=== PATIENT | male | born 1930 | race Hispanic/Latino ===

== ENCOUNTER 2017-07-08 22:24 | Inpatient (IN) | payer MEDICARE ==
[2017-07-08 22:24] VITALS: BMI 34.9
[2017-07-08 23:57] LABS: ARTERIAL BLOOD GAS HCO3 27.2 mmol/L (21-28); ARTERIAL BLOOD GAS HEMOGLOBIN 10.8 g/dL (11.7-17.4); ARTERIAL BLOOD GAS O2 CAPACITY 14.8 mL/dl (16-24); ARTERIAL BLOOD GAS O2 CONTENT 14.3 ML/dl (15-23); ARTERIAL BLOOD GAS O2 SAT 96.6 % (95-98); ARTERIAL BLOOD GAS PCO2 41 mm/Hg (35-45); ARTERIAL BLOOD GAS PH 7.43 (7.35-7.45); ARTERIAL BLOOD GAS TCO2 28.5 mmol.L (22-28)
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
[2017-07-09 00:27] LABS: HEMOGLOBIN 10.7 g/dL (14.0-18.0); MEAN CELL VOLUME 95.1 fl (80.0-105.0); MEAN CORPUSCULAR HEMOGLOBIN 30.6 pg (25.0-35.0); MEAN CORPUSCULAR HGB CONC 32.1 g/dl (31.0-37.0); MEAN PLATELET VOLUME 9.7 fl (7.0-11.0); RBC 3.5 10^6/uL (3.5-6.1); RED CELL DISTRIBUTION WIDTH 15.4 % (11.5-14.5); WHITE BLOOD COUNT 3.3 10^3/ul (4.5-11.0)
[2017-07-09 00:35] LABS: INR 1.24 (0.93-1.08); PARTIAL THROMBOPLASTIN TIME 36.6 Seconds (25.1-36.5); PROTHROMBIN TIME 14.2 SECONDS (9.4-12.5)
[2017-07-09 00:45] LABS: TROPONIN I 0.04 ng/mL
[2017-07-09 01:00] LABS: ALB/GLOB RATIO 1.3 (1.1-1.8); ALBUMIN 3.2 g/dL (3.0-4.8); ALT/SGPT 35 U/L (7-56); AST/SGOT 35 U/L (17-59); BLOOD UREA NITROGEN 20 mg/dL (7-21); CALCIUM 8.6 mg/dL (8.4-10.5); GFR AFRICAN-AMERICAN > 60; GFR NON-AFRICAN AMERICAN > 60
--- NOTE | 2017-07-09 01:56 | CT ---
EXAM: CT Head Without Intravenous Contrast EXAM DATE/TIME: 07/08/2017 11:38 PM CLINICAL HISTORY: The patient age is 86 years old and is male; Signs and symptoms; Altered mental status/memory loss; Additional info: [facility] Facility exam id and description: Ct heads head w/o contrast TECHNIQUE: Axial computed tomography images of the head/brain without intravenous contrast. All CT scans at this facility use one or more dose reduction techniques, viz.: automated exposure control; ma/kV adjustment per patient size (including targeted exams where dose is matched to indication; i.e. head); or iterative reconstruction technique. Coronal and sagittal reformatted images were created and reviewed. COMPARISON: CT - HEAD W/O CONTRAST 2016-09-14 10:00 FINDINGS: Brain: There are bands of high density within the superior frontoparietal convexities, likely contributed by motion artifact. Hemorrhage is considered less likely. There is no acute intracranial hemorrhage on the remainder of the study. There are scattered foci of hypodensity within the cerebral white matter, likely representing small vessel ischemic disease in a patient this age. The acuity of the white matter disease is indeterminate. There are calcifications within the globus pallidus bilaterally, which are likely physiologic. The white-willoughby differentiation is preserved demonstrating no acute territorial type infarct. There is mild to moderate prominence of the ventricles and sulci, compatible with atrophy. Midline shift: There is no midline shift. Ventricles: See above. Bones/joints: The calvarium demonstrates no evidence for a depressed fracture. There is a focal area of thinning of the superior left parietal skull versus a hypodense lesion. This is stable compared to the prior study. Soft tissues: No acute abnormality. Vasculature: There is atherosclerotic calcification of the cavernous internal carotid arteries, basilar artery, and distal vertebral arteries. Sinuses: A small mucous retention cyst or polyp is visualized within the left maxillary sinus. There is mucosal thickening of the left frontal sinus and scattered ethmoid air cells. Mastoid air cells: No mastoid effusion. IMPRESSION: 1. There are bands of high density within the superior frontoparietal convexities, likely contributed by motion artifact. Hemorrhage is considered less likely. If the patient has a history of recent trauma, a repeat CT is recommended. 2. No acute territorial type infarct. 3. There are scattered foci of hypodensity within the cerebral white matter, likely representing small vessel ischemic disease in a patient this age. 4. Mild to moderate atrophy. 5. Paranasal sinus disease is noted above.
[2017-07-09 01:58] LABS: PH,URINE 6.5 (4.7-8.0); URINE BILIRUBIN NEGATIVE (NEGATIVE); URINE BLOOD SMALL (NEGATIVE); URINE GLUCOSE (UA) NEGATIVE (NEGATIVE); URINE LEUKOCYTE ESTERASE NEGATIVE Leu/uL (NEGATIVE); URINE NITRATE NEGATIVE (NEGATIVE); URINE PROTEIN TRACE mg/dL (<30 mg/dL); URINE UROBILINOGEN 0.2 E.U./dL (<1 E.U./dL)
[2017-07-09 02:05] LABS: URINE APPEARANCE CLEAR (CLEAR); URINE COLOR YELLOW (YELLOW)
[2017-07-09 02:12] LABS: URINE EPITHELIAL CELLS 0 - 2 /hpf (0-5); URINE WBC 0 - 2 /hpf (0-6)
[2017-07-09 02:13] LABS: URINE HYALINE CAST 0 - 2 /hpf
[2017-07-09 09:41] LABS: BASO # 0.04 K/mm3 (0.0-2.0); BASO % 1.4 % (0.0-3.0); EOS # 0.1 (0.0-0.7); EOS % 2.8 % (1.5-5.0); GRAN # 1.04 (1.4-6.5); GRAN % 36.4 % (50.0-68.0); HEMOGLOBIN 11.2 g/dL (14.0-18.0); LYMPH % 34.6 % (22.0-35.0); MEAN CORPUSCULAR HEMOGLOBIN 30.5 pg (25.0-35.0); MEAN CORPUSCULAR HGB CONC 32.5 g/dl (31.0-37.0); MEAN PLATELET VOLUME 9.8 fl (7.0-11.0); MONO # 0.7 (0.1-0.6); MONO % 24.8 % (1.0-6.0); PLATELET COUNT 66 10^3/uL (120.0-450.0); RBC 3.67 10^6/uL (3.5-6.1); RED CELL DISTRIBUTION WIDTH 15.2 % (11.5-14.5)
--- NOTE | 2017-07-09 09:43 | RAD ---
HISTORY: ams COMPARISON: 12/30/2011 FINDINGS: LUNGS: No active pulmonary disease. PLEURA: No significant pleural effusion identified, no pneumothorax apparent. CARDIOVASCULAR: Mild cardiomegaly. Aortic tortuosity OSSEOUS STRUCTURES: Sternal wires VISUALIZED UPPER ABDOMEN: Normal. OTHER FINDINGS: None. IMPRESSION: No active disease.
[2017-07-09] MEDS ORDERED: Potassium Chloride 20 mEq ER Tab PO SCH (10:00)
[2017-07-09 10:10] LABS: WHITE BLOOD COUNT 2.9 10^3/ul (4.5-11.0)
[2017-07-09 10:12] LABS: T3 UPTAKE 36.9 % (23.0-41.0); T4 5.4 ug/dL (5.5-11.0)
[2017-07-09] MEDS: Cholestyramine 4 gm/Pkt UD PO SCH (10:53)
[2017-07-09] MEDS: Levothyroxine 50 MCG TAB PO SCH (10:54)
[2017-07-09 10:56] LABS: BAND 5 % (0-2); BASOPHIL 1 % (0.0-1.0); EOSINOPHIL 2 % (0.0-3.0); LYMPHOCYTE 29 % (22.0-35.0); MONOCYTE 13 % (1.0-6.0); NEUTROPHIL 50 % (50.0-70.0); PLATELET ESTIMATE LOW (NORMAL)
[2017-07-09 10:57] LABS: ANISOCYTOSIS SLIGHT; HYPOCHROMIA SLIGHT; OVALOCYTES SLIGHT; TEAR DROP CELLS SLIGHT
--- NOTE | 2017-07-09 13:18 | CP.PCM.PCO ---
Physician Communication Note - Physician Communication Note Physician Communication Note: Dementia. Would rec aricept 10mg and Namenda 10 mg po daily. Needsplacment
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
[2017-07-09 17:30] LABS: FOLATE > 20.0 ng/mL
--- NOTE | 2017-07-09 22:01 | CARD ---
APPROVED REPORT EKG Measurement Heart [id number] <Conclusion> Sinus bradycardia Left axis deviation Incomplete left bundle branch block Abnormal ECG
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
[2017-07-10 07:15] LABS: MEAN CELL VOLUME 92.9 fl (80.0-105.0); MEAN CORPUSCULAR HEMOGLOBIN 30.1 pg (25.0-35.0); MEAN CORPUSCULAR HGB CONC 32.4 g/dl (31.0-37.0); MEAN PLATELET VOLUME 9.7 fl (7.0-11.0); RBC 3.65 10^6/uL (3.5-6.1); RED CELL DISTRIBUTION WIDTH 15.1 % (11.5-14.5)
[2017-07-10 07:24] LABS: ALB/GLOB RATIO 1.2 (1.1-1.8); ALBUMIN 2.8 g/dL (3.0-4.8); ALT/SGPT 31 U/L (7-56); AST/SGOT 29 U/L (17-59); BLOOD UREA NITROGEN 20 mg/dL (7-21); CALCIUM 8.7 mg/dL (8.4-10.5); GFR AFRICAN-AMERICAN > 60; GFR NON-AFRICAN AMERICAN > 60
[2017-07-10 07:35] LABS: WHITE BLOOD COUNT 2.6 10^3/ul (4.5-11.0)
[2017-07-10] MEDS: Cholestyramine 4 gm/Pkt UD PO SCH (10:18)
[2017-07-10] MEDS: Levothyroxine 50 MCG TAB PO SCH (10:18)
[2017-07-10] MEDS ORDERED: Barium Sulfate Susp 2.1% w/v, 2.0% w/w 450 mL Bottle PO ONE (11:52)
[2017-07-10] MEDS: Insulin Reg-LOW-Coverage SC SCH ×3 (14:36→23:17)
--- NOTE | 2017-07-10 14:38 | PN ---
DATE: SUBJECTIVE: An 86-year-old male on one-to-one. Nursing staff relates that during the night, the patient attempted to get up and walk to the elevator. PHYSICAL EXAMINATION VITAL SIGNS: Temperature is 97.6, his blood pressure is 171/80, pulse is 68, his respiratory rate is 19, his oxygen saturation is 98% on room air. GENERAL: Resting in bed quietly at this time. HEART: S1 and S2 rhythm. ABDOMEN: Soft, scaphoid. Positive bowel sounds. LUNGS: Clear. EXTREMITIES: Show no evidence of edema. LABORATORY DATA: Shows a WBC of 2.6, RBC 3.65, hemoglobin 11, hematocrit 33.9. Platelet count is 67,000, the manual platelet count the day before was 120,000. His chemistry shows normal electrolytes. The chloride is 108, LFTs are normal. Patient has an albumin of 2.8, B12 is 688, folate of 20, TSH is 1.77. ASSESSMENT AND PLAN 1. Patient has been seen by Neurology. We are awaiting for final recommendations. He carries a diagnosis of dementia. 2. He has been seen by GI with a history of carcinoid, evaluation is in progress. 3. Oncology has seen the patient for his leukopenia. Studies had been requested to rule out the possibility of an underlying myeloproliferative disorder. 4. He has a history of coronary artery disease, cholecystectomy, gouty arthritis, carcinoid of the duodenum. Physical therapy request has been placed. We will continue current level of care. Follow the patient as with the other consultants recommendations. Andreia Phillips MD
--- NOTE | 2017-07-10 15:05 | CON ---
DATE: 07/10/2017 This is an 86-year-old man with several hematological problems: 1. His white count has been dropping 2.3, 2.9, 2.6. The differential shows increasing monocytes. His granulocytes is 36%, monocytes is 24%, and lymphs 34%. I ordered a flow cytometry to evaluate the lymphocytosis and monocytosis present here and lymphoproliferative disorder. 2. The patient has a platelet count of about 65,000; however, the manual is 120,000 and I suspect there is some clumping of the platelets here. I will take another look at the peripheral smear. Hemoglobin is 11 with MCV of about 94, so I ordered a flow cytometry as well. The second thing is that is his total protein is low at 5.2 with an albumin of 2.8 and globulin of 2.4. So, I ordered immunoelectrophoresis and quantitative IgG, IgA, and IgM to evaluate this and we will see what the labs show soon enough. Magen Holland MD
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
[2017-07-10 16:51] LABS: IMMUNOGLOBULIN A 194.5 mg/dL (70.0-400.0); IMMUNOGLOBULIN G 671.2 mg/dL (700.0-1600.0); IMMUNOGLOBULIN M 75.4 mg/dL (40.0-230.0)
--- NOTE | 2017-07-10 17:04 | CP.PCM.PN ---
<Nikkie Burrell - Last Filed: 07/10/17 17:02> Subjective - Date & Time of Evaluation Date of Evaluation: 07/10/17 Time of Evaluation: 10:10 - Subjective Subjective: S&E at bedside, chart reviewed, agitated last night given meds, lethargic but currently awake , remains 1:1 supervision. Tolerated some of breakfast. Objective - Vital Signs/Intake and Output Vital Signs (last 24 hours): Temp Pulse Resp BP Pulse Ox 97.6 F 68 19 171/80 H 98 07/10/17 08:06 07/10/17 10:15 07/10/17 08:06 07/10/17 10:16 07/10/17 08:06 Intake and Output: 07/10/17 07/10/17 06:59 18:59 Intake Total 0 Output Total 0 Balance 0 - Medications Medications: Current Medications Amlodipine Besylate (Norvasc) 10 mg PO DAILY [facility] Last Admin: 07/10/17 10:16 Dose: 10 mg Cholestyramine Resin (Questran) 4 gm PO DAILY [facility] Last Admin: 07/10/17 10:18 Dose: 4 gm Insulin Human Regular (Humulin R Low) 0 units SC [facility] PRN Reason: Protocol Last Admin: 07/10/17 14:36 Dose: Not Given Levothyroxine Sodium (Synthroid) 50 mcg PO DAILY [facility] Last Admin: 07/10/17 10:18 Dose: 50 mcg Memantine (Namenda) 10 mg PO DAILY [facility] Metoprolol Tartrate (Lopressor) 50 mg PO DAILY [facility] Last Admin: 07/10/17 10:15 Dose: 50 mg Quetiapine Fumarate (Seroquel) 25 mg PO [facility] PRN Reason: Protocol Repaglinide (Prandin) 1 mg PO TID [facility] Last Admin: 07/10/17 10:17 Dose: 1 mg - Labs Labs: 07/10/17 06:30 07/10/17 06:30 PT 14.2 SECONDS (9.4-12.5) H 07/08/17 23:48 INR 1.24 (0.93-1.08) H 07/08/17 23:48 APTT 36.6 Seconds (25.1-36.5) H 07/08/17 23:48 - Constitutional Appears: No Acute Distress - Head Exam Head Exam: NORMOCEPHALIC - Eye Exam Eye Exam: Normal appearance. absent: Scleral icterus - ENT Exam ENT Exam: Mucous Membranes Moist - Neck Exam Neck Exam: Normal Inspection - Respiratory Exam Respiratory Exam: NORMAL BREATHING PATTERN. absent: Respiratory Distress - Cardiovascular Exam Cardiovascular Exam: +S1, +S2 - GI/Abdominal Exam GI & Abdominal Exam: Soft, Normal Bowel Sounds. absent: Guarding, Tenderness, Organomegaly, Rebound - Extremities Exam Extremities Exam: absent: Calf Tenderness - Neurological Exam Neurological Exam: Altered (confused), Awake - Skin Skin Exam: Dry, Warm Assessment and Plan - Assessment and Plan (Free Text) Assessment: Assessment: Altered mental status, history of dementia Elevated chromogranin A level, history of duodenal carcinoid History of weight loss History of prostate cancer status post radiation History of diabetes mellitus type 2 History of hypertension History of coronary artery disease Thrombocytopenia Plan: Diet as tolerated Continue Questran CT scan of abdomen and pelvis with only oral contrast Neurology following Hematology FU Seen and discussed with Dr. Yadav. <Aníbal Yadav V - Last Filed: 07/10/17 23:30> Objective - Vital Signs/Intake and Output Vital Signs (last 24 hours): Temp Pulse Resp BP Pulse Ox 97.6 F 60 18 118/73 100 07/10/17 16:00 07/10/17 16:00 07/10/17 16:00 07/10/17 16:00 07/10/17 16:00 - Medications Medications: Current Medications Amlodipine Besylate (Norvasc) 10 mg PO DAILY [facility] Last Admin: 07/10/17 10:16 Dose: 10 mg Cholestyramine Resin (Questran) 4 gm PO DAILY [facility] Last Admin: 07/10/17 10:18 Dose: 4 gm Insulin Human Regular (Humulin R Low) 0 units SC [facility] PRN Reason: Protocol Last Admin: 07/10/17 23:17 Dose: Not Given Levothyroxine Sodium (Synthroid) 50 mcg PO DAILY [facility] Last Admin: 07/10/17 10:18 Dose: 50 mcg Memantine (Namenda) 10 mg PO DAILY [facility] Last Admin: 07/10/17 17:28 Dose: 10 mg Metoprolol Tartrate (Lopressor) 50 mg PO DAILY [facility] Last Admin: 07/10/17 10:15 Dose: 50 mg Quetiapine Fumarate (Seroquel) 25 mg PO [facility] PRN Reason: Protocol Last Admin: 07/10/17 21:44 Dose: 25 mg Repaglinide (Prandin) 1 mg PO TID [facility] Last Admin: 07/10/17 17:28 Dose: 1 mg - Labs Labs: 07/10/17 06:30 07/10/17 06:30 PT 14.2 SECONDS (9.4-12.5) H 07/08/17 23:48 INR 1.24 (0.93-1.08) H 07/08/17 23:48 APTT 36.6 Seconds (25.1-36.5) H 07/08/17 23:48 Attending/Attestation - Attestation I have personally seen and examined this patient.: Yes I have fully participated in the care of the patient.: Yes I have reviewed all pertinent clinical information, including history, physical exam and plan: Yes Notes (Text): This is an addendum to GI progress report dictated by Nikkie Burrell APN.The patient was seen and examined earlier. Medical records, lab studies, imagings were reviewed. Last 24 hours events reviewed. Agreed with the above treatment plan as outlined in Nikkie Burrell APN's notes the with the addition of the following he 07/10/17 23:29
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
[2017-07-11 06:26] LABS: BASO # 0.01 K/mm3 (0.0-2.0); BASO % 0.4 % (0.0-3.0); EOS # 0.2 (0.0-0.7); EOS % 7.5 % (1.5-5.0); GRAN # 0.82 (1.4-6.5); GRAN % 32.4 % (50.0-68.0); HEMOGLOBIN 11.3 g/dL (14.0-18.0); LYMPH # 1.1 (1.2-3.4); LYMPH % 44.3 % (22.0-35.0); MEAN CELL VOLUME 92.6 fl (80.0-105.0); MEAN CORPUSCULAR HEMOGLOBIN 30.1 pg (25.0-35.0); MEAN CORPUSCULAR HGB CONC 32.5 g/dl (31.0-37.0); MEAN PLATELET VOLUME 9.7 fl (7.0-11.0); MONO # 0.4 (0.1-0.6); MONO % 15.4 % (1.0-6.0); RBC 3.76 10^6/uL (3.5-6.1); RED CELL DISTRIBUTION WIDTH 15.1 % (11.5-14.5)
[2017-07-11 06:29] LABS: WHITE BLOOD COUNT 2.5 10^3/ul (4.5-11.0)
[2017-07-11 06:48] LABS: BLOOD UREA NITROGEN 19 mg/dL (7-21); CALCIUM 8.5 mg/dL (8.4-10.5); GFR AFRICAN-AMERICAN > 60; GFR NON-AFRICAN AMERICAN > 60
[2017-07-11] MEDS: Insulin Reg-LOW-Coverage SC SCH ×3 (10:09→17:36)
[2017-07-11] MEDS: Cholestyramine 4 gm/Pkt UD PO SCH (10:14)
[2017-07-11] MEDS: Levothyroxine 50 MCG TAB PO SCH (10:15)
--- NOTE | 2017-07-11 10:48 | PN ---
DATE: SUBJECTIVE: An 86-year-old male, resting in bed this morning. Nursing staff relates that he was a bit confused and agitated during the night. PHYSICAL EXAMINATION VITAL SIGNS: His temp is 97.6, his pulse is 60, his blood pressure is 118/73, oxygen saturation is reported as 100% on room air. GENERAL: He is alert. LUNGS: Clear. HEART: S1 and S2 rhythm. ABDOMEN: Obese, soft with positive bowel sounds. EXTREMITIES: Show no evidence of edema. LABORATORY DATA: Shows a WBC of 2.5, RBC 3.76, hemoglobin 11.3, hematocrit 34.8, platelet count is 76,000. Chemistry shows normal electrolytes. His BUN is 19, his creatinine is 1, his blood sugar is 62. Immunological study showed an IgG of 671.2, IgA 194.5, IgM is 75.4. A flow cytometry study is pending. Abdominal CAT scan results have noted. I will review with GI. ASSESSMENT AND PLAN: The patient has a history of carcinoid. Oncology is following the patient. Flow cytometry study is pending. He has underlying dementia, being followed by Neurology. He has been placed on Namenda. He is on Seroquel twice a day. He has hypothyroid disease with supplementation, hypertension, dve-znbiufb-lstqjolpa diabetes. Psychiatry consult has been requested and is pending at this time. Physical Therapy evaluation has been requested. Family is aware of the patient's clinical status at this point. Discussion has been initiated regarding long-term plans. Andreia Phillips MD
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
--- NOTE | 2017-07-11 17:14 | US ---
HISTORY: liver lesion/attn liver COMPARISON: Comparison is made with the previous CT dated 07/10/2017 TECHNIQUE: Sonographic evaluation of the abdomen. FINDINGS: LIVER: Measures 16 point cell cm. Heterogeneous ink echogenicity of the liver parenchyma. The previously noted low-attenuation lesion of the right liver lobe in the previous CT is not seen in the current exam. GALLBLADDER: Status post cholecystectomy. COMMON BILE DUCT: Measures 6.3 mm. No stones. No dilatation. PANCREAS: The pancreas is partially visualized due to overlying bowel gas. RIGHT KIDNEY: Measures 10.2 x 5.9 x 3.8cm. Mild increased echogenicity of the kidney noted. There are cystic lesions seen at the renal cortex. The largest cyst measures 2.6 x 2.1 x 2.6 centimeter. There is also echogenic focus at the midpole right kidney cortex measures 4 millimeter. LEFT KIDNEY: Measures 10.2 x 5.2 x 6cm. There is isoechoic mass lesion at the midpole of the left kidney measures 2.3 x 2.1 x 1.7 centimeter. SPLEEN: Normal in size and contour. No mass. AORTA: No aneurysmal dilatation. IVC: Unremarkable. OTHER FINDINGS: Incidentally noted are small bilateral pleural effusions IMPRESSION: Heterogeneous echogenic liver. Previously noted low-attenuation lesion at the right liver lobe in the previous CT is not clearly seen in the current exam. Solid soft tissue mass noted at the midpole left kidney. The possibility of primary or less likely secondary neoplasm should be considered.
[2017-07-11] MEDS: VITEYES PO SCH (17:36)
--- NOTE | 2017-07-11 18:06 | CP.PCM.PN ---
Subjective - Date & Time of Evaluation Date of Evaluation: 07/11/17 Time of Evaluation: 10:15 - Subjective Subjective: Seen and examined at the bedside earlier today, chart review. Patient went for a CT scan of abdomen and pelvis yesterday reporting 15 mm hypodense lesion in the right lobe of the liver, enlarged inguinal lymph nodes and cluster embolization coils in the head of the pancreas, producing metallic artifact. Patient denies nausea, vomiting, or abdominal pain. Patient reports having bowel movement, staff does not recall any EM. Patient is on one-to-one observation. No reports of any overt GI bleed. Patient is awake and alert with periods of confusion. Objective - Vital Signs/Intake and Output Vital Signs (last 24 hours): Temp Pulse Resp BP Pulse Ox 97.6 F 61 19 160/76 H 96 07/11/17 06:00 07/11/17 10:09 07/11/17 06:00 07/11/17 10:13 07/11/17 06:00 Intake and Output: 07/11/17 07/11/17 06:59 18:59 Intake Total 0 Balance 0 - Medications Medications: Current Medications Amlodipine Besylate (Norvasc) 10 mg PO DAILY [facility] Last Admin: 07/11/17 10:13 Dose: 10 mg Cholestyramine Resin (Questran) 4 gm PO DAILY [facility] Last Admin: 07/11/17 10:14 Dose: 4 gm Home Med (Home Med) 1 unit PO DAILY [facility] Last Admin: 07/11/17 17:36 Dose: 1 unit Insulin Human Regular (Humulin R Low) 0 units SC [facility] PRN Reason: Protocol Last Admin: 07/11/17 17:36 Dose: Not Given Levothyroxine Sodium (Synthroid) 50 mcg PO DAILY [facility] Last Admin: 07/11/17 10:15 Dose: 50 mcg Memantine (Namenda) 10 mg PO DAILY [facility] Last Admin: 07/11/17 10:12 Dose: 10 mg Metoprolol Tartrate (Lopressor) 50 mg PO DAILY [facility] Last Admin: 07/11/17 10:09 Dose: 50 mg Quetiapine Fumarate (Seroquel) 25 mg PO [facility] PRN Reason: Protocol Last Admin: 07/11/17 10:14 Dose: 25 mg Repaglinide (Prandin) 1 mg PO TID [facility] Last Admin: 07/11/17 17:37 Dose: 1 mg - Labs Labs: 07/11/17 05:30 07/11/17 05:30 PT 14.2 SECONDS (9.4-12.5) H 07/08/17 23:48 INR 1.24 (0.93-1.08) H 07/08/17 23:48 APTT 36.6 Seconds (25.1-36.5) H 07/08/17 23:48 - Constitutional Appears: No Acute Distress - Eye Exam Eye Exam: Scleral icterus. absent: Normal appearance - ENT Exam ENT Exam: Mucous Membranes Moist - Neck Exam Neck Exam: Normal Inspection - Respiratory Exam Respiratory Exam: NORMAL BREATHING PATTERN. absent: Respiratory Distress - Cardiovascular Exam Cardiovascular Exam: +S1, +S2 - GI/Abdominal Exam GI & Abdominal Exam: Soft, Normal Bowel Sounds. absent: Guarding, Tenderness, Rebound - Extremities Exam Extremities Exam: Pedal Edema (bilateral lower extremity edema appears to be improving). absent: Calf Tenderness - Neurological Exam Neurological Exam: Alert, Awake, Oriented x3 (confused at times) - Skin Skin Exam: Dry, Warm Assessment and Plan - Assessment and Plan (Free Text) Assessment: Assessment: Altered mental status, history of dementia 15 mm hypodense hepatic lesion in the right lower lobe Elevated chromogranin A level, history of duodenal carcinoid History of weight loss History of prostate cancer status post radiation History of diabetes mellitus type 2 History of hypertension History of coronary artery disease Thrombocytopenia Plan: Diet as tolerated on Questran 4 g, monitor stools, if patient straining or stools are hard decrease Questran, discussed with nursing staff Abdominal ultrasound, attention liver Neurology following Hematology FU Seen and discussed with Dr. Yadav.
[2017-07-12 08:00] LABS: BASO # 0.02 K/mm3 (0.0-2.0); BASO % 0.7 % (0.0-3.0); EOS # 0.2 (0.0-0.7); EOS % 5.7 % (1.5-5.0); GRAN # 0.87 (1.4-6.5); GRAN % 31.2 % (50.0-68.0); HEMOGLOBIN 12.3 g/dL (14.0-18.0); LYMPH # 1.4 (1.2-3.4); LYMPH % 50.2 % (22.0-35.0); MEAN CELL VOLUME 93.1 fl (80.0-105.0); MEAN CORPUSCULAR HEMOGLOBIN 30.4 pg (25.0-35.0); MEAN CORPUSCULAR HGB CONC 32.6 g/dl (31.0-37.0); MEAN PLATELET VOLUME 10.5 fl (7.0-11.0); MONO # 0.3 (0.1-0.6); MONO % 12.2 % (1.0-6.0); RBC 4.05 10^6/uL (3.5-6.1); RED CELL DISTRIBUTION WIDTH 14.9 % (11.5-14.5)
[2017-07-12 08:02] LABS: WHITE BLOOD COUNT 2.8 10^3/ul (4.5-11.0)
[2017-07-12] MEDS: Insulin Reg-LOW-Coverage SC SCH ×4 (08:29→22:46)
[2017-07-12] MEDS: VITEYES PO SCH (10:30)
[2017-07-12] MEDS: Cholestyramine 4 gm/Pkt UD PO SCH (10:32)
[2017-07-12] MEDS: Levothyroxine 50 MCG TAB PO SCH (10:32)
--- NOTE | 2017-07-12 14:01 | PN ---
DATE: SUBJECTIVE: This is an 86-year-old man is resting in bed quietly this morning. OBJECTIVE: Temperature is 97.5, his pulse is 50. His blood pressure is 154/77, respiratory rate is 20, oxygen saturation is 99%. LABORATORY DATA: Shows a WBC of 2.8, RBC of 4.05. Hemoglobin 12, hematocrit 37, platelet count 79,000 PHYSICAL EXAMINATION GENERAL: The patient is awake, alert. LUNGS: Clear. HEART: Is in S1, S2 rhythm. ABDOMEN: Soft, scaphoid. Positive bowel sounds. EXTREMITIES: No evidence of edema. ASSESSMENT AND PLAN 1. The patient is currently being followed by Neurology for his underlying dementia history. 2. He has leukopenia and evaluation is in progress. 3. GI is following the patient for history of carcinoid of the duodenum. Diagnostic studies of the CAT scan and ultrasound of the abdomen have been noted and we are awaiting input from Oncology and GI regarding recommendations for further management. We will continue with Physical Therapy and monitoring and continue care as per the individual consultants. 4. The patient has a history of coronary artery disease, cholecystectomy, gouty arthritis, dementia, carcinoid of the duodenum, leukopenia, thrombocytopenia. 5.Diabetes hold meds,IV fluids,Endocrine consult 6.Staff asked to facilitate eating 7.Care planning Andreia Phillips MD MTDD
[2017-07-12] MEDS ORDERED: Dextrose 50% SYRINGE Inj (50 ml) ONE (16:48)
[2017-07-12] MEDS: Dextrose 5%/0.45% NS 1,000 ML IV SCH (18:24)
--- NOTE | 2017-07-12 23:08 | CON ---
DATE: HISTORY OF PRESENT ILLNESS: The patient is an 86-year-old white male with a known history of dementia, who is being followed by Psychiatry for possible depression and as well confusion. The patient was initially seen by Dr. Villatoro and the provider is following up with the patient over the weekend. I agree with Dr. Villatoro that the patient does tend to ramble and goes up on engines; however, he can be redirected. He is a cool historian though he is oriented to month, year and location. Appears irritable and he indicates that he is depressed and frustrated because "they keep changing things on me". The patient is preoccupied with the fact that he is being given the OJ, which can worsen his stomach and history of diarrhea. The patient also indicates that he has a medication regimen that he takes at home that helps with his diarrhea, does not say that the medical team is addressing this well. The patient appears that he will have stomach issues and more diarrhea if he does not get his correct medication given to him in the hospital. The patient denies hallucinations. He can be repetitive, but he does not appear to be responding to internal stimuli. He does not want to . Denies having suicidal thoughts. He voices this consistently and repetitively. Staff notes indicate that he does have periods of confusion, but generally has been in good control and one-to-one was able to be discontinued. Insight and judgment are still continuing to be poor, but they are improving. . Vital signs and labs were reviewed by this provider. Attached medications include Seroquel 25 mg p.o. a.m. and at bedtime, which the patient received 2 doses yesterday and 1 dose this morning. 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 RECOMMENDATIONS: We will continue with current medication Seroquel 25 mg p.o. a.m. and at bedtime scheduled. There is no acute indication to change this medication at this time. Psychiatry will follow up every other day. Please feel free to request an early consult if there are any changes in the patient's presentation. Psychiatry will follow up on Friday, the 14 of July. Marifer Emery MD [facility] # [id number]
[2017-07-12] MEDS ORDERED: Dextrose 50% SYRINGE Inj (50 ml) IVP ONE (23:43)
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
[2017-07-13 07:30] LABS: BASO # 0.03 K/mm3 (0.0-2.0); BASO % 1.2 % (0.0-3.0); EOS # 0.1 (0.0-0.7); EOS % 5.5 % (1.5-5.0); GRAN # 0.79 (1.4-6.5); GRAN % 31.1 % (50.0-68.0); HEMOGLOBIN 11.2 g/dL (14.0-18.0); LYMPH # 1.2 (1.2-3.4); LYMPH % 48.8 % (22.0-35.0); MEAN CELL VOLUME 92.7 fl (80.0-105.0); MEAN CORPUSCULAR HEMOGLOBIN 30.4 pg (25.0-35.0); MEAN CORPUSCULAR HGB CONC 32.7 g/dl (31.0-37.0); MEAN PLATELET VOLUME 9.6 fl (7.0-11.0); MONO # 0.3 (0.1-0.6); MONO % 13.4 % (1.0-6.0); RBC 3.69 10^6/uL (3.5-6.1)
[2017-07-13] MEDS: Insulin Reg-LOW-Coverage SC SCH ×4 (07:34→23:38)
[2017-07-13 07:38] LABS: WHITE BLOOD COUNT 2.5 10^3/ul (4.5-11.0)
[2017-07-13 07:42] LABS: ALB/GLOB RATIO 1.2 (1.1-1.8); ALBUMIN 2.8 g/dL (3.0-4.8); ALT/SGPT 27 U/L (7-56); AST/SGOT 35 U/L (17-59); BLOOD UREA NITROGEN 22 mg/dL (7-21); CALCIUM 8.3 mg/dL (8.4-10.5); GFR AFRICAN-AMERICAN > 60; GFR NON-AFRICAN AMERICAN > 60
[2017-07-13] MEDS: VITEYES PO SCH (09:34)
[2017-07-13] MEDS: Cholestyramine 4 gm/Pkt UD PO SCH (09:36)
[2017-07-13] MEDS: Levothyroxine 50 MCG TAB PO SCH (09:37)
--- NOTE | 2017-07-13 12:19 | PN ---
DATE: SUBJECTIVE: An 86-year-old male sitting in the chair this morning. PHYSICAL EXAMINATION: VITAL SIGNS: Temp is 98, pulse is 58, blood pressure is 147/73, respiratory rate is 20, oxygen sat is 96%. LUNGS: Clear. HEART: S1, S2. ABDOMEN: Obese, soft. Positive bowel sounds. EXTREMITIES: No evidence of edema. NEUROLOGIC: The patient is oriented to name. LABORATORY DATA: His WBC is 2.5, his RBC is 3.69, hemoglobin of 11.2, hematocrit 34.2, platelet count is 77,000. Chemistry shows normal electrolytes, his chloride is 109, his BUN is 22, his creatinine is 1, his blood sugar is 78. LFTs are normal. ASSESSMENT AND PLAN: 1. Patient had an episode of hypoglycemia. He has been placed on D5 half normal saline. His sugar medication has been stopped. He is on a fingerstick coverage as per Endocrinology and an endocrine consult has been requested. Monitor the patient's blood sugar. Also it has been encouraged to monitor the patient's intake and he has not been eating as much as per reported by the nurses. Nursing staff has been encouraged to please encourage the patient to eat and to assist. 2. He has underlying dementia, being followed by Neurology. 3. Patient has leukopenia and thrombocytopenia. Oncology consult followup is pending. 4. Patient was found to have a CAT scan of the abdomen, which showed a lesion on the liver. Gastrointestinal consult followup is pending. Patient has a history of carcinoid in duodenum, jcq-kofkdmh-augxklyus diabetes, coronary artery disease, gouty arthritis, dementia, cholecystectomy, hypertension, hypothyroid disease. Continue current level of supportive care. Await input from the individual consultants. Long-term care plans have been discussed with the family. Andreia Phillips MD
--- NOTE | 2017-07-13 18:55 | PN ---
DATE: ENDOCRINOLOGY FOLLOWUP NOTE LOCATION: In room 362. SUBJECTIVE: This is an 86-year-old male with recent symptomatic hypoglycemia and associated neuroglycopenic and hyperadrenergic manifestations, reversed by D50 bolus injections and ongoing dextrose infusion as given thereof overnight until today as noted. His glucose values have been still in the low side of normal because of the variability of his oral intake as noted and today's glucose values have ranged from 73 to 89 mg/dL. It was 35 at bedtime last night with an senior licensing manager glucose of 120. The latest chemistry showed a BUN of 22. Sodium 143, potassium 4.0, chloride 109, CO2 of 25. Glucose 78. Creatinine 1.0. His thyroid studies have remained near optimal and is also both clinically and by chemically euthyroid at this time. So for now, we will continue the dextrose infusion with D5 and half normal saline running at 75 mL/hour as ordered. We will hold off any kind of oral hypoglycemic drug therapy at this time and observe his glycemic fluctuations thereof. He has a very minimal coverage scale to glucose levels only about 300 mg/dL. So for now, we will continue the dextrose infusion as given and obtain serial chemistries and supplement accordingly as needed. We will follow and advise accordingly. Lori Carter MD
[2017-07-13] MEDS: Dextrose 5%/0.45% NS 1,000 ML IV SCH (21:55)
[2017-07-14 06:23] LABS: BASO # 0.02 K/mm3 (0.0-2.0); BASO % 0.8 % (0.0-3.0); EOS # 0.1 (0.0-0.7); EOS % 4.5 % (1.5-5.0); GRAN # 0.95 (1.4-6.5); GRAN % 35.9 % (50.0-68.0); HEMOGLOBIN 10.9 g/dL (14.0-18.0); LYMPH # 1.3 (1.2-3.4); LYMPH % 47.5 % (22.0-35.0); MEAN CELL VOLUME 92.4 fl (80.0-105.0); MEAN CORPUSCULAR HEMOGLOBIN 29.5 pg (25.0-35.0); MEAN PLATELET VOLUME 9.8 fl (7.0-11.0); MONO # 0.3 (0.1-0.6); MONO % 11.3 % (1.0-6.0); RBC 3.69 10^6/uL (3.5-6.1)
[2017-07-14 06:36] LABS: WHITE BLOOD COUNT 2.7 10^3/ul (4.5-11.0)
[2017-07-14 07:03] LABS: ALB/GLOB RATIO 1.2 (1.1-1.8); ALBUMIN 2.7 g/dL (3.0-4.8); ALT/SGPT 28 U/L (7-56); AST/SGOT 32 U/L (17-59); BLOOD UREA NITROGEN 20 mg/dL (7-21); CALCIUM 8.4 mg/dL (8.4-10.5); GFR AFRICAN-AMERICAN > 60; GFR NON-AFRICAN AMERICAN > 60
[2017-07-14 07:18] LABS: T4 6.6 ug/dL (5.5-11.0)
[2017-07-14] MEDS: Insulin Reg-LOW-Coverage SC SCH ×4 (08:48→22:05)
[2017-07-14] MEDS: VITEYES PO SCH (09:23)
[2017-07-14] MEDS: Levothyroxine 50 MCG TAB PO SCH (09:24)
[2017-07-14] MEDS: Cholestyramine 4 gm/Pkt UD PO SCH (09:32)
[2017-07-14] MEDS ORDERED: Lidocaine 1% Inj (20ml) IJ STA ×2 (11:04→15:48)
--- NOTE | 2017-07-14 12:59 | PN ---
DATE: SUBJECTIVE: An 86-year-old male sitting in the chair this morning, having breakfast. PHYSICAL EXAMINATION: VITAL SIGNS: Temperature is 98, pulse is 55, blood pressure is 151/67, respiratory rate is 20, oxygen saturation is 96% on room air. LUNGS: Clear. HEART: S1 and S2 rhythm. ABDOMEN: Obese, soft with positive bowel sounds. EXTREMITIES: Show no evidence of edema. LABORATORY DATA: Shows WBC of 2.7, RBC 3.69, hemoglobin 10.9, hematocrit 34.1, platelet count . Chemistry shows a normal electrolytes. BUN is 20, creatinine is 1. His LFTs are normal. His TSH level is 1.68. ASSESSMENT AND PLAN: 1. The patient is being followed by Endocrinology for hypoglycemia and jax-ytqzkbc-vjxzkmpdu diabetic. He is currently on intravenous fluids. We are monitoring his sugars and his intake. 2. The patient has a history of carcinoid of the duodenum with a recent CAT scan of the abdomen defining a lesion in the liver. Awaiting GI input regarding plan for management. 3. Leukopenia and thrombocytopenia. Peripheral blood study, flow cytometry study noted. We will wait Oncology's input regarding indications for further management, possible bone marrow biopsy. 4. He has underlying dementia with requirement for placement, which the family is working with the clinical social work aide and the case management. We will continue to follow the patient closely and monitor him along with the individual software sales consultant's recommendations. Andreia Phillips MD
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
--- NOTE | 2017-07-14 19:09 | PN ---
DATE: ENDOCRINOLOGY FOLLOWUP NOTE LOCATION: Room 362. SUBJECTIVE: This is an 86-year-old male presenting here with altered mental status and associated symptomatic hypoglycemia and is now improving clinically and metabolically as noted thereof. His glucose levels have ranged today from 84 to 106 mg/dL. The latest chemistry shows a BUN of 20, sodium 143, potassium 3.9, chloride 111, CO2 of 27, glucose 93, and creatinine 1.0. His repeat thyroid study shows a T4 of 6.6 with a TSH of 1.68. So, at this time, we will continue the dextrose infusion as given at least for today to optimize his endogenous pancreatic reserves. We will also continue the levothyroxine given as 50 mcg once daily in the morning before breakfast as ordered. We will obtain serial chemistry and supplement accordingly as needed. There is no indication, at this time, for any kind of low-dose oral hypoglycemic drug therapy as noted. We will obtain serial chemistry and supplement accordingly as needed. We will follow this. Lori Carter MD
--- NOTE | 2017-07-15 01:41 | CON ---
DATE: HEMATOLOGY CONSULTATION HISTORY OF PRESENT ILLNESS: This is an 86-year-old man with pancytopenia. The daughter was at the bedside with the patient. The patient was sitting up and is comfortable, but he does not really remember very much. He talks about the past many, many years ago, but he was comfortable. PHYSICAL EXAMINATION: SKIN: No petechiae. No bruises. HEENT: Anicteric. NODES: Nonpalpable in axillary, cervical, supraclavicular, or inguinal regions. LUNGS: Clear at present. No vertebral tenderness. HEART: S1 and S2. ABDOMEN: Shows no liver, no spleen, no tenderness, no rebound, no ascites. EXTREMITIES: Shows chronic changes of the skin, of chronic edema. ASSISTANT SECRETARY: No focal findings. Obi's sign is negative. IMPRESSION AND PLAN: He has pancytopenia. I explained to the daughter that he has a spotlessly responsive kidney, and also explained bone marrow problem that is not creating all the blood counts, and for this, I want to do a bone marrow aspiration biopsy and she agreed. So, she signed the consent and she was here at the bedside with me; and under sterile conditions with 1% lidocaine on the right posterior iliac crest, I performed a bone marrow aspiration biopsy without problems, and that was sent for flow cytometry and for morphology and for evaluation of the peripheral smears. This will take about a week to get back, and the daughter is aware of it as well as Dr. Phillips. Magen Holland MD
[2017-07-15] MEDS: Dextrose 5%/0.45% NS 1,000 ML IV SCH (05:18)
[2017-07-15 07:11] LABS: BASO # 0.03 K/mm3 (0.0-2.0); BASO % 0.9 % (0.0-3.0); EOS # 0.1 (0.0-0.7); EOS % 3.3 % (1.5-5.0); GRAN # 1.35 (1.4-6.5); GRAN % 40.7 % (50.0-68.0); HEMOGLOBIN 10.6 g/dL (14.0-18.0); LYMPH # 1.5 (1.2-3.4); LYMPH % 43.7 % (22.0-35.0); MEAN CELL VOLUME 92.1 fl (80.0-105.0); MEAN CORPUSCULAR HEMOGLOBIN 29.9 pg (25.0-35.0); MEAN CORPUSCULAR HGB CONC 32.4 g/dl (31.0-37.0); MEAN PLATELET VOLUME 8.7 fl (7.0-11.0); MONO # 0.4 (0.1-0.6); MONO % 11.4 % (1.0-6.0); RBC 3.55 10^6/uL (3.5-6.1); RED CELL DISTRIBUTION WIDTH 14.8 % (11.5-14.5); WHITE BLOOD COUNT 3.3 10^3/ul (4.5-11.0)
[2017-07-15 07:50] LABS: ALB/GLOB RATIO 1.1 (1.1-1.8); ALBUMIN 2.7 g/dL (3.0-4.8); ALT/SGPT 31 U/L (7-56); AST/SGOT 22 U/L (17-59); BLOOD UREA NITROGEN 19 mg/dL (7-21); CALCIUM 8.5 mg/dL (8.4-10.5); GFR AFRICAN-AMERICAN > 60; GFR NON-AFRICAN AMERICAN > 60
[2017-07-15] MEDS: Insulin Reg-LOW-Coverage SC SCH ×4 (08:07→21:53)
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
[2017-07-15] MEDS: VITEYES PO SCH (10:30)
[2017-07-15] MEDS: Levothyroxine 50 MCG TAB PO SCH (10:31)
[2017-07-15] MEDS: Cholestyramine 4 gm/Pkt UD PO SCH (10:31)
--- NOTE | 2017-07-15 13:08 | PN ---
DATE: SUBJECTIVE: An 86-year-old male resting in bed this morning. Nursing staff relates that there were no particular problems during the night. OBJECTIVE: VITAL SIGNS: His temperature is 98.7, his pulse is 52, his blood pressure is 165/80. GENERAL: He is alert. NECK: Supple. LUNGS: Clear. HEART: S1 and S2, rhythm. ABDOMEN: Soft with positive bowel sounds. EXTREMITIES: Show evidence of edema. LABORATORY DATA: Shows WBC of 3.3, RBC 3.55, hemoglobin 10.6, hematocrit 32.7, and platelet count 90,000. Chemistry shows normal electrolytes. His sodium is 143, potassium is 3.8, chloride 110. BUN is 19, creatinine is 1. His LFTs are normal. Patient's random blood sugar was 93. ASSESSMENT AND PLAN: The patient has underlying dementia, being followed by Neurology. He is currently on Seroquel and Namenda. He has underlying hypothyroid disease, on thyroid supplementation. He has underlying [id number] diabetes. He is being followed by Endocrinology, on IV fluid supplementation. His intake has been poor. He had been running low blood sugars. He continues on Lopressor for his blood pressure and Norvasc. He was found to have a pancytopenia, evaluation is in progress. He has also been found to have a lesion on his liver with a history of carcinoid of the duodenum. GI evaluation is in process. Patient's dementia will need long-term placement and the family is interacting with the case finishing machine adjuster and the social staff worker looking at this. Continue current level of care and continue recommendation as per the other consultants. Andreia Phillips MD
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
--- NOTE | 2017-07-15 19:36 | PN ---
DATE: ENDOCRINOLOGY FOLLOWUP NOTE LOCATION: Room 362. SUBJECTIVE: This is an 86-year-old male with recent altered mental status and supervening symptomatic hypoglycemia, previously on oral hypoglycemic drug therapy and is now being followed closely for metabolic management. His glycemic levels are much improved overnight and the glucose values have ranged from 93 to 102 mg/dL. His latest chemistry showed a BUN of 19, sodium 140, potassium 3.8, chloride 110, CO2 of 25, glucose 91, and creatinine 1.2. So, at this time, we will eventually discontinue the dextrose infusion and observe his glycemic fluctuations without IV fluid hydration was given. We will continue serial chemistries and supplement accordingly as needed. We will also continue the levothyroxine given as 50 mcg once daily in the morning . We will obtain serial chemistries and supplement accordingly as needed. Moreover, there is also no indication at this time for the resumption of any kind of low dose oral hypoglycemic drug therapy for now. We will follow. Lori Carter MD
[2017-07-16] MEDS: Insulin Reg-LOW-Coverage SC SCH ×3 (07:26→17:02)
[2017-07-16 08:03] LABS: BASO # 0.02 K/mm3 (0.0-2.0); BASO % 0.6 % (0.0-3.0); EOS # 0.1 (0.0-0.7); EOS % 2.8 % (1.5-5.0); GRAN # 1.38 (1.4-6.5); GRAN % 43.4 % (50.0-68.0); HEMOGLOBIN 10.7 g/dL (14.0-18.0); LYMPH # 1.4 (1.2-3.4); LYMPH % 42.9 % (22.0-35.0); MEAN CELL VOLUME 91.6 fl (80.0-105.0); MEAN CORPUSCULAR HGB CONC 32.7 g/dl (31.0-37.0); MEAN PLATELET VOLUME 9.9 fl (7.0-11.0); MONO # 0.3 (0.1-0.6); MONO % 10.3 % (1.0-6.0); RBC 3.57 10^6/uL (3.5-6.1); RED CELL DISTRIBUTION WIDTH 14.6 % (11.5-14.5); WHITE BLOOD COUNT 3.2 10^3/ul (4.5-11.0)
[2017-07-16 08:15] LABS: ALB/GLOB RATIO 1.2 (1.1-1.8); ALBUMIN 2.8 g/dL (3.0-4.8); ALT/SGPT 31 U/L (7-56); AST/SGOT 24 U/L (17-59); BLOOD UREA NITROGEN 20 mg/dL (7-21); CALCIUM 8.6 mg/dL (8.4-10.5); GFR AFRICAN-AMERICAN > 60; GFR NON-AFRICAN AMERICAN > 60
[2017-07-16] MEDS: VITEYES PO SCH (09:44)
[2017-07-16] MEDS: Cholestyramine 4 gm/Pkt UD PO SCH (09:46)
[2017-07-16] MEDS: Levothyroxine 50 MCG TAB PO SCH (09:46)
--- NOTE | 2017-07-16 10:19 | CP.PCM.CON ---
Past Patient History - Past Medical History & Family History Past Medical History?: Yes - Past Social History Smoking Status: Former Smoker Alcohol: Other (Probable past history. States has had 2 DWIs) Drugs: Other Home Situation {Lives}: Alone - CARDIAC Hx Cardiac Disorders: Yes (cad) Hx Congestive Heart Failure: Yes Hx Hypertension: Yes - PULMONARY Hx Respiratory Disorders: No - NEUROLOGICAL Hx Neurological Disorder: Yes Hx Dementia: Yes - HEENT Hx HEENT Problems: Yes Hx Macular Degeneration: Yes - RENAL Hx Chronic Kidney Disease: No - ENDOCRINE/METABOLIC Hx Diabetes Mellitus Type 2: Yes - HEMATOLOGICAL/ONCOLOGICAL Hx Blood Disorders: No - INTEGUMENTARY Hx Dermatological Problems: No - MUSCULOSKELETAL/RHEUMATOLOGICAL Hx Musculoskeletal Disorders: No Hx Falls: No - GASTROINTESTINAL Hx Gastrointestinal Disorders: No Hx Diarrhea: Yes (Attributes to prostatic surgery) - GENITOURINARY/GYNECOLOGICAL Hx Genitourinary Disorders: No Hx Prostate Cancer: Yes - PSYCHIATRIC Hx Depression: No Hx Emotional Abuse: No Hx Physical Abuse: No Hx Substance Use: No (etoh?) - SURGICAL HISTORY Hx Appendectomy: Yes Hx Cholecystectomy: Yes Hx Coronary Artery Bypass Graft: Yes Meds Allergies/Adverse Reactions: Allergies Allergy/AdvReac Type Severity Reaction Status Date / Time Thiazide & Related Allergy SWELLING Uncoded 11/15/15 16:20 - Medications Medications: Current Medications Amlodipine Besylate (Norvasc) 10 mg PO DAILY [facility] Last Admin: 07/16/17 09:45 Dose: 10 mg Cholestyramine Resin (Questran) 4 gm PO DAILY [facility] Last Admin: 07/16/17 09:46 Dose: 4 gm Home Med (Home Med) 1 unit PO DAILY [facility] Last Admin: 07/16/17 09:44 Dose: 1 unit Insulin Human Regular (Humulin R Low) 0 units SC ACHS [facility] PRN Reason: Protocol Last Admin: 07/15/17 21:53 Dose: Not Given Levothyroxine Sodium (Synthroid) 50 mcg PO DAILY [facility] Last Admin: 07/16/17 09:46 Dose: 50 mcg Memantine (Namenda) 10 mg PO DAILY [facility] Last Admin: 07/16/17 09:45 Dose: 10 mg Metoprolol Tartrate (Lopressor) 50 mg PO DAILY [facility] Last Admin: 07/16/17 09:45 Dose: 50 mg Quetiapine Fumarate (Seroquel) 25 mg PO [facility] PRN Reason: Protocol Last Admin: 07/16/17 09:46 Dose: 25 mg Results - Vital Signs Recent Vital Signs: Last Vital Signs Temp 97.4 F L 07/15/17 17:10 Pulse 60 07/16/17 09:45 Resp 20 07/15/17 17:10 BP 152/67 H 07/16/17 09:45 Pulse Ox 100 07/15/17 17:10 - Labs Result Diagrams: 07/16/17 07:50 07/16/17 07:50 Labs: Laboratory Results - last 24 hr 07/15/17 07/15/17 07/15/17 11:33 16:12 21:13 WBC RBC Hgb Hct MCV MCH MCHC RDW Plt Count MPV Gran % Lymph % (Auto) [place] % (Auto) Eos % (Auto) Baso % (Auto) Gran # Lymph # (Auto) [place] # (Auto) Eos # (Auto) Baso # (Auto) Sodium Potassium Chloride Carbon Dioxide Anion Gap BUN Creatinine Est GFR ( Amer) Est GFR (Non-Af Amer) POC Glucose (mg/dL) 133 H 103 98 Random Glucose Calcium Total Bilirubin AST ALT Alkaline Phosphatase Total Protein Albumin Globulin Albumin/Globulin Ratio 07/16/17 07/16/17 07/16/17 07:50 07:50 07:56 WBC 3.2 L RBC 3.57 Hgb 10.7 L Hct 32.7 L MCV 91.6 MCH 30.0 MCHC 32.7 RDW 14.6 H Plt Count 107 L MPV 9.9 Gran % 43.4 L Lymph % (Auto) 42.9 H [place] % (Auto) 10.3 H Eos % (Auto) 2.8 Baso % (Auto) 0.6 Gran # 1.38 L Lymph # (Auto) 1.4 [place] # (Auto) 0.3 Eos # (Auto) 0.1 Baso # (Auto) 0.02 Sodium 145 Potassium 3.7 Chloride 111 H Carbon Dioxide 27 Anion Gap 11 BUN 20 Creatinine 1.0 Est GFR ( Amer) > 60 Est GFR (Non-Af Amer) > 60 POC Glucose (mg/dL) 69 Random Glucose 73 Calcium 8.6 Total Bilirubin 0.4 AST 24 ALT 31 Alkaline Phosphatase 72 Total Protein 5.1 L Albumin 2.8 L Globulin 2.3 Albumin/Globulin Ratio 1.2 Assessment & Plan - Assessment and Plan (Free Text) Assessment: IMP: L renal mass - seen on CT and MAICO R renal cysts Anemia Dementia Hx of carcinoid tumor full note t/f Thank you YS - Date & Time Date: 07/16/17 Time: 10:18
--- NOTE | 2017-07-16 13:20 | MRI ---
PROCEDURE: MRI Abdomen without contrast HISTORY: Follow-up liver lesion COMPARISON: CT 07/10/2017 TECHNIQUE: Multisequence, multiplanar MR images of the abdomen without gadolinium contrast enhancement. FINDINGS: LIVER: The hypodense lesions seen in the right lobe of the liver on CT is visible on T1 weighted image 92 series 6 and is faintly visible on image 27 of series 5. The MR characteristics are nonspecific. This does not have the appearance of a simple cyst or hemangioma. This could represent focal nodular hyperplasia. Metastatic disease is less likely. Followup may be indicated GALLBLADDER: Gallbladder removed SPLEEN: Unremarkable. ADRENALS: Unremarkable. KIDNEYS: Solid lesions are seen in both kidneys. There is an 18 mm lesion in the periphery of the right kidney seen on 15 series 3. Two separate hypodense lesions are seen in the medial aspect of the left lower lobe measuring 17 and 19 mm in diameter. These lesions have a hypo intense appearance suggesting chronic hemorrhage. . PANCREAS: Unremarkable. AORTA: No aneurysm. ASCITES: There is a fluid collection in the left pericolic gutter PERITONEUM: Unremarkable. LYMPH NODES: Unremarkable. OTHER FINDINGS: None. IMPRESSION: Well-circumscribed small solid lesions in both kidneys. These could represent low-grade neoplastic lesions. Small 18 mm lesion in the right lobe of the liver with nonspecific MR characteristics. See comments
--- NOTE | 2017-07-16 14:48 | CP.PCM.PN ---
<Lucille Grajeda - Last Filed: 07/16/17 14:38> Subjective - Date & Time of Evaluation Date of Evaluation: 07/16/17 Time of Evaluation: 07:30 - Subjective Subjective: Dr. Yadav Progress Note Pt was seen and examined at bedside. No acute complaints at this time. He tolerated breakfast this morning and tolerated MRI procedure. Pt is moving bowels and bladder regularly. No acute or adverse events overnight as per nursing staff. No signs of bleeding. Pt denied fever, chills, sob, chest pains, abdominal pains, nausea, vomiting, diarrhea or constipation. Objective - Vital Signs/Intake and Output Vital Signs (last 24 hours): Temp Pulse Resp BP Pulse Ox 98.2 F 60 20 152/67 H 97 07/16/17 06:00 07/16/17 09:45 07/16/17 06:00 07/16/17 09:45 07/16/17 06:00 Intake and Output: 07/16/17 07/16/17 06:59 18:59 Intake Total 540 600 Balance 540 600 - Medications Medications: Current Medications Amlodipine Besylate (Norvasc) 10 mg PO DAILY [facility] Last Admin: 07/16/17 09:45 Dose: 10 mg Cholestyramine Resin (Questran) 4 gm PO DAILY [facility] Last Admin: 07/16/17 09:46 Dose: 4 gm Home Med (Home Med) 1 unit PO DAILY [facility] Last Admin: 07/16/17 09:44 Dose: 1 unit Insulin Human Regular (Humulin R Low) 0 units SC ACHS [facility] PRN Reason: Protocol Last Admin: 07/16/17 12:26 Dose: Not Given Levothyroxine Sodium (Synthroid) 50 mcg PO DAILY [facility] Last Admin: 07/16/17 09:46 Dose: 50 mcg Memantine (Namenda) 10 mg PO DAILY [facility] Last Admin: 07/16/17 09:45 Dose: 10 mg Metoprolol Tartrate (Lopressor) 50 mg PO DAILY [facility] Last Admin: 07/16/17 09:45 Dose: 50 mg Quetiapine Fumarate (Seroquel) 25 mg PO [facility] PRN Reason: Protocol Last Admin: 07/16/17 09:46 Dose: 25 mg - Labs Labs: 07/16/17 07:50 07/16/17 07:50 PT 14.2 SECONDS (9.4-12.5) H 07/08/17 23:48 INR 1.24 (0.93-1.08) H 07/08/17 23:48 APTT 36.6 Seconds (25.1-36.5) H 07/08/17 23:48 - Constitutional Appears: No Acute Distress - Head Exam Head Exam: ATRAUMATIC, NORMAL INSPECTION, NORMOCEPHALIC - Eye Exam Eye Exam: EOMI, Normal appearance, PERRL Pupil Exam: NORMAL ACCOMODATION, PERRL - ENT Exam ENT Exam: Mucous Membranes Moist - Respiratory Exam Respiratory Exam: Clear to Ausculation Bilateral, NORMAL BREATHING PATTERN - Cardiovascular Exam Cardiovascular Exam: REGULAR RHYTHM, +S1, +S2. absent: Murmur - GI/Abdominal Exam GI & Abdominal Exam: Soft, Normal Bowel Sounds. 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 CT scan of abdomen and pelvis yesterday reporting 15 mm hypodense lesion in the right lobe of the liver, enlarged inguinal lymph nodes and cluster embolization coils in the head of the pancreas, producing metallic artifact. Fu MRI w/o contrast with attn to liver demonstrated well circumscribed small solid lesions in both kidneys and small 18mm lesion in liver in rt lobe of liver Pt is tolerating diet, continue Questran 4g and monitor stools, titrate to soft stools. <Vicenta,Kovil V - Last Filed: 07/16/17 23:20> Objective - Vital Signs/Intake and Output Vital Signs (last 24 hours): Temp Pulse Resp BP Pulse Ox 97.4 F L 53 L 20 145/60 98 07/16/17 16:00 07/16/17 16:00 07/16/17 16:00 07/16/17 16:00 07/16/17 16:00 Intake and Output: 07/16/17 07/17/17 18:59 06:59 Intake Total 600 300 Balance 600 300 - Medications Medications: Current Medications Amlodipine Besylate (Norvasc) 10 mg PO DAILY [facility] Last Admin: 07/16/17 09:45 Dose: 10 mg Cholestyramine Resin (Questran) 4 gm PO DAILY [facility] Last Admin: 07/16/17 09:46 Dose: 4 gm Home Med (Home Med) 1 unit PO DAILY [facility] Last Admin: 07/16/17 09:44 Dose: 1 unit Insulin Human Regular (Humulin R Low) 0 units SC [facility] PRN Reason: Protocol Last Admin: 07/16/17 17:02 Dose: Not Given Levothyroxine Sodium (Synthroid) 50 mcg PO DAILY [facility] Last Admin: 07/16/17 09:46 Dose: 50 mcg Memantine (Namenda) 10 mg PO DAILY [facility] Last Admin: 07/16/17 09:45 Dose: 10 mg Metoprolol Tartrate (Lopressor) 50 mg PO DAILY [facility] Last Admin: 07/16/17 09:45 Dose: 50 mg Quetiapine Fumarate (Seroquel) 25 mg PO [facility] PRN Reason: Protocol Last Admin: 07/16/17 20:52 Dose: 25 mg - Labs Labs: 07/16/17 07:50 07/16/17 07:50 PT 14.2 SECONDS (9.4-12.5) H 07/08/17 23:48 INR 1.24 (0.93-1.08) H 07/08/17 23:48 APTT 36.6 Seconds (25.1-36.5) H 07/08/17 23:48 Attending/Attestation - Attestation Notes (Text): This is an addendum to GI consult report dictated by the Instructor Watch Assembly.The patient was seen and examined earlier. Medical records, lab studies, imagings were reviewed. Last 24 hours events reviewed. Agreed with the above treatment plan as outlined in Instructor Watch Assembly 's notes the with the addition of the following MRI reviewed Urology consult noted We will discuss with Dr. Phillips. No further GI workup planned now Patient's daughter favored conservative approach and I discussed during the weekend 07/16/17 23:17
--- NOTE | 2017-07-16 16:32 | PN ---
DATE: ROOM: 362 SUBJECTIVE: This is an 86-year-old male with recent altered mental status, who was admitted with symptomatic hypoglycemia and has since then improved clinically and metabolically as noted thereof. His oral intake remains quite variable as per the nursing staff. His latest chemistries showed a BUN of 20. Sodium 145, potassium 3.7, chloride 111, CO2 of 27. Glucose 73. Creatinine 1.0. His glucose levels today have ranged from 69 to 90 mg/dL. So at this time, we will continue the glucose monitoring as ordered, but hold off the resumption of dextrose infusion and encourage improved oral intake as noted. No indication at this time for any kind of oral hypoglycemic drug therapy as noted. We will obtain serial chemistries and supplement accordingly as needed. We will also obtain serial thyroid studies and in the meantime, continue the same low-dose levothyroxine given as 50 mcg once daily as ordered. We will follow and advise accordingly. Lori Carter MD
--- NOTE | 2017-07-16 22:02 | PN ---
DATE: SUBJECTIVE: An 86-year-old male with underlying dementia history, being evaluated by Oncology, GI, Neurology, and Urology for pancytopenia; carcinoid of duodenal history with abnormal CT findings and ultrasound findings of the abdomen. PHYSICAL EXAMINATION: GENERAL: He is alert. VITAL SIGNS: Show a temperature of 98, his blood pressure is 152/67, his pulse is 60, his oxygen sat is 97%. LUNGS: Clear. HEART: S1 and S2 rhythm. ABDOMEN: Obese, soft. Positive bowel sounds. EXTREMITIES: Show no evidence of edema. LABORATORY DATA: Shows WBC is 3.2, RBC 3.57, hemoglobin 10.2, hematocrit 32.7, platelet count 107,000. Electrolyte showed normal electrolytes. His BUN is 20, his creatinine is 1, his blood sugar was 98. LFTs are normal. The patient is currently being followed by Neurology for his underlying dementia. Endocrinology is following the patient for his episodes of hypoglycemia. We will await input from the individual consultants for Oncology, GI and Urology regarding the CT findings and ultrasound findings and the question as to whether there should be further evaluation for the possibility of underlying pathology. Andreia Phillips MD
[2017-07-17 07:37] LABS: BASO # 0.02 K/mm3 (0.0-2.0); BASO % 0.6 % (0.0-3.0); EOS # 0.1 (0.0-0.7); EOS % 3.4 % (1.5-5.0); GRAN # 1.55 (1.4-6.5); GRAN % 43.2 % (50.0-68.0); HEMOGLOBIN 10.7 g/dL (14.0-18.0); LYMPH # 1.5 (1.2-3.4); LYMPH % 40.8 % (22.0-35.0); MEAN CELL VOLUME 92.2 fl (80.0-105.0); MEAN CORPUSCULAR HGB CONC 32.5 g/dl (31.0-37.0); MONO # 0.4 (0.1-0.6); RBC 3.57 10^6/uL (3.5-6.1); RED CELL DISTRIBUTION WIDTH 14.8 % (11.5-14.5); WHITE BLOOD COUNT 3.6 10^3/ul (4.5-11.0)
[2017-07-17] MEDS: Insulin Reg-LOW-Coverage SC SCH ×3 (08:36→17:03)
[2017-07-17] MEDS: VITEYES PO SCH (09:23)
[2017-07-17] MEDS: Cholestyramine 4 gm/Pkt UD PO SCH (09:25)
[2017-07-17] MEDS: Levothyroxine 50 MCG TAB PO SCH (09:25)
--- NOTE | 2017-07-17 10:24 | RAD ---
HISTORY: COMPARISON: 07/09/2017. TECHNIQUE: Chest PA and lateral FINDINGS: LINES AND TUBES: None. LUNG AND PLEURA: The lungs are hyperinflated and there is peribronchial thickening with chronic changes in both lungs. No focal consolidation HEART AND MEDIASTINUM: There is mild cardiomegaly. Status post CABG. The hilar and mediastinal contours are within normal limits. SKELETAL STRUCTURES: The bony structures are within normal limits for the patient's age. VISUALIZED UPPER ABDOMEN: Normal. OTHER FINDINGS: None. IMPRESSION: No active pulmonary disease. COPD.
--- NOTE | 2017-07-17 13:28 | CP.PCM.PN ---
Subjective - Date & Time of Evaluation Date of Evaluation: 07/17/17 Time of Evaluation: 08:00 - Subjective Subjective: Dr. Yadav Progress Note Pt was seen and examined in chair his stools are more formed. No acute or adverse events overnight as per nursing staff. No signs of bleeding. Pt denied fever, chills, sob, chest pains, abdominal pains, nausea, vomiting, diarrhea or constipation. Objective - Vital Signs/Intake and Output Vital Signs (last 24 hours): Temp Pulse Resp BP Pulse Ox 98.1 F 60 20 142/68 97 07/17/17 08:22 07/17/17 09:23 07/17/17 08:22 07/17/17 09:24 07/17/17 08:22 Intake and Output: 07/17/17 07/17/17 06:59 18:59 Intake Total 300 Balance 300 - Medications Medications: Current Medications Acetaminophen (Tylenol 325mg Tab) 650 mg PO Q6H PRN PRN Reason: Pain, moderate (4-7) Last Admin: 07/17/17 09:30 Dose: 650 mg Amlodipine Besylate (Norvasc) 10 mg PO DAILY [facility] Last Admin: 07/17/17 09:24 Dose: 10 mg Cholestyramine Resin (Questran) 4 gm PO DAILY [facility] Last Admin: 07/17/17 09:25 Dose: 4 gm Home Med (Home Med) 1 unit PO DAILY [facility] Last Admin: 07/17/17 09:23 Dose: 1 unit Insulin Human Regular (Humulin R Low) 0 units SC ACHS [facility] PRN Reason: Protocol Last Admin: 07/17/17 12:22 Dose: Not Given Levothyroxine Sodium (Synthroid) 50 mcg PO DAILY [facility] Last Admin: 07/17/17 09:25 Dose: 50 mcg Memantine (Namenda) 10 mg PO DAILY [facility] Last Admin: 07/17/17 09:24 Dose: 10 mg Metoprolol Tartrate (Lopressor) 50 mg PO DAILY [facility] Last Admin: 07/17/17 09:23 Dose: 50 mg Quetiapine Fumarate (Seroquel) 25 mg PO AMHS [facility] PRN Reason: Protocol Last Admin: 07/17/17 09:25 Dose: 25 mg - Labs Labs: 07/17/17 07:00 07/16/17 07:50 PT 14.2 SECONDS (9.4-12.5) H 07/08/17 23:48 INR 1.24 (0.93-1.08) H 07/08/17 23:48 APTT 36.6 Seconds (25.1-36.5) H 07/08/17 23:48 - Constitutional Appears: No Acute Distress - Head Exam Head Exam: ATRAUMATIC, NORMAL INSPECTION, NORMOCEPHALIC - Eye Exam Eye Exam: EOMI, Normal appearance, PERRL Pupil Exam: NORMAL ACCOMODATION, PERRL - ENT Exam ENT Exam: Mucous Membranes Moist, Normal Exam - Respiratory Exam Respiratory Exam: Clear to Ausculation Bilateral, NORMAL BREATHING PATTERN - Cardiovascular Exam Cardiovascular Exam: REGULAR RHYTHM, +S1, +S2. absent: Murmur - GI/Abdominal Exam GI & Abdominal Exam: Soft, Normal Bowel Sounds. 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 CT scan of abdomen and pelvis yesterday reporting 15 mm hypodense lesion in the right lobe of the liver, enlarged inguinal lymph nodes and cluster embolization coils in the head of the pancreas, producing metallic artifact. Fu MRI w/o contrast with attn to liver demonstrated well circumscribed small solid lesions in both kidneys and small 18mm lesion in liver in rt lobe of liver Pt is tolerating diet, continue Questran 4g and monitor stools, titrate to soft stools. No further GI workup for now
[2017-07-17 16:36] VITALS: BP 150/79; PULSE 55; RESP 19; TEMP 97.6; O2SAT 100
--- NOTE | 2017-07-18 01:03 | PN ---
DATE: ENDOCRINOLOGY FOLLOWUP LOCATION: In room 362. SUBJECTIVE: This is an 86-year-old male with recent uncontrolled type 2 diabetes presenting here with symptomatic hypoglycemia, and has since then improved clinically and metabolically as noted thereof. His oral intake remains quite variable as per the nursing staff. The glucose values today have ranged from 78 to 96 and 112 mg/dL. He has been taken off the dextrose infusion as noted. He is also currently clinically and biochemically euthyroid on a low dose of levothyroxine given as 50 mcg once daily as ordered. ASSESSMENT AND PLAN: We will obtain serial chemistries and supplement accordingly needed. We will also hold off further dose adjustments of his levothyroxine, considering also his advanced age at this time. So we will prudently titrate his levothyroxine as indicated. We will follow. Lori Carter MD
--- NOTE | 2017-07-18 08:15 | CON ---
DATE: 07/16/2017 UROLOGY CONSULTATION Urology consultation is requested by Dr. Andreia Phillips. Urology consultation filled by Dr. Mariann Almaguer. HISTORY OF PRESENT ILLNESS: Patient is an 86-year-old male with left renal tumor. Patient has a history of carcinoid tumor of the duodenum. Patient has had recent abdominal pain. Patient had previous CT scan. Thereafter, he underwent an abdominal ultrasound for evaluation of possible liver mass. The ultrasound revealed a left renal tumor as well as right renal cyst. Mr. Zepeda reports no history of hematuria. Patient voids with good urinary stream and good control. The patient reports no flank pain. No recent fever or rigors. No history of urolithiasis. No history of urinary tract infection. The chart is reviewed. reviewed. X-ray reports were reviewed as well. PHYSICAL EXAMINATION: GENERAL: Patient is a well-developed, well-nourished elderly male. Patient is awake and alert. Patient is oriented to his name and to the year 2018. He is not oriented to the place. ABDOMEN: Soft, nontender, nondistended. No mass or organomegaly. BACK: No CVA tenderness. GENITALIA: Without inflammation. I reviewed the renal ultrasound and the CT scan. CT scan was performed without contrast. There is a left renal mass on the medial aspect of the left kidney, the mid portion of the left kidney. This mass appears to be solid both on ultrasound as well as on CT scan. The CT scan is limited as the patient was not given intravenous contrast (intravenous contrast can be given in view of patient's normal renal function). IMPRESSION: An 86-year-old male with left renal tumor. Patient is also noted to have anemia. History of carcinoid tumor. Patient also had dementia. RECOMMENDATION AND PLAN: Patient apparently is scheduled for a MRI of the abdomen. The MRI can be performed with and without IV contrast. The patient likely has a left renal tumor, which is likely a renal cell carcinoma. The necessity to further diagnose as well as treat the tumor will dependent on patient's overall clinical situation as well as the patient's wishes as well as his family's wishes. Options of therapy include monitoring and surveillance of the tumor with followup CT scan, MRI, or ultrasound. Possible biopsy of tumor. Possible therapy. Some of the more invasive options are limited due to patient's age and mental status. Further therapy to follow according to the patient's clinical course. I will discuss the findings further with the attending physician as well as with the patient's family. Thank you for recommending the patient for Urology consultation. Mariann MD Tripp cc: Andreia Phillips MD
== END 2017-07-17 17:08 | DRG 809 ==
LOC: ED 22:24 → ERH 07-09 03:54 → 3RNO 07-09 05:14 → OBSVTOIN 07-09 16:03 → 3RNO 07-09 17:16
PROVIDERS: ADMIT Internal Medicine; ATTEND Internal Medicine
PROC: 07DR3ZX Extraction of Iliac Bone Marrow, Percutaneous Approach, Diagnostic (ICD-10-PCS; principal; 2017-07-14)
DX: D61.818 Other pancytopenia (principal); F02.81 Dementia in other diseases classified elsewhere, unspecified severity, with behavioral disturbance; E11.42 Type 2 diabetes mellitus with diabetic polyneuropathy; E11.319 Type 2 diabetes mellitus with unspecified diabetic retinopathy without macular edema; E11.51 Type 2 diabetes mellitus with diabetic peripheral angiopathy without gangrene; G30.9 Alzheimer's disease, unspecified; I25.10 Atherosclerotic heart disease of native coronary artery without angina pectoris; E78.00 Pure hypercholesterolemia, unspecified; M10.9 Gout, unspecified; H35.30 Unspecified macular degeneration; F32.9 Major depressive disorder, single episode, unspecified; E11.649 Type 2 diabetes mellitus with hypoglycemia without coma; E03.9 Hypothyroidism, unspecified; I11.0 Hypertensive heart disease with heart failure; I50.9 Heart failure, unspecified; N28.1 Cyst of kidney, acquired; Z85.46 Personal history of malignant neoplasm of prostate; Z92.3 Personal history of irradiation; Z95.1 Presence of aortocoronary bypass graft; Z86.010 Personal history of colon polyps; Z87.891 Personal history of nicotine dependence; Z90.49 Acquired absence of other specified parts of digestive tract; Z79.84 Long term (current) use of oral hypoglycemic drugs

== ENCOUNTER 2018-02-15 23:34 | Inpatient (IN) | payer MEDICARE, BC ==
[2018-02-15 23:57] VITALS: BMI 26.5
[2018-02-16 00:45] LABS: BASO # 0.03 K/mm3 (0.0-2.0); BASO % 0.2 % (0.0-3.0); GRAN # 11.31 (1.4-6.5); GRAN % 86.4 % (50.0-68.0); LYMPH # 0.6 (1.2-3.4); LYMPH % 4.4 % (22.0-35.0); MEAN CELL VOLUME 91.7 fl (80.0-105.0); MEAN CORPUSCULAR HEMOGLOBIN 30.2 pg (25.0-35.0); MEAN CORPUSCULAR HGB CONC 32.9 g/dl (31.0-37.0); MEAN PLATELET VOLUME 9.6 fl (7.0-11.0); MONO # 1.2 (0.1-0.6); PLATELET COUNT 107 10^3/uL (120.0-450.0); RBC 3.98 10^6/uL (3.5-6.1); RED CELL DISTRIBUTION WIDTH 14.9 % (11.5-14.5); WHITE BLOOD COUNT 13.1 10^3/ul (4.5-11.0)
[2018-02-16 00:49] LABS: ALB/GLOB RATIO 1.2 (1.1-1.8); ALBUMIN 3.2 g/dL (3.0-4.8); ALT/SGPT 19 U/L (7-56); AST/SGOT 27 U/L (17-59); BLOOD UREA NITROGEN 27 mg/dL (7-21); CALCIUM 8.5 mg/dL (8.4-10.5); GFR NON-AFRICAN AMERICAN > 60
[2018-02-16 01:00] LABS: VENOUS BLOOD GAS BASE EXCESS 1.3 mmol/L (0.0-2.0); VENOUS BLOOD GAS PO2 83 mm/Hg (30-55); VENOUS BLOOD PH 7.42 (7.32-7.43)
--- NOTE | 2018-02-16 01:06 | ED PDOC ---
Arrival/HPI - General Chief Complaint: Fever Time Seen by Provider: 02/16/18 00:19 Historian: Patient EM Caveat: Dementia - History of Present Illness Narrative History of Present Illness (Text): 02/16/18 01:06 87 year old male, whose past medical history includes dementia, CAD, anemia, diabetes mellitus, hypertension, and malignant neoplasm, presents to the emergency department sent from [facility] for complaints of fever. Patient was given Tylenol 650mg at 11PM with no relief. Patient states he is sleepy and denies any pain. HPI and ROS limited due to patient's state of dementia. PMD: Dr. Andreia Phillips Past Medical History - Provider Review Nursing Documentation Reviewed: Yes - Cardiac Hx Cardiac Disorders: Yes (cad) Hx Congestive Heart Failure: Yes Hx Hypertension: Yes - Pulmonary Hx Respiratory Disorders: No - Neurological Hx Neurological Disorder: Yes Hx Dementia: Yes - HEENT Hx HEENT Disorder: Yes Hx Macular Degeneration: Yes - Renal Hx Renal Disorder: No - Endocrine/Metabolic Hx Diabetes Mellitus Type 2: Yes - Hematological/Oncological Hx Blood Disorders: No - Integumentary Hx Dermatological Disorder: No - Musculoskeletal/Rheumatological Hx Musculoskeletal Disorders: No Hx Falls: No - Gastrointestinal Hx Gastrointestinal Disorders: No Hx Diarrhea: Yes (Attributes to prostatic surgery) - Genitourinary/Gynecological Hx Genitourinary Disorders: No Hx Prostate Cancer: Yes - Psychiatric Hx Depression: No Hx Emotional Abuse: No Hx Physical Abuse: No Hx Substance Use: No (etoh?) - Surgical History Hx Appendectomy: Yes Hx Cholecystectomy: Yes Hx Coronary Artery Bypass Graft: Yes - Anesthesia Hx Anesthesia: No Hx Anesthesia Reactions: No Hx Malignant Hyperthermia: No - Suicidal Assessment Feels Threatened In Home Enviroment: No Family/Social History - Physician Review Nursing Documentation Reviewed: Yes Family/Social History: No Known Family HX Smoking Status: Former Smoker Hx Alcohol Use: No Hx Substance Use: No (etoh?) Hx Substance Use Treatment: No Allergies/Home Meds Allergies/Adverse Reactions: Allergies Thiazide & Related Allergy (Uncoded 02/16/18 00:45) SWELLING Home Medications: Home Meds Medication Instructions Recorded Confirmed RX: Cholestyramine [Questran] 4 gm PO DAILY 07/08/17 02/16/18 RX: Levothyroxine [Synthroid] 50 mcg PO DAILY 07/08/17 02/16/18 RX: Metoprolol Tartrate 50 mg PO DAILY 07/08/17 02/16/18 RX: amLODIPine [Norvasc] 10 mg PO DAILY 07/08/17 02/16/18 Propylene Glycol/Peg 400/Pf 1 drop BOTHEYES QID 02/16/18 02/16/18 [Systane 0.3-0.4% Eye Drop] Review of Systems - Physician Review All systems were reviewed & negative as marked: Yes - Review of Systems Systems not reviewed;Unavailable: Dementia Constitutional: Fevers Physical Exam - Physical Exam Narrative Physical Exam (Text): Gen: VS reviewed, alert, somewhat drowsy, well developed, well nourished, nontoxic, mild distress. ENT: Dry mucous membranes, normal pharynx. Eye: EOMI, PERRL. Neck: no JVD, supple, no adenopathy. CV: regular rate, regular rhythm, no rubs, no murmur, no gallops, S1, S2, pulses equal and strong. Pulm: no distress, clear to auscultation, no wheeze, no rhonchi, breath sounds equal, no rales. Abd: soft, nontender, no guarding, no rebound, no rigidity, normal bowel sounds. Ext: no edema. Skin: Hot to touch, good color, no rash, no cyanosis. Psych: responds appropriately to questions, normal affect. Neuro: oriented x 3, CN2-12 intact grossly, motor intact, sensation intact. Vital Signs Reviewed: Yes Vital Signs Temp Pulse Resp BP Pulse Ox 02/16/18 00:01 103.5 F H 83 18 132/61 95 Temperature: Febrile Blood Pressure: Normal Pulse: Regular Respiratory Rate: Normal Medical Decision Making ED Course and Treatment: 02/16/18 01:06 Impression: 87 year old male presents sent by [facility] for complaints of fever. HPI and ROS limited due to patient's state of dementia. Plan: -- VBG -- EKG -- Labs -- Chest X-ray -- Influenza Type A and B -- Motrin, IV Fluids -- Blood Culture, Urine Culture -- Urinalysis w/ micro -- Reassess and disposition Prior Visits: Notes and results from previous visits were reviewed. Progress Notes: 02/16/18 02:[address] phillips, he would like pt to be admitted to telemetry for now, patient to be admitted for iv abx for right middle lobe pneumonia, infectious disease consult dr. perales. empiric abx for hcap coverage as patient is coming from [facility]. 02/16/18 02:41 - Lab Interpretations Lab Results: 02/16/18 00:08 02/16/18 00:08 Lab Results 02/16/18 00:08: WBC 13.1 H D, RBC 3.98, Hgb 12.0 L, Hct 36.5 L, MCV 91.7, MCH 30.2, MCHC 32.9, RDW 14.9 H, Plt Count 107 L, MPV 9.6, Gran % 86.4 H, Lymph % (Auto) 4.4 L, [place] % (Auto) 9.0 H, Eos % (Auto) 0.0 L, Baso % (Auto) 0.2, Gran # 11.31 H, Lymph # (Auto) 0.6 L, [place] # (Auto) 1.2 H, Eos # (Auto) 0.0, Baso # (Auto) 0.03, Neutrophils % (Manual) Pending, Lymphocytes % (Manual) Pending, Monocytes % (Manual) Pending 02/16/18 00:08: Sodium 138, Chloride 107, Potassium 3.9, Carbon Dioxide 23, Anion Gap 12, BUN 27 H, Creatinine 1.1, Est GFR ( Amer) > 60, Est GFR (Non-Af Amer) > 60, Random Glucose 127 H, Calcium 8.5, Total Bilirubin 0.7, AST 27, ALT 19, Alkaline Phosphatase 96, Total Protein 5.9, Albumin 3.2, Globulin 2.7, Albumin/Globulin Ratio 1.2 02/16/18 00:08: pO2 83 H, VBG pH 7.42, VBG pCO2 40.0, VBG HCO3 25.9, VBG Total CO2 27.1, VBG O2 Sat (Calc) 97.8 H, VBG Base Excess 1.3, VBG Potassium 3.9, Sodium 139.0, Chloride 109.0 H, Glucose 131 H, Lactate 1.1, FiO2 21.0, Venous Blood Potassium 3.9 I have reviewed the lab results: Yes - RAD Interpretation Narrative RAD Interpretations (Text): 02/16/18 01:51 cxr my read: right middle lob infiltrate when compared to old cxr, no ptx, no wide mediastinum Radiology Orders: 02/16/18 00:21 CHEST PORTABLE [RAD] Stat Grain Broker: ED Physician - EKG Interpretation EKG Interpretation (Text): 02/16/18 02:39 2355: sinus rhythm at 86 bpm, nonspecific intraventricular conduction delay, poor r wave progression, pacs Interpreted by ED Physician: Yes Type: 12 lead EKG - Scribe Statement The provider has reviewed the documentation as recorded by the Fabiola Whitt Provider Scribe Attestation: All medical record entries made by the Fabiola were at my direction and personally dictated by me. I have reviewed the chart and agree that the record accurately reflects my personal performance of the history, physical exam, medical decision making, and the department course for this patient. I have also personally directed, reviewed, and agree with the discharge instructions and disposition. Disposition/Present on Arrival - Present on Arrival Any Indicators Present on Arrival: No History of DVT/PE: No History of Uncontrolled Diabetes: No Urinary Catheter: No History of Decub. Ulcer: No History Surgical Site Infection Following: None - Disposition Have Diagnosis and Disposition been Completed?: Yes Diagnosis: Pneumonia Disposition: HOSPITALIZED Disposition Time: 02:41 Patient Plan: Admission Condition: STABLE Forms: [employer] ([place])
[2018-02-16] MEDS: Sodium Chloride 0.9% 1,000 ML IV SCH ×4 (01:30→21:52)
[2018-02-16 01:36] LABS: URINE BILIRUBIN NEGATIVE (NEGATIVE); URINE BLOOD LARGE (NEGATIVE); URINE GLUCOSE (UA) NEGATIVE (NEGATIVE); URINE LEUKOCYTE ESTERASE NEGATIVE Leu/uL (NEGATIVE); URINE PROTEIN 30 mg/dL (<30 mg/dL); URINE UROBILINOGEN 0.2 E.U./dL (<1 E.U./dL)
[2018-02-16 01:38] LABS: URINE APPEARANCE CLEAR (CLEAR); URINE COLOR YELLOW (YELLOW)
[2018-02-16 01:49] LABS: URINE BACTERIA RARE (NEG); URINE EPITHELIAL CELLS 0 - 2 /hpf (0-5)
[2018-02-16] MEDS ORDERED: Vancomycin 500 mg Inj IVPB STA (01:52)
[2018-02-16] MEDS ORDERED: Piperacillin/Tazobact 3.375 gm 100 ML IVPB STA (01:53)
[2018-02-16 02:35] LABS: BAND 9 % (0-2); LYMPHOCYTE 3 % (22.0-35.0); MONOCYTE 8 % (1.0-6.0); NEUTROPHIL 80 % (50.0-70.0)
[2018-02-16 02:36] LABS: PLATELET ESTIMATE LOW (NORMAL)
[2018-02-16] MEDS: Cefepime IV 2 gm in NS 2 GM/100 ML BAG IVPB SCH ×2 (07:12→17:48)
--- NOTE | 2018-02-16 09:17 | RAD ---
Date of service: 02/16/2018 HISTORY: pneumonia COMPARISON: 07/17/2017 FINDINGS: LUNGS: No active pulmonary disease. PLEURA: No significant pleural effusion identified, no pneumothorax apparent. CARDIOVASCULAR: Mild cardiomegaly OSSEOUS STRUCTURES: Sternal wires VISUALIZED UPPER ABDOMEN: Normal. OTHER FINDINGS: None. IMPRESSION: No active disease.
--- NOTE | 2018-02-16 09:35 | CARD ---
APPROVED REPORT Date of service: 02/15/2018 EKG Measurement Heart [id number] <Conclusion> Sinus rhythm with premature atrial complexes Left axis deviation PRWP NSSTW changes No change
--- NOTE | 2018-02-16 09:50 | CP.PCM.CON ---
<Deanne Pandey - Last Filed: 02/16/18 14:00> History of Present Illness - History of Present Illness History of Present Illness: PGY-3 Resident ID Consult note fro Dr. Morgan service. Reason for consult: Fever, pneumonia Patient is an 87 y/o Male from [place] with PMHX CAD s/p CABG, dementia, anemia, DM, HTN, Abundio renal with solid lesions, liver lesions, hypothyroidism, carcinoid ca, brought in from alf due to fever. Patient with waxing and waning mental status, thus very poor historian. Most of the history was obtained from the chart. Patient states he was told he has fever and pneumonia. Denies coughing. States he's feeling better now. Admits to feeling cold, denies n/v/ or diarrhea. Denies cp or sob. PMHx:CAD s/p CABG, dementia, anemia, DM, HTN, Abundio renal with solid lesions, liver lesions, hypothyroidism, carcinoid ca. PSHx: Cholecystectomy, CABG FMHx: non contributory Social: Lives in alf, former tobacco, denies alcohol or illicit drug use. Allergy: thiazide Home meds: questran, Norvasc, Lopressor, synthroid, namenda Review of Systems - Review of Systems Systems not reviewed;Unavailable: Dementia Past Patient History - Tetanus Immunizations Tetanus Immunization: Unknown - Past Medical History & Family History Past Medical History?: Yes Past Family History: Reviewed and not pertinent - Past Social History Smoking Status: Former Smoker Alcohol: None Drugs: Denies Home Situation {Lives}: Detention - CARDIAC Hx Cardiac Disorders: Yes (cad) Hx Congestive Heart Failure: Yes Hx Hypertension: Yes - PULMONARY Hx Respiratory Disorders: No - NEUROLOGICAL Hx Neurological Disorder: Yes Hx Dementia: Yes - HEENT Hx HEENT Problems: Yes Hx Macular Degeneration: Yes - RENAL Hx Chronic Kidney Disease: No - ENDOCRINE/METABOLIC Hx Diabetes Mellitus Type 2: Yes - HEMATOLOGICAL/ONCOLOGICAL Hx Blood Disorders: No - INTEGUMENTARY Hx Dermatological Problems: No - MUSCULOSKELETAL/RHEUMATOLOGICAL Hx Musculoskeletal Disorders: No Hx Falls: No - GASTROINTESTINAL Hx Gastrointestinal Disorders: No - GENITOURINARY/GYNECOLOGICAL Hx Genitourinary Disorders: No - PSYCHIATRIC Hx Depression: No Hx Emotional Abuse: No Hx Physical Abuse: No - SURGICAL HISTORY Hx Appendectomy: Yes Hx Cholecystectomy: Yes - ANESTHESIA Hx Anesthesia: No Hx Anesthesia Reactions: No Hx Malignant Hyperthermia: No Meds Allergies/Adverse Reactions: Allergies Allergy/AdvReac Type Severity Reaction Status Date / Time Thiazide & Related Allergy SWELLING Uncoded 02/16/18 00:45 - Medications Medications: Current Medications Acetaminophen (Tylenol 325mg Tab) 650 mg PO Q4H PRN PRN Reason: Fever >101 F Sodium Chloride (Sodium Chloride 0.9%) 1,000 mls @ 150 mls/hr IV .Q6H40M [facility]HANG Last Admin: 02/16/18 08:37 Dose: Not Given Cefepime HCl (Maxipime 2gm) 2 gm in 100 mls @ 100 mls/hr IVPB Q12H [facility]ANG; Protocol Stop: 02/21/18 06:31 Last Admin: 02/16/18 07:12 Dose: 100 mls/hr Vancomycin HCl (Vancomycin 1gm) 1 gm in 250 mls @ 167 mls/hr IVPB Q12H ZHANG; Protocol Physical Exam - Constitutional Appears: No Acute Distress, Chronically Ill - Head Exam Head Exam: ATRAUMATIC, NORMAL INSPECTION, NORMOCEPHALIC - Eye Exam Eye Exam: Normal appearance - ENT Exam ENT Exam: Mucous Membranes Dry - Neck Exam Neck exam: Positive for: Normal Inspection. Negative for: Lymphadenopathy - Respiratory Exam Respiratory Exam: Decreased Breath Sounds, NORMAL BREATHING PATTERN. absent: Rales, Rhonchi, Wheezes, Respiratory Distress, Stridor - Cardiovascular Exam Cardiovascular Exam: REGULAR RHYTHM, RRR, +S1, +S2, Systolic Murmur - GI/Abdominal Exam GI & Abdominal Exam: Normal Bowel Sounds, Soft. absent: Distended, Firm, Guarding, Rebound, Rigid, Tenderness - Extremities Exam Extremities exam: Positive for: pedal edema (+2), tenderness - Back Exam Back exam: rash noted, tenderness Additional comments: Stage 1 sacral decubutus ulcer. - Neurological Exam Neurological exam: Alert Additional comments: a&ox2, waxing and waning mentation - Psychiatric Exam Psychiatric exam: Normal Affect, Normal Mood - Skin Skin Exam: Dry, Rash, Warm Results - Vital Signs Recent Vital Signs: Last Vital Signs Temp 97.6 F 02/16/18 06:00 Pulse 50 L 02/16/18 06:00 Resp 19 02/16/18 06:00 BP 108/53 L 02/16/18 06:00 Pulse Ox 99 02/16/18 05:55 - Labs Result Diagrams: 02/16/18 00:08 02/16/18 00:08 Labs: Laboratory Results - last 24 hr 02/16/18 02/16/18 02/16/18 00:08 00:08 00:08 WBC 13.1 H D RBC 3.98 Hgb 12.0 L Hct 36.5 L MCV 91.7 MCH 30.2 MCHC 32.9 RDW 14.9 H Plt Count 107 L MPV 9.6 Gran % 86.4 H Lymph % (Auto) 4.4 L Rains % (Auto) 9.0 H Eos % (Auto) 0.0 L Baso % (Auto) 0.2 Gran # 11.31 H Lymph # (Auto) 0.6 L Rains # (Auto) 1.2 H Eos # (Auto) 0.0 Baso # (Auto) 0.03 Neutrophils % (Manual) 80 H Band Neutrophils % 9 H Lymphocytes % (Manual) 3 L Monocytes % (Manual) 8 H Platelet Evaluation Low pO2 83 H VBG pH 7.42 VBG pCO2 40.0 VBG HCO3 25.9 VBG Total CO2 27.1 VBG O2 Sat (Calc) 97.8 H VBG Base Excess 1.3 VBG Potassium 3.9 Sodium 139.0 138 Chloride 109.0 H 107 Glucose 131 H Lactate 1.1 FiO2 21.0 Potassium 3.9 Carbon Dioxide 23 Anion Gap 12 BUN 27 H Creatinine 1.1 Est GFR ( Amer) > 60 Est GFR (Non-Af Amer) > 60 Random Glucose 127 H Calcium 8.5 Total Bilirubin 0.7 AST 27 ALT 19 Alkaline Phosphatase 96 Total Protein 5.9 Albumin 3.2 Globulin 2.7 Albumin/Globulin Ratio 1.2 Venous Blood Potassium 3.9 Urine Color Urine Appearance Urine pH Ur Specific [place] Urine Protein Urine Glucose (UA) Urine Ketones Urine Blood Urine Nitrate Urine Bilirubin Urine Urobilinogen Ur Leukocyte Esterase Urine RBC Urine WBC Ur Epithelial Cells Urine Bacteria Influenza Typ A,B (EIA) 02/16/18 02/16/18 01:15 01:46 WBC RBC Hgb Hct MCV MCH MCHC RDW Plt Count MPV Gran % Lymph % (Auto) Rains % (Auto) Eos % (Auto) Baso % (Auto) Gran # Lymph # (Auto) Rains # (Auto) Eos # (Auto) Baso # (Auto) Neutrophils % (Manual) Band Neutrophils % Lymphocytes % (Manual) Monocytes % (Manual) Platelet Evaluation pO2 VBG pH VBG pCO2 VBG HCO3 VBG Total CO2 VBG O2 Sat (Calc) VBG Base Excess VBG Potassium Sodium Chloride Glucose Lactate FiO2 Potassium Carbon Dioxide Anion Gap BUN Creatinine Est GFR ( Amer) Est GFR (Non-Af Amer) Random Glucose Calcium Total Bilirubin AST ALT Alkaline Phosphatase Total Protein Albumin Globulin Albumin/Globulin Ratio Venous Blood Potassium Urine Color Yellow Urine Appearance Clear Urine pH 6.0 Ur Specific [place] 1.020 Urine Protein 30 H Urine Glucose (UA) Negative Urine Ketones Negative Urine Blood Large H Urine Nitrate Negative Urine Bilirubin Negative Urine Urobilinogen 0.2 Ur Leukocyte Esterase Negative Urine RBC 10 - 15 Urine WBC 1 - 3 Ur Epithelial Cells 0 - 2 Urine Bacteria Rare Influenza Typ A,B (EIA) Negative for flu a/b Assessment & Plan - Assessment and Plan (Free Text) Assessment: Patient is an 87 y/o sent from alf with fever. Tmax was 103.8, currently afebrile. Was noted to have right middle lobe consolidation. SIRS with unknown source, with bandemia and fever, r/o bacteremia, less likely pneumonia, ua with no uti, h/o CAD s/p CABG dementia, anemia, DM, HTN, Abundio renal with solid lesions, liver lesions, hypothyroidism, Carcinoid ca stage 1 sacral ulcer Plan: Patient with fever and leukocytosis wbc of 13.1 with bandemia on presentation. Fever is resolving. Chest x-ray with no infiltrations, denied cough. Blood cultures, urine and sputum cultures ordered. Influenza negative, procal and urine legionella ordered. Started on cefepime and vanco form broadspectrum coverage pending cultures and procal. Patient seen, examined and case discussed with Dr. Morgan. - Date & Time Date: 02/16/18 Time: 10:00 <Federico Morgan - Last Filed: 02/16/18 23:05> Meds - Medications Medications: Current Medications Acetaminophen (Tylenol 325mg Tab) 650 mg PO Q4H PRN PRN Reason: Fever >101 F Acetaminophen (Tylenol 325mg Tab) 650 mg PO Q6H PRN PRN Reason: Pain, moderate (4-7) Amlodipine Besylate (Norvasc) 10 mg PO DAILY [facility] Last Admin: 02/16/18 11:07 Dose: 10 mg Cholestyramine Resin (Questran) 4 gm PO DAILY [facility] Sodium Chloride (Sodium Chloride 0.9%) 1,000 mls @ 150 mls/hr IV .Q6H40M [facility] Last Admin: 02/16/18 21:52 Dose: 150 mls/hr Cefepime HCl (Maxipime 2gm) 2 gm in 100 mls @ 100 mls/hr IVPB Q12H [facility]ANG; Protocol Stop: 02/21/18 06:31 Last Admin: 02/16/18 17:48 Dose: 100 mls/hr Vancomycin HCl (Vancomycin 1gm) 1 gm in 250 mls @ 167 mls/hr IVPB Q12H [facility]; Protocol Last Admin: 02/16/18 14:29 Dose: 167 mls/hr Levothyroxine Sodium (Synthroid) 50 mcg PO DAILY [facility] Last Admin: 02/16/18 11:05 Dose: 50 mcg Memantine (Namenda) 10 mg PO DAILY [facility] Last Admin: 02/16/18 11:06 Dose: 10 mg Metoprolol Tartrate (Lopressor) 50 mg PO DAILY [facility] Last Admin: 02/16/18 11:07 Dose: Not Given Non-Formulary Medication (Propylene Glycol/Peg 400/Pf [Systane 0.3-0.4% Eye Drop]) 1 drop BOTHEYES QID [facility] Last Admin: 02/16/18 17:48 Dose: Not Given Results - Vital Signs Recent Vital Signs: Last Vital Signs Temp 98.6 F 02/16/18 18:00 Pulse 69 02/16/18 18:00 Resp 18 02/16/18 18:00 BP 157/75 H 02/16/18 18:00 Pulse Ox 99 02/16/18 05:55 - Labs Result Diagrams: 02/16/18 00:08 02/16/18 00:08 Labs: Laboratory Results - last 24 hr 02/16/18 02/16/18 02/16/18 00:08 00:08 00:08 WBC 13.1 H D RBC 3.98 Hgb 12.0 L Hct 36.5 L MCV 91.7 MCH 30.2 MCHC 32.9 RDW 14.9 H Plt Count 107 L MPV 9.6 Gran % 86.4 H Lymph % (Auto) 4.4 L Rains % (Auto) 9.0 H Eos % (Auto) 0.0 L Baso % (Auto) 0.2 Gran # 11.31 H Lymph # (Auto) 0.6 L Rains # (Auto) 1.2 H Eos # (Auto) 0.0 Baso # (Auto) 0.03 Neutrophils % (Manual) 80 H Band Neutrophils % 9 H Lymphocytes % (Manual) 3 L Monocytes % (Manual) 8 H Platelet Evaluation Low pO2 83 H VBG pH 7.42 VBG pCO2 40.0 VBG HCO3 25.9 VBG Total CO2 27.1 VBG O2 Sat (Calc) 97.8 H VBG Base Excess 1.3 VBG Potassium 3.9 Sodium 139.0 138 Chloride 109.0 H 107 Glucose 131 H Lactate 1.1 FiO2 21.0 Potassium 3.9 Carbon Dioxide 23 Anion Gap 12 BUN 27 H Creatinine 1.1 Est GFR ( Amer) > 60 Est GFR (Non-Af Amer) > 60 POC Glucose (mg/dL) Random Glucose 127 H Calcium 8.5 Total Bilirubin 0.7 AST 27 ALT 19 Alkaline Phosphatase 96 Total Protein 5.9 Albumin 3.2 Globulin 2.7 Albumin/Globulin Ratio 1.2 Procalcitonin Venous Blood Potassium 3.9 Urine Color Urine Appearance Urine pH Ur Specific [place] Urine Protein Urine Glucose (UA) Urine Ketones Urine Blood Urine Nitrate Urine Bilirubin Urine Urobilinogen Ur Leukocyte Esterase Urine RBC Urine WBC Ur Epithelial Cells Urine Bacteria Influenza Typ A,B (EIA) 02/16/18 02/16/18 02/16/18 01:15 01:46 06:30 WBC RBC Hgb Hct MCV MCH MCHC RDW Plt Count MPV Gran % Lymph % (Auto) Rains % (Auto) Eos % (Auto) Baso % (Auto) Gran # Lymph # (Auto) Rains # (Auto) Eos # (Auto) Baso # (Auto) Neutrophils % (Manual) Band Neutrophils % Lymphocytes % (Manual) Monocytes % (Manual) Platelet Evaluation pO2 VBG pH VBG pCO2 VBG HCO3 VBG Total CO2 VBG O2 Sat (Calc) VBG Base Excess VBG Potassium Sodium Chloride Glucose Lactate FiO2 Potassium Carbon Dioxide Anion Gap BUN Creatinine Est GFR ( Amer) Est GFR (Non-Af Amer) POC Glucose (mg/dL) Random Glucose Calcium Total Bilirubin AST ALT Alkaline Phosphatase Total Protein Albumin Globulin Albumin/Globulin Ratio Procalcitonin 17.89 H Venous Blood Potassium Urine Color Yellow Urine Appearance Clear Urine pH 6.0 Ur Specific [place] 1.020 Urine Protein 30 H Urine Glucose (UA) Negative Urine Ketones Negative Urine Blood Large H Urine Nitrate Negative Urine Bilirubin Negative Urine Urobilinogen 0.2 Ur Leukocyte Esterase Negative Urine RBC 10 - 15 Urine WBC 1 - 3 Ur Epithelial Cells 0 - 2 Urine Bacteria Rare Influenza Typ A,B (EIA) Negative for flu a/b 02/16/18 02/16/18 02/16/18 07:17 11:00 16:16 WBC RBC Hgb Hct MCV MCH MCHC RDW Plt Count MPV Gran % Lymph % (Auto) Rains % (Auto) Eos % (Auto) Baso % (Auto) Gran # Lymph # (Auto) Rains # (Auto) Eos # (Auto) Baso # (Auto) Neutrophils % (Manual) Band Neutrophils % Lymphocytes % (Manual) Monocytes % (Manual) Platelet Evaluation pO2 VBG pH VBG pCO2 VBG HCO3 VBG Total CO2 VBG O2 Sat (Calc) VBG Base Excess VBG Potassium Sodium Chloride Glucose Lactate FiO2 Potassium Carbon Dioxide Anion Gap BUN Creatinine Est GFR ( Amer) Est GFR (Non-Af Amer) POC Glucose (mg/dL) 93 84 74 Random Glucose Calcium Total Bilirubin AST ALT Alkaline Phosphatase Total Protein Albumin Globulin Albumin/Globulin Ratio Procalcitonin Venous Blood Potassium Urine Color Urine Appearance Urine pH Ur Specific [place] Urine Protein Urine Glucose (UA) Urine Ketones Urine Blood Urine Nitrate Urine Bilirubin Urine Urobilinogen Ur Leukocyte Esterase Urine RBC Urine WBC Ur Epithelial Cells Urine Bacteria Influenza Typ A,B (EIA) 02/16/18 21:22 WBC RBC Hgb Hct MCV MCH MCHC RDW Plt Count MPV Gran % Lymph % (Auto) Rains % (Auto) Eos % (Auto) Baso % (Auto) Gran # Lymph # (Auto) Rains # (Auto) Eos # (Auto) Baso # (Auto) Neutrophils % (Manual) Band Neutrophils % Lymphocytes % (Manual) Monocytes % (Manual) Platelet Evaluation pO2 VBG pH VBG pCO2 VBG HCO3 VBG Total CO2 VBG O2 Sat (Calc) VBG Base Excess VBG Potassium Sodium Chloride Glucose Lactate FiO2 Potassium Carbon Dioxide Anion Gap BUN Creatinine Est GFR ( Amer) Est GFR (Non-Af Amer) POC Glucose (mg/dL) 113 H Random Glucose Calcium Total Bilirubin AST ALT Alkaline Phosphatase Total Protein Albumin Globulin Albumin/Globulin Ratio Procalcitonin Venous Blood Potassium Urine Color Urine Appearance Urine pH Ur Specific [place] Urine Protein Urine Glucose (UA) Urine Ketones Urine Blood Urine Nitrate Urine Bilirubin Urine Urobilinogen Ur Leukocyte Esterase Urine RBC Urine WBC Ur Epithelial Cells Urine Bacteria Influenza Typ A,B (EIA) Assessment & Plan - Assessment and Plan (Free Text) Plan: Infectious Diseases Attending Physician Addendum Patient seen, examined, discussed with medical record coder. I have reviewed the pertinent clinical information. I agree with the above findings, assessment and plan and in addition, we have started the patient on Vancomycin and Cefepime for SIRS with fever, R/O HCAP, R/O UTI. Follow up blood cx. PCT is elevated. Rapid Influenza test is negative. If patient continues to have fevers and WBC count continues to be elevated, may need CT scan of the abdomen and pelvis.
[2018-02-16] MEDS: Levothyroxine 50 MCG TAB PO SCH (11:05)
[2018-02-16] MEDS: PEG BOTHEYES SCH ×3 (14:25→23:54)
[2018-02-16] MEDS: PROPYLENE GLYCOL BOTHEYES SCH ×3 (14:25→23:54)
[2018-02-16] MEDS: [UNRECOGNIZED DRUG - OTHER] BOTHEYES SCH ×3 (14:25→23:54)
[2018-02-16] MEDS: Vancomycin 1gm in NS 250ml 1 GM/250 ML BAG IVPB SCH (14:29)
--- NOTE | 2018-02-16 22:59 | HP ---
HISTORY OF PRESENT ILLNESS: An 87-year-old male resident at [facility], who was referred to [facility] with history of 103 fever. PAST MEDICAL HISTORY: The patient has a past medical history of cardiac bypass surgery, cognitive behavioral disorder, liver and renal masses, carcinoid syndrome, cholecystectomy, hypothyroid disease, hypertension, [id number] diabetes. ALLERGIES: HE HAS AN ALLERGY TO THIAZIDE. MEDICATIONS: Consists of Questran, Synthroid, Namenda, metoprolol tartrate, amlodipine, Systane eye drops which he refuses, and Tylenol. In the past, the patient was noted by individual consultants that the findings documented on MRI of the abdomen showing lesions in the liver and the kidneys. He had pancytopenia in the past, was seen by Oncology. His family opted at that time to monitor the patient. SOCIAL HISTORY: He is a nonsmoker, nondrinker, nondrug user. REVIEW OF SYSTEMS: Ten systems are reviewed. Pertinent findings during the exam as noted. PHYSICAL EXAMINATION: VITAL SIGNS: Showed that the patient has temperatures rectally of 101.3 and 103.5, blood pressure was 132/61, respiratory rate was 18, his oxygen saturation was 95%, his pulse was 83. GENERAL: He is currently lying in bed. He is alert, oriented to person. NECK: Supple. LUNGS: Showed diminished breath sounds at the bases. HEART: S1, S2. ABDOMEN: Obese, soft, scaphoid, positive bowel sounds. EXTREMITIES: Show no evidence of rash. Trace edema. LABORATORY DATA: Shows WBC of 13.1, RBC 3.9, hemoglobin 12, hematocrit 36.5, platelet 107. His chemistry showed sodium 138, potassium 3.9, chloride 107, CO2 of 23, BUN 27, creatinine 1.1, glucose is 127, calcium 8.5. His liver function test is normal. He has an albumin level of 3.2. Urinalysis shows large amount of blood. Chest x-ray reported as showing cardiomegaly. IMPRESSION: An 87-year-old resident of [facility] with fever to 103. 1. Rule out pneumonia. 2. Rule out urinary tract infection. 3. Rule out sepsis. 4. History of cognitive behavioral disorder. 5. History of carcinoid syndrome. 6. History of renal and hepatic masses. 7. History of arteriosclerotic heart disease. 8. History of [id number]-[id number] diabetes. 9. History of hypertension. PLAN: The patient will be admitted to the hospital, pancultured, and request will be made with Infectious Disease. We will follow with the patient's labs. Andreia Phillips MD
[2018-02-17] MEDS: Vancomycin 1gm in NS 250ml 1 GM/250 ML BAG IVPB SCH ×3 (02:01→18:33)
[2018-02-17] MEDS: Sodium Chloride 0.9% 1,000 ML IV SCH ×4 (05:32→20:59)
[2018-02-17] MEDS: Cefepime IV 2 gm in NS 2 GM/100 ML BAG IVPB SCH ×2 (05:32→20:59)
[2018-02-17 07:04] LABS: BASO # 0.03 K/mm3 (0.0-2.0); BASO % 0.5 % (0.0-3.0); EOS % 0.7 % (1.5-5.0); GRAN # 3.9 (1.4-6.5); HEMOGLOBIN 10.6 g/dL (14.0-18.0); LYMPH % 17.1 % (22.0-35.0); MEAN CELL VOLUME 91.2 fl (80.0-105.0); MEAN PLATELET VOLUME 9.9 fl (7.0-11.0); MONO # 0.7 (0.1-0.6); MONO % 11.7 % (1.0-6.0); RBC 3.42 10^6/uL (3.5-6.1); RED CELL DISTRIBUTION WIDTH 14.9 % (11.5-14.5); WHITE BLOOD COUNT 5.6 10^3/ul (4.5-11.0)
[2018-02-17 07:23] LABS: BLOOD UREA NITROGEN 23 mg/dL (7-21); GFR NON-AFRICAN AMERICAN > 60
[2018-02-17] MEDS ORDERED: Potassium Chloride 20 mEq/15 ml LIQ UD PO STA (09:53)
[2018-02-17] MEDS: PEG BOTHEYES SCH ×4 (11:00→22:45)
[2018-02-17] MEDS: PROPYLENE GLYCOL BOTHEYES SCH ×4 (11:00→22:45)
[2018-02-17] MEDS: [UNRECOGNIZED DRUG - OTHER] BOTHEYES SCH ×4 (11:00→22:45)
--- NOTE | 2018-02-17 11:50 | CT ---
Date of service: 02/17/2018 PROCEDURE: CT Chest, Abdomen and Pelvis without intravenous contrast HISTORY: persistent fevers COMPARISON: 07/10/2017 TECHNIQUE: Radiation dose: Total exam DLP = 1557 mGy-cm. This CT exam was performed using one or more of the following dose reduction techniques: Automated exposure control, adjustment of the mA and/or kV according to patient size, and/or use of iterative reconstruction technique. FINDINGS: CT CHEST WITHOUT CONTRAST: LUNGS: Clear. No nodule, mass or consolidation. MEDIASTINUM: Unremarkable. Normal caliber aorta and pulmonary arterial trunk. Moderate cardiomegaly. Coronary artery calcifications LYMPH NODES: Unremarkable. PLEURA: Small bilateral pleural effusions BONES: Unremarkable. OTHER FINDINGS: None. CT ABDOMEN AND PELVIS: LIVER: Unremarkable. No gross lesion or ductal dilatation. GALLBLADDER AND BILE DUCTS: Unremarkable. PANCREAS: Unremarkable. No gross lesion or ductal dilatation. There is a cluster of embolization coils in the head of the pancreas producing some metallic artifact. SPLEEN: Unremarkable. ADRENALS: Unremarkable. No mass. KIDNEYS AND URETERS: There is a solid 2.5 cm mass in the left kidney showing no significant change. VASCULATURE: Unremarkable. No aortic aneurysm. BOWEL: Unremarkable. No obstruction. No gross mural thickening. APPENDIX: Normal appendix. PERITONEUM: There is a fluid collection in the left pericolic gutter measuring 6 x 9.6 cm. This is unchanged. There is no air within this collection to suggest abscess. LYMPH NODES: 2.3 cm left inguinal lymph node. This is unchanged BLADDER: Unremarkable. REPRODUCTIVE: Unremarkable. BONES: No acute fracture. OTHER FINDINGS: None. IMPRESSION: No acute intrathoracic or intra-abdominal findings.
[2018-02-17] MEDS: Cholestyramine 4 gm/Pkt UD PO SCH (11:53)
[2018-02-17] MEDS: Levothyroxine 50 MCG TAB PO SCH (11:53)
--- NOTE | 2018-02-17 12:52 | CP.PCM.CON ---
History of Present Illness - History of Present Illness History of Present Illness: Podiatry Consult Note for Dr. Mcadams: 87 yo male patient, with PMHx of Dementia, CAD, DM, HTN, and malignant neoplasm seen and evaluated for elongated painful toenails. Patient was sent to the ED from [facility]. Patient states that his nails are elongated and get caught and cause pain in his socks. Denies any other pedal complaints at this time. Denies N/V/SOB/CP. PMHx: Dementia, CAD, DM, HTN, and malignant neoplasm SH: denies tobacco use ALL: Thiazide Review of Systems - Review of Systems Review of Systems: As per HPI Past Patient History - Tetanus Immunizations Tetanus Immunization: Unknown - Past Medical History & Family History Past Medical History?: Yes Past Family History: Reviewed and not pertinent - Past Social History Smoking Status: Former Smoker Alcohol: None Drugs: Denies Home Situation {Lives}: [facility] - CARDIAC Hx Cardiac Disorders: Yes (cad) Hx Congestive Heart Failure: Yes Hx Hypertension: Yes - PULMONARY Hx Respiratory Disorders: No - NEUROLOGICAL Hx Neurological Disorder: Yes Hx Dementia: Yes - HEENT Hx HEENT Problems: Yes Hx Macular Degeneration: Yes - RENAL Hx Chronic Kidney Disease: No - ENDOCRINE/METABOLIC Hx Diabetes Mellitus Type 2: Yes - HEMATOLOGICAL/ONCOLOGICAL Hx Blood Disorders: No - INTEGUMENTARY Hx Dermatological Problems: No - MUSCULOSKELETAL/RHEUMATOLOGICAL Hx Musculoskeletal Disorders: No Hx Falls: No - GASTROINTESTINAL Hx Gastrointestinal Disorders: No - GENITOURINARY/GYNECOLOGICAL Hx Genitourinary Disorders: No - PSYCHIATRIC Hx Depression: No Hx Emotional Abuse: No Hx Physical Abuse: No - SURGICAL HISTORY Hx Appendectomy: Yes Hx Cholecystectomy: Yes - ANESTHESIA Hx Anesthesia: No Hx Anesthesia Reactions: No Hx Malignant Hyperthermia: No Meds Allergies/Adverse Reactions: Allergies Allergy/AdvReac Type Severity Reaction Status Date / Time Thiazide & Related Allergy SWELLING Uncoded 02/16/18 00:45 - Medications Medications: Current Medications Acetaminophen (Tylenol 325mg Tab) 650 mg PO Q4H PRN PRN Reason: Fever >101 F Acetaminophen (Tylenol 325mg Tab) 650 mg PO Q6H PRN PRN Reason: Pain, moderate (4-7) Last Admin: 02/17/18 00:27 Dose: 650 mg Amlodipine Besylate (Norvasc) 10 mg PO DAILY [facility] Last Admin: 02/17/18 11:55 Dose: 10 mg Cholestyramine Resin (Questran) 4 gm PO DAILY [facility] Last Admin: 02/17/18 11:53 Dose: 4 gm Sodium Chloride (Sodium Chloride 0.9%) 1,000 mls @ 150 mls/hr IV .Q6H40M [facility] Last Admin: 02/17/18 11:53 Dose: Not Given Cefepime HCl (Maxipime 2gm) 2 gm in 100 mls @ 100 mls/hr IVPB Q12H [facility]; Protocol Stop: 02/21/18 06:31 Last Admin: 02/17/18 05:32 Dose: 100 mls/hr Vancomycin HCl (Vancomycin 1gm) 1 gm in 250 mls @ 167 mls/hr IVPB Q12H [facility]; Protocol Last Admin: 02/17/18 02:01 Dose: 167 mls/hr Levothyroxine Sodium (Synthroid) 50 mcg PO DAILY [facility] Last Admin: 02/17/18 11:53 Dose: 50 mcg Memantine (Namenda) 10 mg PO DAILY [facility] Last Admin: 02/17/18 11:53 Dose: 10 mg Metoprolol Tartrate (Lopressor) 50 mg PO DAILY [facility] Last Admin: 02/17/18 11:55 Dose: 50 mg Non-Formulary Medication (Propylene Glycol/Peg 400/Pf [Systane 0.3-0.4% Eye Drop]) 1 drop BOTHEYES QID [facility] Last Admin: 02/17/18 11:00 Dose: Not Given Physical Exam - Constitutional Appears: Well, Non-toxic, No Acute Distress - Extremities Exam Additional comments: Vascular: DP 1/4, PT nonpalpable secondary to edema, CFT < 3 seconds to digits, TG warm to cool bilaterally, +2 pitting edema to the ankle Ortho: Tenderness to palpation to hallux nails bilaterally Neuro: Gross sensation intact, unable to assess protective sensation due to patient status Derm: Elongated, mycotic, brittle, dystrophic nails x10. Xerosis to dorsal and plantar aspect of feet bilaterally. No open lesions, no erythema, no cellulitis, no clinical signs of infection noted - Neurological Exam Neurological exam: Alert, Oriented x3 - Psychiatric Exam Psychiatric exam: Normal Affect, Normal Mood Results - Vital Signs Recent Vital Signs: Last Vital Signs Temp 98.7 F 02/17/18 12:00 Pulse 58 L 02/17/18 12:00 Resp 20 02/17/18 12:00 BP 110/58 L 02/17/18 12:00 Pulse Ox 96 02/17/18 06:00 - Labs Result Diagrams: 02/17/18 06:30 02/17/18 06:30 Labs: Laboratory Results - last 24 hr 02/16/18 02/16/18 02/16/18 06:30 16:16 21:22 WBC RBC Hgb Hct MCV MCH MCHC RDW Plt Count MPV Gran % Lymph % (Auto) [place] % (Auto) Eos % (Auto) Baso % (Auto) Gran # Lymph # (Auto) [place] # (Auto) Eos # (Auto) Baso # (Auto) Sodium Potassium Chloride Carbon Dioxide Anion Gap BUN Creatinine Est GFR ( Amer) Est GFR (Non-Af Amer) POC Glucose (mg/dL) 74 113 H Random Glucose Calcium Magnesium Procalcitonin 17.89 H 02/17/18 02/17/18 02/17/18 06:30 06:30 06:30 WBC 5.6 D RBC 3.42 L Hgb 10.6 L Hct 31.2 L MCV 91.2 MCH 31.0 MCHC 34.0 RDW 14.9 H Plt Count 79 L MPV 9.9 Gran % 70.0 H Lymph % (Auto) 17.1 L [place] % (Auto) 11.7 H Eos % (Auto) 0.7 L Baso % (Auto) 0.5 Gran # 3.90 Lymph # (Auto) 1.0 L [place] # (Auto) 0.7 H Eos # (Auto) 0.0 Baso # (Auto) 0.03 Sodium 140 Potassium 3.5 L Chloride 114 H Carbon Dioxide 21 Anion Gap 8 L BUN 23 H Creatinine 1.0 Est GFR ( Amer) > 60 Est GFR (Non-Af Amer) > 60 POC Glucose (mg/dL) Random Glucose 77 Calcium 8.0 L Magnesium 1.7 Procalcitonin 02/17/18 02/17/18 07:43 12:03 WBC RBC Hgb Hct MCV MCH MCHC RDW Plt Count MPV Gran % Lymph % (Auto) [place] % (Auto) Eos % (Auto) Baso % (Auto) Gran # Lymph # (Auto) [place] # (Auto) Eos # (Auto) Baso # (Auto) Sodium Potassium Chloride Carbon Dioxide Anion Gap BUN Creatinine Est GFR ( Amer) Est GFR (Non-Af Amer) POC Glucose (mg/dL) 80 75 Random Glucose Calcium Magnesium Procalcitonin Assessment & Plan - Assessment and Plan (Free Text) Assessment: 87 yo male patient, with PMHx of Dementia, CAD, DM, HTN, and malignant neoplasm seen and evaluated for elongated painful toenails. Plan: Patient seen and evaluated with all questions addressed Patient plan discussed in detail with Dr. Mcadams Nails debrided x8 with a large nail nipper without incidence to patient tolerance Podiatry to sign off at this time; please reconsult as needed Thank you for the consult - Date & Time Date: 02/17/18 Time: 12:52
[2018-02-17] MEDS ORDERED: Magnesium Oxide 400 mg Tab UD PO ONE (12:59)
[2018-02-17] MEDS ORDERED: Metoprolol Succinate 25 mg XL Tab PO SCH (13:03)
--- NOTE | 2018-02-17 14:14 | US ---
HISTORY: Leg pain and swelling. Evaluate for DVT PHYSICIAN(S): Nathen Concepcion MD. TECHNIQUE: Duplex sonography and color-flow Doppler with graded compression were used to evaluate the deep venous systems of both lower extremities. The exam is somewhat limited by edema FINDINGS: The visualized deep venous systems of both lower extremities are sonographically normal and compressible. Normal wave forms and augmentation are seen. There is no sonographic evidence for deep venous thrombosis in the visualized segments of both lower extremities. IMPRESSION: No sonographic evidence for deep venous thrombosis in the visualized segments of both lower extremities.
--- NOTE | 2018-02-17 14:55 | PN ---
DATE: 02/17/2018 SUBJECTIVE: An 87-year-old male from [facility], admitted with fever to 103 and spiking fevers in between, currently on telemetry. Nursing staff relates that there were no specific problems during the night and the patient was okay. PHYSICAL EXAMINATION VITAL SIGNS: This morning, his temperature is 100.3 orally, his blood pressure is 152/63, his pulse is 67, his oxygen saturation is reported at 99%. GENERAL: He is alert and oriented x2. NECK: Supple. LUNGS: Showed diminished breath sounds at the bases. HEART: S1 and S2. ABDOMEN: Obese, soft with positive bowel sounds. EXTREMITIES: Show trace edema with stasis dermatitic changes. LABORATORY DATA: Chemistry shows sodium of 140, potassium 3.5, chloride 114, CO2 of 21, BUN 23, creatinine of 1. His calcium is 8. His random blood sugar is 113. CBC shows a WBC of 5.6, RBC 3.42, hemoglobin 10.6, hematocrit 31.2, platelet count is 79,000. His serology shows an influenza negative. He has a procalcitonin of 17.89. MEDICATIONS: He is currently on Lopressor, Maxipime, Namenda, Norvasc, Systane, Questran, IV fluids, Synthroid, Tylenol, vancomycin. ASSESSMENT AND PLAN: 1. Febrile. 2. Elevated procalcitonin. 3. Hematuria. 4. History of renal mass and liver mass. 5. History of carcinoid. 6. History of tob-[id number] diabetes. 7. History of coronary artery bypass grafting in the past. 8. History of prostate disease. 9. History of dementia. At 24 hours, his blood cultures are negative. His urine cultures negative. A bladder scan was reported, it showing over 300 mL of urine, reportedly the patient voided 400 and the repeat bladder scan was 0. The patient will have a Urology consult requested. He will continue on his antibiotics as per Infectious Disease. A consult has been requested for Urology as well as Doppler's of the lower extremities. We will get a Podiatry consult evaluation for the patient and we will get scans of the chest, abdomen and pelvis. His daughter is aware of the patient's clinical status. Andreia Phillips MD [facility] # [phone]
--- NOTE | 2018-02-18 01:32 | PN ---
DATE: 02/17/2018 SUBJECTIVE: Patient was seen earlier this morning in room 276, bed 1. No fevers. No chills. Temperature is improved. PHYSICAL EXAMINATION: VITAL SIGNS: Temperature is 98, blood pressure is 108/50, respiratory rate 20, heart rate of 58. HEENT: Unremarkable. NECK: Supple. LUNGS: Have decreased breath sounds. HEART: Normal S1, S2. ABDOMEN: Soft, nontender. LABORATORY EXAMINATION: Reveals white count of 13,000 with 9% bandemia, white count is down to 5.6, hemoglobin of 10. Chemistries are improved. BUN of 23, creatinine of 1. Procalcitonin is 17, normal. Creatinine with an urinalysis 1 to 3 with rare bacteria. Influenza is negative. Microbiology reveals negative urine culture, negative blood cultures. The patient had a CAT scan of the chest, CAT scan of abdomen without contrast. On the CAT scan of the chest, the lungs are clear. No nodules, masses or consolidation. CAT scan of the abdomen, solid mass, cm mass in the left kidney, no change. There is a fluid collection in the left paracolic gutter measuring 6 x 9 x 6, this is unchanged. There is no collection. No acute intrathoracic or intraabdominal findings. Dr. Phillips' note is reviewed. The patient had a chest x-ray. Lungs had no active disease as the CAT scan was not. The patient had an ultrasound, no evidence of DVT. Review of the medications; the patient is on cefepime, vancomycin. Negative blood cultures. Negative chest x-ray. Negative urine cultures. Negative CAT scan of the abdomen. Negative CAT scan of the chest. The patient did have 9% bandemia. Brittni consultation is reviewed. ASSESSMENT AND PLAN: This is an 87-year-old long term patient with coronary artery disease, coronary artery bypass graft, dementia, leukocytosis, fevers, with systemic inflammatory response syndrome, with unknown source, the patient had bandemia, negative cultures, negative CAT scans, diabetic, hypertensive; however, he seems to have responded to the antibiotic therapy, elevated procalcitonin. We will follow with you. Kp Pierre MD
[2018-02-18] MEDS: Sodium Chloride 0.9% 1,000 ML IV SCH ×5 (01:53→21:56)
[2018-02-18] MEDS: Vancomycin 1gm in NS 250ml 1 GM/250 ML BAG IVPB SCH ×2 (03:49→13:32)
--- NOTE | 2018-02-18 04:55 | CON ---
DATE: 02/17/2018 DATE: 02/17/2018 HISTORY OF PRESENT ILLNESS: This is an 87-year-old male from skilled nursing, came with past medical history of dementia, hypertension, diabetes, and hypothyroidism. Came from the skilled nursing with fever and change in mental status. Patient is a poor historian. Most of the . Called to evaluate for dementia. PAST MEDICAL HISTORY: Coronary artery disease, dementia, status post CABG, diabetes, hypertension. PAST SURGICAL HISTORY: CABG and cholecystectomy. SOCIAL HISTORY: Lives in skilled nursing. Ex-smoker. Does not drink. ALLERGIES: THIAZIDE. PHYSICAL EXAMINATION: HEENT: Normocephalic, atraumatic. NECK: Supple. NEUROLOGIC: Awake, orientated to self only. Difficult to get information from the patient and patient sitting on a chair and getting cleaned. Cranial nerves II through XII were tested. Pupils reactive. Spontaneous movements of the extremities noted. Sensory appears intact. Cerebellar gait deferred. IMPRESSION: This is an 87-year-old resident of skilled nursing came with fever of 103 and has multiple medical problems, dementia, and diabetes, hypertension, hypothyroidism, and decubitus ulcer. Workup is in progress. Continue present management. We will follow up. Binh Thornton MD
[2018-02-18] MEDS: Cefepime IV 2 gm in NS 2 GM/100 ML BAG IVPB SCH ×2 (06:44→17:50)
--- NOTE | 2018-02-18 07:44 | CON ---
DATE: 02/18/2018 REQUESTING PHYSICIAN: Andreia Phillips MD. REASON FOR CONSULTATION: Bradycardia and known coronary artery disease. HISTORY: This is a 87-year-old man known to us from prior admissions with a history of coronary artery disease, status post prior bypass surgery and dementia who was transferred from [facility] with a fever to 103. He has been started on antibiotics and blood cultures have been negative thus far. He was noted to have transient bradycardia with several junctional beats and metoprolol dose was reduced by 50%. He remains stable at the present time. He was seen on Telemetry. He is currently comfortable, but confused. He does know that he is at the hospital, but he is, otherwise, oriented only to his name. He answers questions in a rambling fashion, which turns out nonsensical. He denies any chest pain or dyspnea. He states he has had no lightheadedness. PAST HISTORY: Notable for problems mentioned above. He has undergone prior cholecystectomy. He has a history of hypertension, diabetes, chronic obesity, carcinoid syndrome and unspecified liver and renal masses. CURRENT MEDICATIONS: Include Maxipime, Namenda, Norvasc 10 mg daily, Questran, Synthroid 50 mcg daily, Toprol-XL 25 mg daily and vancomycin. ALLERGIES: HE HAD REPORTED REACTION TO HYDROCHLOROTHIAZIDE IN THE PAST. SOCIAL HISTORY: He does not smoke or drink. FAMILY HISTORY Cannot recall. REVIEW OF SYSTEMS: The 10-point review of systems appears unremarkable, although his memory is faulty. PHYSICAL EXAMINATION: GENERAL: He is an overweight very elderly man. VITAL SIGNS: His blood pressure is 132/64, pulse is 64 and sinus,respirations are 14. He is afebrile. HEENT: Normocephalic, atraumatic. NECK: Supple. No JVD noted. CHEST: Clear to auscultation and percussion. HEART: PMI displaced laterally with soft systolic murmur in the left sternal border. ABDOMEN: Soft, obese, nontender. Normoactive bowel sounds. EXTREMITIES: Mild chronic cellulitic changes with trace ankle edema noted. SKIN: Warm and dry. PSYCHIATRIC: Oriented to person. He does know he is in a hospital, but otherwise fairly confused. DIAGNOSTIC DATA: The white count 5.6, it was 13.1 on admission. Hemoglobin and hematocrit of 10.6 and 31.2 with platelet count of 79,000 and potassium 3.5, BUN and creatinine are 23 and 1. Initial electrocardiogram reveals sinus rhythm with left anterior hemiblock and nonspecific ST-T abnormalities. Telemetry monitoring reveals predominantly sinus rhythm with occasional sinus bradycardia and one episode of junctional rhythm. Chest x-ray reveals post sternotomy changes with some mildly increased cardiac silhouette and clear lung lacey. IMPRESSION: 1. Transient bradycardia, possibly exacerbated by beta avila use. Agree with reduction in dosing at this time. 2. Known coronary disease, status post prior bypass surgery, appears clinically stable. 3. Febrile illness, etiology unclear. Rest of the problems as noted. RECOMMENDATIONS: At the present time, a smaller dose of metoprolol appears reasonable. If he has further bradycardia, this can be discontinued completely. There appears to be no need for evaluation for pacemaker therapy at this time. In general, continued conservative management appears most appropriate given his overall general condition. Thank you for this consultation. I am happy to follow along throughout hospital course. Ruy Wiley MD
[2018-02-18 09:13] LABS: BASO # 0.03 K/mm3 (0.0-2.0); BASO % 0.5 % (0.0-3.0); EOS # 0.1 (0.0-0.7); EOS % 1.5 % (1.5-5.0); GRAN # 4.11 (1.4-6.5); GRAN % 70.5 % (50.0-68.0); HEMOGLOBIN 10.9 g/dL (14.0-18.0); LYMPH # 1.1 (1.2-3.4); LYMPH % 18.9 % (22.0-35.0); MEAN CELL VOLUME 90.1 fl (80.0-105.0); MEAN CORPUSCULAR HEMOGLOBIN 29.9 pg (25.0-35.0); MEAN CORPUSCULAR HGB CONC 33.1 g/dl (31.0-37.0); MEAN PLATELET VOLUME 9.5 fl (7.0-11.0); MONO # 0.5 (0.1-0.6); MONO % 8.6 % (1.0-6.0); RBC 3.65 10^6/uL (3.5-6.1); RED CELL DISTRIBUTION WIDTH 14.5 % (11.5-14.5); WHITE BLOOD COUNT 5.8 10^3/ul (4.5-11.0)
--- NOTE | 2018-02-18 09:14 | CT ---
Date of service: 02/18/2018 PROCEDURE: CT HEAD WITHOUT CONTRAST. HISTORY: ams COMPARISON: TECHNIQUE: Axial computed tomography images were obtained through the head/brain without intravenous contrast. Supplemental Coronal and Sagittal projections created and reviewed. Radiation dose: Total exam DLP = 871.87 mGy-cm. This CT exam was performed using one or more of the following dose reduction techniques: Automated exposure control, adjustment of the mA and/or kV according to patient size, and/or use of iterative reconstruction technique. FINDINGS: HEMORRHAGE: No intracranial hemorrhage. BRAIN: No mass effect or edema. Cortical and cerebellar atrophy, periventricular small vessel disease. VENTRICLES: Unremarkable. No hydrocephalus. CALVARIUM: Unremarkable. PARANASAL SINUSES: Unremarkable as visualized. No significant inflammatory changes. MASTOID AIR CELLS: Unremarkable as visualized. No inflammatory changes. OTHER FINDINGS: None. IMPRESSION: No acute intracranial abnormalities. No significant findings to account for the clinical presentation. No significant interval change compared to the prior examination(s).
[2018-02-18 09:20] LABS: ALBUMIN 2.6 g/dL (3.0-4.8); ALT/SGPT 28 U/L (7-56); AST/SGOT 31 U/L (17-59); BLOOD UREA NITROGEN 18 mg/dL (7-21); CALCIUM 8.6 mg/dL (8.4-10.5); GFR NON-AFRICAN AMERICAN > 60
[2018-02-18] MEDS: Cholestyramine 4 gm/Pkt UD PO SCH (09:40)
[2018-02-18] MEDS: [UNRECOGNIZED DRUG - OTHER] BOTHEYES SCH ×4 (09:41→21:55)
[2018-02-18] MEDS: PEG BOTHEYES SCH ×4 (09:41→21:55)
[2018-02-18] MEDS: Levothyroxine 50 MCG TAB PO SCH (09:41)
[2018-02-18] MEDS: PROPYLENE GLYCOL BOTHEYES SCH ×4 (09:41→21:55)
--- NOTE | 2018-02-18 11:42 | CP.PCM.CON ---
History of Present Illness - History of Present Illness History of Present Illness: Palliative consult requested by Dr Nnamdi Phillips Reason: Advance care planning 87 year old resident of [facility] with history of CAD s/p CABG, dementia and HTN who was sent from [place] with fever and altered mental status. H complained of chill s. He denied cough, nausea, vomiting, diarrhea, shortness of breath, chest/abdominal pain. Chest x ray: negative Head CT: negative for acute findings US of lower extremities: negative for DVT CT chest/ab/pelvis: 2.5 cm mass in left kidney unchanged since last imaging study Labs 02/16: Wbc 13.1, Hgb 12.o,PLT 107,Na 138, K 3.9, Bun 27, [employer] 1.1, glucose 127, Ast 27, ALT 19, Albumin 3.2, Procalcitonin 17.89> Urine positive for blood,rare bacteria, protein 30. Blood and urine cultures negative. H flu negative PMHx; CAD , HTN, DM, anemia, dementia, hypothyroidism, carcinoid syndrome, liver/renal masses. PSHx: CABG, cholecystectomy. Social History: Former smoker, no alcohol or drug use. Resident of [facility]. Family History: Non contributory Advance Care Planning: The patent does not have an Advanced Directive. Review of Systems: 12 point review negative Past Patient History - Tetanus Immunizations Tetanus Immunization: Unknown - Past Medical History & Family History Past Medical History?: Yes Past Family History: Reviewed and not pertinent - Past Social History Smoking Status: Former Smoker Alcohol: None Drugs: Denies Home Situation {Lives}: Halfway - CARDIAC Hx Cardiac Disorders: Yes (cad) Hx Congestive Heart Failure: Yes Hx Hypertension: Yes - PULMONARY Hx Respiratory Disorders: No - NEUROLOGICAL Hx Neurological Disorder: Yes Hx Dementia: Yes - HEENT Hx HEENT Problems: Yes Hx Macular Degeneration: Yes - RENAL Hx Chronic Kidney Disease: No - ENDOCRINE/METABOLIC Hx Diabetes Mellitus Type 2: Yes - HEMATOLOGICAL/ONCOLOGICAL Hx Blood Disorders: No - INTEGUMENTARY Hx Dermatological Problems: No - MUSCULOSKELETAL/RHEUMATOLOGICAL Hx Musculoskeletal Disorders: No Hx Falls: No - GASTROINTESTINAL Hx Gastrointestinal Disorders: No - GENITOURINARY/GYNECOLOGICAL Hx Genitourinary Disorders: No - PSYCHIATRIC Hx Depression: No Hx Emotional Abuse: No Hx Physical Abuse: No - SURGICAL HISTORY Hx Appendectomy: Yes Hx Cholecystectomy: Yes - ANESTHESIA Hx Anesthesia: No Hx Anesthesia Reactions: No Hx Malignant Hyperthermia: No Meds Allergies/Adverse Reactions: Allergies Allergy/AdvReac Type Severity Reaction Status Date / Time Thiazide & Related Allergy SWELLING Uncoded 02/16/18 00:45 - Medications Medications: Current Medications Acetaminophen (Tylenol 325mg Tab) 650 mg PO Q4H PRN PRN Reason: Fever >101 F Acetaminophen (Tylenol 325mg Tab) 650 mg PO Q6H PRN PRN Reason: Pain, moderate (4-7) Last Admin: 02/17/18 21:00 Dose: 650 mg Amlodipine Besylate (Norvasc) 10 mg PO DAILY [facility] Last Admin: 02/18/18 09:41 Dose: 10 mg Cholestyramine Resin (Questran) 4 gm PO DAILY [facility] Last Admin: 02/18/18 09:40 Dose: 4 gm Docusate Sodium (Colace) 100 mg PO BID [facility] Last Admin: 02/18/18 09:40 Dose: 100 mg Sodium Chloride (Sodium Chloride 0.9%) 1,000 mls @ 150 mls/hr IV .Q6H40M [facility] Last Admin: 02/18/18 09:40 Dose: 150 mls/hr Cefepime HCl (Maxipime 2gm) 2 gm in 100 mls @ 100 mls/hr IVPB Q12H [facility]; Protocol Stop: 02/21/18 06:31 Last Admin: 02/18/18 06:44 Dose: 100 mls/hr Vancomycin HCl (Vancomycin 1gm) 1 gm in 250 mls @ 167 mls/hr IVPB Q12H [facility]; Protocol Last Admin: 02/18/18 03:49 Dose: 167 mls/hr Levothyroxine Sodium (Synthroid) 50 mcg PO DAILY [facility] Last Admin: 02/18/18 09:41 Dose: 50 mcg Memantine (Namenda) 10 mg PO DAILY [facility] Last Admin: 02/18/18 09:41 Dose: 10 mg Metoprolol Succinate (Toprol Xl) 25 mg PO DAILY [facility] Last Admin: 02/18/18 09:41 Dose: 25 mg Non-Formulary Medication (Propylene Glycol/Peg 400/Pf [Systane 0.3-0.4% Eye Drop]) 1 drop BOTHEYES QID [facility] Last Admin: 02/18/18 09:41 Dose: Not Given Physical Exam - Constitutional Appears: No Acute Distress - Head Exam Head Exam: NORMAL INSPECTION - Eye Exam Eye Exam: Normal appearance, PERRL - ENT Exam ENT Exam: Mucous Membranes Moist, Normal Oropharynx - Neck Exam Neck exam: Positive for: Normal Inspection - Respiratory Exam Respiratory Exam: Decreased Breath Sounds, NORMAL BREATHING PATTERN - Cardiovascular Exam Cardiovascular Exam: REGULAR RHYTHM, +S1, +S2 - GI/Abdominal Exam GI & Abdominal Exam: Normal Bowel Sounds, Soft Additional comments: no tenderness or guarding - Extremities Exam Additional comments: bilateral venous stasis,1+ edema - Back Exam Additional comments: stage 1 sacral decubiti - Neurological Exam Neurological exam: Alert Additional comments: oriented to self - Psychiatric Exam Psychiatric exam: Normal Mood - Skin Skin Exam: Dry, Warm Results - Vital Signs Recent Vital Signs: Last Vital Signs Temp 97.9 F 02/18/18 06:00 Pulse 64 02/18/18 09:41 Resp 20 02/18/18 06:00 BP 141/67 02/18/18 09:41 Pulse Ox 95 02/18/18 06:00 - Labs Result Diagrams: 02/18/18 09:00 02/18/18 09:00 Labs: Laboratory Results - last 24 hr 02/17/18 02/17/18 02/17/18 12:03 16:24 21:27 WBC RBC Hgb Hct MCV MCH MCHC RDW Plt Count MPV Gran % Lymph % (Auto) Hamilton % (Auto) Eos % (Auto) Baso % (Auto) Gran # Lymph # (Auto) Hamilton # (Auto) Eos # (Auto) Baso # (Auto) Sodium Potassium Chloride Carbon Dioxide Anion Gap BUN Creatinine Est GFR ( Amer) Est GFR (Non-Af Amer) POC Glucose (mg/dL) 75 85 85 Random Glucose Calcium Total Bilirubin AST ALT Alkaline Phosphatase Total Protein Albumin Globulin Albumin/Globulin Ratio 02/18/18 02/18/18 02/18/18 07:19 09:00 09:00 WBC 5.8 RBC 3.65 Hgb 10.9 L Hct 32.9 L MCV 90.1 MCH 29.9 MCHC 33.1 RDW 14.5 Plt Count 86 L MPV 9.5 Gran % 70.5 H Lymph % (Auto) 18.9 L Hamilton % (Auto) 8.6 H Eos % (Auto) 1.5 Baso % (Auto) 0.5 Gran # 4.11 Lymph # (Auto) 1.1 L Hamilton # (Auto) 0.5 Eos # (Auto) 0.1 Baso # (Auto) 0.03 Sodium 142 Potassium 3.6 Chloride 112 H Carbon Dioxide 23 Anion Gap 11 BUN 18 Creatinine 0.9 Est GFR ( Amer) > 60 Est GFR (Non-Af Amer) > 60 POC Glucose (mg/dL) 91 Random Glucose 96 Calcium 8.6 Total Bilirubin 0.5 AST 31 ALT 28 Alkaline Phosphatase 101 Total Protein 5.4 L Albumin 2.6 L Globulin 2.7 Albumin/Globulin Ratio 1.0 L Assessment & Plan - Assessment and Plan (Free Text) Assessment: 87 year old male with history of CAD s/p CABG, HTN, DM, hypothyroidism, renal mass and dementia who is admitted with fever, transient bradycardia and danuta kocytosis. The aptien is alert,able to follow commands, oriented to self. He denies any complaints, unsure why he is in the hospital. He is able to tell me his children names and professions. In general, he is unable to give dates, accurate time frames of occasions. Mr. Cui daughter Shelly Zepeda expressed interest in advance care planning for her father. We met and had very extensive discussion regarding resuscitation with CPR/intubation. Benefits and burdens of resuscitation explained, questions answered. Daughter states that she has never had this discussion with her father, but believes that he would want these efforts done, especially if his condition was reversible. Daughter understands ramifications of resuscitative efforts but does not want to make her dad DNR/DNI at this point in time. Time spent in goals of care and advance care planning conversation with family, 50 minutes Plan: Leukocytosis/SIRS: ID following, continue Cefepime, Vancomycin Fevers: Resolved Bradycardia: Cardiology following, Toprol XL 25 mg Goals of care and advance care planning
--- NOTE | 2018-02-18 17:21 | PN ---
DATE: 02/18/2018 SUBJECTIVE: An 87-year-old male on telemetry. PHYSICAL EXAMINATION: VITAL SIGNS: This morning show a temp of 98.3, pulse of 66, blood pressure is 157/73. GENERAL: Nursing staff relates there are no specific problems during the night, although the patient does seem to get a little oriented at night. NECK: Supple. LUNGS: Clear. HEART: In S1 and S2. ABDOMEN: Obese, soft with positive bowel sounds. EXTREMITIES: Show no evidence of edema. LABORATORY DATA: Shows WBC of 5.8, RBC of 3.65, hemoglobin 10.9, hematocrit 32.9, platelet count is 86,000. Chemistry shows sodium 142, potassium 3.6, chloride 112, BUN is 18, creatinine is 0.8. LFTs are normal. His albumin is 2.6. Cultures of blood and urine to date are negative. MEDICATIONS: The patient is currently on Colace, Maxipime, Namenda, Norvasc, Systane eye drops, Questran, Synthroid, Toprol-XL 25 mg daily, Tylenol, and vancomycin. ASSESSMENT AND PLAN: 1. The patient has been seen by Cardiology who at this time is recommending continuation of the beta-avila with monitoring on telemetry. 2. The patient has been seen by Neurology for his underlying cognitive behavior disorder and periods of agitation. CAT scan of the head is pending. 3. The patient has been seen by Podiatry and nail care has been provided. 4. Findings on CAT scan of the abdomen and chest and pelvis have been reported and noted. Await Infectious Disease input regarding these findings. We will continue current level of care. Andreia Phillips MD
--- NOTE | 2018-02-19 00:49 | PN ---
DATE: 02/18/2018 SUBJECTIVE: The patient was seen early this morning. Overall improved, in room 276, bed 1. No fevers and no chills. PHYSICAL EXAMINATION: VITAL SIGNS: On exam, temperature is 97, blood pressure is 140/60, respiratory rate 16. HEENT: Examination of HEENT is unremarkable. NECK: Supple. LUNGS: Have decreased breath sounds. HEART: Normal S1, S2. ABDOMEN: Soft. LABORATORY DATA: Laboratory examination reveals white count is down to 5.8, hemoglobin of 10. Chemistries are noted. Urinalysis is reviewed. Serology reveals influenza is negative. Microbiology reveals the blood culture, urine cultures, no growth. CT of the abdomen and pelvis is negative. CT of the chest is negative. Review of orders reveals the patient to be on cefepime, vancomycin. ASSESSMENT AND PLAN: An 87-year-old correction patient with coronary artery disease, coronary bypass graft, dementia, leukocytosis, fevers with systemic inflammatory response syndrome. Unknown source. The patient did have bandemia. Negative cultures, negative CAT scan. On vancomycin and cefepime, would complete a short course, today is day #3. Would complete 4 to 7 days. Kp Pierre MD
[2018-02-19] MEDS: Vancomycin 1gm in NS 250ml 1 GM/250 ML BAG IVPB SCH (03:32)
[2018-02-19] MEDS: Sodium Chloride 0.9% 1,000 ML IV SCH ×2 (03:39→09:51)
[2018-02-19] MEDS: Cefepime IV 2 gm in NS 2 GM/100 ML BAG IVPB SCH (06:39)
--- NOTE | 2018-02-19 07:44 | CP.PCM.PN ---
Subjective - Date & Time of Evaluation Date of Evaluation: 02/19/18 Time of Evaluation: 07:00 - Subjective Subjective: Stable on 2R. Confused, agitated at times. V/S noted. Rapid AF during the night, with agitation. RSR now. PE: Lungs: clear Cor.: S1S2 Abd.: soft Ext.: Mild edema with chronic changes Neuro: dementia I/O= 2350/2800 Urine C+S: NG BC X2 NG at 3days. Objective - Vital Signs/Intake and Output Vital Signs (last 24 hours): Temp Pulse Resp BP Pulse Ox 98.3 F 138 H 20 135/72 94 L 02/19/18 06:00 02/19/18 06:00 02/19/18 06:00 02/19/18 06:00 02/19/18 06:00 Intake and Output: 02/19/18 02/19/18 06:59 18:59 Intake Total 2350 Output Total 2800 Balance -450 - Medications Medications: Current Medications Acetaminophen (Tylenol 325mg Tab) 650 mg PO Q4H PRN PRN Reason: Fever >101 F Acetaminophen (Tylenol 325mg Tab) 650 mg PO Q6H PRN PRN Reason: Pain, moderate (4-7) Last Admin: 02/17/18 21:00 Dose: 650 mg Amlodipine Besylate (Norvasc) 10 mg PO DAILY [facility] Last Admin: 02/18/18 09:41 Dose: 10 mg Cholestyramine Resin (Questran) 4 gm PO DAILY [facility] Last Admin: 02/18/18 09:40 Dose: 4 gm Docusate Sodium (Colace) 100 mg PO BID [facility] Last Admin: 02/18/18 18:47 Dose: Not Given Sodium Chloride (Sodium Chloride 0.9%) 1,000 mls @ 150 mls/hr IV .Q6H40M [facility] Last Admin: 02/19/18 03:39 Dose: 150 mls/hr Cefepime HCl (Maxipime 2gm) 2 gm in 100 mls @ 100 mls/hr IVPB Q12H [facility]; Protocol Stop: 02/21/18 06:31 Last Admin: 02/19/18 06:39 Dose: 100 mls/hr Vancomycin HCl (Vancomycin 1gm) 1 gm in 250 mls @ 167 mls/hr IVPB Q12H [facility]; Protocol Last Admin: 02/19/18 03:32 Dose: 167 mls/hr Levothyroxine Sodium (Synthroid) 50 mcg PO DAILY [facility] Last Admin: 02/18/18 09:41 Dose: 50 mcg Memantine (Namenda) 10 mg PO DAILY [facility] Last Admin: 02/18/18 09:41 Dose: 10 mg Non-Formulary Medication (Propylene Glycol/Peg 400/Pf [Systane 0.3-0.4% Eye Drop]) 1 drop BOTHEYES QID [facility] Last Admin: 02/18/18 21:55 Dose: Not Given - Labs Labs: 02/18/18 09:00 02/18/18 09:00 Assessment and Plan - Assessment and Plan (Free Text) Assessment: Fever/SIRS Bradycardia PAF with RVR CAD/remote CABG HBP Diabetes Obesity H/O GB surgery Hypothyroidism Renal Mass on CT Dementia Thrombocytopenia Decubitus ulcer Plan: Will switch metoprolol to cardizem 30 QID trial. Titrate. AB As per Dr. Alan JOSEPH, Podiatry, Neuro., Uro., Palliative Care.
[2018-02-19] MEDS ORDERED: Potassium Chloride 20 mEq ER Tab PO ONE (07:54)
--- NOTE | 2018-02-19 09:36 | PCM.URO ---
Urology Progress Note - Objective Lab Studies: Reviewed (see previous dictated note from 02/18 plans to change spt today at bedside prior to discharge) Lab Results Last 24 Hours: Laboratory Results - last 24 hr 02/18/18 02/18/18 11:29 16:21 POC Glucose (mg/dL) 97 82 Intake & Output: Intake & Output 02/18/18 02/19/18 02/19/18 18:59 06:59 18:59 Intake Total 2150 2350 Output Total 2800 Balance 2150 -450 Weight 186 lb 6.4 oz 184 lb Intake: IV 2150 1800 Left Hand 1800 Right Hand 2150 Oral 200 Other 350 Output: Urine 2800 Urine, Voided 2800 Other: # Voids Urine, Voided 5 # Bowel Movements 0 Vital Signs: Vital Signs - 24 hr 02/18/18 02/18/18 02/18/18 09:41 10:00 12:00 Temperature 98.3 F Pulse Rate 64 57 L 66 Respiratory 18 Rate Blood Pressure 141/67 157/73 H O2 Sat by Pulse Oximetry 02/18/18 02/18/18 02/18/18 14:00 17:46 18:00 Temperature 97.9 F Pulse Rate 66 58 L 56 L Respiratory 18 Rate Blood Pressure 141/65 O2 Sat by Pulse Oximetry 02/18/18 02/19/18 02/19/18 22:00 00:01 02:00 Temperature 97.9 F Pulse Rate 58 L 60 146 H Respiratory 20 Rate Blood Pressure 154/67 H O2 Sat by Pulse 18 L Oximetry 02/19/18 02/19/18 02/19/18 03:37 04:49 06:00 Temperature 98.3 F Pulse Rate 146 H 142 H 125 H Respiratory 20 Rate Blood Pressure 147/85 135/72 135/72 O2 Sat by Pulse 94 L Oximetry
[2018-02-19] MEDS: Levothyroxine 50 MCG TAB PO SCH (09:49)
[2018-02-19] MEDS: Cholestyramine 4 gm/Pkt UD PO SCH (09:49)
[2018-02-19] MEDS: [UNRECOGNIZED DRUG - OTHER] BOTHEYES SCH ×4 (09:51→22:21)
[2018-02-19] MEDS: PROPYLENE GLYCOL BOTHEYES SCH ×4 (09:51→22:21)
[2018-02-19] MEDS: PEG BOTHEYES SCH ×4 (09:51→22:21)
--- NOTE | 2018-02-19 10:21 | CARD ---
APPROVED REPORT Date of service: 02/19/2018 EKG Measurement Heart [id number] 160P [id number] <Conclusion> Sinus rhythm with premature atrial complexes IVCD Abnormal ECG
[2018-02-19 10:36] LABS: BASO # 0.04 K/mm3 (0.0-2.0); BASO % 0.7 % (0.0-3.0); EOS # 0.1 (0.0-0.7); EOS % 1.3 % (1.5-5.0); GRAN # 3.6 (1.4-6.5); GRAN % 66.9 % (50.0-68.0); HEMOGLOBIN 10.6 g/dL (14.0-18.0); LYMPH # 1.2 (1.2-3.4); LYMPH % 21.6 % (22.0-35.0); MEAN CORPUSCULAR HGB CONC 32.6 g/dl (31.0-37.0); MEAN PLATELET VOLUME 9.3 fl (7.0-11.0); MONO # 0.5 (0.1-0.6); MONO % 9.5 % (1.0-6.0); RBC 3.65 10^6/uL (3.5-6.1); RED CELL DISTRIBUTION WIDTH 14.3 % (11.5-14.5); WHITE BLOOD COUNT 5.4 10^3/ul (4.5-11.0)
[2018-02-19 10:54] LABS: ALBUMIN 2.6 g/dL (3.0-4.8); ALT/SGPT 19 U/L (7-56); AST/SGOT 29 U/L (17-59); BLOOD UREA NITROGEN 14 mg/dL (7-21); CALCIUM 8.5 mg/dL (8.4-10.5); GFR NON-AFRICAN AMERICAN > 60
--- NOTE | 2018-02-19 18:09 | PN ---
DATE: 02/19/2018 NEUROLOGY FOLLOWUP CHIEF COMPLAINT: Followup for dementia. SUBJECTIVE: The patient is seen and examined at bedside. He is definitely demented. His chest x-ray is currently negative. He had elevated prolactin level and treated with antibiotics for possible SIRS. No acute events overnight. He currently has some definitely moderate cognitive impairment. He is on Namenda agitation. REVIEW OF SYSTEMS: Fourteen-point review of systems is negative as per the HPI. PAST MEDICAL HISTORY: As above. SOCIAL HISTORY: No illicit drug use, smoking or EtOH abuse. MEDICATIONS: Reviewed by nurses' reconciliation sheet. FAMILY HISTORY: Noncontributory. ALLERGIES: ALLERGIC TO THIAZIDE. CURRENT PHYSICAL EXAMINATION: VITAL SIGNS: Temperature 99.4, pulse rate 63, blood pressure 163/79, respiratory rate of 18 GENERAL: The patient is in no acute distress, lethargic. HEENT: Atraumatic, normocephalic. PERRLA. Extraocular muscles intact. NECK: Supple. No JVD, no adenopathy noted. LUNGS: Decreased breath sounds bilaterally. HEART: S1, S2. Normal rate and rhythm. No murmurs, rubs or gallops. ABDOMEN: Soft, nontender and nondistended. Bowel sounds are present. EXTREMITIES: No clubbing. No cyanosis. Peripheral pulses 2+ felt bilaterally. NEUROLOGIC: The patient is alert and oriented to person and self, not much of month or year. Recall after 5 minutes is 0/3. Poor attention span, slow thought process. Cannot spell the word world backwards. His is able to tell me his children's names, but in general he is unable to give and has very poor attention span and poor calculation. Motor exam: Slight increased tone throughout. Moves all extremities equally. He is deconditioned. Sensory exam: Decreased light touch and pinprick up to the calves bilaterally. Decreased vibration of the knees. DTRs are 2+ throughout and 1 at both knees and ankles. Coordination: Gait is deferred for now. LABORATORY DATA: Sodium is 140, potassium 3.5, chloride 112, carbon dioxide 22, BUN of 14, creatinine 0.8, random glucose 75. IMPRESSION: This is an 87-year-old man with history of coronary artery disease, status post coronary artery bypass graft, hypertension, diabetes, hypothyroidism, renal mass and dementia, who was admitted for fever, transient bradycardia and leukocytosis. Undergoing medical management. I was called to evaluate for underlying dementia. He has moderate cognitive impairment. He has moderate forms of dementia and he is on Namenda. He occasionally gets delirium and delusions, but is currently stable and is mildly deconditioned. At this time, I will recommend, 1. Monitor electrolytes and correct accordingly. 2. Continue with Namenda 10 mg p.o. daily. 3. Thiamine 100 mg p.o. daily for neurocognitive activation. 4. Physical Therapy/Occupational Therapy eval and continue on current present medical management. Thank you for this followup. Reyes Thornton MD
--- NOTE | 2018-02-19 21:59 | PN ---
DATE: 02/19/2018 SUBJECTIVE: The patient is in bed, in no acute distress, nontoxic. PHYSICAL EXAMINATION: VITAL SIGNS: On exam, temperature is 99, blood pressure is 120/60, respiratory rate of 16. HEENT: Examination of HEENT is unremarkable. NECK: Supple. LUNGS: Have decreased breath sounds. HEART: Normal S1, S2. ABDOMEN: Soft, nontender. LABORATORY DATA: Laboratory examination reveals white count is down to 5.2, hemoglobin of 10. Chemistries are noted and urinalysis is noted. Serology is negative. Microbiology, urine, blood cultures are negative. ASSESSMENT AND PLAN: An 87-year-old male, jail patient, with coronary artery disease, coronary bypass graft, dementia, leukocytosis and fever with systemic inflammatory response syndrome, did have bandemia, however, blood cultures negative, urine cultures negative. CAT scan of the chest and abdomen is negative and the patient has had 4 days of antibiotics, now unable to give IV antibiotics because of IV access. No real source. We will discontinue the antibiotics and follow the patient off of antibiotics closely. Overall prognosis is poor. Kp Pierre MD
--- NOTE | 2018-02-20 00:52 | PN ---
DATE: 02/19/2018 PHYSICAL EXAMINATION: VITAL SIGNS: Temperature 99.2 orally, blood pressure 128/66, respiratory rate is 18. GENERAL: Nursing staff relates that during the night, the patient became a little confused and agitated. At present time, he seems to be a little confused. NECK: Supple. LUNGS: Clear. HEART: S1 and S2 rhythm at this time. ABDOMEN: Obese, soft, positive bowel sounds. EXTREMITIES: Showed no evidence of edema. LABORATORY DATA: WBC is 5.4, RBC 3.65, hemoglobin 10.6, hematocrit 32.5, and platelet count is 118. Chemistry shows sodium 140, potassium 3.5, chloride 112, BUN of 14, and creatinine of 0.8. LFTs are normal. Albumin is 2.6. MEDICATIONS: Currently, the patient is on Synthroid 50 mcg daily, Tylenol, Seroquel 12.5 mg daily, Questran, Systane eye drops, amlodipine, Namenda, Colace and Cardizem. ASSESSMENT AND PLAN: The patient was reported to have an episode of atrial fibrillation and Cardiology started the patient on Cardizem. I will continue to monitor the patient on Telemetry. He has currently been taken off of antibiotics by Infectious Disease. He received a dose of potassium to replete his low potassium level with follow up of his chemistries. He had systemic inflammatory response syndrome with an elevated procalcitonin, was followed by Infectious Disease and treated with antibiotics. Cultures today are negative. He has been seen by Neurology for his cognitive impairment. Currently on Namenda. He does have variance of delirium and delusion. He will be continued to be monitored on the Cardiology medications at this time. He will be continued to be followed by Cardiology, Neurology, and Infectious Disease. Urology consult has been requested given his history of renal mass. The clinical findings have been discussed with the patient's family and continue current level of supportive care. Andreia Phillips MD
[2018-02-20 07:15] LABS: BASO # 0.03 K/mm3 (0.0-2.0); BASO % 0.6 % (0.0-3.0); EOS # 0.1 (0.0-0.7); EOS % 2.3 % (1.5-5.0); GRAN # 3.05 (1.4-6.5); GRAN % 57.9 % (50.0-68.0); LYMPH # 1.6 (1.2-3.4); LYMPH % 29.7 % (22.0-35.0); MEAN CORPUSCULAR HEMOGLOBIN 29.1 pg (25.0-35.0); MEAN CORPUSCULAR HGB CONC 32.7 g/dl (31.0-37.0); MONO # 0.5 (0.1-0.6); MONO % 9.5 % (1.0-6.0); RBC 3.44 10^6/uL (3.5-6.1); RED CELL DISTRIBUTION WIDTH 14.4 % (11.5-14.5); WHITE BLOOD COUNT 5.3 10^3/ul (4.5-11.0)
[2018-02-20 07:28] LABS: BLOOD UREA NITROGEN 20 mg/dL (7-21); CALCIUM 8.6 mg/dL (8.4-10.5); GFR NON-AFRICAN AMERICAN > 60
--- NOTE | 2018-02-20 07:51 | CP.PCM.PN ---
Subjective - Date & Time of Evaluation Date of Evaluation: 02/20/18 Time of Evaluation: 07:00 - Subjective Subjective: Stable on 2R. Confused, agitated at times. V/S noted. RSR PE: Lungs: clear Cor.: S1S2 Abd.: soft Ext.: Mild edema with chronic changes Neuro: dementia I/O= 850/4500 Urine C+S: NG BC X2 NG at 4 days. ECG 02/19: RSR, APCs, LAD, PRWP. No change Objective - Vital Signs/Intake and Output Vital Signs (last 24 hours): Temp Pulse Resp BP Pulse Ox 98.4 F 66 18 156/69 H 95 02/20/18 06:00 02/20/18 06:00 02/20/18 06:00 02/20/18 06:00 02/20/18 06:00 Intake and Output: 02/20/18 02/20/18 06:59 18:59 Intake Total 350 Output Total 2200 Balance -1850 - Medications Medications: Current Medications Acetaminophen (Tylenol 325mg Tab) 650 mg PO Q4H PRN PRN Reason: Fever >101 F Acetaminophen (Tylenol 325mg Tab) 650 mg PO Q6H PRN PRN Reason: Pain, moderate (4-7) Last Admin: 02/17/18 21:00 Dose: 650 mg Amlodipine Besylate (Norvasc) 10 mg PO DAILY [facility] Last Admin: 02/19/18 09:50 Dose: 10 mg Cholestyramine Resin (Questran) 4 gm PO DAILY [facility] Last Admin: 02/19/18 09:49 Dose: 4 gm Diltiazem HCl (Cardizem) 30 mg PO QID [facility] Last Admin: 02/19/18 22:15 Dose: 30 mg Docusate Sodium (Colace) 100 mg PO BID [facility] Last Admin: 02/19/18 17:27 Dose: 100 mg Levothyroxine Sodium (Synthroid) 50 mcg PO DAILY [facility] Last Admin: 02/19/18 09:49 Dose: 50 mcg Memantine (Namenda) 10 mg PO DAILY [facility] Last Admin: 02/19/18 09:51 Dose: 10 mg Non-Formulary Medication (Propylene Glycol/Peg 400/Pf [Systane 0.3-0.4% Eye Drop]) 1 drop BOTHEYES QID [facility] Last Admin: 02/19/18 22:21 Dose: Not Given Quetiapine Fumarate (Seroquel) 12.5 mg PO DAILY [facility]; Protocol Last Admin: 02/19/18 10:00 Dose: Not Given - Labs Labs: 02/20/18 06:45 02/20/18 06:45 Assessment and Plan - Assessment and Plan (Free Text) Assessment: Fever/SIRS Bradycardia PAF with RVR CAD/remote CABG HBP Diabetes Obesity H/O GB surgery Hypothyroidism Renal Mass on CT Dementia Thrombocytopenia Decubitus ulcer Plan: Continue cardizem > CD 180/day As per Dr. Alan JOSEPH, Podiatry, Neuro., Uro., Palliative Care.
--- NOTE | 2018-02-20 09:04 | PN ---
DATE: 02/18/2018 UROLOGY PROGRESS NOTE REASON FOR CONSULTATION: Retention. SUBJECTIVE: Mr. Zepeda is a very pleasant gentleman. He has neurogenic bladder. He has multiple medical issues. 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 So at this point, we are managing with the suprapubic and eventually, we are going to try to get him to another urologist to consider repair of his urethra. I discussed the offer with the patient. Meanwhile, he came in with "urinary tract infection." He is under the care of Dr. Douglas. Urology is consulted for further recommendations. The past medical and surgical are both listed on the chart. REVIEW OF SYSTEMS: Listed above, noncontributory from a Urology standpoint right now. SOCIAL HISTORY: The patient is living in the prison, he is now actually home. On a social note, patient already has a wheelchair to get him around, he is doing much better. PHYSICAL EXAMINATION: GENERAL: Well-nourished male. He is currently resting comfortably in his bed. GENITOURINARY: The suprapubic catheter is in place, it is draining well. The remainder of the exam is otherwise unremarkable. DIAGNOSES: Urinary retention, voiding dysfunction, neurogenic bladder, hypospadias and urinary tract infection. PLAN: As follows; maintain the current suprapubic catheter. We are going to arrange to change the catheter on 02/19/2018. We will do this at the bedside. The patient does not need to be n.p.o. and further plans will follow. I have discussed with the patient risks, benefits, treatment alternatives. We are going to plan to do it tomorrow. Alejandro Almaguer MD
[2018-02-20] MEDS: Levothyroxine 50 MCG TAB PO SCH (11:09)
[2018-02-20] MEDS: diltiaZEM 180 mg/24 Hours CD Cap PO SCH (11:09)
[2018-02-20] MEDS: [UNRECOGNIZED DRUG - OTHER] BOTHEYES SCH ×4 (11:10→22:18)
[2018-02-20] MEDS: PEG BOTHEYES SCH ×4 (11:10→22:18)
[2018-02-20] MEDS: PROPYLENE GLYCOL BOTHEYES SCH ×4 (11:10→22:18)
[2018-02-20] MEDS: Cholestyramine 4 gm/Pkt UD PO SCH (11:10)
[2018-02-20 13:01] LABS: IRON 56 ug/dL (45-180)
[2018-02-20 13:11] LABS: % IRON SATURATION 25 % (20-55); TOTAL IRON BINDING CAPACITY 220 ug/dL (261-462)
--- NOTE | 2018-02-20 16:43 | CP.PCM.CON ---
<CinthiaAustin - Last Filed: 02/20/18 16:40> History of Present Illness - History of Present Illness History of Present Illness: GI CONSULT NOTE for DR. Yadav Request for GI Consult is for anemia HPI: 87 year old male with past medical history of CAD, DM2, HTN, Dementia, prostate cancer s/p radiation 20 years ago, hypothyroidism, rheumatoid arthritis, macular degeneration, ypercholesterolemia, colonic polyps, PUD and carcinoid tumor of the duodenum who presented to [facility] [place] [place] ED from [facility] with 103F fever. History and ROS is limited secondary to patient being a poor historian. HPI is collection of patient and chart review. Most recent EGD: Most recent Colonoscopy: PMH: As above PSH: CABG, Cholecystectomy, cataract surgery FMH: Denies SOCHX: Denies tobacco, ETOH, ID ALL: Dyazide MEDS: Questran, Synthroid, Manenda, Metoprolol tartrate, amlodipine, systane eye drops Review of Systems - Review of Systems Systems not reviewed;Unavailable: Altered Mental Status All systems: reviewed and no additional remarkable complaints except (as men tioned in HPI) Past Patient History - Tetanus Immunizations Tetanus Immunization: Unknown - Past Medical History & Family History Past Medical History?: Yes Past Family History: Reviewed and not pertinent - Past Social History Smoking Status: Former Smoker Alcohol: None Drugs: Denies Home Situation {Lives}: Senior Living - CARDIAC Hx Cardiac Disorders: Yes (cad) Hx Congestive Heart Failure: Yes Hx Hypertension: Yes - PULMONARY Hx Respiratory Disorders: No - NEUROLOGICAL Hx Neurological Disorder: Yes Hx Dementia: Yes - HEENT Hx HEENT Problems: Yes Hx Macular Degeneration: Yes - RENAL Hx Chronic Kidney Disease: No - ENDOCRINE/METABOLIC Hx Diabetes Mellitus Type 2: Yes - HEMATOLOGICAL/ONCOLOGICAL Hx Blood Disorders: No - INTEGUMENTARY Hx Dermatological Problems: No - MUSCULOSKELETAL/RHEUMATOLOGICAL Hx Musculoskeletal Disorders: No Hx Falls: No - GASTROINTESTINAL Hx Gastrointestinal Disorders: No - GENITOURINARY/GYNECOLOGICAL Hx Genitourinary Disorders: No - PSYCHIATRIC Hx Depression: No Hx Emotional Abuse: No Hx Physical Abuse: No - SURGICAL HISTORY Hx Appendectomy: Yes Hx Cholecystectomy: Yes - ANESTHESIA Hx Anesthesia: No Hx Anesthesia Reactions: No Hx Malignant Hyperthermia: No Meds Allergies/Adverse Reactions: Allergies Allergy/AdvReac Type Severity Reaction Status Date / Time Thiazide & Related Allergy SWELLING Uncoded 02/16/18 00:45 - Medications Medications: Current Medications Acetaminophen (Tylenol 325mg Tab) 650 mg PO Q4H PRN PRN Reason: Fever >101 F Acetaminophen (Tylenol 325mg Tab) 650 mg PO Q6H PRN PRN Reason: Pain, moderate (4-7) Last Admin: 02/17/18 21:00 Dose: 650 mg Amlodipine Besylate (Norvasc) 10 mg PO DAILY [facility] Last Admin: 02/20/18 11:09 Dose: 10 mg Cholestyramine Resin (Questran) 4 gm PO DAILY [facility] Last Admin: 02/20/18 11:10 Dose: 4 gm Diltiazem HCl (Cardizem Cd) 180 mg PO DAILY [facility] Last Admin: 02/20/18 11:09 Dose: 180 mg Docusate Sodium (Colace) 100 mg PO BID [facility] Last Admin: 02/20/18 11:08 Dose: 100 mg Levothyroxine Sodium (Synthroid) 50 mcg PO DAILY [facility] Last Admin: 02/20/18 11:09 Dose: 50 mcg Memantine (Namenda) 10 mg PO DAILY [facility] Last Admin: 02/20/18 11:09 Dose: 10 mg Non-Formulary Medication (Propylene Glycol/Peg 400/Pf [Systane 0.3-0.4% Eye Drop]) 1 drop BOTHEYES QID [facility] Last Admin: 02/20/18 13:27 Dose: Not Given Quetiapine Fumarate (Seroquel) 12.5 mg PO DAILY [facility]; Protocol Last Admin: 02/20/18 11:09 Dose: 12.5 mg Physical Exam - Constitutional Appears: Non-toxic, No Acute Distress - Head Exam Head Exam: ATRAUMATIC, NORMAL INSPECTION, NORMOCEPHALIC - Eye Exam Eye Exam: EOMI, PERRL - Neck Exam Neck exam: Positive for: Full Rom - Respiratory Exam Respiratory Exam: Clear to Auscultation Bilateral, NORMAL BREATHING PATTERN. absent: Rhonchi, Wheezes - Cardiovascular Exam Cardiovascular Exam: REGULAR RHYTHM, +S1, +S2 - GI/Abdominal Exam GI & Abdominal Exam: Normal Bowel Sounds, Soft. absent: Tenderness - Extremities Exam Extremities exam: Negative for: calf tenderness, pedal edema - Neurological Exam Neurological exam: Alert Additional comments: Alert Motor and Sensory grossly normal - Skin Skin Exam: Dry, Intact Results - Vital Signs Recent Vital Signs: Last Vital Signs Temp 98.4 F 02/20/18 06:00 Pulse 66 02/20/18 06:00 Resp 18 02/20/18 06:00 BP 150/70 02/20/18 11:09 Pulse Ox 95 02/20/18 06:00 - Labs Result Diagrams: 02/20/18 06:45 02/20/18 06:45 Labs: Laboratory Results - last 24 hr 02/19/18 02/19/18 02/19/18 10:54 16:20 21:16 WBC RBC Hgb Hct MCV MCH MCHC RDW Plt Count MPV Gran % Lymph % (Auto) [place] % (Auto) Eos % (Auto) Baso % (Auto) Gran # Lymph # (Auto) [place] # (Auto) Eos # (Auto) Baso # (Auto) Sodium Potassium Chloride Carbon Dioxide Anion Gap BUN Creatinine Est GFR ( Amer) Est GFR (Non-Af Amer) POC Glucose (mg/dL) 94 100 99 Random Glucose Calcium Iron TIBC % Saturation Ferritin 02/20/18 02/20/18 02/20/18 06:45 06:45 07:11 WBC 5.3 RBC 3.44 L Hgb 10.0 L Hct 30.6 L MCV 89.0 MCH 29.1 MCHC 32.7 RDW 14.4 Plt Count 139 MPV 9.0 Gran % 57.9 Lymph % (Auto) 29.7 [place] % (Auto) 9.5 H Eos % (Auto) 2.3 Baso % (Auto) 0.6 Gran # 3.05 Lymph # (Auto) 1.6 [place] # (Auto) 0.5 Eos # (Auto) 0.1 Baso # (Auto) 0.03 Sodium 143 Potassium 3.6 Chloride 112 H Carbon Dioxide 24 Anion Gap 10 BUN 20 Creatinine 0.9 Est GFR ( Amer) > 60 Est GFR (Non-Af Amer) > 60 POC Glucose (mg/dL) 86 Random Glucose 81 Calcium 8.6 Iron TIBC % Saturation Ferritin 02/20/18 02/20/18 02/20/18 12:19 12:45 12:45 WBC RBC Hgb Hct MCV MCH MCHC RDW Plt Count MPV Gran % Lymph % (Auto) [place] % (Auto) Eos % (Auto) Baso % (Auto) Gran # Lymph # (Auto) [place] # (Auto) Eos # (Auto) Baso # (Auto) Sodium Potassium Chloride Carbon Dioxide Anion Gap BUN Creatinine Est GFR ( Amer) Est GFR (Non-Af Amer) POC Glucose (mg/dL) 83 Random Glucose Calcium Iron 56 TIBC 220 L % Saturation 25 Ferritin 268.0 Assessment & Plan - Assessment and Plan (Free Text) Plan: Fever Hx of Carcinoid tumor of duodenum Hx of colonic polyps Hx of PUD CAD DM2 HTN Dementia - Will order a CEA, Chromograffin A level - Echocardiogram for evaluation of right sided heart valve in setting of carcinoid tumor - Leukocytosis, febrile on admission, blood and urine culture negative to date - Antibiotics as per Infectious disease - Further Recommendations per Dr. Yadav <Aníbal Yadav V - Last Filed: 02/20/18 20:47> Meds - Medications Medications: Current Medications Acetaminophen (Tylenol 325mg Tab) 650 mg PO Q4H PRN PRN Reason: Fever >101 F Acetaminophen (Tylenol 325mg Tab) 650 mg PO Q6H PRN PRN Reason: Pain, moderate (4-7) Last Admin: 02/17/18 21:00 Dose: 650 mg Amlodipine Besylate (Norvasc) 10 mg PO DAILY [facility] Last Admin: 02/20/18 11:09 Dose: 10 mg Cholestyramine Resin (Questran) 4 gm PO DAILY [facility] Last Admin: 02/20/18 11:10 Dose: 4 gm Diltiazem HCl (Cardizem Cd) 180 mg PO DAILY [facility] Last Admin: 02/20/18 11:09 Dose: 180 mg Docusate Sodium (Colace) 100 mg PO BID [facility] Last Admin: 02/20/18 17:04 Dose: Not Given Levothyroxine Sodium (Synthroid) 50 mcg PO DAILY [facility] Last Admin: 02/20/18 11:09 Dose: 50 mcg Memantine (Namenda) 10 mg PO DAILY [facility] Last Admin: 02/20/18 11:09 Dose: 10 mg Non-Formulary Medication (Propylene Glycol/Peg 400/Pf [Systane 0.3-0.4% Eye Drop]) 1 drop BOTHEYES QID [facility] Last Admin: 02/20/18 17:04 Dose: Not Given Quetiapine Fumarate (Seroquel) 12.5 mg PO DAILY [facility]; Protocol Last Admin: 02/20/18 11:09 Dose: 12.5 mg Results - Vital Signs Recent Vital Signs: Last Vital Signs Temp 98.8 F 02/20/18 17:13 Pulse 65 02/20/18 18:00 Resp 18 02/20/18 17:13 BP 147/63 02/20/18 17:13 Pulse Ox 98 02/20/18 17:13 - Labs Result Diagrams: 02/20/18 06:45 02/20/18 06:45 Labs: Laboratory Results - last 24 hr 02/19/18 02/19/18 02/19/18 10:54 16:20 21:16 WBC RBC Hgb Hct MCV MCH MCHC RDW Plt Count MPV Gran % Lymph % (Auto) [place] % (Auto) Eos % (Auto) Baso % (Auto) Gran # Lymph # (Auto) [place] # (Auto) Eos # (Auto) Baso # (Auto) Sodium Potassium Chloride Carbon Dioxide Anion Gap BUN Creatinine Est GFR ( Amer) Est GFR (Non-Af Amer) POC Glucose (mg/dL) 94 100 99 Random Glucose Calcium Iron TIBC % Saturation Ferritin 02/20/18 02/20/18 02/20/18 06:45 06:45 07:11 WBC 5.3 RBC 3.44 L Hgb 10.0 L Hct 30.6 L MCV 89.0 MCH 29.1 MCHC 32.7 RDW 14.4 Plt Count 139 MPV 9.0 Gran % 57.9 Lymph % (Auto) 29.7 [place] % (Auto) 9.5 H Eos % (Auto) 2.3 Baso % (Auto) 0.6 Gran # 3.05 Lymph # (Auto) 1.6 [place] # (Auto) 0.5 Eos # (Auto) 0.1 Baso # (Auto) 0.03 Sodium 143 Potassium 3.6 Chloride 112 H Carbon Dioxide 24 Anion Gap 10 BUN 20 Creatinine 0.9 Est GFR ( Amer) > 60 Est GFR (Non-Af Amer) > 60 POC Glucose (mg/dL) 86 Random Glucose 81 Calcium 8.6 Iron TIBC % Saturation Ferritin 02/20/18 02/20/18 02/20/18 12:19 12:45 12:45 WBC RBC Hgb Hct MCV MCH MCHC RDW Plt Count MPV Gran % Lymph % (Auto) [place] % (Auto) Eos % (Auto) Baso % (Auto) Gran # Lymph # (Auto) [place] # (Auto) Eos # (Auto) Baso # (Auto) Sodium Potassium Chloride Carbon Dioxide Anion Gap BUN Creatinine Est GFR ( Amer) Est GFR (Non-Af Amer) POC Glucose (mg/dL) 83 Random Glucose Calcium Iron 56 TIBC 220 L % Saturation 25 Ferritin 268.0 Attending/Attestation - Attestation I have personally seen and examined this patient.: Yes I have fully participated in the care of the patient.: Yes I have reviewed all pertinent clinical information: Yes Notes (Text): This is an addendum to GI followup report dictated by the Chronic Care Nurse. The patient was seen and evaluated earlier. Medical records, lab studies, imagings were reviewed. Last 24 hours events reviewed. Agreed with the above treatment plan as outlined in Chronic Care Nurse 's notes with the addition of the following This 87 yr old patient with coronary artery disease status post CABG dementia DM HTN Admitted with fever, SIRS, an episode of A.fib Patient has history of hepatic lesions and renal lesions Elevated chronogranin A level, history of carcinoid tumour of duodenum Has history of massive GI bleeding in the past sp IR intervention (CT shows coil in the peripancreatic area) GI consult was requested to evaluate for anemia and hepatic lesion On examination patient is confused Abdomen soft non tender Would recommend 1. followup Hb/HCT 2. low dose PPI 3. Serum chronogranin A level Would not recommend aggressive interventional GI workup Will discuss with Dr. Phillips 02/20/18 20:47
--- NOTE | 2018-02-20 17:33 | CP.PCM.PN ---
Subjective - Date & Time of Evaluation Date of Evaluation: 02/20/18 Time of Evaluation: 08:20 - Subjective Subjective: Afebrile, comfortable, not in distress. Objective - Vital Signs/Intake and Output Vital Signs (last 24 hours): Temp Pulse Resp BP Pulse Ox 99.2 F 95 H 18 139/65 94 L 02/19/18 18:00 02/19/18 22:15 02/19/18 18:00 02/19/18 22:15 02/19/18 06:00 Intake and Output: 02/19/18 02/20/18 18:59 06:59 Intake Total 500 Output Total 2200 Balance -1700 - Medications Medications: Current Medications Acetaminophen (Tylenol 325mg Tab) 650 mg PO Q4H PRN PRN Reason: Fever >101 F Acetaminophen (Tylenol 325mg Tab) 650 mg PO Q6H PRN PRN Reason: Pain, moderate (4-7) Last Admin: 02/17/18 21:00 Dose: 650 mg Amlodipine Besylate (Norvasc) 10 mg PO DAILY [facility] Last Admin: 02/19/18 09:50 Dose: 10 mg Cholestyramine Resin (Questran) 4 gm PO DAILY [facility] Last Admin: 02/19/18 09:49 Dose: 4 gm Diltiazem HCl (Cardizem) 30 mg PO QID [facility] Last Admin: 02/19/18 22:15 Dose: 30 mg Docusate Sodium (Colace) 100 mg PO BID [facility] Last Admin: 02/19/18 17:27 Dose: 100 mg Levothyroxine Sodium (Synthroid) 50 mcg PO DAILY [facility] Last Admin: 02/19/18 09:49 Dose: 50 mcg Memantine (Namenda) 10 mg PO DAILY [facility] Last Admin: 02/19/18 09:51 Dose: 10 mg Non-Formulary Medication (Propylene Glycol/Peg 400/Pf [Systane 0.3-0.4% Eye Drop]) 1 drop BOTHEYES QID [facility] Last Admin: 02/19/18 22:21 Dose: Not Given Quetiapine Fumarate (Seroquel) 12.5 mg PO DAILY [facility]; Protocol Last Admin: 02/19/18 10:00 Dose: Not Given - Labs Labs: 02/19/18 10:30 02/19/18 10:30 - Constitutional Appears: No Acute Distress, Chronically Ill - Head Exam Head Exam: NORMAL INSPECTION - Respiratory Exam Respiratory Exam: Decreased Breath Sounds - Cardiovascular Exam Cardiovascular Exam: +S1, +S2 - GI/Abdominal Exam GI & Abdominal Exam: Soft. absent: Tenderness Assessment and Plan - Assessment and Plan (Free Text) Plan: Assessment S/P SIRS with fever, no evidence or source of infection identified CAD S/P CABG hypothyroidism DM HTN history of liver lesions history of caricinoid Plan continue to monitor off antibiotics since he is at risk for nosocomial infections
[2018-02-21 07:46] LABS: BASO # 0.03 K/mm3 (0.0-2.0); BASO % 0.6 % (0.0-3.0); EOS # 0.1 (0.0-0.7); GRAN # 3.38 (1.4-6.5); GRAN % 62.4 % (50.0-68.0); LYMPH # 1.5 (1.2-3.4); LYMPH % 27.1 % (22.0-35.0); MEAN CELL VOLUME 89.2 fl (80.0-105.0); MEAN CORPUSCULAR HEMOGLOBIN 30.1 pg (25.0-35.0); MEAN CORPUSCULAR HGB CONC 33.8 g/dl (31.0-37.0); MEAN PLATELET VOLUME 9.1 fl (7.0-11.0); MONO # 0.4 (0.1-0.6); MONO % 7.9 % (1.0-6.0); RBC 3.32 10^6/uL (3.5-6.1); RED CELL DISTRIBUTION WIDTH 14.2 % (11.5-14.5); WHITE BLOOD COUNT 5.4 10^3/ul (4.5-11.0)
[2018-02-21] MEDS: diltiaZEM 180 mg/24 Hours CD Cap PO SCH (09:19)
[2018-02-21] MEDS: Cholestyramine 4 gm/Pkt UD PO SCH (09:19)
[2018-02-21] MEDS: Levothyroxine 50 MCG TAB PO SCH (09:19)
[2018-02-21] MEDS: PROPYLENE GLYCOL BOTHEYES SCH ×4 (09:20→22:46)
[2018-02-21] MEDS: PEG BOTHEYES SCH ×4 (09:20→22:46)
[2018-02-21] MEDS: [UNRECOGNIZED DRUG - OTHER] BOTHEYES SCH ×4 (09:20→22:46)
--- NOTE | 2018-02-21 11:41 | CARD ---
APPROVED REPORT Date of service: 02/21/2018 EXAM: Two-dimensional and M-mode echocardiogram with Doppler and color Doppler. INDICATION EVAL TV 2D DIMENSIONS Left Atrium (2D)5.4 (1.6-4.0cm)IVSd1.4 (0.7-1.1cm) LVDd4.7 (3.9-5.9cm)LVOT Diameter2.5 (1.8-2.4cm) PWd1.6 (0.7-1.1cm)LVDs3.3 (2.5-4.0cm) FS (%) 30.0 %LVEF (%)57.2 (>50%) M-Mode DIMENSIONS Aortic Root3.90 (2.2-3.7cm)Aortic Cusp Exc.0.80 (1.5-2.0cm) Aortic Valve AoV Peak Fqrusioh671.0cm/sAoV VTI65.6cmAO Peak GR.34mmHg LVOT Peak Iyrvlbkf49.3cm/sLVOT VTI23.70cmAO Mean GR.20mmHg KYLE (VMAX)1.21ny1YTP (VTI)1.77cm2 Mitral Valve MV E Dercxknf73.6cm/sMV A Qjnfdxhc44.8cm/sE/A ratio0.7 TDI Lateral E' Peak V12.50cm/sMedial E' Peak V5.90cm/sE/Lateral E'5.4 E/Medial E'11.5 Tricuspid Valve TR Peak Vapolebe175lt/sRAP PHNXWVUD73kqQtZI Peak Gr.25mmHg [id number] LEFT VENTRICLE The left ventricle is normal size. There is mild to moderate concentric left ventricular hypertrophy. The systolic function is mildly impaired. There is moderate hypokinesis of the anteroseptal wall. RIGHT VENTRICLE The right ventricle is normal size. The right ventricular systolic function is normal. ATRIA The left atrium is severely dilated. The right atrium is mildly dilated. The interatrial septum is intact with no evidence for an atrial septal defect. AORTIC VALVE The aortic valve is moderately calcified. No aortic regurgitation is present. There is mild valvular aortic stenosis. MITRAL VALVE The mitral valve is moderately thickened but opens well. There is no mitral valve regurgitation noted. TRICUSPID VALVE The tricuspid valve is normal in structure. There is no tricuspid valve regurgitation noted. PULMONIC VALVE The pulmonary valve is normal in structure. GREAT VESSELS The aortic root is normal in size. The IVC is normal in size and collapses >50% with inspiration. PERICARDIAL EFFUSION There is a small left pleural effusion. There is no pericardial effusion. <Conclusion> Biatrial enlargement. Mild to moderate concentric LVH. Mildly reduced LV systolic function with anteroseptal hypokinesis. Mild .
--- NOTE | 2018-02-21 12:26 | PN ---
DATE: 02/21/2018 SUBJECTIVE: The patient is seen lying in bed on telemetry. He remains comfortable. He remains in sinus rhythm with no evidence of advanced AV block or excessive bradycardia. CURRENT MEDICATIONS: Include Cardizem 180 mg daily, Colace, Namenda, Norvasc, Questran, Seroquel, and Synthroid. PHYSICAL EXAMINATION: VITAL SIGNS: His blood pressure is 114/56 with a pulse of 72 and sinus respirations of 16. He is afebrile. HEENT: No JVD. CHEST: Few scattered rhonchi. HEART: Systolic murmur is noted at the base as well as left sternal border. ABDOMEN: Soft, nontender, normoactive bowel sounds. EXTREMITIES: No edema. DIAGNOSTIC DATA: White count 5.4, hemoglobin and hematocrit 10 and 29.6 with platelet count 156,000. IMPRESSION: 1. Recent transient bradycardia in the setting of beta-avila use. No evidence of recurrence since switching to diltiazem. 2. Known coronary artery disease status post prior bypass surgery, clinically stable at present. 3. Recent febrile illness, exact etiology uncertain. RECOMMENDATIONS: Amlodipine will be withheld as he is on diltiazem and the use of both will increase the potential for calcium avila side effects. If his blood pressure is not adequately controlled, the addition of an angiotensin receptor avila or SUSANNA inhibitor can be considered. In general continue conservative management as appropriate. His echocardiogram will be reviewed. We will follow as needed. Ruy Wiley MD MTDD
--- NOTE | 2018-02-21 14:04 | CP.PCM.PN ---
<Jose Garcia - Last Filed: 02/21/18 13:59> Subjective - Date & Time of Evaluation Date of Evaluation: 02/21/18 Time of Evaluation: 14:02 - Subjective Subjective: No acute overnight events. No BMs today. Tolerating diet. No signs of GI bleeding. Objective - Vital Signs/Intake and Output Vital Signs (last 24 hours): Temp Pulse Resp BP Pulse Ox 99 F 74 19 114/56 L 98 02/21/18 00:01 02/21/18 10:00 02/21/18 01:50 02/21/18 09:19 02/20/18 17:13 Intake and Output: 02/21/18 02/21/18 06:59 18:59 Intake Total 200 Output Total 400 Balance -200 - Medications Medications: Current Medications Acetaminophen (Tylenol 325mg Tab) 650 mg PO Q4H PRN PRN Reason: Fever >101 F Acetaminophen (Tylenol 325mg Tab) 650 mg PO Q6H PRN PRN Reason: Pain, moderate (4-7) Last Admin: 02/17/18 21:00 Dose: 650 mg Cholestyramine Resin (Questran) 4 gm PO DAILY [facility] Last Admin: 02/21/18 09:19 Dose: 4 gm Diltiazem HCl (Cardizem Cd) 180 mg PO DAILY [facility] Last Admin: 02/21/18 09:19 Dose: 180 mg Docusate Sodium (Colace) 100 mg PO BID [facility] Last Admin: 02/21/18 09:19 Dose: 100 mg Levothyroxine Sodium (Synthroid) 50 mcg PO DAILY [facility] Last Admin: 02/21/18 09:19 Dose: 50 mcg Memantine (Namenda) 10 mg PO DAILY [facility] Last Admin: 02/21/18 09:20 Dose: 10 mg Non-Formulary Medication (Propylene Glycol/Peg 400/Pf [Systane 0.3-0.4% Eye Drop]) 1 drop BOTHEYES QID [facility] Last Admin: 02/21/18 09:20 Dose: Not Given Quetiapine Fumarate (Seroquel) 12.5 mg PO DAILY [facility]; Protocol Last Admin: 02/21/18 09:20 Dose: 12.5 mg - Labs Labs: 02/21/18 07:00 02/20/18 06:45 - Constitutional Appears: Non-toxic, No Acute Distress - Head Exam Head Exam: NORMAL INSPECTION - Eye Exam Eye Exam: Normal appearance - Respiratory Exam Respiratory Exam: Clear to Ausculation Bilateral, NORMAL BREATHING PATTERN - GI/Abdominal Exam GI & Abdominal Exam: Soft, Normal Bowel Sounds. absent: Tenderness - Extremities Exam Extremities Exam: Normal Inspection - Neurological Exam Neurological Exam: Altered. absent: Awake, Oriented x3 - Psychiatric Exam Psychiatric exam: Flat Affect - Skin Skin Exam: Dry, Intact Assessment and Plan - Assessment and Plan (Free Text) Assessment: Fever Hx of Carcinoid tumor of duodenum Hx of colonic polyps Hx of PUD CAD DM2 HTN Dementia - CEA normal - Will order Chromograffin A level - Echocardiogram shows no significant abnormalities related to previous carcinoid tumor - Leukocytosis, febrile on admission, blood and urine culture negative to date - Antibiotics as per Infectious disease - Further Recommendations per Dr. Yadav <Aníbal Yadav V - Last Filed: 02/21/18 20:41> Objective - Vital Signs/Intake and Output Vital Signs (last 24 hours): Temp Pulse Resp BP Pulse Ox 97.8 F 83 18 123/59 L 96 02/21/18 18:00 02/21/18 18:00 02/21/18 18:00 02/21/18 18:00 02/21/18 18:00 - Medications Medications: Current Medications Acetaminophen (Tylenol 325mg Tab) 650 mg PO Q4H PRN PRN Reason: Fever >101 F Acetaminophen (Tylenol 325mg Tab) 650 mg PO Q6H PRN PRN Reason: Pain, moderate (4-7) Last Admin: 02/17/18 21:00 Dose: 650 mg Cholestyramine Resin (Questran) 4 gm PO DAILY [facility] Last Admin: 02/21/18 09:19 Dose: 4 gm Diltiazem HCl (Cardizem Cd) 180 mg PO DAILY [facility] Last Admin: 02/21/18 09:19 Dose: 180 mg Docusate Sodium (Colace) 100 mg PO BID [facility] Last Admin: 02/21/18 17:59 Dose: 100 mg Levothyroxine Sodium (Synthroid) 50 mcg PO DAILY [facility] Last Admin: 02/21/18 09:19 Dose: 50 mcg Memantine (Namenda) 10 mg PO DAILY [facility] Last Admin: 02/21/18 09:20 Dose: 10 mg Non-Formulary Medication (Propylene Glycol/Peg 400/Pf [Systane 0.3-0.4% Eye Drop ]) 1 drop BOTHEYES QID [facility] Last Admin: 02/21/18 17:51 Dose: Not Given Quetiapine Fumarate (Seroquel) 25 mg PO DAILY [facility]; Protocol - Labs Labs: 02/21/18 07:00 02/20/18 06:45 Attending/Attestation - Attestation I have personally seen and examined this patient.: Yes I have fully participated in the care of the patient.: Yes I have reviewed all pertinent clinical information, including history, physical exam and plan: Yes Notes (Text): This is an addendum to GI progress report dictated by the GI Fellow.The patient was seen and examined earlier. Medical records, lab studies, imagings were reviewed. Last 24 hours events reviewed. Agreed with the above treatment plan as outlined in GI Fellow 's notes with the addition of the following Patient is confused on 1 to 1 Echocardiogram report reviewed No tricuspid valvular disease significant Discussed with Dr. Phillips earlier History of renal and hepatic lesions Followup chromogranin A level Supportive care Antibiotics as per ID No further GI workup planned now 02/21/18 20:39
--- NOTE | 2018-02-21 16:04 | CP.PCM.PN ---
Subjective - Date & Time of Evaluation Date of Evaluation: 02/21/18 Time of Evaluation: 12:00 - Subjective Subjective: No fevers, not in distress. Objective - Vital Signs/Intake and Output Vital Signs (last 24 hours): Temp Pulse Resp BP Pulse Ox 99 F 74 19 114/56 L 98 02/21/18 00:01 02/21/18 10:00 02/21/18 01:50 02/21/18 09:19 02/20/18 17:13 Intake and Output: 02/21/18 02/21/18 06:59 18:59 Intake Total 200 Output Total 400 Balance -200 - Medications Medications: Current Medications Acetaminophen (Tylenol 325mg Tab) 650 mg PO Q4H PRN PRN Reason: Fever >101 F Acetaminophen (Tylenol 325mg Tab) 650 mg PO Q6H PRN PRN Reason: Pain, moderate (4-7) Last Admin: 02/17/18 21:00 Dose: 650 mg Cholestyramine Resin (Questran) 4 gm PO DAILY [facility] Last Admin: 02/21/18 09:19 Dose: 4 gm Diltiazem HCl (Cardizem Cd) 180 mg PO DAILY [facility] Last Admin: 02/21/18 09:19 Dose: 180 mg Docusate Sodium (Colace) 100 mg PO BID [facility] Last Admin: 02/21/18 09:19 Dose: 100 mg Levothyroxine Sodium (Synthroid) 50 mcg PO DAILY [facility] Last Admin: 02/21/18 09:19 Dose: 50 mcg Memantine (Namenda) 10 mg PO DAILY [facility] Last Admin: 02/21/18 09:20 Dose: 10 mg Non-Formulary Medication (Propylene Glycol/Peg 400/Pf [Systane 0.3-0.4% Eye Drop]) 1 drop BOTHEYES QID [facility] Last Admin: 02/21/18 09:20 Dose: Not Given Quetiapine Fumarate (Seroquel) 12.5 mg PO DAILY [facility]; Protocol Last Admin: 02/21/18 09:20 Dose: 12.5 mg - Labs Labs: 02/21/18 07:00 02/20/18 06:45 - Constitutional Appears: Chronically Ill - Head Exam Head Exam: NORMAL INSPECTION - Respiratory Exam Respiratory Exam: Decreased Breath Sounds - Cardiovascular Exam Cardiovascular Exam: +S1, +S2 - GI/Abdominal Exam GI & Abdominal Exam: Soft. absent: Tenderness Assessment and Plan - Assessment and Plan (Free Text) Plan: Assessment S/P SIRS with fever, no evidence or source of infection identified CAD S/P CABG hypothyroidism DM HTN history of liver lesions history of caricinoid Plan continue to monitor off antibiotics since he is at risk for hospital-acquired infections
--- NOTE | 2018-02-21 20:13 | PN ---
DATE: 02/21/2018 SUBJECTIVE: An 87-year-old male resting in bed this morning. He has been placed on one-to-one because of confusion and agitation. PHYSICAL EXAMINATION: VITAL SIGNS: His temperature is 98.4, his pulse is 83, his blood pressure is 132/58, respiratory rate is 19. LUNGS: Clear. HEART: Has an S1 and S2 rhythm. ABDOMEN: Obese, soft with positive bowel sounds. No evidence of tenderness. EXTREMITIES: Show no evidence of edema. He is being followed by Cardiology, Infectious Disease, GI, and Neurology. He had a leukocytosis on admission with febrile episode, was treated with antibiotics which has had improved. He had an episode of atrial fibrillation which has now improved. He is on Cardizem CD by Cardiology. RECOMMENDATION: Conservative management. GI is following the patient with a history of anemia, carcinoid syndrome, GI bleed in the past, peptic ulcer disease. Echocardiogram was ordered by GI to see if there is any valvular changes secondary to his carcinoid history. He has a known history of renal mass and liver masses. LABORATORY DATA: Shows WBC of 5.4, hemoglobin 10, hematocrit 29.6, platelet count 156. Chemistry: Showed a blood sugar of 80, 268, his CEA is 1.2. MEDICATIONS: He is currently on Cardizem, Colace, Namenda, Systane eyedrops, Questran, Seroquel, Synthroid for his hypothyroid disease. I have asked Neurology for followup on the patient because of his neurological issues. All of these clinical findings have been fully discussed with his daughter. We will await input from Neurology. We will continue current level of supportive care and follow up the patient's labs. Andreia Phillips MD
[2018-02-22 07:57] LABS: BASO # 0.02 K/mm3 (0.0-2.0); BASO % 0.3 % (0.0-3.0); EOS # 0.1 (0.0-0.7); EOS % 1.9 % (1.5-5.0); GRAN # 4.75 (1.4-6.5); HEMOGLOBIN 9.6 g/dL (14.0-18.0); LYMPH # 1.3 (1.2-3.4); LYMPH % 19.6 % (22.0-35.0); MEAN CELL VOLUME 89.4 fl (80.0-105.0); MEAN CORPUSCULAR HEMOGLOBIN 29.9 pg (25.0-35.0); MEAN CORPUSCULAR HGB CONC 33.4 g/dl (31.0-37.0); MEAN PLATELET VOLUME 8.7 fl (7.0-11.0); MONO # 0.6 (0.1-0.6); MONO % 8.2 % (1.0-6.0); RBC 3.21 10^6/uL (3.5-6.1); RED CELL DISTRIBUTION WIDTH 14.2 % (11.5-14.5); WHITE BLOOD COUNT 6.8 10^3/ul (4.5-11.0)
--- NOTE | 2018-02-22 08:21 | PN ---
DATE: 02/22/2018 SUBJECTIVE: The patient is seen lying in bed on telemetry. He is comfortable at the present time. He remains pleasantly confused. CURRENT MEDICATIONS: Include diltiazem 180 mg daily, Namenda 10 mg daily, Questran, Seroquel 25 mg daily, Synthroid 50 mg daily. OBJECTIVE: GENERAL: He is a very elderly man, who appears comfortable at rest. VITAL SIGNS: His blood pressure is 120/60 with pulse of 72 and sinus, respirations are 14. He is afebrile. HEENT: No JVD. CHEST: Few scattered rhonchi noted. HEART: Soft systolic murmur is present at the base. ABDOMEN: Soft, nontender, normoactive bowel sounds. EXTREMITIES: Mild cellulitic changes with 1+ peripheral edema. Echocardiogram was reviewed and shows evidence of mildly reduced LV systolic function with anteroseptal hypokinesis, [id number] concentric LVH is noted and mild aortic stenosis is present. IMPRESSION: 1. Recent transient bradycardia, now stable. 2. Coronary artery disease, status post remote bypass surgery, clinically stable. 3. Baseline dementia. 3. Mild aortic stenosis. RECOMMENDATIONS: Continue conservative management appears most appropriate at this time. Once medically cleared, he appears stable from a cardiac standpoint for discharge. Telemetry monitoring can be discontinued. We will be happy to follow along as needed. Ruy Wiley MD
[2018-02-22 09:01] LABS: ALBUMIN 2.6 g/dL (3.0-4.8); ALT/SGPT 17 U/L (7-56); AST/SGOT 19 U/L (17-59); BLOOD UREA NITROGEN 19 mg/dL (7-21); CALCIUM 8.7 mg/dL (8.4-10.5); GFR NON-AFRICAN AMERICAN > 60
[2018-02-22] MEDS: [UNRECOGNIZED DRUG - OTHER] BOTHEYES SCH ×4 (10:58→21:09)
[2018-02-22] MEDS: Cholestyramine 4 gm/Pkt UD PO SCH (10:58)
[2018-02-22] MEDS: diltiaZEM 180 mg/24 Hours CD Cap PO SCH (10:58)
[2018-02-22] MEDS: PROPYLENE GLYCOL BOTHEYES SCH ×4 (10:58→21:09)
[2018-02-22] MEDS: Levothyroxine 50 MCG TAB PO SCH (10:58)
[2018-02-22] MEDS: PEG BOTHEYES SCH ×4 (10:58→21:09)
--- NOTE | 2018-02-22 13:11 | CP.PCM.PN ---
<Jose Garcia - Last Filed: 02/22/18 13:08> Subjective - Date & Time of Evaluation Date of Evaluation: 02/22/18 Time of Evaluation: 13:08 - Subjective Subjective: No acute overnight events. Patient not fully oriented. Nursing denies any changes. Tolerating diet. Objective - Vital Signs/Intake and Output Vital Signs (last 24 hours): Temp Pulse Resp BP Pulse Ox 98.1 F 77 19 153/94 H 95 02/22/18 12:00 02/22/18 12:00 02/22/18 12:00 02/22/18 12:00 02/22/18 06:00 Intake and Output: 02/22/18 02/22/18 06:59 18:59 Intake Total 0 Output Total 600 Balance -600 - Medications Medications: Current Medications Acetaminophen (Tylenol 325mg Tab) 650 mg PO Q4H PRN PRN Reason: Fever >101 F Acetaminophen (Tylenol 325mg Tab) 650 mg PO Q6H PRN PRN Reason: Pain, moderate (4-7) Last Admin: 02/17/18 21:00 Dose: 650 mg Cholestyramine Resin (Questran) 4 gm PO DAILY [facility] Last Admin: 02/22/18 10:58 Dose: 4 gm Diltiazem HCl (Cardizem Cd) 180 mg PO DAILY [facility] Last Admin: 02/22/18 10:58 Dose: 180 mg Docusate Sodium (Colace) 100 mg PO BID [facility] Last Admin: 02/22/18 10:58 Dose: 100 mg Levothyroxine Sodium (Synthroid) 50 mcg PO DAILY [facility] Last Admin: 02/22/18 10:58 Dose: 50 mcg Memantine (Namenda) 10 mg PO DAILY [facility] Last Admin: 02/22/18 10:58 Dose: 10 mg Non-Formulary Medication (Propylene Glycol/Peg 400/Pf [Systane 0.3-0.4% Eye Drop]) 1 drop BOTHEYES QID [facility] Last Admin: 02/22/18 10:58 Dose: Not Given Quetiapine Fumarate (Seroquel) 25 mg PO DAILY [facility]; Protocol Last Admin: 02/22/18 10:58 Dose: 25 mg - Labs Labs: 02/22/18 07:00 02/22/18 07:00 - Constitutional Appears: Non-toxic, No Acute Distress - Head Exam Head Exam: NORMAL INSPECTION - Eye Exam Eye Exam: Normal appearance - ENT Exam ENT Exam: Mucous Membranes Moist - Neck Exam Neck Exam: Normal Inspection - GI/Abdominal Exam GI & Abdominal Exam: Soft, Normal Bowel Sounds. absent: Tenderness - Extremities Exam Extremities Exam: Normal Inspection - Neurological Exam Neurological Exam: Alert, Awake. absent: Oriented x3 - Psychiatric Exam Psychiatric exam: Normal Affect, Normal Mood - Skin Skin Exam: Dry, Normal Color Assessment and Plan - Assessment and Plan (Free Text) Assessment: Fever Hx of Carcinoid tumor of duodenum Hx of colonic polyps Hx of PUD CAD DM2 HTN Dementia - CEA normal - Chromograffin A level pending - Echocardiogram shows no significant abnormalities related to previous carcinoi d tumor - Leukocytosis, febrile on admission, blood and urine culture negative to date - Antibiotics as per Infectious disease - Further Recommendations per Dr. Yadav <Aníbal Yadav V - Last Filed: 02/22/18 21:14> Objective - Vital Signs/Intake and Output Vital Signs (last 24 hours): Temp Pulse Resp BP Pulse Ox 97.8 F 83 18 129/59 L 96 02/22/18 18:00 02/22/18 18:00 02/22/18 18:00 02/22/18 18:00 02/22/18 18:00 - Medications Medications: Current Medications Acetaminophen (Tylenol 325mg Tab) 650 mg PO Q4H PRN PRN Reason: Fever >101 F Acetaminophen (Tylenol 325mg Tab) 650 mg PO Q6H PRN PRN Reason: Pain, moderate (4-7) Last Admin: 02/17/18 21:00 Dose: 650 mg Cholestyramine Resin (Questran) 4 gm PO DAILY [facility] Last Admin: 02/22/18 10:58 Dose: 4 gm Diltiazem HCl (Cardizem Cd) 180 mg PO DAILY [facility] Last Admin: 02/22/18 10:58 Dose: 180 mg Docusate Sodium (Colace) 100 mg PO BID [facility] Last Admin: 02/22/18 17:24 Dose: 100 mg Levothyroxine Sodium (Synthroid) 50 mcg PO DAILY [facility] Last Admin: 02/22/18 10:58 Dose: 50 mcg Memantine (Namenda) 10 mg PO DAILY [facility] Last Admin: 02/22/18 10:58 Dose: 10 mg Non-Formulary Medication (Propylene Glycol/Peg 400/Pf [Systane 0.3-0.4% Eye Drop]) 1 drop BOTHEYES QID [facility] Last Admin: 02/22/18 21:09 Dose: Not Given Quetiapine Fumarate (Seroquel) 25 mg PO DAILY [facility]; Protocol Last Admin: 02/22/18 10:58 Dose: 25 mg - Labs Labs: 02/22/18 07:00 02/22/18 07:00 Attending/Attestation - Attestation I have personally seen and examined this patient.: Yes I have fully participated in the care of the patient.: Yes I have reviewed all pertinent clinical information, including history, physical exam and plan: Yes Notes (Text): This is an addendum to GI progress report dictated by the GI Fellow.The patient was seen and examined earlier. Medical records, lab studies, imagings were reviewed. Last 24 hours events reviewed. Agreed with the above treatment plan as outlined in GI Fellow 's notes with the addition of the following Patient is still confused Hemoglobin stable History of hepatic lesion and liver lesion Planned to be transferred back [facility] No further GI workup planned now Discussed with Dr. Phillips earlier 02/22/18 21:13
--- NOTE | 2018-02-22 14:40 | CP.PCM.PN ---
Subjective - Date & Time of Evaluation Date of Evaluation: 02/22/18 Time of Evaluation: 13:15 - Subjective Subjective: No fevers, not in distress. Objective - Vital Signs/Intake and Output Vital Signs (last 24 hours): Temp Pulse Resp BP Pulse Ox 98.8 F 68 18 133/60 95 02/22/18 06:00 02/22/18 06:00 02/22/18 06:00 02/22/18 06:00 02/22/18 06:00 Intake and Output: 02/22/18 02/22/18 06:59 18:59 Intake Total 0 Output Total 600 Balance -600 - Medications Medications: Current Medications Acetaminophen (Tylenol 325mg Tab) 650 mg PO Q4H PRN PRN Reason: Fever >101 F Acetaminophen (Tylenol 325mg Tab) 650 mg PO Q6H PRN PRN Reason: Pain, moderate (4-7) Last Admin: 02/17/18 21:00 Dose: 650 mg Cholestyramine Resin (Questran) 4 gm PO DAILY [facility] Last Admin: 02/21/18 09:19 Dose: 4 gm Diltiazem HCl (Cardizem Cd) 180 mg PO DAILY [facility] Last Admin: 02/21/18 09:19 Dose: 180 mg Docusate Sodium (Colace) 100 mg PO BID [facility] Last Admin: 02/21/18 17:59 Dose: 100 mg Levothyroxine Sodium (Synthroid) 50 mcg PO DAILY [facility] Last Admin: 02/21/18 09:19 Dose: 50 mcg Memantine (Namenda) 10 mg PO DAILY [facility] Last Admin: 02/21/18 09:20 Dose: 10 mg Non-Formulary Medication (Propylene Glycol/Peg 400/Pf [Systane 0.3-0.4% Eye Drop]) 1 drop BOTHEYES QID [facility] Last Admin: 02/21/18 22:46 Dose: Not Given Quetiapine Fumarate (Seroquel) 25 mg PO DAILY [facility]; Protocol - Labs Labs: 02/22/18 07:00 02/20/18 06:45 - Constitutional Appears: No Acute Distress, Chronically Ill - Head Exam Head Exam: NORMAL INSPECTION - Respiratory Exam Respiratory Exam: Decreased Breath Sounds - Cardiovascular Exam Cardiovascular Exam: +S1, +S2 - GI/Abdominal Exam GI & Abdominal Exam: Soft. absent: Tenderness Assessment and Plan - Assessment and Plan (Free Text) Plan: Assessment S/P SIRS with fever, no evidence or source of infection identified CAD S/P CABG hypothyroidism DM HTN history of liver lesions history of caricinoid Plan continue to monitor off antibiotics since he is at risk for healthcare- associated infections
--- NOTE | 2018-02-22 16:10 | PN ---
DATE: 02/22/2018 SUBJECTIVE: An 87-year-old male, on Telemetry, resting comfortably. Nursing staff states that the patient had a quite night. PHYSICAL EXAMINATION: VITAL SIGNS: His temp is 98.8, his blood pressure is 133/60, his pulse is 68, oxygen sat is 95% on room air. GENERAL: He is alert, confused. LUNGS: Clear. Diminished breath sounds at the bases. HEART: Is in S1, S2 rhythm. ABDOMEN: Soft with positive bowel sounds. EXTREMITIES: Show no evidence of edema. LABORATORY DATA: Shows a WBC of 6.8, RBC of 3.21, hemoglobin 9.6, hematocrit 28.7, platelet count is 178. Chemistry shows sodium 143, potassium 3.5, chloride 112, BUN is 19, creatinine is 0.9. MEDICATIONS: The patient's current medications consist of Synthroid for hypothyroid disease, Seroquel for his agitation, Questran for his history of gallstone disease, Systane eye drops, Namenda for his dementia, Colace for bowel and Cardizem CD for his paroxysmal atrial fibrillation. ASSESSMENT AND PLAN: Cardiology is recommending the patient may come off of Telemetry at this time. The GI is recommending no further workup at this time. We will repeat the patient's CBC, monitor the patient for one-to-one and continue supportive care at this time. Andreia Phillips MD
[2018-02-23] MEDS: diltiaZEM 180 mg/24 Hours CD Cap PO SCH (09:07)
[2018-02-23] MEDS: PEG BOTHEYES SCH ×4 (09:10→21:55)
[2018-02-23] MEDS: PROPYLENE GLYCOL BOTHEYES SCH ×4 (09:10→21:55)
[2018-02-23] MEDS: Cholestyramine 4 gm/Pkt UD PO SCH (09:10)
[2018-02-23] MEDS: [UNRECOGNIZED DRUG - OTHER] BOTHEYES SCH ×4 (09:10→21:55)
[2018-02-23] MEDS: Levothyroxine 50 MCG TAB PO SCH (09:11)
[2018-02-23 09:18] LABS: BASO # 0.03 K/mm3 (0.0-2.0); BASO % 0.4 % (0.0-3.0); EOS # 0.2 (0.0-0.7); EOS % 2.1 % (1.5-5.0); GRAN # 5.76 (1.4-6.5); GRAN % 74.4 % (50.0-68.0); HEMOGLOBIN 9.5 g/dL (14.0-18.0); LYMPH # 1.1 (1.2-3.4); MEAN CELL VOLUME 89.4 fl (80.0-105.0); MEAN CORPUSCULAR HEMOGLOBIN 29.7 pg (25.0-35.0); MEAN CORPUSCULAR HGB CONC 33.2 g/dl (31.0-37.0); MEAN PLATELET VOLUME 8.8 fl (7.0-11.0); MONO # 0.7 (0.1-0.6); MONO % 9.1 % (1.0-6.0); RBC 3.2 10^6/uL (3.5-6.1); RED CELL DISTRIBUTION WIDTH 14.3 % (11.5-14.5); WHITE BLOOD COUNT 7.7 10^3/ul (4.5-11.0)
--- NOTE | 2018-02-23 10:19 | CP.PCM.PCO ---
Physician Communication Note - Physician Communication Note Physician Communication Note: patient cleared by neurologist, ,stable increased Seroquel.
[2018-02-23 11:14] LABS: BLOOD UREA NITROGEN 16 mg/dL (7-21); CALCIUM 8.5 mg/dL (8.4-10.5); GFR NON-AFRICAN AMERICAN > 60
[2018-02-23] MEDS ORDERED: Thiamine 100 mg/ml Inj IV STA (12:18)
--- NOTE | 2018-02-23 13:34 | CP.PCM.PN ---
Subjective - Date & Time of Evaluation Date of Evaluation: 02/23/18 Time of Evaluation: 12:00 - Subjective Subjective: DATE: 02/23/2018 NEUROLOGY FOLLOWUP CHIEF COMPLAINT: Followup for dementia. SUBJECTIVE: The patient is seen and examined at bedside. He is definitely demented. His chest x-ray is currently negative. He had elevated prolactin level and treated with antibiotics for possible SIRS. No acute events overnight. He currently has some definitely moderate cognitive impairment. He is on Namenda and increased his seroquel to 25 mg po bid. REVIEW OF SYSTEMS: Fourteen-point review of systems is negative as per the HPI. PAST MEDICAL HISTORY: As above. SOCIAL HISTORY: No illicit drug use, smoking or EtOH abuse. MEDICATIONS: Reviewed by nurses' reconciliation sheet. FAMILY HISTORY: Noncontributory. ALLERGIES: ALLERGIC TO THIAZIDE. CURRENT PHYSICAL EXAMINATION: VITAL SIGNS: Reviewed/ GENERAL: The patient is in no acute distress, lethargic. HEENT: Atraumatic, normocephalic. PERRLA. Extraocular muscles intact. NECK: Supple. No JVD, no adenopathy noted. LUNGS: Decreased breath sounds bilaterally. HEART: S1, S2. Normal rate and rhythm. No murmurs, rubs or gallops. ABDOMEN: Soft, nontender and nondistended. Bowel sounds are present. EXTREMITIES: No clubbing. No cyanosis. Peripheral pulses 2+ felt bilaterally. NEUROLOGIC: The patient is alert and oriented to person and self, not much of month or year. Recall after 5 minutes is 0/3. Poor attention span, slow thought process. Cannot spell the word world backwards. His is able to tell me his children's names, but in general he is unable to give and has very poor attention span and poor calculation. Motor exam: Slight increased tone throughout. Moves all extremities equally. He is deconditioned. Sensory exam: Decreased light touch and pinprick up to the calves bilaterally. Decreased vibration of the knees. DTRs are 2+ throughout and 1 at both knees and ankles. Coordination: Gait is deferred for now. LABORATORY DATA:Reviewed/ IMPRESSION: This is an 87-year-old man with history of coronary artery disease, status post coronary artery bypass graft, hypertension, diabetes, hypothyroidism, renal mass and dementia, who was admitted for fever, transient bradycardia and leukocytosis. Undergoing medical management. I was called to evaluate for underlying dementia. He has moderate cognitive impairment. He has moderate forms of dementia and he is on Namenda. He occasionally gets delirium and delusions, but is currently stable and is mildly deconditioned. At this time, I will recommend, 1. Monitor electrolytes and correct accordingly. 2. Continue with Namenda 10 mg p.o. daily. seroquel 25 mg po bid for agitation. 3. Thiamine 100 mg p.o. daily for neurocognitive activation and iv dose today of 300mg. 4. PT. He is clinically stable. Thank you for this followup. Reyes Thornton MD Objective - Vital Signs/Intake and Output Vital Signs (last 24 hours): Temp Pulse Resp BP Pulse Ox 98.4 F 67 18 151/71 H 93 L 02/23/18 08:16 02/23/18 09:07 02/23/18 08:16 02/23/18 09:07 02/23/18 08:16 - Medications Medications: Current Medications Acetaminophen (Tylenol 325mg Tab) 650 mg PO Q4H PRN PRN Reason: Fever >101 F Acetaminophen (Tylenol 325mg Tab) 650 mg PO Q6H PRN PRN Reason: Pain, moderate (4-7) Last Admin: 02/17/18 21:00 Dose: 650 mg Cholestyramine Resin (Questran) 4 gm PO DAILY [facility] Last Admin: 02/23/18 09:10 Dose: 4 gm Diltiazem HCl (Cardizem Cd) 180 mg PO DAILY [facility] Last Admin: 02/23/18 09:07 Dose: 180 mg Docusate Sodium (Colace) 100 mg PO BID [facility] Last Admin: 02/23/18 09:09 Dose: 100 mg Levothyroxine Sodium (Synthroid) 50 mcg PO DAILY [facility] Last Admin: 02/23/18 09:11 Dose: 50 mcg Memantine (Namenda) 10 mg PO DAILY [facility] Last Admin: 02/23/18 09:09 Dose: 10 mg Non-Formulary Medication (Propylene Glycol/Peg 400/Pf [Systane 0.3-0.4% Eye Drop]) 1 drop BOTHEYES QID [facility] Last Admin: 02/23/18 09:10 Dose: Not Given Quetiapine Fumarate (Seroquel) 25 mg PO DAILY [facility]; Protocol Last Admin: 02/23/18 09:10 Dose: 25 mg - Labs Labs: 02/23/18 09:00 02/23/18 11:00
--- NOTE | 2018-02-23 13:38 | CP.PCM.PN ---
<Austin Weldon - Last Filed: 02/23/18 13:35> Subjective - Date & Time of Evaluation Date of Evaluation: 02/23/18 Time of Evaluation: 13:35 - Subjective Subjective: GI Progress Note for Dr. Yadav Patient seen and examined this AM. NO acute events overnight. Patient tolerating diet. Objective - Vital Signs/Intake and Output Vital Signs (last 24 hours): Temp Pulse Resp BP Pulse Ox 98.4 F 67 18 151/71 H 93 L 02/23/18 08:16 02/23/18 09:07 02/23/18 08:16 02/23/18 09:07 02/23/18 08:16 - Medications Medications: Current Medications Acetaminophen (Tylenol 325mg Tab) 650 mg PO Q4H PRN PRN Reason: Fever >101 F Acetaminophen (Tylenol 325mg Tab) 650 mg PO Q6H PRN PRN Reason: Pain, moderate (4-7) Last Admin: 02/17/18 21:00 Dose: 650 mg Cholestyramine Resin (Questran) 4 gm PO DAILY [facility] Last Admin: 02/23/18 09:10 Dose: 4 gm Diltiazem HCl (Cardizem Cd) 180 mg PO DAILY [facility] Last Admin: 02/23/18 09:07 Dose: 180 mg Docusate Sodium (Colace) 100 mg PO BID [facility] Last Admin: 02/23/18 09:09 Dose: 100 mg Levothyroxine Sodium (Synthroid) 50 mcg PO DAILY [facility] Last Admin: 02/23/18 09:11 Dose: 50 mcg Memantine (Namenda) 10 mg PO DAILY [facility] Last Admin: 02/23/18 09:09 Dose: 10 mg Non-Formulary Medication (Propylene Glycol/Peg 400/Pf [Systane 0.3-0.4% Eye Drop]) 1 drop BOTHEYES QID [facility] Last Admin: 02/23/18 09:10 Dose: Not Given Quetiapine Fumarate (Seroquel) 25 mg PO DAILY [facility]; Protocol Last Admin: 02/23/18 09:10 Dose: 25 mg - Labs Labs: 02/23/18 09:00 02/23/18 11:00 - Constitutional Appears: No Acute Distress - Head Exam Head Exam: ATRAUMATIC, NORMAL INSPECTION, NORMOCEPHALIC - Eye Exam Eye Exam: EOMI, PERRL - ENT Exam ENT Exam: Mucous Membranes Moist - Neck Exam Neck Exam: Full ROM - Respiratory Exam Respiratory Exam: Clear to Ausculation Bilateral, NORMAL BREATHING PATTERN - GI/Abdominal Exam GI & Abdominal Exam: Soft, Normal Bowel Sounds. absent: Guarding, Rigid, Tenderness - Extremities Exam Extremities Exam: Normal Inspection - Neurological Exam Neurological Exam: Alert, Awake - Psychiatric Exam Psychiatric exam: Normal Affect, Normal Mood - Skin Skin Exam: Dry, Normal Color Assessment and Plan - Assessment and Plan (Free Text) Assessment: 87 year old male with past medical history of CAD, DM2, HTN, Dementia, prostate cancer s/p radiation 20 years ago, hypothyroidism, rheumatoid arthritis, macular degeneration, hypercholesterolemia, colonic polyps, PUD and carcinoid tumor of the duodenum who presented to [facility] from [facility] with 103F fever. Patient afebrile and without positive cultures. Plan: Fever Hx of Carcinoid tumor of duodenum Hx of hepatic lesion Hx of colonic polyps Hx of PUD CAD DM2 HTN Dementia - CEA normal - Chromograffin A level pending - Echocardiogram shows no significant abnormalities related to previous carcinoid tumor - Leukocytosis, febrile on admission, blood and urine culture negative to date - Antibiotics as per Infectious disease - No plan for further endoscopy during hospital admission - Further Recommendations per Dr. Yadav <Aníbal Yadav V - Last Filed: 02/23/18 19:21> Objective - Vital Signs/Intake and Output Vital Signs (last 24 hours): Temp Pulse Resp BP Pulse Ox 98.4 F 74 19 147/67 74 L 02/23/18 19:12 02/23/18 16:36 02/23/18 16:36 02/23/18 16:36 02/23/18 16:36 - Medications Medications: Current Medications Acetaminophen (Tylenol 325mg Tab) 650 mg PO Q4H PRN PRN Reason: Fever >101 F Last Admin: 02/23/18 18:01 Dose: 650 mg Acetaminophen (Tylenol 325mg Tab) 650 mg PO Q6H PRN PRN Reason: Pain, moderate (4-7) Last Admin: 02/17/18 21:00 Dose: 650 mg Cholestyramine Resin (Questran) 4 gm PO DAILY [facility] Last Admin: 02/23/18 09:10 Dose: 4 gm Diltiazem HCl (Cardizem Cd) 180 mg PO DAILY [facility] Last Admin: 02/23/18 09:07 Dose: 180 mg Docusate Sodium (Colace) 100 mg PO BID [facility] Last Admin: 02/23/18 17:17 Dose: 100 mg Levothyroxine Sodium (Synthroid) 50 mcg PO DAILY [facility] Last Admin: 02/23/18 09:11 Dose: 50 mcg Memantine (Namenda) 10 mg PO DAILY [facility] Last Admin: 02/23/18 09:09 Dose: 10 mg Non-Formulary Medication (Propylene Glycol/Peg 400/Pf [Systane 0.3-0.4% Eye Drop]) 1 drop BOTHEYES QID [facility] Last Admin: 02/23/18 17:17 Dose: Not Given Quetiapine Fumarate (Seroquel) 25 mg PO DAILY [facility]; Protocol Last Admin: 02/23/18 09:10 Dose: 25 mg - Labs Labs: 02/23/18 09:00 02/23/18 11:00 Attending/Attestation - Attestation I have personally seen and examined this patient.: Yes I have fully participated in the care of the patient.: Yes I have reviewed all pertinent clinical information, including history, physical exam and plan: Yes Notes (Text): This is an addendum to GI followup report dictated by the Nurse Esthetician. The patient was seen and evaluated earlier. Medical records, lab studies, imagings were reviewed. Last 24 hours events reviewed. Agreed with the above treatment plan as outlined in Nurse Esthetician 's notes with the addition of the following Patient still remains confused No obvious BRPR or melena High risk for anesthesia Would differ endoscopic evaluation unless there is active bleeding for therapeutic intervention Discussed with Dr. Phillips 02/23/18 19:19
--- NOTE | 2018-02-23 19:08 | CP.PCM.PN ---
Subjective - Date & Time of Evaluation Date of Evaluation: 02/23/18 Time of Evaluation: 10:25 - Subjective Subjective: No fevers, not in distress. Objective - Vital Signs/Intake and Output Vital Signs (last 24 hours): Temp Pulse Resp BP Pulse Ox 99.9 F H 74 19 147/67 74 L 02/23/18 16:36 02/23/18 16:36 02/23/18 16:36 02/23/18 16:36 02/23/18 16:36 - Medications Medications: Current Medications Acetaminophen (Tylenol 325mg Tab) 650 mg PO Q4H PRN PRN Reason: Fever >101 F Last Admin: 02/23/18 18:01 Dose: 650 mg Acetaminophen (Tylenol 325mg Tab) 650 mg PO Q6H PRN PRN Reason: Pain, moderate (4-7) Last Admin: 02/17/18 21:00 Dose: 650 mg Cholestyramine Resin (Questran) 4 gm PO DAILY [facility] Last Admin: 02/23/18 09:10 Dose: 4 gm Diltiazem HCl (Cardizem Cd) 180 mg PO DAILY [facility] Last Admin: 02/23/18 09:07 Dose: 180 mg Docusate Sodium (Colace) 100 mg PO BID [facility] Last Admin: 02/23/18 17:17 Dose: 100 mg Levothyroxine Sodium (Synthroid) 50 mcg PO DAILY [facility] Last Admin: 02/23/18 09:11 Dose: 50 mcg Memantine (Namenda) 10 mg PO DAILY [facility] Last Admin: 02/23/18 09:09 Dose: 10 mg Non-Formulary Medication (Propylene Glycol/Peg 400/Pf [Systane 0.3-0.4% Eye Drop]) 1 drop BOTHEYES QID [facility] Last Admin: 02/23/18 17:17 Dose: Not Given Quetiapine Fumarate (Seroquel) 25 mg PO DAILY [facility]; Protocol Last Admin: 02/23/18 09:10 Dose: 25 mg - Labs Labs: 02/23/18 09:00 02/23/18 11:00 - Constitutional Appears: Chronically Ill - Head Exam Head Exam: NORMAL INSPECTION - Respiratory Exam Respiratory Exam: Decreased Breath Sounds - Cardiovascular Exam Cardiovascular Exam: +S1, +S2 - GI/Abdominal Exam GI & Abdominal Exam: Soft. absent: Tenderness Assessment and Plan - Assessment and Plan (Free Text) Plan: Assessment S/P SIRS with fever, no evidence or source of infection identified CAD S/P CABG hypothyroidism DM HTN history of liver lesions history of caricinoid Plan continue to monitor off antibiotics since he is at risk for nosocomial infections
[2018-02-24] MEDS: diltiaZEM 180 mg/24 Hours CD Cap PO SCH (09:26)
[2018-02-24] MEDS: Cholestyramine 4 gm/Pkt UD PO SCH (09:28)
[2018-02-24] MEDS: Levothyroxine 50 MCG TAB PO SCH (09:28)
[2018-02-24] MEDS: [UNRECOGNIZED DRUG - OTHER] BOTHEYES SCH ×3 (09:28→17:19)
[2018-02-24] MEDS: PROPYLENE GLYCOL BOTHEYES SCH ×3 (09:28→17:19)
[2018-02-24] MEDS: PEG BOTHEYES SCH ×3 (09:28→17:19)
[2018-02-24 10:26] LABS: BASO # 0.02 K/mm3 (0.0-2.0); BASO % 0.2 % (0.0-3.0); EOS # 0.1 (0.0-0.7); EOS % 1.1 % (1.5-5.0); GRAN # 7.55 (1.4-6.5); GRAN % 77.9 % (50.0-68.0); HEMOGLOBIN 9.7 g/dL (14.0-18.0); LYMPH # 0.9 (1.2-3.4); LYMPH % 8.8 % (22.0-35.0); MEAN CELL VOLUME 90.1 fl (80.0-105.0); MEAN CORPUSCULAR HGB CONC 33.3 g/dl (31.0-37.0); MEAN PLATELET VOLUME 8.7 fl (7.0-11.0); MONO # 1.2 (0.1-0.6); RBC 3.23 10^6/uL (3.5-6.1); RED CELL DISTRIBUTION WIDTH 14.5 % (11.5-14.5); WHITE BLOOD COUNT 9.7 10^3/ul (4.5-11.0)
[2018-02-24 10:47] LABS: ALBUMIN 2.7 g/dL (3.0-4.8); ALT/SGPT 20 U/L (7-56); AST/SGOT 21 U/L (17-59); BLOOD UREA NITROGEN 15 mg/dL (7-21); CALCIUM 8.2 mg/dL (8.4-10.5); GFR NON-AFRICAN AMERICAN > 60
--- NOTE | 2018-02-24 12:32 | CP.PCM.PN ---
Subjective - Date & Time of Evaluation Date of Evaluation: 02/24/18 Time of Evaluation: 11:15 - Subjective Subjective: Had low grade temperatures but not in distress, apparently had 100.4 F this morning. Objective - Vital Signs/Intake and Output Vital Signs (last 24 hours): Temp Pulse Resp BP Pulse Ox 100 F H 82 19 145/71 95 02/24/18 08:40 02/24/18 09:26 02/24/18 08:40 02/24/18 09:26 02/24/18 08:40 - Medications Medications: Current Medications Acetaminophen (Tylenol 325mg Tab) 650 mg PO Q4H PRN PRN Reason: Fever >101 F Last Admin: 02/24/18 09:29 Dose: 650 mg Acetaminophen (Tylenol 325mg Tab) 650 mg PO Q6H PRN PRN Reason: Pain, moderate (4-7) Last Admin: 02/17/18 21:00 Dose: 650 mg Cholestyramine Resin (Questran) 4 gm PO DAILY [facility] Last Admin: 02/24/18 09:28 Dose: 4 gm Diltiazem HCl (Cardizem Cd) 180 mg PO DAILY [facility] Last Admin: 02/24/18 09:26 Dose: 180 mg Docusate Sodium (Colace) 100 mg PO BID [facility] Last Admin: 02/24/18 09:27 Dose: 100 mg Levothyroxine Sodium (Synthroid) 50 mcg PO DAILY [facility] Last Admin: 02/24/18 09:28 Dose: 50 mcg Memantine (Namenda) 10 mg PO DAILY [facility] Last Admin: 02/24/18 09:27 Dose: 10 mg Non-Formulary Medication (Propylene Glycol/Peg 400/Pf [Systane 0.3-0.4% Eye D rop]) 1 drop BOTHEYES QID [facility] Last Admin: 02/24/18 09:28 Dose: Not Given Quetiapine Fumarate (Seroquel) 25 mg PO DAILY [facility]; Protocol Last Admin: 02/24/18 09:28 Dose: 25 mg - Labs Labs: 02/24/18 10:15 02/24/18 10:15 - Constitutional Appears: Chronically Ill - Head Exam Head Exam: NORMAL INSPECTION - Respiratory Exam Respiratory Exam: Decreased Breath Sounds - Cardiovascular Exam Cardiovascular Exam: +S1, +S2 - GI/Abdominal Exam GI & Abdominal Exam: Soft. absent: Tenderness Assessment and Plan - Assessment and Plan (Free Text) Plan: Assessment S/P SIRS with fever, no evidence or source of infection identified - new onset low grade fever, source to be determined CAD S/P CABG hypothyroidism DM HTN history of liver lesions history of caricinoid Plan will repeat blood, urine cx, CXR, PCT and will continue to monitor fever curve and monitor off antibiotics
--- NOTE | 2018-02-24 13:45 | RAD ---
Date of service: 02/24/2018 HISTORY: reeval temp COMPARISON: 02/16/2018 FINDINGS: LUNGS: No active pulmonary disease. PLEURA: No significant pleural effusion identified, no pneumothorax apparent. CARDIOVASCULAR: Moderate cardiomegaly. Prominent pulmonary vessels OSSEOUS STRUCTURES: No significant abnormalities. VISUALIZED UPPER ABDOMEN: Normal. OTHER FINDINGS: None. IMPRESSION: No active disease.
--- NOTE | 2018-02-24 15:41 | CP.PCM.PN ---
<Austin Weldon - Last Filed: 02/24/18 15:41> Subjective - Date & Time of Evaluation Date of Evaluation: 02/24/18 Time of Evaluation: 15:42 - Subjective Subjective: Gilberto Weldon DO pGY2 IM Resident Patient see this AM. No acute events overnight. Patient tolerating diet. Objective - Vital Signs/Intake and Output Vital Signs (last 24 hours): Temp Pulse Resp BP Pulse Ox 100 F H 82 19 145/71 95 02/24/18 08:40 02/24/18 09:26 02/24/18 08:40 02/24/18 09:26 02/24/18 08:40 - Medications Medications: Current Medications Acetaminophen (Tylenol 325mg Tab) 650 mg PO Q4H PRN PRN Reason: Fever >101 F Last Admin: 02/24/18 09:29 Dose: 650 mg Acetaminophen (Tylenol 325mg Tab) 650 mg PO Q6H PRN PRN Reason: Pain, moderate (4-7) Last Admin: 02/17/18 21:00 Dose: 650 mg Cholestyramine Resin (Questran) 4 gm PO DAILY [facility] Last Admin: 02/24/18 09:28 Dose: 4 gm Diltiazem HCl (Cardizem Cd) 180 mg PO DAILY [facility] Last Admin: 02/24/18 09:26 Dose: 180 mg Docusate Sodium (Colace) 100 mg PO BID [facility] Last Admin: 02/24/18 09:27 Dose: 100 mg Levothyroxine Sodium (Synthroid) 50 mcg PO DAILY [facility] Last Admin: 02/24/18 09:28 Dose: 50 mcg Memantine (Namenda) 10 mg PO DAILY [facility] Last Admin: 02/24/18 09:27 Dose: 10 mg Non-Formulary Medication (Propylene Glycol/Peg 400/Pf [Systane 0.3-0.4% Eye Drop]) 1 drop BOTHEYES QID [facility] Last Admin: 02/24/18 13:21 Dose: Not Given Quetiapine Fumarate (Seroquel) 25 mg PO DAILY [facility]; Protocol Last Admin: 02/24/18 09:28 Dose: 25 mg - Labs Labs: 02/24/18 10:15 02/24/18 10:15 - Constitutional Appears: No Acute Distress - Head Exam Head Exam: ATRAUMATIC, NORMAL INSPECTION, NORMOCEPHALIC - Eye Exam Eye Exam: EOMI, PERRL - ENT Exam ENT Exam: Mucous Membranes Moist - Neck Exam Neck Exam: Full ROM - Respiratory Exam Respiratory Exam: NORMAL BREATHING PATTERN - Cardiovascular Exam Cardiovascular Exam: REGULAR RHYTHM, +S1, +S2 - GI/Abdominal Exam GI & Abdominal Exam: Soft, Normal Bowel Sounds. absent: Tenderness - Extremities Exam Extremities Exam: absent: Calf Tenderness, Pedal Edema - Neurological Exam Neurological Exam: Alert, Awake, Oriented x3 - Psychiatric Exam Psychiatric exam: Normal Affect, Normal Mood - Skin Skin Exam: Dry, Intact Assessment and Plan - Assessment and Plan (Free Text) Assessment: 87 year old male with past medical history of CAD, DM2, HTN, Dementia, prostate cancer s/p radiation 20 years ago, hypothyroidism, rheumatoid arthritis, macular degeneration, hypercholesterolemia, colonic polyps, PUD and carcinoid tumor of the duodenum who presented to [facility] from [facility] with 103F fever. Patient afebrile and without positive cultures. Plan: Fever - resolved Hx of Carcinoid tumor of duodenum Hx of hepatic lesion Hx of colonic polyps Hx of PUD CAD DM2 HTN Dementia - CEA normal - Chromograffin A level pending - Echocardiogram shows no significant abnormalities related to previous carcinoid tumor - Leukocytosis, febrile on admission, blood and urine culture negative to date - Antibiotics as per Infectious disease - Would differ endoscopic evaluation unless there is active bleeding for therapeutic intervention - Further recommendations per Dr. Yadav <Aníbal Yadav V - Last Filed: 02/24/18 22:05> Objective - Vital Signs/Intake and Output Vital Signs (last 24 hours): Temp Pulse Resp BP Pulse Ox 98.3 F 67 19 119/57 L 95 02/24/18 18:00 02/24/18 18:00 02/24/18 18:00 02/24/18 18:00 02/24/18 18:00 - Medications Medications: Current Medications Acetaminophen (Tylenol 325mg Tab) 650 mg PO Q4H PRN PRN Reason: Fever >101 F Last Admin: 02/24/18 09:29 Dose: 650 mg Acetaminophen (Tylenol 325mg Tab) 650 mg PO Q6H PRN PRN Reason: Pain, moderate (4-7) Last Admin: 02/17/18 21:00 Dose: 650 mg Cholestyramine Resin (Questran) 4 gm PO DAILY [facility] Last Admin: 02/24/18 09:28 Dose: 4 gm Diltiazem HCl (Cardizem Cd) 180 mg PO DAILY [facility] Last Admin: 02/24/18 09:26 Dose: 180 mg Docusate Sodium (Colace) 100 mg PO BID [facility] Last Admin: 02/24/18 17:21 Dose: 100 mg Levothyroxine Sodium (Synthroid) 50 mcg PO DAILY [facility] Last Admin: 02/24/18 09:28 Dose: 50 mcg Memantine (Namenda) 10 mg PO DAILY [facility] Last Admin: 02/24/18 09:27 Dose: 10 mg Non-Formulary Medication (Propylene Glycol/Peg 400/Pf [Systane 0.3-0.4% Eye Drop]) 1 drop BOTHEYES QID [facility] Last Admin: 02/24/18 17:19 Dose: Not Given Quetiapine Fumarate (Seroquel) 25 mg PO DAILY [facility]; Protocol Last Admin: 02/24/18 09:28 Dose: 25 mg - Labs Labs: 02/24/18 10:15 02/24/18 10:15 Attending/Attestation - Attestation I have personally seen and examined this patient.: Yes I have fully participated in the care of the patient.: Yes I have reviewed all pertinent clinical information, including history, physical exam and plan: Yes Notes (Text): This is an addendum to GI followup report dictated by the Glass Frame Fitter. The patient was seen and evaluated earlier. Medical records, lab studies, imagings were reviewed. Last 24 hours events reviewed. Agreed with the above treatment plan as outlined in Glass Frame Fitter 's notes with the addition of the following Patient still remains confused Follow-up hemoglobin no further GI workup or intervention planned 02/24/18 22:04
--- NOTE | 2018-02-24 21:45 | PN ---
DATE: 02/24/2018 SUBJECTIVE: The patient is resting comfortably in bed this morning. Nursing staff states that he had a quiet night. PHYSICAL EXAMINATION: VITAL SIGNS: He is running a temp of 100 orally, rectal temp is 100.9; blood pressure is 145/71; his oxygen sat is 95% on room air; his respiratory rate is 18; his pulse is 82. LUNGS: Clear. HEART: Is in S1, S2 rhythm. ABDOMEN: Soft with positive bowel sounds. EXTREMITIES: Show no evidence of edema. ASSESSMENT AND PLAN: Currently the patient is status post treatment for febrile episode, off of antibiotics. He has underlying cognitive behavioral disorder, hypothyroid disease, cataracts, paroxysmal atrial fibrillation and periods of agitation. Given the elevation in the temperature, the rectal temperature, we will request lab work to be done as well as a chest x-ray and cultures and will discuss it with Infectious Disease. Andreia Phillips MD
--- NOTE | 2018-02-25 09:04 | PN ---
DATE: 02/23/2018 SUBJECTIVE: An 87-year-old male resting in bed comfortably this morning. Nursing staff relates that the patient did walk with physical therapy today. He has also been seen by Neurology. PHYSICAL EXAMINATION VITAL SIGNS: His temperature is 98.4, blood pressure is 151/71, oxygen saturation is 93%. LUNGS: Clear. HEART: S1 and S2 rhythm. ABDOMEN: Soft with positive bowel sounds. EXt - edema Neuro Alert Andreia Phillips MD [id number]
[2018-02-25] MEDS: diltiaZEM 180 mg/24 Hours CD Cap PO SCH (09:15)
[2018-02-25] MEDS: Levothyroxine 50 MCG TAB PO SCH (09:15)
[2018-02-25] MEDS: Cholestyramine 4 gm/Pkt UD PO SCH (09:16)
[2018-02-25] MEDS: [UNRECOGNIZED DRUG - OTHER] BOTHEYES SCH ×4 (09:16→22:06)
[2018-02-25] MEDS: PEG BOTHEYES SCH ×4 (09:16→22:06)
[2018-02-25] MEDS: PROPYLENE GLYCOL BOTHEYES SCH ×4 (09:16→22:06)
--- NOTE | 2018-02-25 11:11 | CP.PCM.PN ---
<Nikkie Burrell - Last Filed: 02/25/18 11:10> Subjective - Date & Time of Evaluation Date of Evaluation: 02/25/18 Time of Evaluation: 10:10 - Subjective Subjective: S&E and examined at bedside, chart reviewed, no acute overnight events. Patient is confused at times. Patient denies N/V or abdominal pain. No reports of diarrhea or overt GI bleeding. Objective - Vital Signs/Intake and Output Vital Signs (last 24 hours): Temp Pulse Resp BP Pulse Ox 100.7 F H 90 19 128/66 93 L 02/25/18 09:14 02/25/18 09:15 02/25/18 06:00 02/25/18 09:15 02/25/18 06:00 - Medications Medications: Current Medications Acetaminophen (Tylenol 325mg Tab) 650 mg PO Q4H PRN PRN Reason: Fever >101 F Last Admin: 02/25/18 09:14 Dose: 650 mg Acetaminophen (Tylenol 325mg Tab) 650 mg PO Q6H PRN PRN Reason: Pain, moderate (4-7) Last Admin: 02/17/18 21:00 Dose: 650 mg Cholestyramine Resin (Questran) 4 gm PO DAILY [facility] Last Admin: 02/25/18 09:16 Dose: 4 gm Diltiazem HCl (Cardizem Cd) 180 mg PO DAILY [facility] Last Admin: 02/25/18 09:15 Dose: 180 mg Docusate Sodium (Colace) 100 mg PO BID [facility] Last Admin: 02/25/18 09:15 Dose: 100 mg Levothyroxine Sodium (Synthroid) 50 mcg PO DAILY [facility] Last Admin: 02/25/18 09:15 Dose: 50 mcg Memantine (Namenda) 10 mg PO DAILY [facility] Last Admin: 02/25/18 09:15 Dose: 10 mg Non-Formulary Medication (Propylene Glycol/Peg 400/Pf [Systane 0.3-0.4% Eye Drop]) 1 drop BOTHEYES QID [facility] Last Admin: 02/25/18 09:16 Dose: Not Given Quetiapine Fumarate (Seroquel) 25 mg PO DAILY [facility]; Protocol Last Admin: 02/25/18 09:15 Dose: 25 mg - Labs Labs: 02/24/18 10:15 02/24/18 10:15 - Constitutional Appears: No Acute Distress - Head Exam Head Exam: NORMOCEPHALIC - Eye Exam Eye Exam: Normal appearance. absent: Scleral icterus - ENT Exam ENT Exam: Mucous Membranes Moist - Neck Exam Neck Exam: Normal Inspection - Respiratory Exam Respiratory Exam: NORMAL BREATHING PATTERN. absent: Respiratory Distress - Cardiovascular Exam Cardiovascular Exam: +S1, +S2 - GI/Abdominal Exam GI & Abdominal Exam: Soft, Normal Bowel Sounds. absent: Guarding, Tenderness, Rebound - Extremities Exam Extremities Exam: absent: Calf Tenderness, Pedal Edema - Neurological Exam Neurological Exam: Alert, Awake. absent: Oriented x3 (confused at times) - Skin Skin Exam: Dry, Warm Assessment and Plan - Assessment and Plan (Free Text) Assessment: ASESSMENT: Fever - resolved Hx of Carcinoid tumor of duodenum Hx of hepatic lesion Hx of colonic polyps Hx of PUD CAD DM2 HTN Dementia PLAN: - CEA normal - FU Chromograffin A level - on Questran and colace - Echocardiogram shows no significant abnormalities related to previous carcinoid tumor - Antibiotics as per Infectious disease - diet as tolerated - Would differ endoscopic evaluation unless there is active bleeding for therapeutic intervention Seen and discussed w/ Dr. Yadav <Aníbal Yadav V - Last Filed: 02/25/18 23:28> Objective - Vital Signs/Intake and Output Vital Signs (last 24 hours): Temp Pulse Resp BP Pulse Ox 98.9 F 63 19 116/51 L 93 L 02/25/18 16:41 02/25/18 16:41 02/25/18 16:41 02/25/18 16:41 02/25/18 16:41 Intake and Output: 02/25/18 02/26/18 18:59 06:59 Intake Total 300 Output Total 400 Balance -100 - Medications Medications: Current Medications Acetaminophen (Tylenol 325mg Tab) 650 mg PO Q4H PRN PRN Reason: Fever >101 F Last Admin: 02/25/18 09:14 Dose: 650 mg Acetaminophen (Tylenol 325mg Tab) 650 mg PO Q6H PRN PRN Reason: Pain, moderate (4-7) Last Admin: 02/17/18 21:00 Dose: 650 mg Cholestyramine Resin (Questran) 4 gm PO DAILY [facility] Last Admin: 02/25/18 09:16 Dose: 4 gm Diltiazem HCl (Cardizem Cd) 180 mg PO DAILY [facility] Last Admin: 02/25/18 09:15 Dose: 180 mg Docusate Sodium (Colace) 100 mg PO BID [facility] Last Admin: 02/25/18 17:25 Dose: 100 mg Levothyroxine Sodium (Synthroid) 50 mcg PO DAILY [facility] Last Admin: 02/25/18 09:15 Dose: 50 mcg Memantine (Namenda) 10 mg PO DAILY [facility] Last Admin: 02/25/18 09:15 Dose: 10 mg Non-Formulary Medication (Propylene Glycol/Peg 400/Pf [Systane 0.3-0.4% Eye Drop]) 1 drop BOTHEYES QID [facility] Last Admin: 02/25/18 22:06 Dose: Not Given Quetiapine Fumarate (Seroquel) 25 mg PO DAILY [facility]; Protocol Last Admin: 02/25/18 09:15 Dose: 25 mg - Labs Labs: 02/24/18 10:15 02/25/18 17:05 Attending/Attestation - Attestation I have personally seen and examined this patient.: Yes I have fully participated in the care of the patient.: Yes I have reviewed all pertinent clinical information, including history, physical exam and plan: Yes Notes (Text): This is an addendum to GI progress report dictated by Nikkie Burrell APN.The patient was seen and examined earlier. Medical records, lab studies, imagings were reviewed. Last 24 hours events reviewed. Agreed with the above treatment plan as outlined in Nikkie Burrell APN's notes with the addition of the following Patient remains confused Followup hct Supportive care Discussed with Dr. Phillips 02/25/18 23:26
[2018-02-25 17:24] LABS: BLOOD UREA NITROGEN 19 mg/dL (7-21); GFR NON-AFRICAN AMERICAN > 60
--- NOTE | 2018-02-25 17:31 | CP.PCM.PN ---
Subjective - Date & Time of Evaluation Date of Evaluation: 02/25/18 Time of Evaluation: 11:40 - Subjective Subjective: Patient having low grade fevers but no chills, no abdominal pain, no vomiting, no diarrhea, no SOB, no cough, no headache. Objective - Vital Signs/Intake and Output Vital Signs (last 24 hours): Temp Pulse Resp BP Pulse Ox 98.3 F 67 19 119/57 L 95 02/24/18 18:00 02/24/18 18:00 02/24/18 18:00 02/24/18 18:00 02/24/18 18:00 - Medications Medications: Current Medications Acetaminophen (Tylenol 325mg Tab) 650 mg PO Q4H PRN PRN Reason: Fever >101 F Last Admin: 02/24/18 09:29 Dose: 650 mg Acetaminophen (Tylenol 325mg Tab) 650 mg PO Q6H PRN PRN Reason: Pain, moderate (4-7) Last Admin: 02/17/18 21:00 Dose: 650 mg Cholestyramine Resin (Questran) 4 gm PO DAILY [facility] Last Admin: 02/24/18 09:28 Dose: 4 gm Diltiazem HCl (Cardizem Cd) 180 mg PO DAILY [facility] Last Admin: 02/24/18 09:26 Dose: 180 mg Docusate Sodium (Colace) 100 mg PO BID [facility] Last Admin: 02/24/18 17:21 Dose: 100 mg Levothyroxine Sodium (Synthroid) 50 mcg PO DAILY [facility] Last Admin: 02/24/18 09:28 Dose: 50 mcg Memantine (Namenda) 10 mg PO DAILY [facility] Last Admin: 02/24/18 09:27 Dose: 10 mg Non-Formulary Medication (Propylene Glycol/Peg 400/Pf [Systane 0.3-0.4% Eye Drop]) 1 drop BOTHEYES QID [facility] Last Admin: 02/24/18 17:19 Dose: Not Given Quetiapine Fumarate (Seroquel) 25 mg PO DAILY [facility]; Protocol Last Admin: 02/24/18 09:28 Dose: 25 mg - Labs Labs: 02/24/18 10:15 02/24/18 10:15 - Constitutional Appears: No Acute Distress, Chronically Ill - Head Exam Head Exam: NORMAL INSPECTION - Neck Exam Neck Exam: absent: Meningismus - Respiratory Exam Respiratory Exam: Decreased Breath Sounds - Cardiovascular Exam Cardiovascular Exam: +S1, +S2 - GI/Abdominal Exam GI & Abdominal Exam: Soft. absent: Tenderness Assessment and Plan - Assessment and Plan (Free Text) Plan: Assessment S/P SIRS with fever, no evidence or source of infection identified - new onset low grade fever, so far no specific source CAD S/P CABG hypothyroidism DM HTN history of liver lesions history of caricinoid Plan repeat blood cx negative so far, PCT is normal,CXR is negative; follow up urine cx will continue to monitor fever curve and monitor off antibiotics
--- NOTE | 2018-02-25 18:46 | PN ---
DATE: 02/25/2018 SUBJECTIVE: An 87-year-old male currently running a low-grade fever. PHYSICAL EXAMINATION: VITAL SIGNS: His temperature is 100.7, his blood pressure is 128/66. GENERAL: He is alert. LUNGS: Clear. HEART: S1, S2 rhythm. ABDOMEN: Obese, soft. Positive bowel sounds. EXTREMITIES: Show no evidence of edema. LABORATORY DATA: He had a chest x-ray, which showed no active disease. Cultures of blood and urine have been requested. He is being followed by Infectious Disease. He is also being followed by GI. ASSESSMENT AND PLAN: He has an underlying cognitive behavioral disorder, arteriosclerotic heart disease with coronary artery bypass grafting in the past, benign prostatic hyperplasia history, cholecystectomy. He is currently on Cardizem, Colace, Namenda, Systane eyedrops, Questran, Seroquel, Synthroid and Tylenol. We will continue current level of care. Andreia Phillips MD
[2018-02-26] MEDS ORDERED: Dextrose 50% SYRINGE Inj (50 ml) ONE (04:04)
[2018-02-26 06:23] LABS: BASO # 0.03 K/mm3 (0.0-2.0); BASO % 0.4 % (0.0-3.0); EOS # 0.1 (0.0-0.7); GRAN # 5.62 (1.4-6.5); GRAN % 71.9 % (50.0-68.0); HEMOGLOBIN 9.5 g/dL (14.0-18.0); LYMPH # 1.3 (1.2-3.4); LYMPH % 16.1 % (22.0-35.0); MEAN CELL VOLUME 90.4 fl (80.0-105.0); MEAN CORPUSCULAR HEMOGLOBIN 29.5 pg (25.0-35.0); MEAN CORPUSCULAR HGB CONC 32.6 g/dl (31.0-37.0); MEAN PLATELET VOLUME 8.7 fl (7.0-11.0); MONO # 0.8 (0.1-0.6); MONO % 10.6 % (1.0-6.0); RBC 3.22 10^6/uL (3.5-6.1); RED CELL DISTRIBUTION WIDTH 14.4 % (11.5-14.5); WHITE BLOOD COUNT 7.8 10^3/ul (4.5-11.0)
[2018-02-26 07:14] LABS: ALB/GLOB RATIO 0.9 (1.1-1.8); ALBUMIN 2.7 g/dL (3.0-4.8); ALT/SGPT 17 U/L (7-56); AST/SGOT 19 U/L (17-59); BLOOD UREA NITROGEN 18 mg/dL (7-21); CALCIUM 8.1 mg/dL (8.4-10.5); GFR NON-AFRICAN AMERICAN > 60
--- NOTE | 2018-02-26 08:45 | CP.PCM.PN ---
<Austin Weldon - Last Filed: 02/26/18 12:54> Subjective - Date & Time of Evaluation Date of Evaluation: 02/26/18 Time of Evaluation: 08:42 - Subjective Subjective: Gilberto Fatemeh PGY2 - GI Progress Note Patient seen and examined this AM. No acute events reported overnight. Patient tolerating diet, denies nausea, vomiting, abdominal pain. Patient complains of chronic right knee pain. He appears slightly agitated on interview today . Objective - Vital Signs/Intake and Output Vital Signs (last 24 hours): Temp Pulse Resp BP Pulse Ox 99.5 F 78 20 144/68 95 02/26/18 08:17 02/26/18 08:17 02/26/18 08:17 02/26/18 08:17 02/26/18 08:17 Intake and Output: 02/26/18 02/26/18 06:59 18:59 Intake Total 300 Output Total 700 Balance -400 - Medications Medications: Current Medications Acetaminophen (Tylenol 325mg Tab) 650 mg PO Q4H PRN PRN Reason: Fever >101 F Last Admin: 02/25/18 09:14 Dose: 650 mg Acetaminophen (Tylenol 325mg Tab) 650 mg PO Q6H PRN PRN Reason: Pain, moderate (4-7) Last Admin: 02/17/18 21:00 Dose: 650 mg Cholestyramine Resin (Questran) 4 gm PO DAILY [facility] Last Admin: 02/25/18 09:16 Dose: 4 gm Diltiazem HCl (Cardizem Cd) 180 mg PO DAILY [facility] Last Admin: 02/25/18 09:15 Dose: 180 mg Docusate Sodium (Colace) 100 mg PO BID [facility] Last Admin: 02/25/18 17:25 Dose: 100 mg Levothyroxine Sodium (Synthroid) 50 mcg PO DAILY [facility] Last Admin: 02/25/18 09:15 Dose: 50 mcg Memantine (Namenda) 10 mg PO DAILY [facility] Last Admin: 02/25/18 09:15 Dose: 10 mg Non-Formulary Medication (Propylene Glycol/Peg 400/Pf [Systane 0.3-0.4% Eye Drop]) 1 drop BOTHEYES QID [facility] Last Admin: 02/25/18 22:06 Dose: Not Given Quetiapine Fumarate (Seroquel) 25 mg PO DAILY [facility]; Protocol Last Admin: 02/25/18 09:15 Dose: 25 mg - Labs Labs: 02/26/18 05:45 02/26/18 05:45 - Constitutional Appears: No Acute Distress - Head Exam Head Exam: ATRAUMATIC, NORMOCEPHALIC - Eye Exam Eye Exam: EOMI, PERRL - ENT Exam ENT Exam: Mucous Membranes Moist - Respiratory Exam Respiratory Exam: Clear to Ausculation Bilateral, NORMAL BREATHING PATTERN - Cardiovascular Exam Cardiovascular Exam: REGULAR RHYTHM, +S1, +S2 - GI/Abdominal Exam GI & Abdominal Exam: Soft, Normal Bowel Sounds. absent: Rigid, Tenderness - Extremities Exam Extremities Exam: absent: Calf Tenderness, Pedal Edema - Neurological Exam Neurological Exam: Alert, Awake, Oriented x3 Neuro motor strength exam: Left Upper Extremity: 5, Right Upper Extremity: 5, Left Lower Extremity: 5, Right Lower Extremity: 5 - Psychiatric Exam Psychiatric exam: Normal Affect, Normal Mood - Skin Skin Exam: Dry, Intact Assessment and Plan - Assessment and Plan (Free Text) Assessment: 87 year old male with past medical history of CAD, DM2, HTN, Dementia, prostate cancer s/p radiation 20 years ago, hypothyroidism, rheumatoid arthritis, macular degeneration, hypercholesterolemia, colonic polyps, PUD and carcinoid tumor of the duodenum who presented to [facility] from [facility] with 103F fever. Patient afebrile and without positive cultures. Patient has been afebrile with Tmax of 100.7 at during admission. Chromograffin A level elevated at 159 from previous 148. Plan: Hx of Carcinoid tumor of duodenum Hx of Hepatic lesion Hx of Colonic polyps Hx of PUD CAD DM2 HTN Dementia - CEA normal - Chromograffin A level 159(previous 148) - Continue Questran and colace - Echocardiogram shows no significant abnormalities related to previous carcinoid tumor - Antibiotics as per Infectious disease - Diet as tolerated - Would differ endoscopic evaluation unless there is active bleeding for therapeutic intervention - Further recommendations per Dr. Yadav <Aníbal Yadav V - Last Filed: 02/26/18 23:24> Objective - Vital Signs/Intake and Output Vital Signs (last 24 hours): Temp Pulse Resp BP Pulse Ox 98.6 F 75 19 134/65 95 02/26/18 16:22 02/26/18 16:22 02/26/18 16:22 02/26/18 16:22 02/26/18 16:22 - Medications Medications: Current Medications Acetaminophen (Tylenol 325mg Tab) 650 mg PO Q4H PRN PRN Reason: Fever >101 F Last Admin: 02/25/18 09:14 Dose: 650 mg Acetaminophen (Tylenol 325mg Tab) 650 mg PO Q6H PRN PRN Reason: Pain, moderate (4-7) Last Admin: 02/26/18 09:44 Dose: 650 mg Cholestyramine Resin (Questran) 4 gm PO DAILY [facility] Last Admin: 02/26/18 09:40 Dose: 4 gm Diltiazem HCl (Cardizem Cd) 180 mg PO DAILY [facility] Last Admin: 02/26/18 09:40 Dose: 180 mg Docusate Sodium (Colace) 100 mg PO BID [facility] Last Admin: 02/26/18 17:36 Dose: 100 mg Levothyroxine Sodium (Synthroid) 50 mcg PO DAILY [facility] Last Admin: 02/26/18 09:41 Dose: 50 mcg Memantine (Namenda) 10 mg PO DAILY [facility] Last Admin: 02/26/18 09:41 Dose: 10 mg Non-Formulary Medication (Propylene Glycol/Peg 400/Pf [Systane 0.3-0.4% Eye Drop]) 1 drop BOTHEYES QID [facility] Last Admin: 02/26/18 22:04 Dose: Not Given Quetiapine Fumarate (Seroquel) 25 mg PO DAILY [facility]; Protocol Last Admin: 02/26/18 09:41 Dose: 25 mg - Labs Labs: 02/26/18 05:45 02/26/18 05:45 Attending/Attestation - Attestation I have personally seen and examined this patient.: Yes I have fully participated in the care of the patient.: Yes I have reviewed all pertinent clinical information, including history, physical exam and plan: Yes Notes (Text): This is an addendum to GI followup report dictated by the Core Assembly Supervisor. The patient was seen and evaluated earlier. Medical records, lab studies, imagings were reviewed. Last 24 hours events reviewed. Agreed with the above treatment plan as outlined in Core Assembly Supervisor 's notes with the addition of the following Still remains confused Poor PO intake Continue supportive care No significant increase of chromogranin A level 02/26/18 23:22
[2018-02-26] MEDS: Cholestyramine 4 gm/Pkt UD PO SCH (09:40)
[2018-02-26] MEDS: diltiaZEM 180 mg/24 Hours CD Cap PO SCH (09:40)
[2018-02-26] MEDS: Levothyroxine 50 MCG TAB PO SCH (09:41)
[2018-02-26 13:39] LABS: URINE BILIRUBIN SMALL (NEGATIVE); URINE BLOOD SMALL (NEGATIVE); URINE GLUCOSE (UA) NEGATIVE (NEGATIVE); URINE LEUKOCYTE ESTERASE NEGATIVE Leu/uL (NEGATIVE); URINE PROTEIN 100 mg/dL (<30 mg/dL); URINE UROBILINOGEN 0.2 E.U./dL (<1 E.U./dL)
[2018-02-26 13:46] LABS: URINE APPEARANCE TURBID (CLEAR); URINE COLOR YELLOW (YELLOW)
[2018-02-26 13:49] LABS: URINE EPITHELIAL CELLS 0 - 2 /hpf (0-5); URINE HYALINE CAST 0 - 2 /hpf; URINE RBC 0 - 2 /hpf (0-2); URINE WBC 0 - 2 /hpf (0-6)
--- NOTE | 2018-02-26 16:17 | RAD ---
Date of service: 02/26/2018 PROCEDURE: Right Knee Radiographs. HISTORY: knee pain, swelling COMPARISON: None. FINDINGS: BONES: Normal. No fracture. JOINTS: Normal. No osteoarthritis. JOINT EFFUSION: None. OTHER FINDINGS: Calcification of the popliteal artery IMPRESSION: No acute findings
--- NOTE | 2018-02-26 16:38 | CP.PCM.CON ---
History of Present Illness - History of Present Illness History of Present Illness: Orthopedic consultation Dr. Maya 87M complaining of right knee pain, unable to participate in PT due to the pain. He was able to walk 40 feet on 02/23, but started complaining of knee pain yesterday noted on PT record. Patient states he has knee pain all the time and it feels the same. He currently denies and other pain in joints. Denies cp/sob/dizziness/numbness/tingling/v/n/fever/chills. Maria Esther Majano daughter called, she states that he does have knee pain, but he was able to walk prior to admission. He has been at [facility] since july. She says he has history of gout but in great toes and fingers in past. Risks/benefits/alt of aspiration of knee explained to daughter who verbally consents for aspiration and possible injection if no evidence of infection. Explained to patient who is poor historian and he verbalized understanding and consents to aspiration as well. Review of Systems - Review of Systems All systems: reviewed and no additional remarkable complaints except - Constitutional Constitutional: As Per HPI - Cardiovascular Cardiovascular: As Per HPI - Respiratory Respiratory: As Per HPI - Musculoskeletal Musculoskeletal: As Per HPI - Neurological Neurological: As Per HPI - Hematologic/Lymphatic Hematologic: absent: As Per HPI, Easy Bleeding, Easy Bruising, Lymphadenopathy, Other Past Patient History - Tetanus Immunizations Tetanus Immunization: Unknown - Past Medical History & Family History Past Medical History?: Yes Past Family History: Reviewed and not pertinent - Past Social History Smoking Status: Former Smoker Alcohol: None Drugs: Denies Home Situation {Lives}: [facility] - CARDIAC Hx Cardiac Disorders: Yes (cad) Hx Congestive Heart Failure: Yes Hx Hypertension: Yes - PULMONARY Hx Respiratory Disorders: No - NEUROLOGICAL Hx Neurological Disorder: Yes Hx Dementia: Yes - HEENT Hx HEENT Problems: Yes Hx Macular Degeneration: Yes - RENAL Hx Chronic Kidney Disease: No - ENDOCRINE/METABOLIC Hx Diabetes Mellitus Type 2: Yes - HEMATOLOGICAL/ONCOLOGICAL Hx Blood Disorders: No - INTEGUMENTARY Hx Dermatological Problems: No - MUSCULOSKELETAL/RHEUMATOLOGICAL Hx Musculoskeletal Disorders: No Hx Falls: No - GASTROINTESTINAL Hx Gastrointestinal Disorders: No - GENITOURINARY/GYNECOLOGICAL Hx Genitourinary Disorders: No - PSYCHIATRIC Hx Depression: No Hx Emotional Abuse: No Hx Physical Abuse: No - SURGICAL HISTORY Hx Appendectomy: Yes Hx Cholecystectomy: Yes - ANESTHESIA Hx Anesthesia: No Hx Anesthesia Reactions: No Hx Malignant Hyperthermia: No Meds Allergies/Adverse Reactions: Allergies Allergy/AdvReac Type Severity Reaction Status Date / Time Thiazide & Related Allergy SWELLING Uncoded 02/16/18 00:45 - Medications Medications: Current Medications Acetaminophen (Tylenol 325mg Tab) 650 mg PO Q4H PRN PRN Reason: Fever >101 F Last Admin: 02/25/18 09:14 Dose: 650 mg Acetaminophen (Tylenol 325mg Tab) 650 mg PO Q6H PRN PRN Reason: Pain, moderate (4-7) Last Admin: 02/26/18 09:44 Dose: 650 mg Cholestyramine Resin (Questran) 4 gm PO DAILY [facility] Last Admin: 02/26/18 09:40 Dose: 4 gm Diltiazem HCl (Cardizem Cd) 180 mg PO DAILY [facility] Last Admin: 02/26/18 09:40 Dose: 180 mg Docusate Sodium (Colace) 100 mg PO BID [facility] Last Admin: 02/26/18 09:40 Dose: 100 mg Levothyroxine Sodium (Synthroid) 50 mcg PO DAILY [facility] Last Admin: 02/26/18 09:41 Dose: 50 mcg Memantine (Namenda) 10 mg PO DAILY [facility] Last Admin: 02/26/18 09:41 Dose: 10 mg Non-Formulary Medication (Propylene Glycol/Peg 400/Pf [Systane 0.3-0.4% Eye Drop]) 1 drop BOTHEYES QID [facility] Last Admin: 02/25/18 22:06 Dose: Not Given Quetiapine Fumarate (Seroquel) 25 mg PO DAILY [facility]; Protocol Last Admin: 02/26/18 09:41 Dose: 25 mg Physical Exam - Constitutional Appears: Well, In Acute Distress (severe pain with any palpation of right knee, pain with active ROM) - Head Exam Head Exam: ATRAUMATIC - Neck Exam Neck exam: Positive for: Full Rom, Normal Inspection - Respiratory Exam Respiratory Exam: NORMAL BREATHING PATTERN - Cardiovascular Exam Additional comments: +DP/PT pulses - Expanded Lower Extremities Exam Right Knee exam: effusion, full knee extension, tenderness - Neurological Exam Neurological exam: Alert - Psychiatric Exam Psychiatric exam: Normal Affect, Normal Mood - Skin Skin Exam: Dry, Intact, Normal Color, Warm Additional comments: small bruise medial side of knee no erythema skin intact brawny skin to distal lower leg Results - Vital Signs Recent Vital Signs: Last Vital Signs Temp 98.6 F 02/26/18 16:22 Pulse 75 02/26/18 16:22 Resp 19 02/26/18 16:22 BP 134/65 02/26/18 16:22 Pulse Ox 95 02/26/18 16:22 - Labs Result Diagrams: 02/26/18 05:45 02/26/18 05:45 Labs: Laboratory Results - last 24 hr 02/21/18 02/25/18 02/26/18 06:00 17:05 05:45 WBC 7.8 RBC 3.22 L Hgb 9.5 L Hct 29.1 L MCV 90.4 MCH 29.5 MCHC 32.6 RDW 14.4 Plt Count 245 MPV 8.7 Gran % 71.9 H Lymph % (Auto) 16.1 L Ness % (Auto) 10.6 H Eos % (Auto) 1.0 L Baso % (Auto) 0.4 Gran # 5.62 Lymph # (Auto) 1.3 Ness # (Auto) 0.8 H Eos # (Auto) 0.1 Baso # (Auto) 0.03 Differential Comment Cancelled Sodium 141 Potassium 3.6 Chloride 108 H Carbon Dioxide 26 Anion Gap 11 BUN 19 Creatinine 1.0 Est GFR ( Amer) > 60 Est GFR (Non-Af Amer) > 60 POC Glucose (mg/dL) Random Glucose 79 Calcium 8.0 L Magnesium 2.0 Total Bilirubin AST ALT Alkaline Phosphatase Total Protein Albumin Globulin Albumin/Globulin Ratio Chromagranin A 159 H Urine Color Urine Appearance Urine pH Ur Specific [place] Urine Protein Urine Glucose (UA) Urine Ketones Urine Blood Urine Nitrate Urine Bilirubin Urine Urobilinogen Ur Leukocyte Esterase Urine RBC Urine WBC Ur Epithelial Cells Hyaline Casts 02/26/18 02/26/18 02/26/18 05:45 08:36 09:30 WBC RBC Hgb Hct MCV MCH MCHC RDW Plt Count MPV Gran % Lymph % (Auto) Ness % (Auto) Eos % (Auto) Baso % (Auto) Gran # Lymph # (Auto) Ness # (Auto) Eos # (Auto) Baso # (Auto) Differential Comment Sodium 142 Potassium 3.6 Chloride 108 H Carbon Dioxide 26 Anion Gap 12 BUN 18 Creatinine 0.9 Est GFR ( Amer) > 60 Est GFR (Non-Af Amer) > 60 POC Glucose (mg/dL) 68 Random Glucose 77 Calcium 8.1 L Magnesium Total Bilirubin 0.6 AST 19 ALT 17 Alkaline Phosphatase 96 Total Protein 5.7 L Albumin 2.7 L Globulin 2.9 Albumin/Globulin Ratio 0.9 L Chromagranin A Urine Color Yellow Urine Appearance Turbid Urine pH 6.0 Ur Specific [place] >= 1.030 Urine Protein 100 H Urine Glucose (UA) Negative Urine Ketones 40 H Urine Blood Small H Urine Nitrate Negative Urine Bilirubin Small H Urine Urobilinogen 0.2 Ur Leukocyte Esterase Negative Urine RBC 0 - 2 Urine WBC 0 - 2 Ur Epithelial Cells 0 - 2 Hyaline Casts 0 - 2 02/26/18 11:31 WBC RBC Hgb Hct MCV MCH MCHC RDW Plt Count MPV Gran % Lymph % (Auto) Ness % (Auto) Eos % (Auto) Baso % (Auto) Gran # Lymph # (Auto) Ness # (Auto) Eos # (Auto) Baso # (Auto) Differential Comment Sodium Potassium Chloride Carbon Dioxide Anion Gap BUN Creatinine Est GFR ( Amer) Est GFR (Non-Af Amer) POC Glucose (mg/dL) 101 Random Glucose Calcium Magnesium Total Bilirubin AST ALT Alkaline Phosphatase Total Protein Albumin Globulin Albumin/Globulin Ratio Chromagranin A Urine Color Urine Appearance Urine pH Ur Specific [place] Urine Protein Urine Glucose (UA) Urine Ketones Urine Blood Urine Nitrate Urine Bilirubin Urine Urobilinogen Ur Leukocyte Esterase Urine RBC Urine WBC Ur Epithelial Cells Hyaline Casts - Impressions Impression: atient Name / ID : AMERICO VEGA / [id number] Exam Date : 02/26/2018 14:19:42 ( Approved ) Study Comment : Sex / Age : M / 87Y Creator : Iban Patten MD Dictator : Iban Patten MD Obgyn Hospitalist Physician : Balance Staff Inspector : Iban Patten MD Approver2 : Report Date : 02/26/2018 16:14:00 My Comment : Date of service: 02/26/2018 PROCEDURE: Right Knee Radiographs. HISTORY: knee pain, swelling COMPARISON: None. FINDINGS: BONES: Normal. No fracture. JOINTS: Normal. No osteoarthritis. JOINT EFFUSION: None. OTHER FINDINGS: Calcification of the popliteal artery IMPRESSION: No acute findings Assessment & Plan (1) Effusion of right knee joint Assessment and Plan: appears acute r/o gout r/o OA exacerbation r/o septic arthritis does not appear clinically septic, no erythema, moderate pain with ROM, moderate effusion however patient did have low grade fever yesterday which seems to be when pain started 34cc yellow clear fluid aspirated and sent for fluid cell count, gram staina nd culture, crystals will f/u results and if not infection will reeval and consider steroid injection tomorrow d/w Dr. Cochran, agrees with abvoe Status: Acute (2) Primary osteoarthritis of right hip Status: Acute Procedures Attestation:: I certify that I have explained the specified Operation(s) or Procedure(s), risks, benefits and reasonable alternatives to the Patient and/or other person responsible. The opportunity was given to ask questions and all questions answered - Joint Aspiration/Injection Joint #1 Consent Obtained: Verbal Consent Time Out Performed: Yes Side of Body: Right Joint Aspirated: Knee Ultrasound Guidance Used: No Skin Prep: Povidone-Iodine, Chlorprep Needle Size Used: Other (23g) Fluid Clarity: Clear Total Fluid Removed (mls): 34 Patient Tolorated Procedure: Well Complications: None
[2018-02-26 17:22] LABS: FLUID TYPE SYNOVIAL FLUID
[2018-02-26 18:20] LABS: SF GROSS APPEARANCE TURBID (CLEAR)
--- NOTE | 2018-02-26 20:37 | CP.PCM.PN ---
Subjective - Date & Time of Evaluation Date of Evaluation: 02/26/18 Time of Evaluation: 11:10 - Subjective Subjective: No fevers this morning, complaining of right leg pain. Objective - Vital Signs/Intake and Output Vital Signs (last 24 hours): Temp Pulse Resp BP Pulse Ox 98.9 F 63 19 116/51 L 93 L 02/25/18 16:41 02/25/18 16:41 02/25/18 16:41 02/25/18 16:41 02/25/18 16:41 Intake and Output: 02/26/18 02/26/18 06:59 18:59 Intake Total 300 Output Total 700 Balance -400 - Medications Medications: Current Medications Acetaminophen (Tylenol 325mg Tab) 650 mg PO Q4H PRN PRN Reason: Fever >101 F Last Admin: 02/25/18 09:14 Dose: 650 mg Acetaminophen (Tylenol 325mg Tab) 650 mg PO Q6H PRN PRN Reason: Pain, moderate (4-7) Last Admin: 02/17/18 21:00 Dose: 650 mg Cholestyramine Resin (Questran) 4 gm PO DAILY [facility] Last Admin: 02/25/18 09:16 Dose: 4 gm Diltiazem HCl (Cardizem Cd) 180 mg PO DAILY [facility] Last Admin: 02/25/18 09:15 Dose: 180 mg Docusate Sodium (Colace) 100 mg PO BID [facility] Last Admin: 02/25/18 17:25 Dose: 100 mg Levothyroxine Sodium (Synthroid) 50 mcg PO DAILY [facility] Last Admin: 02/25/18 09:15 Dose: 50 mcg Memantine (Namenda) 10 mg PO DAILY [facility] Last Admin: 02/25/18 09:15 Dose: 10 mg Non-Formulary Medication (Propylene Glycol/Peg 400/Pf [Systane 0.3-0.4% Eye Drop]) 1 drop BOTHEYES QID [facility] Last Admin: 02/25/18 22:06 Dose: Not Given Quetiapine Fumarate (Seroquel) 25 mg PO DAILY [facility]; Protocol Last Admin: 02/25/18 09:15 Dose: 25 mg - Labs Labs: 02/26/18 05:45 02/26/18 05:45 - Constitutional Appears: Chronically Ill - Head Exam Head Exam: NORMAL INSPECTION - Respiratory Exam Respiratory Exam: Decreased Breath Sounds - Cardiovascular Exam Cardiovascular Exam: +S1, +S2 - GI/Abdominal Exam GI & Abdominal Exam: Soft. absent: Tenderness Assessment and Plan - Assessment and Plan (Free Text) Plan: Assessment S/P SIRS with fever, no evidence or source of infection identified - new onset low grade fever, so far no specific source CAD S/P CABG hypothyroidism DM HTN history of liver lesions history of caricinoid Plan repeat blood cx negative so far, PCT is normal,CXR is negative; follow up urine cx will continue to monitor fever curve and monitor off antibiotics
--- NOTE | 2018-02-26 21:35 | PN ---
DATE: 02/26/2018 SUBJECTIVE: An 87-year-old male, resting comfortably in bed this morning. Nursing staff relates that he had a quiet night. The patient complains of some pain in the right knee. Orthopedic Physical Therapy noted that the patient is having some difficulty participating with physical therapy and recommended an Orthopedic evaluation. PHYSICAL EXAMINATION: VITAL SIGNS: His temperature is 98.6, his blood pressure is 134/65, earlier temperature was 99.5. LUNGS: Clear. HEART: In S1, S2 rhythm. ABDOMEN: Obese, soft. Positive bowel sounds. EXTREMITIES: Shows mild swelling of the right knee. No evidence of edema. LABORATORY DATA: Shows chemistry of normal electrolytes. BUN is 18, creatinine is 0.9. LFTs are normal. Blood sugar is 86. CBC shows WBC of 7.8, RBC of 3.22, hemoglobin 9.5, hematocrit 29.1, platelet count is 245. Urinalysis shows negative leukocyte esterase, 0 to 2 wbc. Urine color is yellow. ASSESSMENT AND PLAN: We will get an Orthopedic evaluation for the painful right knee, see what their recommendations are. We will continue current level of medical care at this time. GI has felt that at this time, there was no indications to do any endoscopies on the patient, just to monitor the patient. He has underlying cognitive behavior disorder, on Namenda. He has a history of prostate cancer treated in the past, history of renal and hepatic masses. The family is aware and wishes just to monitor the patient. He is hypothyroid, on Synthroid medications. He has had a cholecystectomy in the past. He is on Questran. He has a history of arteriosclerotic heart disease with coronary artery bypass grafting in the past. He is on Cardizem 180 daily. He had an episode of paroxysmal atrial fibrillation and he is on Colace for a bowel regimen. Andreia Phillips MD
[2018-02-26] MEDS: PROPYLENE GLYCOL BOTHEYES SCH ×2 (22:03→22:04)
[2018-02-26] MEDS: [UNRECOGNIZED DRUG - OTHER] BOTHEYES SCH ×2 (22:03→22:04)
[2018-02-26] MEDS: PEG BOTHEYES SCH ×2 (22:03→22:04)
[2018-02-27 08:02] VITALS: RESP 20
[2018-02-27] MEDS: diltiaZEM 180 mg/24 Hours CD Cap PO SCH (09:20)
[2018-02-27] MEDS: PEG BOTHEYES SCH ×4 (09:21→22:24)
[2018-02-27] MEDS: [UNRECOGNIZED DRUG - OTHER] BOTHEYES SCH ×4 (09:21→22:24)
[2018-02-27] MEDS: Cholestyramine 4 gm/Pkt UD PO SCH (09:21)
[2018-02-27] MEDS: Levothyroxine 50 MCG TAB PO SCH (09:21)
[2018-02-27] MEDS: PROPYLENE GLYCOL BOTHEYES SCH ×4 (09:21→22:24)
[2018-02-27] MEDS ORDERED: MethylPREDNISolone Depo 80 mg/ml (5 ml) Inj INJ ONE (14:25)
[2018-02-27] MEDS ORDERED: Bupivacaine 0.5% Inj(30mL) IJ ONE (14:26)
--- NOTE | 2018-02-27 15:10 | CP.PCM.PN ---
Addendum entered and electronically signed by Miller Goins PA-C 02/27/18 17:08: Repeated gram stain is few WBCs and no organisms. This is more consistent with other results and clinical picture. Dr. Cochran notified of results. Will monitor and follow up cultures. Original Note: Subjective - Date & Time of Evaluation Date of Evaluation: 02/27/18 Time of Evaluation: 15:08 - Subjective Subjective: Patient states he has continued severe right knee pain. No other complaints at this time. Objective - Vital Signs/Intake and Output Vital Signs (last 24 hours): Temp Pulse Resp BP Pulse Ox 99 F 77 20 147/69 94 L 02/27/18 08:01 02/27/18 09:20 02/27/18 08:01 02/27/18 09:20 02/27/18 08:01 - Medications Medications: Current Medications Acetaminophen (Tylenol 325mg Tab) 650 mg PO Q4H PRN PRN Reason: Fever >101 F Last Admin: 02/25/18 09:14 Dose: 650 mg Acetaminophen (Tylenol 325mg Tab) 650 mg PO Q6H PRN PRN Reason: Pain, moderate (4-7) Last Admin: 02/26/18 09:44 Dose: 650 mg Cholestyramine Resin (Questran) 4 gm PO DAILY [facility] Last Admin: 02/27/18 09:21 Dose: 4 gm Diltiazem HCl (Cardizem Cd) 180 mg PO DAILY [facility] Last Admin: 02/27/18 09:20 Dose: 180 mg Docusate Sodium (Colace) 100 mg PO BID [facility] Last Admin: 02/27/18 09:20 Dose: 100 mg Levothyroxine Sodium (Synthroid) 50 mcg PO DAILY [facility] Last Admin: 02/27/18 09:21 Dose: 50 mcg Memantine (Namenda) 10 mg PO DAILY [facility] Last Admin: 02/27/18 09:20 Dose: 10 mg Non-Formulary Medication (Propylene Glycol/Peg 400/Pf [Systane 0.3-0.4% Eye Drop]) 1 drop BOTHEYES QID [facility] Last Admin: 02/27/18 09:21 Dose: Not Given Quetiapine Fumarate (Seroquel) 25 mg PO DAILY [facility]; Protocol Last Admin: 02/27/18 09:20 Dose: 25 mg - Labs Labs: 02/26/18 05:45 02/26/18 05:45 - Constitutional Appears: Well, No Acute Distress - Head Exam Head Exam: ATRAUMATIC - Respiratory Exam Respiratory Exam: NORMAL BREATHING PATTERN - Cardiovascular Exam Additional comments: +DP/PT pulses - Extremities Exam Additional comments: Right knee: no joint effusion today. knee warm. Pain with attempts at ROM - Neurological Exam Neurological Exam: Alert, Awake Neuro motor strength exam: Right Lower Extremity: 5 (ankle/toes, pain with any knee ROM) - Psychiatric Exam Psychiatric exam: Normal Affect, Normal Mood - Skin Skin Exam: Dry, Intact, Normal Color, Warm Assessment and Plan (1) Acute gout of right knee Assessment & Plan: no effusion at this time, no reaccumulation after aspiration yesterday pathology noted +uric acid crystals on exam fluid cell count noted, normal culture no growth prelim gram stain not yet completed, lab notified Risks/benefits/alternatives of right knee intraarticular injection explainted to patient (and daughter yesterday) he verbalizes understanding and consents to procedure. right knee steroid injection performed, tolerated well. Addendum: micro entered the gram stain and states many WBC and few gram positive cocci. This is inconsistent with the fluid cell count results which had very low WBC count with regards to typical picture in septic arthritis (>100,000) and negative prelim culture. The fluid removed yesterday was benign in appearance. Micro still has specimen and they will repeat the gram stain at my request. Case discussed with Dr. Phillips. Will await culture results prior to transfer back to rehab. Will monitor clinically for any increase in knee effusion and symptoms as picture is inconsistent and continue to treat for gout at this time as per Dr. Cochran. Will follow up final cultures. Status: Acute (2) Primary osteoarthritis of right knee Status: Acute Procedures Attestation:: I certify that I have explained the specified Operation(s) or Procedure(s), risks, benefits and reasonable alternatives to the Patient and/or other person responsible. The opportunity was given to ask questions and all questions answered - Joint Aspiration/Injection Joint #1 Consent Obtained: Verbal Consent Time Out Performed: Yes Side of Body: Right Joint Aspirated: Knee Ultrasound Guidance Used: No Skin Prep: Chlorprep Needle Size Used: Other (23g) Medication Injected: Methylprednisolone, Other (40mg depomedrol, 4 cc 0.5% marcaine superior lateral approach) Patient Tolorated Procedure: Well Complications: None
--- NOTE | 2018-02-27 15:49 | CP.PCM.PN ---
<Austin Weldon - Last Filed: 02/27/18 15:49> Subjective - Date & Time of Evaluation Date of Evaluation: 02/27/18 Time of Evaluation: 08:00 - Subjective Subjective: Gilberto Fatemeh PGY 2 - GI Progress Note Patient seen and examined this AM. No acute events reported overnight. Patient clinically unchanged. Objective - Vital Signs/Intake and Output Vital Signs (last 24 hours): Temp Pulse Resp BP Pulse Ox 99 F 77 20 147/69 94 L 02/27/18 08:01 02/27/18 09:20 02/27/18 08:01 02/27/18 09:20 02/27/18 08:01 - Medications Medications: Current Medications Acetaminophen (Tylenol 325mg Tab) 650 mg PO Q4H PRN PRN Reason: Fever >101 F Last Admin: 02/25/18 09:14 Dose: 650 mg Acetaminophen (Tylenol 325mg Tab) 650 mg PO Q6H PRN PRN Reason: Pain, moderate (4-7) Last Admin: 02/26/18 09:44 Dose: 650 mg Cholestyramine Resin (Questran) 4 gm PO DAILY [facility] Last Admin: 02/27/18 09:21 Dose: 4 gm Diltiazem HCl (Cardizem Cd) 180 mg PO DAILY [facility] Last Admin: 02/27/18 09:20 Dose: 180 mg Docusate Sodium (Colace) 100 mg PO BID [facility] Last Admin: 02/27/18 09:20 Dose: 100 mg Levothyroxine Sodium (Synthroid) 50 mcg PO DAILY [facility] Last Admin: 02/27/18 09:21 Dose: 50 mcg Memantine (Namenda) 10 mg PO DAILY [facility] Last Admin: 02/27/18 09:20 Dose: 10 mg Non-Formulary Medication (Propylene Glycol/Peg 400/Pf [Systane 0.3-0.4% Eye Drop]) 1 drop BOTHEYES QID [facility] Last Admin: 02/27/18 09:21 Dose: Not Given Quetiapine Fumarate (Seroquel) 25 mg PO DAILY [facility]; Protocol Last Admin: 02/27/18 09:20 Dose: 25 mg - Labs Labs: 02/26/18 05:45 02/26/18 05:45 - Constitutional Appears: No Acute Distress - Head Exam Head Exam: ATRAUMATIC, NORMOCEPHALIC - Eye Exam Eye Exam: EOMI, PERRL - ENT Exam ENT Exam: Mucous Membranes Moist - Respiratory Exam Respiratory Exam: Clear to Ausculation Bilateral, NORMAL BREATHING PATTERN - Cardiovascular Exam Cardiovascular Exam: REGULAR RHYTHM, +S1, +S2 - GI/Abdominal Exam GI & Abdominal Exam: Soft, Normal Bowel Sounds - Extremities Exam Extremities Exam: absent: Tenderness - Neurological Exam Neurological Exam: Alert, Awake, Oriented x3 Neuro motor strength exam: Left Upper Extremity: 5, Right Upper Extremity: 5, Left Lower Extremity: 5, Right Lower Extremity: 5 - Psychiatric Exam Psychiatric exam: Normal Mood - Skin Skin Exam: Dry, Intact Assessment and Plan - Assessment and Plan (Free Text) Assessment: 87 year old male with past medical history of CAD, DM2, HTN, Dementia, prostate cancer s/p radiation 20 years ago, hypothyroidism, rheumatoid arthritis, macular degeneration, hypercholesterolemia, colonic polyps, PUD and carcinoid tumor of the duodenum who presented to [facility] from [facility] with 103F fever. Patient afebrile and without positive cultures. Patient has been afebrile with Tmax of 100.7 at during admission. Chromograffin A level elevated at 159 from previous 148. Plan: Hx of Carcinoid tumor of duodenum Hx of Hepatic lesion Hx of Colonic polyps Hx of PUD CAD DM2 HTN Dementia - CEA normal - Chromograffin A level 159(previous 148) - Continue Questran and colace - Echocardiogram shows no significant abnormalities related to previous car cinoid tumor - Antibiotics as per Infectious disease - Diet as tolerated - Would differ endoscopic evaluation unless there is active bleeding for therapeutic intervention - Further recommendations per Dr. Yadav <Aníbal Yadav V - Last Filed: 02/27/18 23:22> Objective - Vital Signs/Intake and Output Vital Signs (last 24 hours): Temp Pulse Resp BP Pulse Ox 98.9 F 79 20 161/64 H 93 L 02/27/18 16:47 02/27/18 16:47 02/27/18 16:47 02/27/18 16:47 02/27/18 16:47 Intake and Output: 02/27/18 02/28/18 18:59 06:59 Intake Total 360 Output Total 150 Balance 210 - Medications Medications: Current Medications Acetaminophen (Tylenol 325mg Tab) 650 mg PO Q4H PRN PRN Reason: Fever >101 F Last Admin: 02/25/18 09:14 Dose: 650 mg Acetaminophen (Tylenol 325mg Tab) 650 mg PO Q6H PRN PRN Reason: Pain, moderate (4-7) Last Admin: 02/26/18 09:44 Dose: 650 mg Cholestyramine Resin (Questran) 4 gm PO DAILY [facility] Last Admin: 02/27/18 09:21 Dose: 4 gm Diltiazem HCl (Cardizem Cd) 180 mg PO DAILY [facility] Last Admin: 02/27/18 09:20 Dose: 180 mg Docusate Sodium (Colace) 100 mg PO BID [facility] Last Admin: 02/27/18 17:31 Dose: 100 mg Levothyroxine Sodium (Synthroid) 50 mcg PO DAILY [facility] Last Admin: 02/27/18 09:21 Dose: 50 mcg Memantine (Namenda) 10 mg PO DAILY [facility] Last Admin: 02/27/18 09:20 Dose: 10 mg Non-Formulary Medication (Propylene Glycol/Peg 400/Pf [Systane 0.3-0.4% Eye Drop]) 1 drop BOTHEYES QID [facility] Last Admin: 02/27/18 22:24 Dose: Not Given Quetiapine Fumarate (Seroquel) 25 mg PO DAILY [facility]; Protocol Last Admin: 02/27/18 09:20 Dose: 25 mg - Labs Labs: 02/26/18 05:45 02/26/18 05:45 Attending/Attestation - Attestation I have personally seen and examined this patient.: Yes I have fully participated in the care of the patient.: Yes I have reviewed all pertinent clinical information, including history, physical exam and plan: Yes Notes (Text): This is an addendum to GI followup report dictated by the Quality Improvement Engineer. The patient was seen and evaluated earlier. Medical records, lab studies, imagings were reviewed. Last 24 hours events reviewed. Agreed with the above treatment plan as outlined in Quality Improvement Engineer 's notes with the addition of the following By mouth intake remains poor Chromogranin level was checked no significant increase Patient still has episodes of confusion Supportive care 02/27/18 23:19
--- NOTE | 2018-02-27 21:49 | CP.PCM.PN ---
Subjective - Date & Time of Evaluation Date of Evaluation: 02/27/18 Time of Evaluation: 12:35 - Subjective Subjective: Right knee pain is better, no fevers, not in distress. Objective - Vital Signs/Intake and Output Vital Signs (last 24 hours): Temp Pulse Resp BP Pulse Ox 98.6 F 75 19 134/65 95 02/26/18 16:22 02/26/18 16:22 02/26/18 16:22 02/26/18 16:22 02/26/18 16:22 - Medications Medications: Current Medications Acetaminophen (Tylenol 325mg Tab) 650 mg PO Q4H PRN PRN Reason: Fever >101 F Last Admin: 02/25/18 09:14 Dose: 650 mg Acetaminophen (Tylenol 325mg Tab) 650 mg PO Q6H PRN PRN Reason: Pain, moderate (4-7) Last Admin: 02/26/18 09:44 Dose: 650 mg Cholestyramine Resin (Questran) 4 gm PO DAILY [facility] Last Admin: 02/26/18 09:40 Dose: 4 gm Diltiazem HCl (Cardizem Cd) 180 mg PO DAILY [facility] Last Admin: 02/26/18 09:40 Dose: 180 mg Docusate Sodium (Colace) 100 mg PO BID [facility] Last Admin: 02/26/18 17:36 Dose: 100 mg Levothyroxine Sodium (Synthroid) 50 mcg PO DAILY [facility] Last Admin: 02/26/18 09:41 Dose: 50 mcg Memantine (Namenda) 10 mg PO DAILY [facility] Last Admin: 02/26/18 09:41 Dose: 10 mg Non-Formulary Medication (Propylene Glycol/Peg 400/Pf [Systane 0.3-0.4% Eye Drop]) 1 drop BOTHEYES QID [facility] Last Admin: 02/25/18 22:06 Dose: Not Given Quetiapine Fumarate (Seroquel) 25 mg PO DAILY [facility]; Protocol Last Admin: 02/26/18 09:41 Dose: 25 mg - Labs Labs: 02/26/18 05:45 02/26/18 05:45 - Constitutional Appears: Chronically Ill - Head Exam Head Exam: NORMAL INSPECTION - Neck Exam Neck Exam: absent: Meningismus - Respiratory Exam Respiratory Exam: Decreased Breath Sounds - Cardiovascular Exam Cardiovascular Exam: +S1, +S2 - GI/Abdominal Exam GI & Abdominal Exam: Soft. absent: Tenderness Assessment and Plan - Assessment and Plan (Free Text) Plan: Assessment S/P SIRS with fever, probably from right knee gout, S/P arthrocentesis CAD S/P CABG hypothyroidism DM HTN history of liver lesions history of caricinoid Plan repeat blood cx negative so far, PCT is normal, CXR is negative right knee synovial fluid is positive for uric acid crystals, cultures are negative - continue treatment for gout will continue to monitor off antibiotics
[2018-02-28] MEDS: Cholestyramine 4 gm/Pkt UD PO SCH (09:13)
[2018-02-28] MEDS: diltiaZEM 180 mg/24 Hours CD Cap PO SCH (09:13)
[2018-02-28] MEDS: PROPYLENE GLYCOL BOTHEYES SCH ×4 (09:14→22:03)
[2018-02-28] MEDS: [UNRECOGNIZED DRUG - OTHER] BOTHEYES SCH ×4 (09:14→22:03)
[2018-02-28] MEDS: Levothyroxine 50 MCG TAB PO SCH (09:14)
[2018-02-28] MEDS: PEG BOTHEYES SCH ×4 (09:14→22:03)
--- NOTE | 2018-02-28 13:14 | PN ---
DATE: 02/27/2018 SUBJECTIVE: The patient is resting in bed comfortably this morning. Nursing staff relates that there were no problems. PHYSICAL EXAMINATION: VITAL SIGNS: Showed a temp of 98.9, blood pressure is 161/64, oxygen sat was 93% on room air, respiratory rate was 20. GENERAL: The patient is alert. LUNGS: Clear. HEART: An S1, S2. ABDOMEN: Obese, soft. Positive bowel sounds. EXTREMITIES: Show no evidence of edema. ASSESSMENT AND PLAN: The patient is status post drainage of fluid from the right knee and status post injection by Orthopedics. The culture of the fluid is pending and the recommendation by Infectious Disease and Orthopedics is to await the results of the culture of the fluid at this time. He currently continues on his antibiotic regimen being followed by Infectious Disease and his Synthroid, his Seroquel, his Questran, his Namenda, his Cardizem and his Colace. He has underlying history of paroxysmal atrial fibrillation, cognitive behavior disorder, cholecystectomy, prostate cancer, carcinoid syndrome, renal mass, liver mass, cataracts and hypothyroid disease. We will continue to follow the recommendations of the individual consultants and continue current supportive care. Andreia Phillips MD
--- NOTE | 2018-02-28 14:52 | PN ---
DATE: 02/28/2018 SUBJECTIVE: This is an 87-year-old male, resting in bed comfortably this morning. Nursing staff relates that there were no problems. PHYSICAL EXAMINATION: VITAL SIGNS: His temp is 98, his blood pressure is 137/74, his oxygen sat is 98%. GENERAL: He is alert. LUNGS: Clear. HEART: An S1 and S2 rhythm. ABDOMEN: Soft with positive bowel sounds. EXTREMITIES: Show no evidence of edema. ASSESSMENT AND PLAN: The fluid from his knee is pending. He is being followed by Infectious Disease and GI. We will continue current supportive care at this time. Andreia Phillips MD
--- NOTE | 2018-02-28 20:30 | PN ---
DATE: 02/28/2018 SUBJECTIVE: The patient is in bed, in no acute distress, nontoxic, chronically ill. PHYSICAL EXAMINATION: VITAL SIGNS: Temperature of 98, blood pressure is 137/70, respiratory rate of 18. HEENT: Unremarkable. NECK: Supple. LUNGS: Have decreased breath sounds. HEART: Normal S1, S2. ABDOMEN: Soft. LABORATORY DATA: Reveals a white count of 7.8, hemoglobin of 9, platelets of 245. Chemistries are noted. Synovial fluid wbc's are 373. Serology reveals influenza is negative. Urine for Legionella antigen is negative. Microbiology reveals there is no growth from the blood culture,s no growth in the synovial fluid cultures. The Gram stain is no organism seen, but there are wbc's. It is a corrected report. A few wbc's are seen. The pathology report from the joint fluid, positive for uric acid crystals. ASSESSMENT AND PLAN: This is an 87-year-old male with systemic inflammatory response syndrome, with fever, probably secondary to right knee gout, gout and arthritis with uric acid crystals seen on pathology. I doubt infectious etiology with cultures negative, WBC count low, Gram stain negative. The patient with hypothyroidism, diabetes. Currently now, off of antibiotics. The patient is at risk for developing nosocomial infections. Kp Pierre MD
[2018-03-01] MEDS: Cholestyramine 4 gm/Pkt UD PO SCH (09:20)
[2018-03-01] MEDS: PEG BOTHEYES SCH ×2 (09:21→22:06)
[2018-03-01] MEDS: [UNRECOGNIZED DRUG - OTHER] BOTHEYES SCH ×2 (09:21→22:06)
[2018-03-01] MEDS: Levothyroxine 50 MCG TAB PO SCH (09:21)
[2018-03-01] MEDS: PROPYLENE GLYCOL BOTHEYES SCH ×2 (09:21→22:06)
[2018-03-01] MEDS: diltiaZEM 180 mg/24 Hours CD Cap PO SCH (09:21)
[2018-03-01 09:28] LABS: GRAN # 5.26 (1.4-6.5); GRAN % 79.9 % (50.0-68.0); HEMOGLOBIN 9.2 g/dL (14.0-18.0); LYMPH # 1.1 (1.2-3.4); MEAN CELL VOLUME 88.6 fl (80.0-105.0); MEAN CORPUSCULAR HGB CONC 32.7 g/dl (31.0-37.0); MEAN PLATELET VOLUME 8.2 fl (7.0-11.0); MONO # 0.3 (0.1-0.6); MONO % 4.1 % (1.0-6.0); RBC 3.17 10^6/uL (3.5-6.1); RED CELL DISTRIBUTION WIDTH 14.2 % (11.5-14.5); WHITE BLOOD COUNT 6.6 10^3/ul (4.5-11.0)
[2018-03-01 09:36] LABS: ALB/GLOB RATIO 0.9 (1.1-1.8); ALBUMIN 2.9 g/dL (3.0-4.8); ALT/SGPT 16 U/L (7-56); AST/SGOT 16 U/L (17-59); BLOOD UREA NITROGEN 35 mg/dL (7-21); CALCIUM 8.7 mg/dL (8.4-10.5); GFR NON-AFRICAN AMERICAN > 60
--- NOTE | 2018-03-01 15:05 | PN ---
DATE: 03/01/2018 SUBJECTIVE: An 87-year-old male resting quietly this morning in bed. Nursing staff relates that he has been quiet without any particular problems. PHYSICAL EXAMINATION: VITAL SIGNS: His temperature is 98.2. His blood pressure is 144/70, respiratory rate is 20, oxygen sat is 98% on room air, pulse is 62. GENERAL: He is alert, confused. LUNGS: Clear. HEART: S1, S2. ABDOMEN: Obese, soft with positive bowel sounds. EXTREMITIES: Show no evidence of edema. LABORATORY DATA: Shows sodium 142, potassium 4.1, chloride 108, BUN of 35, creatinine of 1. Blood sugar is 139. LFTs are normal. CBC shows a WBC of 6.6, RBC of 3.17 mL, hemoglobin 9.2, hematocrit 28.1, platelet count is 359,000. The culture of fluid removed from his right knee by Orthopedics is reported as showing no growth. ASSESSMENT AND PLAN: 1. We will continue current medical management for this patient with a history of cognitive behavior disorder. 2. History of arteriosclerotic heart disease. 3. History of coronary artery bypass graft in the past. 4. History of hypertension. 5. History of cataracts. 6. History of cholecystectomy. 7. History of prostate cancer. 8. History of hypothyroid disease. 9. History of renal mass. 10. History of liver mass. 11. History of carcinoid. 12. History of chronic anemia. 13. Recent febrile event. The family is fully aware of the patient's clinical and medical status and continue current level of care at this time. He is a resident of [facility]. Andreia Phillips MD
--- NOTE | 2018-03-01 18:34 | PN ---
DATE: 03/01/2018 SUBJECTIVE: The patient was seen earlier today. He is awake and alert. He is doing much better. PHYSICAL EXAMINATION: VITAL SIGNS: Temperature is 98, blood pressure is 140/70, respiratory rate 20, heart rate of 62. HEENT: Unremarkable. NECK: Supple. LUNGS: Decreased breath sounds. HEART: Normal S1, S2. ABDOMEN: Soft and nontender. LABORATORY EXAMINATION: Reveals a white count of 6.6, hemoglobin of 9, and platelets of 359. Chemistries are BUN of 35, creatinine of 1. Procalcitonin is down from 17.8 to 0.3. Urinalysis is noted and synovial fluid is noted. The cultures are negative and review of orders reveals the patient to be off antibiotics. ASSESSMENT AND PLAN: An 87-year-old male with systemic inflammatory response syndrome secondary to right knee gout and cultures negative in a patient with gouty arthritis, urine crystals on pathology and synovial is negative for infection. Off antibiotics in a patient with diabetes and hypothyroidism. We will continue observation. The patient is at high risk of developing nosocomial infections. Kp Pierre MD
[2018-03-02 08:09] VITALS: BP 161/74; PULSE 60; TEMP 98.7; O2SAT 99
[2018-03-02] MEDS: diltiaZEM 180 mg/24 Hours CD Cap PO SCH (09:30)
[2018-03-02] MEDS: [UNRECOGNIZED DRUG - OTHER] BOTHEYES SCH (09:31)
[2018-03-02] MEDS: PEG BOTHEYES SCH (09:31)
[2018-03-02] MEDS: Levothyroxine 50 MCG TAB PO SCH (09:31)
[2018-03-02] MEDS: Cholestyramine 4 gm/Pkt UD PO SCH (09:31)
[2018-03-02] MEDS: PROPYLENE GLYCOL BOTHEYES SCH (09:31)
== END 2018-03-02 14:34 | DRG 554 ==
LOC: ED 23:34 → ERH 02-16 02:35 → 2RSO 02-16 05:36 → 3RSO 02-23 01:16 → 3RNO 02-23 06:27
PROVIDERS: ADMIT Internal Medicine; ATTEND Internal Medicine
PROC: 0HBRXZZ Excision of Toe Nail, External Approach (ICD-10-PCS; 2018-02-17)
PROC: 0S9C3ZX Drainage of Right Knee Joint, Percutaneous Approach, Diagnostic (ICD-10-PCS; principal; 2018-02-26)
DX: M10.061 Idiopathic gout, right knee (principal); E34.0 Carcinoid syndrome; R65.10 Systemic inflammatory response syndrome (SIRS) of non-infectious origin without acute organ dysfunction; I11.0 Hypertensive heart disease with heart failure; R00.1 Bradycardia, unspecified; F91.9 Conduct disorder, unspecified; L89.151 Pressure ulcer of sacral region, stage 1; I25.10 Atherosclerotic heart disease of native coronary artery without angina pectoris; F03.90 Unspecified dementia, unspecified severity, without behavioral disturbance, psychotic disturbance, mood disturbance, and anxiety; M16.11 Unilateral primary osteoarthritis, right hip; M17.11 Unilateral primary osteoarthritis, right knee; E03.9 Hypothyroidism, unspecified; D69.6 Thrombocytopenia, unspecified; I48.0 Paroxysmal atrial fibrillation; N31.9 Neuromuscular dysfunction of bladder, unspecified; D49.0 Neoplasm of unspecified behavior of digestive system; H35.30 Unspecified macular degeneration; D64.9 Anemia, unspecified; E78.00 Pure hypercholesterolemia, unspecified; I50.9 Heart failure, unspecified; M06.9 Rheumatoid arthritis, unspecified; E11.36 Type 2 diabetes mellitus with diabetic cataract; L60.3 Nail dystrophy; N40.0 Benign prostatic hyperplasia without lower urinary tract symptoms; I35.0 Nonrheumatic aortic (valve) stenosis; Z86.010 Personal history of colon polyps; Z85.46 Personal history of malignant neoplasm of prostate; Z87.891 Personal history of nicotine dependence; Q54.9 Hypospadias, unspecified; Z87.11 Personal history of peptic ulcer disease; Z95.1 Presence of aortocoronary bypass graft

== ENCOUNTER 2018-06-04 12:23 | Inpatient (IN) | payer MEDICARE, OTHER ==
[2018-06-04 12:57] VITALS: BMI 27.3
--- NOTE | 2018-06-04 13:29 | ED PDOC ---
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 Phillips for evaluation, after chest x-ray there showed some pleural effusions. Patient reports productive cough for past 5-6 days, noting sometimes some phlegm comes up. Pt notes intermittent right-sided chest pain when breathing, stating it is not increased by coughing. Patient denies any fevers, abdominal pain, or any other complaints. PMD: Andreia Esparza Time/Duration: Prior to Arrival, > week (pt notes productive cough for past 5-6 days) Symptom Onset: Sudden Symptom Course: Unchanged Activities at Onset: Light Past Medical History - Provider Review Nursing Documentation Reviewed: Yes - Infectious Disease Hx of Infectious Diseases: None - Tetanus Immunization Tetanus Immunization: Unknown - Cardiac Hx Cardiac Disorders: Yes (cad) Hx Congestive Heart Failure: Yes Hx Hypertension: Yes - Pulmonary Hx Respiratory Disorders: No - Neurological Hx Neurological Disorder: Yes Hx Dementia: Yes - HEENT Hx HEENT Disorder: Yes Hx Macular Degeneration: Yes - Renal Hx Renal Disorder: No - Endocrine/Metabolic Hx Diabetes Mellitus Type 2: Yes - Hematological/Oncological Hx Blood Disorders: No - Integumentary Hx Dermatological Disorder: No - Musculoskeletal/Rheumatological Hx Musculoskeletal Disorders: No Hx Falls: No - Gastrointestinal Hx Gastrointestinal Disorders: No - Genitourinary/Gynecological Hx Genitourinary Disorders: No - Psychiatric Hx Depression: No Hx Emotional Abuse: No Hx Physical Abuse: No Hx Substance Use: No (etoh?) - Surgical History Hx Appendectomy: Yes Hx Cholecystectomy: Yes - Anesthesia Hx Anesthesia: No Hx Anesthesia Reactions: No Hx Malignant Hyperthermia: No - Suicidal Assessment Feels Threatened In Home Enviroment: No Family/Social History - Physician Review Nursing Documentation Reviewed: Yes Family/Social History: No Known Family HX Smoking Status: Former Smoker Hx Alcohol Use: No Hx Substance Use: No (etoh?) Hx Substance Use Treatment: No Allergies/Home Meds Allergies/Adverse Reactions: Allergies Thiazide & Related Allergy (Uncoded 02/16/18 00:45) SWELLING Home Medications: Home Meds Medication Instructions Recorded Confirmed Cholestyramine [Questran] 4 gm PO DAILY 07/08/17 02/16/18 Levothyroxine [Synthroid] 50 mcg PO DAILY 07/08/17 02/16/18 Propylene Glycol/Peg 400/Pf 1 drop BOTHEYES QID 02/16/18 02/16/18 [Systane 0.3-0.4% Eye Drop] Review of Systems - Physician Review All systems were reviewed & negative as marked: Yes - Review of Systems Constitutional: Normal. absent: Fevers Respiratory: SOB, Cough (pt notes productive cough for past 5-6 days). absent: Normal Cardiovascular: Chest Pain (pt notes intermittent right-sided chest pain ). absent: Normal Gastrointestinal: Normal. absent: Abdominal Pain Physical Exam Vital Signs Reviewed: Yes Vital Signs Temp Pulse Resp BP Pulse Ox 06/04/18 12:31 98.3 F 52 L 16 130/62 96 Temperature: Afebrile Blood Pressure: Normal Pulse: Bradycardic Respiratory Rate: Normal Appearance: Positive for: Well-Appearing, Non-Toxic Pain Distress: None Mental Status: Positive for: other (Pt has history of dementia, but is awake and alert) - Systems Exam Head: Present: Atraumatic, Normocephalic Pupils: Present: PERRL Extroacular Muscles: Present: EOMI Conjunctiva: Present: Normal Mouth: Present: Moist Mucous Membranes Neck: Present: Normal Range of Motion Respiratory/Chest: Present: Clear to Auscultation, Good Air Exchange. No: Respiratory Distress, Accessory Muscle Use, Wheezes, Rales, Rhonchi Cardiovascular: Present: Regular Rate and Rhythm, Normal S1, S2. No: Murmurs Abdomen: No: Tenderness, Distention, Peritoneal Signs Back: Present: Normal Inspection Upper Extremity: Present: Normal Inspection. No: Cyanosis, Edema Lower Extremity: Present: Edema (edema noted bilaterally), Other (Venous stasis noted to lower extremities ). No: Normal Inspection Neurological: Present: GCS=15, CN II-XII Intact, Speech Normal Skin: No: Normal Color (skin discoloration noted to lower extremities) Psychiatric: Present: Alert Medical Decision Making ED Course and Treatment: 06/04/18 13:00 Impression: 87 year old male sent from prison: URI vs R/O Pneumonia Plan: -- EKG -- labs -- X-Ray of chest, 2 views (PA/LAT) -- Reassess and disposition Prior Visits: Notes and results from previous visits were reviewed. Patient was last seen in the emergency department on 02/16/18 sent from [facility] for complaints of fever. Pt was hospitalized in stable condition with diagnosis of Pneumonia. Progress Notes: 06/04/18 12:[address] Phillips who is aware of and agrees with plan. Dr. Phillips requests a chest x-ray with AP/lateral views, labs, and wants me to call him back with results. 06/04/18 15:09 X-Ray shows he has Pneumonia. I spoke to Dr. Phillips, pt needs to be admitted for Pneumonia. - RAD Interpretation Narrative RAD Interpretations (Text): X-Ray of chest reviewed by radiologist, shows: Dictated by: Iban Snowden MD Dictated Date/Time: 06/04/18 14:54 Impression: small right-sided pleural effusion and minimal infiltrate Radiology Orders: 06/04/18 13:06 CHEST TWO VIEWS (PA/LAT) [RAD] Stat Vice Chancellor: Radiologist - Scribe Statement The provider has reviewed the documentation as recorded by the Scribe Itzel Motta All medical record entries made by the Scribe were at my direction and personally dictated by me. I have reviewed the chart and agree that the record accurately reflects my personal performance of the history, physical exam, medical decision making, and the department course for this patient. I have also personally directed, reviewed, and agree with the discharge instructions and disposition. Disposition/Present on Arrival - Present on Arrival Any Indicators Present on Arrival: No History of DVT/PE: No History of Uncontrolled Diabetes: No Urinary Catheter: No History of Decub. Ulcer: No History Surgical Site Infection Following: None - Disposition Have Diagnosis and Disposition been Completed?: Yes Diagnosis: Dementia, Pneumonia Disposition: HOSPITALIZED Disposition Time: 15:13 Patient Plan: Admission Condition: GOOD
[2018-06-04 14:23] LABS: ALB/GLOB RATIO 1.1 (1.1-1.8); ALBUMIN 3.4 g/dL (3.0-4.8); ALT/SGPT 26 U/L (7-56); AST/SGOT 22 U/L (17-59); BASO # 0.02 K/mm3 (0.0-2.0); BASO % 0.5 % (0.0-3.0); BLOOD UREA NITROGEN 23 mg/dL (7-21); CALCIUM 8.7 mg/dL (8.4-10.5); EOS # 0.2 (0.0-0.7); EOS % 3.8 % (1.5-5.0); GFR NON-AFRICAN AMERICAN > 60; GRAN # 1.77 (1.4-6.5); GRAN % 45.4 % (50.0-68.0); LYMPH # 1.3 (1.2-3.4); LYMPH % 33.6 % (22.0-35.0); MEAN CELL VOLUME 88.4 fl (80.0-105.0); MEAN CORPUSCULAR HEMOGLOBIN 27.2 pg (25.0-35.0); MEAN CORPUSCULAR HGB CONC 30.8 g/dl (31.0-37.0); MEAN PLATELET VOLUME 8.7 fl (7.0-11.0); MONO # 0.7 (0.1-0.6); MONO % 16.7 % (1.0-6.0); RBC 4.04 10^6/uL (3.5-6.1); RED CELL DISTRIBUTION WIDTH 15.8 % (11.5-14.5); WHITE BLOOD COUNT 3.9 10^3/uL (4.5-11.0)
[2018-06-04 14:34] LABS: TROPONIN I < 0.01 ng/mL
--- NOTE | 2018-06-04 14:58 | RAD ---
Date of service: 06/04/2018 HISTORY: cough r/o pneumonia COMPARISON: 02/24/2018 TECHNIQUE: Chest PA and lateral FINDINGS: LUNGS: Small right-sided pleural effusion and minimal infiltrate PLEURA: Small right effusion CARDIOVASCULAR: Aortic calcification Normal cardiac size. No pulmonary vascular congestion. OSSEOUS STRUCTURES: Sternal wires VISUALIZED UPPER ABDOMEN: Normal. OTHER FINDINGS: None. IMPRESSION: Small right-sided pleural effusion and minimal infiltrate
[2018-06-04] MEDS ORDERED: cefTRIAXone (Rocephin) 2 gm Inj IVPB STA (15:11)
[2018-06-04] MEDS ORDERED: cefTRIAXone 1 GM/100 ML BAG IVPB STA (15:16)
[2018-06-04 20:19] LABS: T4 7.6 ug/dL (5.5-11.0)
--- NOTE | 2018-06-04 20:27 | CP.PCM.CON ---
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 Phillips, after chest x-ray there showed some pleural effusions. Patient had productive cough for past 5-6 days, associated with white phlegm, intermittent right-sided dyspneic chest pain when breathing. In the ED, pt was noted to have HR in 40s, BP 130/62. Pt was admitted to med/surg floor for HCAP. When assess pt on the floor, HR 45, BP 155/66, AAOx2, No acute complaint. ROS: (+) chills. (+) cough Denies any dizziness, fevers, HOWARD, CP, SOB, palpitation, N/V/abdominal pain, dysuria PMD: Dr. 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 PSH: CABG, Cholecystectomy, cataract surgery FMH: Denies SOCHX: Denies tobacco, ETOH, ID ALL: Thiazide Med: See MAR Past Patient History - Infectious Disease Hx of Infectious Diseases: None - Tetanus Immunizations Tetanus Immunization: Unknown - Past Medical History & Family History Past Medical History?: Yes - Past Social History Smoking Status: Former Smoker - CARDIAC Hx Cardiac Disorders: Yes (cad) Hx Congestive Heart Failure: Yes Hx Hypertension: Yes - PULMONARY Hx Respiratory Disorders: No - NEUROLOGICAL Hx Neurological Disorder: Yes Hx Dementia: Yes - HEENT Hx HEENT Problems: Yes Hx Macular Degeneration: Yes - RENAL Hx Chronic Kidney Disease: No - ENDOCRINE/METABOLIC Hx Diabetes Mellitus Type 2: Yes - HEMATOLOGICAL/ONCOLOGICAL Hx Blood Disorders: No - INTEGUMENTARY Hx Dermatological Problems: No - MUSCULOSKELETAL/RHEUMATOLOGICAL Hx Musculoskeletal Disorders: No Hx Falls: No - GASTROINTESTINAL Hx Gastrointestinal Disorders: No - GENITOURINARY/GYNECOLOGICAL Hx Genitourinary Disorders: No - PSYCHIATRIC Hx Depression: No Hx Emotional Abuse: No Hx Physical Abuse: No Hx Substance Use: No (etoh?) - SURGICAL HISTORY Hx Appendectomy: Yes Hx Cholecystectomy: Yes - ANESTHESIA Hx Anesthesia: No Hx Anesthesia Reactions: No Hx Malignant Hyperthermia: No Meds Allergies/Adverse Reactions: Allergies Allergy/AdvReac Type Severity Reaction Status Date / Time Thiazide & Related Allergy SWELLING Uncoded 02/16/18 00:45 - Medications Medications: Current Medications Cholestyramine Resin (Questran) 4 gm PO DAILY [facility] Diltiazem HCl (Cardizem Cd) 180 mg PO DAILY [facility] Docusate Sodium (Colace) 100 mg PO BID [facility]ANG Last Admin: 06/04/18 17:50 Dose: 100 mg Levothyroxine Sodium (Synthroid) 75 mcg PO 0600 [facility]ANG Memantine (Namenda) 10 mg PO DAILY [facility] Physical Exam - Constitutional Appears: No Acute Distress - Head Exam Head Exam: ATRAUMATIC, NORMAL INSPECTION, NORMOCEPHALIC - Eye Exam Eye Exam: EOMI, Normal appearance, PERRL. absent: Scleral icterus Pupil Exam: NORMAL ACCOMODATION - ENT Exam ENT Exam: Mucous Membranes Moist - Neck Exam Additional comments: supple - Respiratory Exam Respiratory Exam: Decreased Breath Sounds (b/l lung bases), Rhonchi, NORMAL BREATHING PATTERN. absent: Accessory Muscle Use - Cardiovascular Exam Cardiovascular Exam: Bradycardia, REGULAR RHYTHM, +S1, +S2 - GI/Abdominal Exam GI & Abdominal Exam: Normal Bowel Sounds, Soft. absent: Distended, Firm, Guarding, Rigid, Tenderness Additional comments: RLQ scar healed well No suprapubic tenderness - Extremities Exam Extremities exam: Positive for: pedal edema. Negative for: calf tenderness - Back Exam Back exam: absent: CVA tenderness (L), CVA tenderness (R) - Neurological Exam Neurological exam: Alert Additional comments: AAOx2 No slurr speech Motor 5/5 all extremities sensory grossly intact - Psychiatric Exam Psychiatric exam: Normal Affect, Normal Mood - Skin Skin Exam: Dry, Warm Results - Vital Signs Recent Vital Signs: Last Vital Signs Temp 98.3 F 06/04/18 12:31 Pulse 55 L 06/04/18 18:50 Resp 18 06/04/18 18:50 BP 130/62 06/04/18 12:31 Pulse Ox 96 06/04/18 12:31 - Labs Result Diagrams: 06/04/18 13:54 06/04/18 13:54 Labs: Laboratory Results - last 24 hr 06/04/18 06/04/18 06/04/18 13:00 13:54 13:54 WBC 3.9 L RBC 4.04 Hgb 11.0 L Hct 35.7 L MCV 88.4 MCH 27.2 MCHC 30.8 L RDW 15.8 H Plt Count 126 MPV 8.7 Gran % 45.4 L Lymph % (Auto) 33.6 [place] % (Auto) 16.7 H Eos % (Auto) 3.8 Baso % (Auto) 0.5 Gran # 1.77 Lymph # (Auto) 1.3 [place] # (Auto) 0.7 H Eos # (Auto) 0.2 Baso # (Auto) 0.02 Sodium 139 Potassium 3.8 Chloride 106 Carbon Dioxide 27 Anion Gap 10 BUN 23 H Creatinine 1.1 Est GFR ( Amer) > 60 Est GFR (Non-Af Amer) > 60 Random Glucose 90 Calcium 8.7 Total Bilirubin 0.3 AST 22 ALT 26 Alkaline Phosphatase 88 Lactate Dehydrogenase 387 Total Creatine Kinase 23 L Troponin I < 0.01 D Total Protein 6.6 Albumin 3.4 Globulin 3.2 Albumin/Globulin Ratio 1.1 Thyroxine (T4) 7.6 T3 Uptake 36.0 Influenza Typ A,B (EIA) 06/04/18 16:38 WBC RBC Hgb Hct MCV MCH MCHC RDW Plt Count MPV Gran % Lymph % (Auto) [place] % (Auto) Eos % (Auto) Baso % (Auto) Gran # Lymph # (Auto) [place] # (Auto) Eos # (Auto) Baso # (Auto) Sodium Potassium Chloride Carbon Dioxide Anion Gap BUN Creatinine Est GFR ( Amer) Est GFR (Non-Af Amer) Random Glucose Calcium Total Bilirubin AST ALT Alkaline Phosphatase Lactate Dehydrogenase Total Creatine Kinase Troponin I Total Protein Albumin Globulin Albumin/Globulin Ratio Thyroxine (T4) T3 Uptake Influenza Typ A,B (EIA) Negative for flu a/b Assessment & Plan - Assessment and Plan (Free Text) Plan: Asymptomatic bradycardia -transfer to telemetry -Hold cardizem and memantine for the bradycardic effect -cardiology on consult -Pt does not meet criteria to admit to ICU. Pt is baseline mentation, not hypotensive, not altered mentally. reconsult ICU as needed. s/r/d/w Dr. Limon
--- NOTE | 2018-06-04 21:11 | HP ---
DATE OF EXAM: 06/04/2018 HISTORY OF PRESENT ILLNESS: The patient is an 87-year-old male resident of [facility] who reported of having a cough and was referred to [place] emergency room for further evaluation. The patient was seen in the emergency room. The patient had a temperature of 98.3, his pulse was 52, his blood pressure was 130/62, oxygen saturation was 96% on room air, respiratory rate was reported at 16. PAST MEDICAL HISTORY: The patient has a past medical history of dementia, non-insulin diabetes, gallstones, carcinoid syndrome renal mass, dependent edema, stasis dermatitis coronary artery bypass surgery in the past, prostate disease in the past, arthritis of the right knee, pneumonia. ALLERGIES: TO THIAZIDE AND RELATED ITEMS. HOME MEDICATIONS: Diltiazem 100 mg daily, Colace 100 mg b.i.d., Namenda 10 mg daily, Questran 4 mg daily, Synthroid 75 mcg daily, Tylenol p.r.n. He was on 15 items, but he refused the use of that. REVIEW OF SYSTEMS: A 10 systems are reviewed. Pertinent findings during the exam. PHYSICAL EXAMINATION: GENERAL: The patient is alert and oriented to place and person. VITAL SIGNS: As stated above. NECK: Supple. HEART: Irregular S1, S2 rhythm. LUNGS: Show diminished breath sounds with rhonchi at the right. ABDOMEN: Soft, obese with positive bowel sounds. EXTREMITIES: Show some stasis dermatitis. NEUROLOGICAL: As stated above. LABORATORY DATA: His electrocardiogram is reported showing a sinus bradycardia. His chest x-ray is reported as showing a right-sided pleural effusion with infiltrate. Laboratory data shows a WBC of 3.9, RBC , hemoglobin 11, hematocrit 35.7, platelet count is 126. Chemistry shows a sodium of 139, potassium 3.8, chloride 106, BUN is 23, creatinine is 1.1. LFTs are normal. Troponin is less than 0.01. ASSESSMENT AND PLAN: His flu serologies reported as being negative. In the emergency room, the patient was given antibiotics with cultures ordered. Consults with pulmonary and Infectious Disease will be requested. We will follow up the patient's labs. Check his medication. Andreia Phillips MD [facility] # [id number]
[2018-06-05] MEDS: Levothyroxine 75 MCG TAB PO SCH (05:53)
[2018-06-05 07:26] LABS: BASO # 0.03 K/mm3 (0.0-2.0); BASO % 0.9 % (0.0-3.0); EOS # 0.1 (0.0-0.7); EOS % 3.2 % (1.5-5.0); GRAN # 1.51 (1.4-6.5); GRAN % 47.8 % (50.0-68.0); HEMOGLOBIN 10.2 g/dL (14.0-18.0); LYMPH % 30.4 % (22.0-35.0); MEAN CELL VOLUME 86.3 fl (80.0-105.0); MEAN CORPUSCULAR HEMOGLOBIN 27.4 pg (25.0-35.0); MEAN CORPUSCULAR HGB CONC 31.8 g/dl (31.0-37.0); MEAN PLATELET VOLUME 8.7 fl (7.0-11.0); MONO # 0.6 (0.1-0.6); MONO % 17.7 % (1.0-6.0); RBC 3.72 10^6/uL (3.5-6.1); RED CELL DISTRIBUTION WIDTH 15.5 % (11.5-14.5); WHITE BLOOD COUNT 3.2 10^3/uL (4.5-11.0)
[2018-06-05 07:45] LABS: BLOOD UREA NITROGEN 18 mg/dL (7-21); CALCIUM 8.4 mg/dL (8.4-10.5); GFR NON-AFRICAN AMERICAN > 60
--- NOTE | 2018-06-05 09:02 | CARD ---
APPROVED REPORT Date of service: 06/04/2018 EKG Measurement Heart [id number] 132P-3 [id number] <Conclusion> Sinus bradycardia Left axis deviation Possible Anterior infarct, age undetermined Abnormal ECG
--- NOTE | 2018-06-05 09:07 | CARD ---
APPROVED REPORT Date of service: 06/04/2018 EKG Measurement Heart [id number] 140P-2 [id number] <Conclusion> Marked sinus bradycardia Left axis deviation Incomplete left bundle branch block Abnormal ECG
[2018-06-05] MEDS ORDERED: Levothyroxine 50 MCG TAB PO SCH (10:00)
[2018-06-05] MEDS ORDERED: diltiaZEM 180 mg/24 Hours CD Cap PO SCH (10:00)
[2018-06-05] MEDS: Cholestyramine 4 gm/Pkt UD PO SCH (10:00)
[2018-06-05] MEDS: Levalbuterol 1.25 MG/3 ML Inhal Soln UD IH SCH ×3 (10:36→19:37)
[2018-06-05] MEDS: Vancomycin 1gm in NS 250ml 1 GM/250 ML BAG IVPB SCH ×2 (11:00→22:19)
[2018-06-05] MEDS: Cefepime 1gm in NS 100ml 1 GM/100 ML BAG IVPB SCH ×3 (11:00→22:20)
--- NOTE | 2018-06-05 12:07 | CP.PCM.APN ---
Subjective - Date & Time of Evaluation Date of Evaluation: 06/05/18 Time of Evaluation: 09:00 - Subjective Subjective: pt seen and examined at bedside, awake NAD Review of Systems - Constitutional Constitutional: As Per HPI Objective - Vital Signs/Intake and Output Vital Signs (last 24 hours): Temp Pulse Resp BP Pulse Ox 98.3 F 55 L 19 164/73 H 96 06/04/18 12:31 06/05/18 06:00 06/05/18 00:25 06/05/18 00:25 06/04/18 12:31 Intake and Output: 06/05/18 06/05/18 06:59 18:59 Intake Total 240 Balance 240 - Medications Medications: Current Medications Cholestyramine Resin (Questran) 4 gm PO DAILY [facility]ANG Docusate Sodium (Colace) 100 mg PO BID [facility]HANG Last Admin: 06/04/18 17:50 Dose: 100 mg Doxycycline Hyclate (Doryx) 100 mg PO Q12 [facility]HANG; Protocol Cefepime HCl (Maxipime 1gm) 1 gm in 100 mls @ 100 mls/hr IVPB Q8 [facility]ANG; Protocol Vancomycin HCl (Vancomycin 1gm) 1 gm in 250 mls @ 167 mls/hr IVPB Q12H [facility]ANG; Protocol Levalbuterol HCl (Xopenex) 1.25 mg IH TIDRESP ZHANG Last Admin: 06/05/18 10:36 Dose: 1.25 mg Levothyroxine Sodium (Synthroid) 75 mcg PO 0600 [facility]ANG Last Admin: 06/05/18 05:53 Dose: 75 mcg - Labs Labs: 06/05/18 07:00 06/05/18 07:00 - Constitutional Appears: Non-toxic - Respiratory Exam Respiratory Exam: Decreased Breath Sounds, Rhonchi - GI/Abdominal Exam GI & Abdominal Exam: Soft - Neurological Exam Neurological Exam: Awake Assessment and Plan - Assessment and Plan (Free Text) Plan: ITS Impressions Chest X-Ray 06/04/18 13:06 IMPRESSION: Small right-sided pleural effusion and minimal infiltrate 87 year old male, with pmh sig for dementia, CAD s/p CABG, anemia, diabetes mellitus 2, hypertension, 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 Phillips, after chest x-ray there showed some pleural effusions. Patient had productive cough for past 5-6 days, associated with white phlegm and pleuritic chest pain. In the ED, pt was noted to have HR in 40s per discussion with PMD and was moved to tele for further eval and mgmt of pneumonia and S.bradycardia right lobe pne /HACP ID consult and pulmonary consultation iV antibiotics Ca with mets pancytopenia Gi consultation Sinu s Bradycardia pt transferredf [facility] surg to tele cardiology eval Discuss plan with PmD, pt is resident at [facility] BPCI/TIC - BPCIA/TIC Educated pt/family on BPCIA/CIR/Med to Bed Programs: Yes Flyers given, including CMS Beneficiary letter: Yes Pt/family verbalized understanding & agreed to program: Yes (will revisit when family present- pt demented)
--- NOTE | 2018-06-05 12:56 | CON ---
DATE: 06/05/2018 PULMONARY CONSULTATION SOURCE OF HISTORY: History is obtained via extensive discussion with the nurse. I have also reviewed the chart at length. The patient does not appear to be an adequate historian. HISTORY OF PRESENT ILLNESS: The patient is an 87-year-old male, with past medical history significant for coronary artery disease, dementia, anemia, diabetes, hypertension, carcinoid (with metastasis to the kidney and liver), who presents to [facility] with increasing shortness of breath at rest, dyspnea on exertion, cough, and minimal sputum production for the past 3 days. There is no history of chest pain, coughing up of blood, or chest pain - brought on with deep respirations. There is no history of temperatures, chills or infectious exposure. There is no history of night sweats, weight loss or appetite change prior to the above events. No history of calf pains. No history of syncope or diaphoresis. No history of recent travel or trauma. REVIEW OF SYSTEMS: No history of nausea, vomiting, or diarrhea. No acute urinary symptoms. No new neurologic complaints. Rest of the review of systems is negative. ALLERGIES: thiazides. SOCIAL HISTORY: Negative for tobacco and negative for alcohol. FAMILY HISTORY: No inheritable diseases. HOME MEDICATIONS: Include Cardizem, Seroquel, Namenda, Synthroid, Colace, Questran, Tylenol. PHYSICAL EXAMINATION: GENERAL: The patient appears comfortable this morning. He is not short of breath at rest. VITAL SIGNS: Temperature is 98.3, pulse 55, respirations 19, blood pressure 164/73. Oxygen saturation on room air is 96%. HEENT: Normocephalic, atraumatic. NECK: No JVD. CARDIOVASCULAR: Systolic ejection murmur at the lower left sternal border. No S3 gallop. LUNGS: Crackles noted at the right base. Minimal rhonchi. No wheezing. EXTREMITIES: Mild edema. No cyanosis. No clubbing. Calves are nontender to palpation. GASTROINTESTINAL: Abdomen is soft, nontender and nondistended. Bowel sounds are positive. SKIN: No acute rash. NEUROLOGIC: Exam limited at the present time. PERTINENT LABORATORY DATA: Chest x-ray was done yesterday and reviewed. There is a small patchy infiltrate noted at the right base. CBC: White count 3.2K, hemoglobin 10.2, hematocrit 32.1, platelets of 110,000. Complete metabolic profile: BUN 23. Rest of the metabolic profile is within normal limits. IMPRESSION: 1. Right lower lobe pneumonia. 2. Mild bronchitis. 3. Bradycardia. 4. Anemia. PLAN: Again, I did discuss the case with the nurse at length. I have also reviewed the chart at length. The patient presents to [facility] with a 3-day history of worsening pulmonary symptoms. I did review the chest x-ray as above. There is a patchy infiltrate noted at the right base. Syed cultures have been ordered and will be analyzed when feasible. Infectious Disease (Dr. Morgan) has been called on the case for antibiotic usage. On physical exam, there is minimal bronchospasm noted. In addition, there is no significant alveolar-arterial gradient. I will place the patient on Xopenex nebulizer treatments for now. I did review the chart at length. Apparently, yesterday, the patient was noted to be bradycardic, and transferred to the telemetry unit. Consultation with cardiology (Dr. Wiley) has been ordered. The patient does appear somewhat clinically improved this morning. Additional pulmonary intervention will be based on the clinical status of the patient. I will discuss the above with Dr. Phillips. Thank you very much for this pulmonary consultation. Keron Horton MD MTDD
--- NOTE | 2018-06-05 14:27 | CP.PCM.CON ---
History of Present Illness - History of Present Illness History of Present Illness: GI Consult Note for Dr. 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 GI was consulted to evaluate the history of carcinoid. Patient is a poor historian. Currently, the patient has no acute complaints. He denies CP, fevers, chills, nausea, vomiting, diarrhea, and constipation. 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 Denied EtOH and illicit drug use Home Meds:Diltiazem 100 mg daily, Namenda 10 mg daily, [id number] mcg PO daily, Questran 5 gm PO daily, Colace 100 mg BID, Systane 0.3-0.4% Eye drop 1 drop each eye Review of Systems - Review of Systems All systems: reviewed and no additional remarkable complaints except (12 point ROS reviewed and is negative other than what is stated in HPI.) Past Patient History - Infectious Disease Hx of Infectious Diseases: None - Tetanus Immunizations Tetanus Immunization: Unknown - Past Medical History & Family History Past Medical History?: Yes - Past Social History Smoking Status: Former Smoker - CARDIAC Hx Cardiac Disorders: Yes (cad) Hx Congestive Heart Failure: Yes Hx Hypertension: Yes - PULMONARY Hx Respiratory Disorders: No - NEUROLOGICAL Hx Neurological Disorder: Yes Hx Dementia: Yes - HEENT Hx HEENT Problems: Yes Hx Macular Degeneration: Yes - RENAL Hx Chronic Kidney Disease: No - ENDOCRINE/METABOLIC Hx Diabetes Mellitus Type 2: Yes - HEMATOLOGICAL/ONCOLOGICAL Hx Blood Disorders: No - INTEGUMENTARY Hx Dermatological Problems: No - MUSCULOSKELETAL/RHEUMATOLOGICAL Hx Musculoskeletal Disorders: No Hx Falls: No - GASTROINTESTINAL Hx Gastrointestinal Disorders: No - GENITOURINARY/GYNECOLOGICAL Hx Genitourinary Disorders: No - PSYCHIATRIC Hx Depression: No Hx Emotional Abuse: No Hx Physical Abuse: No Hx Substance Use: No (etoh?) - SURGICAL HISTORY Hx Appendectomy: Yes Hx Cholecystectomy: Yes - ANESTHESIA Hx Anesthesia: No Hx Anesthesia Reactions: No Hx Malignant Hyperthermia: No Meds Allergies/Adverse Reactions: Allergies Allergy/AdvReac Type Severity Reaction Status Date / Time Thiazide & Related Allergy SWELLING Uncoded 02/16/18 00:45 - Medications Medications: Current Medications Cholestyramine Resin (Questran) 4 gm PO DAILY [facility] Docusate Sodium (Colace) 100 mg PO BID [facility] Last Admin: 06/04/18 17:50 Dose: 100 mg Doxycycline Hyclate (Doryx) 100 mg PO Q12 [facility]; Protocol Cefepime HCl (Maxipime 1gm) 1 gm in 100 mls @ 100 mls/hr IVPB Q8 [facility]; Protocol Vancomycin HCl (Vancomycin 1gm) 1 gm in 250 mls @ 167 mls/hr IVPB Q12H [facility]; Protocol Levalbuterol HCl (Xopenex) 1.25 mg IH TIDRESP [facility] Last Admin: 06/05/18 13:23 Dose: 1.25 mg Levothyroxine Sodium (Synthroid) 75 mcg PO 0600 [facility] Last Admin: 06/05/18 05:53 Dose: 75 mcg Physical Exam - Constitutional Appears: Non-toxic, No Acute Distress - Head Exam Head Exam: ATRAUMATIC, NORMAL INSPECTION, NORMOCEPHALIC - ENT Exam ENT Exam: Mucous Membranes Moist, Normal Exam - Neck Exam Neck exam: Positive for: Normal Inspection - Respiratory Exam Respiratory Exam: Decreased Breath Sounds. absent: Accessory Muscle Use - Cardiovascular Exam Cardiovascular Exam: Bradycardia, REGULAR RHYTHM, RRR, +S1, +S2. absent: Rubs - GI/Abdominal Exam GI & Abdominal Exam: Normal Bowel Sounds. absent: Firm, Guarding, Mass, Tenderness - Exam External exam: NORMAL EXTERNAL EXAM - Neurological Exam Neurological exam: Alert Additional comments: AO X 2 - Psychiatric Exam Psychiatric exam: Normal Mood - Skin Skin Exam: Dry, Intact, Normal Color Results - Vital Signs Recent Vital Signs: Last Vital Signs Temp 97.5 F L 06/05/18 12:00 Pulse 62 06/05/18 12:00 Resp 18 06/05/18 12:00 BP 138/63 06/05/18 12:00 Pulse Ox 96 06/04/18 12:31 - Labs Result Diagrams: 06/05/18 07:00 06/05/18 07:00 Labs: Laboratory Results - last 24 hr 06/04/18 06/04/18 06/04/18 13:00 13:54 13:54 WBC 3.9 L RBC 4.04 Hgb 11.0 L Hct 35.7 L MCV 88.4 MCH 27.2 MCHC 30.8 L RDW 15.8 H Plt Count 126 MPV 8.7 Gran % 45.4 L Lymph % (Auto) 33.6 [place] % (Auto) 16.7 H Eos % (Auto) 3.8 Baso % (Auto) 0.5 Gran # 1.77 Lymph # (Auto) 1.3 [place] # (Auto) 0.7 H Eos # (Auto) 0.2 Baso # (Auto) 0.02 Sodium 139 Potassium 3.8 Chloride 106 Carbon Dioxide 27 Anion Gap 10 BUN 23 H Creatinine 1.1 Est GFR ( Amer) > 60 Est GFR (Non-Af Amer) > 60 POC Glucose (mg/dL) Random Glucose 90 Calcium 8.7 Total Bilirubin 0.3 AST 22 ALT 26 Alkaline Phosphatase 88 Lactate Dehydrogenase 387 Total Creatine Kinase 23 L Troponin I < 0.01 D Total Protein 6.6 Albumin 3.4 Globulin 3.2 Albumin/Globulin Ratio 1.1 Procalcitonin Thyroxine (T4) 7.6 T3 Uptake 36.0 TSH 3rd Generation 2.02 Influenza Typ A,B (EIA) 06/04/18 06/05/18 06/05/18 16:38 06:45 07:00 WBC 3.2 L RBC 3.72 Hgb 10.2 L Hct 32.1 L MCV 86.3 MCH 27.4 MCHC 31.8 RDW 15.5 H Plt Count 110 L MPV 8.7 Gran % 47.8 L Lymph % (Auto) 30.4 [place] % (Auto) 17.7 H Eos % (Auto) 3.2 Baso % (Auto) 0.9 Gran # 1.51 Lymph # (Auto) 1.0 L [place] # (Auto) 0.6 Eos # (Auto) 0.1 Baso # (Auto) 0.03 Sodium Potassium Chloride Carbon Dioxide Anion Gap BUN Creatinine Est GFR ( Amer) Est GFR (Non-Af Amer) POC Glucose (mg/dL) Random Glucose Calcium Total Bilirubin AST ALT Alkaline Phosphatase Lactate Dehydrogenase Total Creatine Kinase Troponin I Total Protein Albumin Globulin Albumin/Globulin Ratio Procalcitonin < 0.05 L Thyroxine (T4) T3 Uptake TSH 3rd Generation Influenza Typ A,B (EIA) Negative for flu a/b 06/05/18 06/05/18 06/05/18 07:00 08:32 12:21 WBC RBC Hgb Hct MCV MCH MCHC RDW Plt Count MPV Gran % Lymph % (Auto) [place] % (Auto) Eos % (Auto) Baso % (Auto) Gran # Lymph # (Auto) [place] # (Auto) Eos # (Auto) Baso # (Auto) Sodium 138 Potassium 3.8 Chloride 107 Carbon Dioxide 28 Anion Gap 7 L BUN 18 Creatinine 0.9 Est GFR ( Amer) > 60 Est GFR (Non-Af Amer) > 60 POC Glucose (mg/dL) 79 85 Random Glucose 77 Calcium 8.4 Total Bilirubin AST ALT Alkaline Phosphatase Lactate Dehydrogenase Total Creatine Kinase Troponin I Total Protein Albumin Globulin Albumin/Globulin Ratio Procalcitonin Thyroxine (T4) T3 Uptake TSH 3rd Generation Influenza Typ A,B (EIA) Assessment & Plan - Assessment and Plan (Free Text) Assessment: Patient is an 87 year old male with a PMH of dementia, DM, PUD,hypothyroid, cholelithiasis, CAD s/p CABG, anemia, prostate CA s/p radiation 20 years ago, 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 Patient was admitted and is being evaluated and treated for pneumonia. GI team was consulted for evaluation of his carcinoid syndrome. 1. History of Carcinoid 2. Liver lesions 3. HCAP 4. Bradycardia Plan: - Will discuss further options with family, but on last admission opted for conservative measures - No GI intervention at this time - Recommend outpatient follow up - HCAP/IV abx per primary/ID - Bradycardia per cardio Patient discussed with Dr. Yadav. Ottoniel José DO PGY2
--- NOTE | 2018-06-05 15:01 | CP.PCM.CON ---
History of Present Illness - History of Present Illness History of Present Illness: 87 year old male with PMH of CAD S/P CABG, hypothyroidism, DM, HTN, history of liver lesions, history of caricinoid came in to [facility] [place] because of cough for the past 5 days associated with whitish phlegm and occasional chest pain when coughi ng. CXR was done while the patient was in the assisted and it is showing possible infiltrates with effusion on the right side. He denies fever or chills, no nausea or vomiting, no chest pain, no SOB at rest, no rhinorrhea, no sore throat, no abdominal pain, no diarrhea, no dysuria, no headache or dizziness. Infectious Diseases consult is requested to further evaluate and manage. Review of Systems - Review of Systems All systems: reviewed and no additional remarkable complaints except (as per HPI) Past Patient History - Infectious Disease Hx of Infectious Diseases: None - Tetanus Immunizations Tetanus Immunization: Unknown - Past Medical History & Family History Past Medical History?: Yes - Past Social History Smoking Status: Former Smoker - CARDIAC Hx Cardiac Disorders: Yes (cad) Hx Congestive Heart Failure: Yes Hx Hypertension: Yes - PULMONARY Hx Respiratory Disorders: No - NEUROLOGICAL Hx Neurological Disorder: Yes Hx Dementia: Yes - HEENT Hx HEENT Problems: Yes Hx Macular Degeneration: Yes - RENAL Hx Chronic Kidney Disease: No - ENDOCRINE/METABOLIC Hx Diabetes Mellitus Type 2: Yes - HEMATOLOGICAL/ONCOLOGICAL Hx Blood Disorders: No - INTEGUMENTARY Hx Dermatological Problems: No - MUSCULOSKELETAL/RHEUMATOLOGICAL Hx Musculoskeletal Disorders: No Hx Falls: No - GASTROINTESTINAL Hx Gastrointestinal Disorders: No - GENITOURINARY/GYNECOLOGICAL Hx Genitourinary Disorders: No - PSYCHIATRIC Hx Depression: No Hx Emotional Abuse: No Hx Physical Abuse: No Hx Substance Use: No (etoh?) - SURGICAL HISTORY Hx Appendectomy: Yes Hx Cholecystectomy: Yes - ANESTHESIA Hx Anesthesia: No Hx Anesthesia Reactions: No Hx Malignant Hyperthermia: No Meds Allergies/Adverse Reactions: Allergies Allergy/AdvReac Type Severity Reaction Status Date / Time Thiazide & Related Allergy SWELLING Uncoded 02/16/18 00:45 - Medications Medications: Current Medications Cholestyramine Resin (Questran) 4 gm PO DAILY [facility] Last Admin: 06/05/18 10:00 Dose: 4 gm Docusate Sodium (Colace) 100 mg PO BID [facility] Last Admin: 06/05/18 10:00 Dose: 100 mg Doxycycline Hyclate (Doryx) 100 mg PO Q12 [facility]; Protocol Last Admin: 06/05/18 10:00 Dose: 100 mg Cefepime HCl (Maxipime 1gm) 1 gm in 100 mls @ 100 mls/hr IVPB Q8 [facility]; Protocol Last Admin: 06/05/18 11:00 Dose: 100 mls/hr Vancomycin HCl (Vancomycin 1gm) 1 gm in 250 mls @ 167 mls/hr IVPB Q12H [facility]; Protocol Last Admin: 06/05/18 11:00 Dose: 167 mls/hr Levalbuterol HCl (Xopenex) 1.25 mg IH TIDRESP [facility] Last Admin: 06/05/18 13:23 Dose: 1.25 mg Levothyroxine Sodium (Synthroid) 75 mcg PO 0600 [facility] Last Admin: 06/05/18 05:53 Dose: 75 mcg Physical Exam - Constitutional Appears: Chronically Ill - Head Exam Head Exam: NORMAL INSPECTION - Neck Exam Neck exam: Negative for: Meningismus - Respiratory Exam Respiratory Exam: Decreased Breath Sounds - Cardiovascular Exam Cardiovascular Exam: +S1, +S2 - GI/Abdominal Exam GI & Abdominal Exam: Soft. absent: Tenderness Results - Vital Signs Recent Vital Signs: Last Vital Signs Temp 97.5 F L 06/05/18 12:00 Pulse 62 06/05/18 12:00 Resp 18 06/05/18 12:00 BP 138/63 06/05/18 12:00 Pulse Ox 96 06/04/18 12:31 - Labs Result Diagrams: 06/05/18 07:00 06/05/18 07:00 Labs: Laboratory Results - last 24 hr 06/04/18 06/04/18 06/05/18 13:00 16:38 06:45 WBC RBC Hgb Hct MCV MCH MCHC RDW Plt Count MPV Gran % Lymph % (Auto) [place] % (Auto) Eos % (Auto) Baso % (Auto) Gran # Lymph # (Auto) [place] # (Auto) Eos # (Auto) Baso # (Auto) Sodium Potassium Chloride Carbon Dioxide Anion Gap BUN Creatinine Est GFR ( Amer) Est GFR (Non-Af Amer) POC Glucose (mg/dL) Random Glucose Calcium Procalcitonin < 0.05 L Thyroxine (T4) 7.6 T3 Uptake 36.0 TSH 3rd Generation 2.02 Influenza Typ A,B (EIA) Negative for flu a/b 06/05/18 06/05/18 06/05/18 07:00 07:00 08:32 WBC 3.2 L RBC 3.72 Hgb 10.2 L Hct 32.1 L MCV 86.3 MCH 27.4 MCHC 31.8 RDW 15.5 H Plt Count 110 L MPV 8.7 Gran % 47.8 L Lymph % (Auto) 30.4 [place] % (Auto) 17.7 H Eos % (Auto) 3.2 Baso % (Auto) 0.9 Gran # 1.51 Lymph # (Auto) 1.0 L [place] # (Auto) 0.6 Eos # (Auto) 0.1 Baso # (Auto) 0.03 Sodium 138 Potassium 3.8 Chloride 107 Carbon Dioxide 28 Anion Gap 7 L BUN 18 Creatinine 0.9 Est GFR ( Amer) > 60 Est GFR (Non-Af Amer) > 60 POC Glucose (mg/dL) 79 Random Glucose 77 Calcium 8.4 Procalcitonin Thyroxine (T4) T3 Uptake TSH 3rd Generation Influenza Typ A,B (EIA) 06/05/18 12:21 WBC RBC Hgb Hct MCV MCH MCHC RDW Plt Count MPV Gran % Lymph % (Auto) [place] % (Auto) Eos % (Auto) Baso % (Auto) Gran # Lymph # (Auto) [place] # (Auto) Eos # (Auto) Baso # (Auto) Sodium Potassium Chloride Carbon Dioxide Anion Gap BUN Creatinine Est GFR ( Amer) Est GFR (Non-Af Amer) POC Glucose (mg/dL) 85 Random Glucose Calcium Procalcitonin Thyroxine (T4) T3 Uptake TSH 3rd Generation Influenza Typ A,B (EIA) Assessment & Plan - Assessment and Plan (Free Text) Plan: Assessment consider right sided HCAP S/P SIRS with fever, probably from right knee gout, S/P arthrocentesis CAD S/P CABG hypothyroidism DM HTN history of liver lesions history of caricinoid Plan started IV Vancoymcin, cefepime and Doxycycline pending blood, sputum cx, PCT, urine Legionella Ag; reviewed CXR discussed with Dr. Phillips will monitor clinically
[2018-06-05] MEDS ORDERED: Morphine 4 mg/ml ISec IVP STA (21:23)
[2018-06-05 21:24] LABS: URINE BILIRUBIN NEGATIVE (NEGATIVE); URINE BLOOD NEGATIVE (NEGATIVE); URINE GLUCOSE (UA) NEGATIVE (NEGATIVE); URINE LEUKOCYTE ESTERASE NEGATIVE Leu/uL (NEGATIVE); URINE PROTEIN NEGATIVE mg/dL (<30 mg/dL); URINE UROBILINOGEN 0.2 E.U./dL (<1 E.U./dL)
[2018-06-05 21:25] LABS: URINE APPEARANCE CLEAR (CLEAR); URINE COLOR LIGHT YELLOW (YELLOW)
--- NOTE | 2018-06-05 21:46 | PN ---
DATE: 06/05/2018 SUBJECTIVE: This is an 87-year-old male resting in bed comfortably this morning. Nursing staff relates that there were no particular problems during the night. PHYSICAL EXAMINATION: VITAL SIGNS: His temperature is 97.5. His pulse is 62. His blood pressure is 138/63, respiratory rate is 18. GENERAL: He is alert. LUNGS: Show diminished breath sounds at the bases. HEART: Is in S1, S2 rhythm. ABDOMEN: Obese, soft with positive bowel sounds. EXTREMITIES: Show trace edema. NEUROLOGIC: He is alert. LABORATORY DATA: Shows a sodium of 138, potassium 3.8, chloride 107, CO2 of 28. The BUN is 18, creatinine is 0.9. His random blood sugar is 77, calcium is 8.4. Procalcitonin is less than 0.05. His TSH level is 2.02. His T3 uptake is 36 and his T4 is 7.6. The patient was placed on telemetry because of bradyarrhythmia. His Namenda and Cardizem have been discontinued and a Cardiology consult has been requested. He has infiltrate with pleural effusion and has been placed on IV antibiotics, being followed by Infectious Disease on Maxipime, Doryx and vancomycin. He has been seen by Pulmonary and placed on Xopenex. He is on Synthroid therapy for his hypothyroid disease, Questran for his history of cholecystectomy. He is on Colace. Will continue current level of care. He has a pancytopenia picture and a GI consult has been requested. He has a history of carcinoid with disease in the liver and in the kidneys.Will get Oncology eval also. Andreia Phillips MD MTDD
--- NOTE | 2018-06-05 22:37 | CON ---
DATE: 06/05/2018 REQUESTING PHYSICIAN: Dr. Phillips REASON FOR CONSULTATION: Bradycardia. HISTORY OF PRESENT ILLNESS: This is an 87-year-old man known to us from prior admissions with history of coronary artery disease status post prior bypass surgery. He is currently resident at [facility]. He was sent to the emergency room after having evidence of worsening cough. Initial electrocardiogram showed marked sinus bradycardia in the 40s. He was reportedly hemodynamically stable and asymptomatic. He had previously been taking lots of diltiazem because of bradycardia. Cardiac evaluation was requested. He is seen lying in bed on telemetry. He is currently comfortable. He denies any chest pain or dyspnea. PAST MEDICAL HISTORY: Notable for diabetes, dementia, chronic stasis dermatitis, BPH, and arthritis. He also has a history of hypothyroidism. CURRENT MEDICATIONS: Include doxycycline, Maxipime, Questran, Synthroid, vancomycin, and Xopenex. ALLERGIES: HE REPORTED HE HAS HAD REACTION TO HYDROCHLOROTHIAZIDE IN THE PAST. SOCIAL HISTORY: He does not smoke. He is currently a jail resident. FAMILY HISTORY: He cannot recall. REVIEW OF SYSTEMS: A 10-point review of systems is somewhat limited. PHYSICAL EXAMINATION GENERAL: He is a very elderly man appears comfortable at rest. VITAL SIGNS: His blood pressure is 138/60, his pulse is 60 and sinus, respirations are 16, he is afebrile. HEENT: No JVD or bruits. Carotid upstrokes 1+ bilaterally. CHEST: Few scattered rhonchi. HEART: PMI displaced laterally. Soft systolic murmurs noted in the left sternal border. ABDOMEN: Soft, nontender. Normoactive bowel sounds. EXTREMITIES: Chronic cellulitic changes. SKIN: Warm and dry. PSYCHIATRIC: Oriented to person. NEUROLOGIC: No gross motor or sensory deficits noted. DIAGNOSTIC DATA: Potassium 3.8, BUN and creatinine 18 and 0.9. White count 3.2; hemoglobin and hematocrit 10.2 and 32.1 with platelet count of 110,000. Initial electrocardiogram revealed marked sinus bradycardia with left axis deviation and incomplete left bundle branch block pattern. Followup electrocardiogram is unchanged except for a slightly increased rate. Chest x-ray showed evidence of a small right-sided pleural effusion and possible small infiltrate post sternotomy changes are noted. IMPRESSION: 1. Intermittent sinus bradycardia likely represents some intrinsic sinus node dysfunction appears asymptomatic and hemodynamically stable at this time. 2. Coronary artery disease, status post remote bypass surgery, clinically stable. 3. Possible small infiltrate suggesting bilateral hospital-acquired pneumonia. 4. Mild thrombocytopenia and neutropenia likely due to myelodysplasia. RECOMMENDATIONS: Again, negative chronotropic agents should be avoided. No other specific cardiac recommendations are necessary at this time. Assuming he remains asymptomatic and shows no evidence of advanced AV block, no other steps need to be taken. If he were to show worsening conduction system disease, a discussion would need to be done with family members regarding the aggressiveness of treatment including pacemaker therapy to be considered. Thank you for this consultation. We are happy to follow along as needed. Ruy Wiley MD MTDD
[2018-06-06] MEDS: Cefepime 1gm in NS 100ml 1 GM/100 ML BAG IVPB SCH ×3 (05:43→21:55)
[2018-06-06] MEDS: Levothyroxine 75 MCG TAB PO SCH (05:44)
[2018-06-06] MEDS: Vancomycin 1gm in NS 250ml 1 GM/250 ML BAG IVPB SCH ×2 (06:24→18:14)
--- NOTE | 2018-06-06 07:22 | PN ---
DATE: 06/06/2018 PULMONARY NOTE SUBJECTIVE: The patient appears very comfortable this morning. He is not short of breath at rest. PHYSICAL EXAMINATION: VITALS: Temperature is 98.4, pulse 64, respirations 19, blood pressure 155/70, and oxygen saturation on room air is 94-95%. HEENT: Normocephalic, atraumatic. No JVD. CARDIOVASCULAR: Systolic ejection murmur at the lower left sternal border. No S3 gallop. LUNGS: Crackles noted at the right base. Very minimal/less rhonchi. No wheezing. EXTREMITIES: Mild edema. No cyanosis. No clubbing. Calves are nontender to palpation. GASTROINTESTINAL: Abdomen is soft, nondistended, nontender. Bowel sounds are positive. SKIN: No acute rash. NEUROLOGIC: Exam limited at the present time. IMPRESSION: 1. Right lower lobe pneumonia. 2. Mild bronchitis. 3. Bradycardia. 4. Anemia. PLAN: The patient appears quite comfortable this morning. He is not short of breath at rest. He does state to feeling better. I did discuss the case with the night nurse at length. The night nurse stated that the patient had a very good night. On physical exam, there is certainly less bronchospasm noted. In addition, there is no significant alveolar-arterial gradient. I will continue the current nebulizer treatments for now. I would continue with the antibiotic coverage as per Infectious Disease. Input by Dr. Morgan is noted. Input by Cardiology (Dr. Wiley) is also noted. Clinical status of the patient does appear improved - compared to his initial presentation. I will discuss the above with Dr. Phillips. Keron Horton MD MARCIE
--- NOTE | 2018-06-06 07:34 | CP.PCM.PN ---
Subjective - Date & Time of Evaluation Date of Evaluation: 06/06/18 Time of Evaluation: 07:00 - Subjective Subjective: House Doc Note Reid Haynes PGY3 House doctor was paged for elevated BP of 197/91. Patient was seen and examined at bedside. He is asymptomatic and was resting in bed upon examination. HR on tele monitor was 56. I spoke with Dr. Gonzalez who recommended prn hydralazine for SBP >170. Dr. Phillips PMD was notified. Will continue to monitor BP and repeat BP after hydralazine is administered. Reid Haynes PGY3 Objective - Vital Signs/Intake and Output Vital Signs (last 24 hours): Temp Pulse Resp BP Pulse Ox 98.4 F 64 19 155/70 H 94 L 06/06/18 00:01 06/06/18 02:00 06/06/18 00:01 06/06/18 00:30 06/06/18 00:01 Intake and Output: 06/06/18 06/06/18 06:59 18:59 Intake Total 120 Output Total 700 Balance -580 - Medications Medications: Current Medications Cholestyramine Resin (Questran) 4 gm PO DAILY [facility] Last Admin: 06/05/18 10:00 Dose: 4 gm Docusate Sodium (Colace) 100 mg PO BID [facility] Last Admin: 06/05/18 17:44 Dose: Not Given Doxycycline Hyclate (Doryx) 100 mg PO Q12 [facility]; Protocol Last Admin: 06/05/18 22:20 Dose: 100 mg Hydralazine HCl (Apresoline) 10 mg IVP ONCE ONE Stop: 06/06/18 07:31 Hydralazine HCl (Apresoline) 10 mg IVP Q6 PRN PRN Reason: Systolic Blood Pressure Cefepime HCl (Maxipime 1gm) 1 gm in 100 mls @ 100 mls/hr IVPB Q8 [facility]; Protocol Last Admin: 06/06/18 05:43 Dose: 100 mls/hr Vancomycin HCl (Vancomycin 1gm) 1 gm in 250 mls @ 167 mls/hr IVPB Q12H [facility]; Protocol Last Admin: 06/06/18 06:24 Dose: 167 mls/hr Levalbuterol HCl (Xopenex) 1.25 mg IH TIDRESP [facility] Last Admin: 06/05/18 19:37 Dose: 1.25 mg Levothyroxine Sodium (Synthroid) 75 mcg PO 0600 [facility] Last Admin: 06/06/18 05:44 Dose: 75 mcg - Labs Labs: 06/05/18 07:00 06/05/18 07:00 - Constitutional Appears: No Acute Distress - Head Exam Head Exam: ATRAUMATIC, NORMAL INSPECTION, NORMOCEPHALIC - Eye Exam Eye Exam: Normal appearance, PERRL Pupil Exam: NORMAL ACCOMODATION - ENT Exam ENT Exam: Mucous Membranes Moist - Respiratory Exam Respiratory Exam: Clear to Ausculation Bilateral, NORMAL BREATHING PATTERN. absent: Rales, Rhonchi, Wheezes - Cardiovascular Exam Cardiovascular Exam: Bradycardia, REGULAR RHYTHM, +S1, +S2 - GI/Abdominal Exam GI & Abdominal Exam: Soft, Normal Bowel Sounds. absent: Rigid, Tenderness, Mass, Rebound - Neurological Exam Neurological Exam: Alert, Awake, CN II-XII Intact - Psychiatric Exam Psychiatric exam: Normal Affect, Normal Mood - Skin Skin Exam: Dry, Warm
[2018-06-06] MEDS: Levalbuterol 1.25 MG/3 ML Inhal Soln UD IH SCH ×2 (07:57→13:45)
[2018-06-06 08:14] LABS: BASO # 0.02 K/mm3 (0.0-2.0); BASO % 0.6 % (0.0-3.0); EOS # 0.1 (0.0-0.7); GRAN # 1.51 (1.4-6.5); GRAN % 45.8 % (50.0-68.0); HEMOGLOBIN 10.7 g/dL (14.0-18.0); LYMPH # 1.1 (1.2-3.4); LYMPH % 34.2 % (22.0-35.0); MEAN CELL VOLUME 87.5 fl (80.0-105.0); MEAN CORPUSCULAR HEMOGLOBIN 27.4 pg (25.0-35.0); MEAN CORPUSCULAR HGB CONC 31.3 g/dl (31.0-37.0); MONO # 0.5 (0.1-0.6); MONO % 16.4 % (1.0-6.0); RBC 3.91 10^6/uL (3.5-6.1); RED CELL DISTRIBUTION WIDTH 15.8 % (11.5-14.5); WHITE BLOOD COUNT 3.3 10^3/uL (4.5-11.0)
[2018-06-06 08:54] LABS: BLOOD UREA NITROGEN 19 mg/dL (7-21); CALCIUM 8.4 mg/dL (8.4-10.5); GFR NON-AFRICAN AMERICAN > 60
[2018-06-06] MEDS: Cholestyramine 4 gm/Pkt UD PO SCH (10:25)
--- NOTE | 2018-06-06 11:08 | PN ---
DATE: 06/06/2018 SUBJECTIVE: An 87-year-old male resting quietly this morning in bed. Nursing staff relates that there were no particular problems during night. This morning however, the patient was noted to have had an elevated blood pressure. PHYSICAL EXAMINATION: VITAL SIGNS: His temperature is 98.9. His pulse is 60s, his blood pressure is 178/91 and his respiratory rate is 20. GENERAL: He is alert, somewhat confused. LUNGS: Diminished breath sounds at the bases with scattered rhonchi. HEART: S1 and S2 rhythm. ABDOMEN: Obese and soft with positive bowel sounds. EXTREMITIES: Show no evidence of edema. LABORATORY DATA: Microbiological studies to date. Blood cultures are negative at 24 hours. Labs show WBC of 3.3, RBC 3.91, hemoglobin 10.7, hematocrit 34.2 and platelet count 108. Chemistry shows a sodium 140, potassium 3.8, chloride 107, BUN is 19, creatinine is 1, random blood sugar is 76. Currently the patient has been placed on hydralazine 10 mg IV every 6 hours p.r.n. for elevated systolic blood pressure. He has also been placed on Norvasc 10 mg daily. He is on Doryx and Maxipime for healthcare-associated pneumonia. He is on Questran for his history of cholecystectomy, Synthroid for hypothyroid disease. He is also on vancomycin for his infection. Xopenex for respiratory treatments. The patient has an underlying history of pneumonia, cognitive behavior disorder, remote coronary artery bypass surgery, cholecystectomy, deconditioned state, cataracts and he has a pancytopenia picture. 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 Gastroenterology has been asked to see the patient we will also get Oncology to see him regarding his pancytopenia and continue current level of care. Andreia Phililps MD
--- NOTE | 2018-06-06 12:03 | PN ---
DATE: 06/06/2018 SUBJECTIVE: The patient is seen lying in bed, on telemetry. He is currently comfortable. His blood pressure has been elevated. He was given a dose of hydralazine early. CURRENT MEDICATIONS: Include doxycycline, Maxipime, Questran, Synthroid, vancomycin, Xopenex as well as p.r.n. hydralazine. OBJECTIVE: GENERAL: He is a very elderly male. He is comfortable at rest. VITAL SIGNS: Blood pressure 178/90 with a pulse of 60 and sinus, respirations 16. He is afebrile. HEENT: No JVD. CHEST: Few scattered rhonchi. HEART: Systolic murmur present at the left sternal border. ABDOMEN: Soft, nontender with bowel sounds. EXTREMITIES: No edema. DIAGNOSTIC DATA: White count 3.3, hemoglobin and hematocrit 10.7 and 34.2 with platelet count 108,000. IMPRESSION: 1. Transient bradycardia, currently stable, remains with negative chronotropic agents. 2. Apparent pneumonia, on antibiotic therapy. 3. Hypertension, suboptimal control. 4. Coronary artery disease, status post remote bypass surgery, clinically stable. RECOMMENDATIONS: Current treatment to continue for now. Oral amlodipine will be added for hypertension control. IV hydralazine can be continued as needed. In general, conservative management is advised. We will continue to follow as needed. Ruy Wiley MD
--- NOTE | 2018-06-06 14:13 | CP.PCM.PN ---
Subjective - Date & Time of Evaluation Date of Evaluation: 06/06/18 Time of Evaluation: 11:40 - Subjective Subjective: Comfortable in bed, no fevers, not in distress. Objective - Vital Signs/Intake and Output Vital Signs (last 24 hours): Temp Pulse Resp BP Pulse Ox 97.5 F L 62 18 138/63 96 06/05/18 12:00 06/05/18 12:00 06/05/18 12:00 06/05/18 12:00 06/04/18 12:31 Intake and Output: 06/05/18 06/05/18 06:59 18:59 Intake Total 240 Balance 240 - Medications Medications: Current Medications Cholestyramine Resin (Questran) 4 gm PO DAILY [facility] Last Admin: 06/05/18 10:00 Dose: 4 gm Docusate Sodium (Colace) 100 mg PO BID [facility] Last Admin: 06/05/18 10:00 Dose: 100 mg Doxycycline Hyclate (Doryx) 100 mg PO Q12 [facility]; Protocol Last Admin: 06/05/18 10:00 Dose: 100 mg Cefepime HCl (Maxipime 1gm) 1 gm in 100 mls @ 100 mls/hr IVPB Q8 [facility]; Protocol Last Admin: 06/05/18 11:00 Dose: 100 mls/hr Vancomycin HCl (Vancomycin 1gm) 1 gm in 250 mls @ 167 mls/hr IVPB Q12H [facility]; Protocol Last Admin: 06/05/18 11:00 Dose: 167 mls/hr Levalbuterol HCl (Xopenex) 1.25 mg IH TIDRESP [facility] Last Admin: 06/05/18 13:23 Dose: 1.25 mg Levothyroxine Sodium (Synthroid) 75 mcg PO 0600 [facility] Last Admin: 06/05/18 05:53 Dose: 75 mcg - Labs Labs: 06/05/18 07:00 06/05/18 07:00 - Constitutional Appears: Chronically Ill - Head Exam Head Exam: NORMAL INSPECTION - Neck Exam Neck Exam: absent: Meningismus - Respiratory Exam Respiratory Exam: Decreased Breath Sounds - Cardiovascular Exam Cardiovascular Exam: +S1, +S2 - GI/Abdominal Exam GI & Abdominal Exam: Soft. absent: Tenderness Assessment and Plan - Assessment and Plan (Free Text) Plan: Assessment consider right sided HCAP S/P SIRS with fever, probably from right knee gout, S/P arthrocentesis CAD S/P CABG hypothyroidism DM HTN history of liver lesions history of caricinoid Plan continue IV Vancoymcin, cefepime and Doxycycline day 2 pending blood, sputum cx; PCT is low, follow up urine Legionella Ag; reviewed CXR discussed with Dr. Phillips perviously will continue to monitor clinically
[2018-06-07] MEDS: Cefepime 1gm in NS 100ml 1 GM/100 ML BAG IVPB SCH ×3 (05:10→21:57)
[2018-06-07] MEDS: Levothyroxine 75 MCG TAB PO SCH (05:10)
[2018-06-07 06:59] LABS: ALBUMIN 2.7 g/dL (3.0-4.8); ALT/SGPT 22 U/L (7-56); AST/SGOT 15 U/L (17-59); BLOOD UREA NITROGEN 15 mg/dL (7-21); CALCIUM 8.5 mg/dL (8.4-10.5); GFR NON-AFRICAN AMERICAN > 60
[2018-06-07 07:12] LABS: BASO # 0.01 K/mm3 (0.0-2.0); BASO % 0.3 % (0.0-3.0); EOS # 0.1 (0.0-0.7); EOS % 3.5 % (1.5-5.0); GRAN # 1.45 (1.4-6.5); GRAN % 46.5 % (50.0-68.0); HEMOGLOBIN 10.2 g/dL (14.0-18.0); MEAN CELL VOLUME 85.7 fl (80.0-105.0); MEAN CORPUSCULAR HEMOGLOBIN 27.5 pg (25.0-35.0); MEAN CORPUSCULAR HGB CONC 32.1 g/dl (31.0-37.0); MEAN PLATELET VOLUME 8.9 fl (7.0-11.0); MONO # 0.5 (0.1-0.6); MONO % 16.7 % (1.0-6.0); RBC 3.71 10^6/uL (3.5-6.1); RED CELL DISTRIBUTION WIDTH 15.5 % (11.5-14.5); WHITE BLOOD COUNT 3.1 10^3/uL (4.5-11.0)
[2018-06-07] MEDS: Levalbuterol 1.25 MG/3 ML Inhal Soln UD IH SCH ×3 (07:38→22:15)
--- NOTE | 2018-06-07 07:38 | PN ---
DATE: 06/07/2018 SUBJECTIVE: The patient appears very comfortable this morning. He is not short of breath at rest. PHYSICAL EXAMINATION: VITAL SIGNS: Temperature is 98, pulse 72, respirations 19, blood pressure 156/77. Oxygen saturation on room air is 95%. HEENT: Normocephalic, atraumatic. No JVD. CARDIOVASCULAR: Systolic ejection murmur at the lower left sternal border. No S3 gallop. LUNGS: Very minimal/less rhonchi. No wheezing. EXTREMITIES: Mild edema. No cyanosis, no clubbing. Calves are nontender to palpation. GASTROINTESTINAL: Abdomen is soft, nontender and nondistended. Bowel sounds are positive. SKIN: No acute rash. NEUROLOGIC: Exam limited at the present time. IMPRESSION: 1. Right lower lobe pneumonia. 2. Mild bronchitis. 3. Bradycardia. 4. Anemia. PLAN: The patient appears very comfortable this morning. He is not short of breath at rest. He does state to feeling better overall. I did discuss the case with the night nurse at length. The night nurse stated that the patient had a good night. On physical exam, there is no significant bronchospasm noted. In addition, the oxygen saturation on room air is 95%. I will continue the current nebulizer treatments for now. I would continue with the antibiotic coverage as per Infectious Disease. There are no temperatures noted. There is no leukocytosis. Cardiology evaluation with Dr. Wiley is also noted. Clinical status of the patient is definitely improved - compared to the initial presentation. However, given the above, the future status/prognosis for this patient does remain guarded. I would certainly like to see the patient out of bed more often. I will discuss the above with Dr. Phillips. Keron Horton MD MTDKelli
[2018-06-07] MEDS: Cholestyramine 4 gm/Pkt UD PO SCH (09:58)
[2018-06-07] MEDS: Vancomycin 1gm in NS 250ml 1 GM/250 ML BAG IVPB SCH ×2 (09:58→22:56)
--- NOTE | 2018-06-07 11:03 | PN ---
DATE: 06/07/2018 SUBJECTIVE: The patient is seen lying in bed, on telemetry. He is currently comfortable. CURRENT MEDICATIONS: Include; hydralazine p.r.n., doxycycline, Maxipime, Norvasc 10 mg daily, Questran, Synthroid, vancomycin and Xopenex. OBJECTIVE: GENERAL: He is a very elderly man who appears comfortable at rest. VITAL SIGNS: His blood pressure is 156/70 with a pulse of 72 and sinus, respirations are 16 and he is afebrile. HEENT: No JVD. CHEST: Few scattered rhonchi. HEART: Systolic murmur present at the left sternal border. ABDOMEN: Soft, nontender with normoactive bowel sounds. EXTREMITIES: No edema. DIAGNOSTIC DATA: Morning blood work is pending. IMPRESSION: 1. Transient bradycardia, remains of negative chronotropic agents and appears stable. 2. Possible right-sided pneumonia, on antibiotic therapy. 3. Coronary artery disease, status post remote bypass surgery, stable. 4. Hypertension, improve control. 5. Mild dementia. RECOMMENDATIONS: Current medications will continue for now. Negative chronotropic agents should continue to be withheld. Conservative cardiac care is advised. We will continue to follow, and make further recommendations as needed. Ruy Wiley MD
--- NOTE | 2018-06-07 12:47 | CP.PCM.PN ---
Subjective - Date & Time of Evaluation Date of Evaluation: 06/07/18 Time of Evaluation: 11:00 - Subjective Subjective: No fevers, not in distress, no cough currently. Objective - Vital Signs/Intake and Output Vital Signs (last 24 hours): Temp Pulse Resp BP Pulse Ox 98.5 F 71 18 138/74 94 L 06/06/18 11:53 06/06/18 11:53 06/06/18 11:53 06/06/18 11:53 06/06/18 00:01 Intake and Output: 06/06/18 06/06/18 06:59 18:59 Intake Total 120 Output Total 700 Balance -580 - Medications Medications: Current Medications Amlodipine Besylate (Norvasc) 10 mg PO DAILY [facility] Last Admin: 06/06/18 10:25 Dose: 10 mg Cholestyramine Resin (Questran) 4 gm PO DAILY [facility] Last Admin: 06/06/18 10:25 Dose: 4 gm Docusate Sodium (Colace) 100 mg PO BID [facility] Last Admin: 06/06/18 10:28 Dose: 100 mg Doxycycline Hyclate (Doryx) 100 mg PO Q12 [facility]; Protocol Last Admin: 06/06/18 10:25 Dose: 100 mg Hydralazine HCl (Apresoline) 10 mg IVP Q6 PRN PRN Reason: Systolic Blood Pressure Cefepime HCl (Maxipime 1gm) 1 gm in 100 mls @ 100 mls/hr IVPB Q8 [facility]; Protocol Last Admin: 06/06/18 05:43 Dose: 100 mls/hr Vancomycin HCl (Vancomycin 1gm) 1 gm in 250 mls @ 167 mls/hr IVPB Q12H [facility]; Protocol Last Admin: 06/06/18 06:24 Dose: 167 mls/hr Levalbuterol HCl (Xopenex) 1.25 mg IH TIDRESP [facility] Last Admin: 06/06/18 13:45 Dose: 1.25 mg Levothyroxine Sodium (Synthroid) 75 mcg PO 0600 [facility] Last Admin: 06/06/18 05:44 Dose: 75 mcg - Labs Labs: 06/06/18 08:00 06/06/18 06:30 - Constitutional Appears: Chronically Ill - Head Exam Head Exam: NORMAL INSPECTION - Neck Exam Neck Exam: absent: Meningismus - Respiratory Exam Respiratory Exam: Decreased Breath Sounds - Cardiovascular Exam Cardiovascular Exam: +S1, +S2 - GI/Abdominal Exam GI & Abdominal Exam: Soft. absent: Tenderness Assessment and Plan - Assessment and Plan (Free Text) Plan: Assessment consider right sided HCAP S/P SIRS with fever, probably from right knee gout, S/P arthrocentesis CAD S/P CABG hypothyroidism DM HTN history of liver lesions history of caricinoid Plan continue IV Vancoymcin, cefepime and Doxycycline day 3 for 4-7 days; blood cx are negative; PCT is low, urine Legionella Ag is negative; reviewed CXR discussed with Dr. Phillips perviously follow up nasal MRSA screen will continue to monitor clinically
--- NOTE | 2018-06-07 17:20 | PN ---
DATE: 06/07/[address] Phillips. SUBJECTIVE: The patient is an 87-year-old, resting comfortably in bed. Offers no complaint, generalized weakness, answers appropriately. As per nurse eating well. PHYSICAL EXAMINATION: VITAL SIGNS: He is afebrile. Pulse 50, respiration 18 and blood pressure 160/89. LUNGS: Bilateral fair airflow. No rhonchi or crackle. HEART: S1 and S2, audible. ABDOMEN: Soft and nontender. No rebound. No guarding. NEUROLOGICAL: The patient is awake and alert, able to carry conversation. LABORATORY DATA: WBC 3.1, hemoglobin 10, hematocrit 31 and platelet 103. Chemistry; sodium 137, potassium 3.7, chloride 107, CO2 of 25, BUN 15, creatinine 0.9, blood sugar of 70 and albumin 2.7. Urinalysis is unremarkable. Flu test is negative. ASSESSMENT: 1. Right lower lobe pneumonia, resolving. 2. Chronic anemia. 3. Leukopenia. 4. History of coronary artery disease, status post open heart surgery. 5. Hypertension. 6. Mild dementia. PLAN: Currently, the patient is on doxycycline. He is on cefepime. He is on Norvasc. He is on levothyroxine. As per nurse, he gets confused at time and try to get out of bed. We just gave him one dose of Risperdal until he is seen by Neurologist. Helene Avelar MD
[2018-06-08] MEDS: Cefepime 1gm in NS 100ml 1 GM/100 ML BAG IVPB SCH ×3 (05:23→22:14)
[2018-06-08] MEDS: Levothyroxine 75 MCG TAB PO SCH (05:24)
[2018-06-08] MEDS: Levalbuterol 1.25 MG/3 ML Inhal Soln UD IH SCH ×4 (08:04→22:17)
[2018-06-08] MEDS: Vancomycin 1gm in NS 250ml 1 GM/250 ML BAG IVPB SCH ×2 (08:19→18:53)
--- NOTE | 2018-06-08 08:46 | PN ---
DATE: 06/08/2018 SUBJECTIVE: The patient appears comfortable this morning. He is not short of breath at rest. PHYSICAL EXAMINATION: VITAL SIGNS: Temperature is 97.4, pulse 64, respirations 19, blood pressure 143/68. Oxygen saturation on room air is 94% to 95%. HEENT: Normocephalic, atraumatic. No JVD. CARDIOVASCULAR: Systolic ejection murmur at the lower left sternal border. No S3 gallop. LUNGS: Very minimal/less rhonchi. No wheezing. EXTREMITIES: Mild edema. No cyanosis, no clubbing. Calves are nontender to palpation. GASTROINTESTINAL: Abdomen is soft, nontender and nondistended. Bowel sounds are positive. SKIN: No acute rash. NEUROLOGIC: Exam limited at the present time. IMPRESSION: 1. Right lower lobe pneumonia. 2. Mild bronchitis. 3. Bradycardia. 4. Anemia. PLAN The patient appears very comfortable this morning. He is not short of breath at rest. He does state to feeling better overall. On physical exam, there is certainly less bronchospasm noted. In addition, there is no significant alveolar-arterial gradient. I will continue the current nebulizer treatments for now. I would continue with the antibiotic coverage as per Infectious Disease. Input by Dr. Morgan is noted. I will order a repeat chest x-ray - for comparison. Input by Cardiology is also noted. Clinical status of the patient is certainly improved - compared to the initial presentation. However, given the above, the future status/prognosis for this patient does remain guarded. I will discuss the above with the attending physician. Keron Horton MD MTDKelli
[2018-06-08 09:11] LABS: BASO # 0.01 K/mm3 (0.0-2.0); BASO % 0.3 % (0.0-3.0); EOS # 0.1 (0.0-0.7); EOS % 3.6 % (1.5-5.0); GRAN # 1.49 (1.4-6.5); GRAN % 44.9 % (50.0-68.0); HEMOGLOBIN 10.6 g/dL (14.0-18.0); LYMPH # 1.2 (1.2-3.4); LYMPH % 36.7 % (22.0-35.0); MEAN CELL VOLUME 83.9 fl (80.0-105.0); MEAN CORPUSCULAR HEMOGLOBIN 27.5 pg (25.0-35.0); MEAN CORPUSCULAR HGB CONC 32.7 g/dl (31.0-37.0); MEAN PLATELET VOLUME 8.5 fl (7.0-11.0); MONO # 0.5 (0.1-0.6); MONO % 14.5 % (1.0-6.0); RBC 3.86 10^6/uL (3.5-6.1); RED CELL DISTRIBUTION WIDTH 15.1 % (11.5-14.5); WHITE BLOOD COUNT 3.3 10^3/uL (4.5-11.0)
[2018-06-08 09:18] LABS: ALBUMIN 2.9 g/dL (3.0-4.8); ALT/SGPT 24 U/L (7-56); AST/SGOT 17 U/L (17-59); BLOOD UREA NITROGEN 15 mg/dL (7-21); CALCIUM 8.8 mg/dL (8.4-10.5); GFR NON-AFRICAN AMERICAN > 60
[2018-06-08] MEDS ORDERED: Potassium Chloride 20 mEq ER Tab PO ONE (09:38)
[2018-06-08] MEDS: Cholestyramine 4 gm/Pkt UD PO SCH (09:40)
--- NOTE | 2018-06-08 11:14 | RAD ---
Date of service: 06/08/2018 HISTORY: follow up COMPARISON: 06/04/2018 TECHNIQUE: Chest PA and lateral FINDINGS: LUNGS: Right lower lobe infiltrate and small effusion PLEURA: No significant pleural effusion identified. No pneumothorax apparent. CARDIOVASCULAR: Aortic calcification Mild cardiomegaly no pulmonary vascular congestion. OSSEOUS STRUCTURES: Sternal wires VISUALIZED UPPER ABDOMEN: Normal. OTHER FINDINGS: None. IMPRESSION: Minimal right lower lobe infiltrate and small right effusion
--- NOTE | 2018-06-08 11:18 | CP.PCM.PN ---
Subjective - Date & Time of Evaluation Date of Evaluation: 06/08/18 Time of Evaluation: 08:55 - Subjective Subjective: Comfortable in bed, CXR to be repeated today, no fevers overnight. Objective - Vital Signs/Intake and Output Vital Signs (last 24 hours): Temp Pulse Resp BP Pulse Ox 98 F 58 L 18 161/89 H 95 06/07/18 12:00 06/07/18 12:00 06/07/18 12:00 06/07/18 12:00 06/07/18 05:22 Intake and Output: 06/07/18 06/07/18 06:59 18:59 Intake Total 200 Output Total 600 Balance -400 - Medications Medications: Current Medications Amlodipine Besylate (Norvasc) 10 mg PO DAILY [facility] Last Admin: 06/07/18 09:51 Dose: 10 mg Cholestyramine Resin (Questran) 4 gm PO DAILY [facility] Last Admin: 06/07/18 09:58 Dose: 4 gm Docusate Sodium (Colace) 100 mg PO BID [facility] Last Admin: 06/07/18 09:51 Dose: 100 mg Doxycycline Hyclate (Doryx) 100 mg PO Q12 [facility]; Protocol Last Admin: 06/07/18 09:58 Dose: 100 mg Hydralazine HCl (Apresoline) 10 mg IVP Q6 PRN PRN Reason: Systolic Blood Pressure Cefepime HCl (Maxipime 1gm) 1 gm in 100 mls @ 100 mls/hr IVPB Q8 [facility]; Protocol Last Admin: 06/07/18 05:10 Dose: 100 mls/hr Vancomycin HCl (Vancomycin 1gm) 1 gm in 250 mls @ 167 mls/hr IVPB Q12H [facility]; Protocol Last Admin: 06/07/18 09:58 Dose: 167 mls/hr Levalbuterol HCl (Xopenex) 1.25 mg IH TIDRESP [facility] Last Admin: 06/07/18 07:38 Dose: Not Given Levothyroxine Sodium (Synthroid) 75 mcg PO 0600 [facility] Last Admin: 06/07/18 05:10 Dose: 75 mcg - Labs Labs: 06/07/18 05:00 06/07/18 05:00 - Constitutional Appears: Chronically Ill - Head Exam Head Exam: NORMAL INSPECTION - Respiratory Exam Respiratory Exam: Decreased Breath Sounds - Cardiovascular Exam Cardiovascular Exam: +S1, +S2 - GI/Abdominal Exam GI & Abdominal Exam: Soft. absent: Tenderness Assessment and Plan - Assessment and Plan (Free Text) Plan: Assessment consider right sided HCAP S/P SIRS with fever, probably from right knee gout, S/P arthrocentesis CAD S/P CABG hypothyroidism DM HTN history of liver lesions history of caricinoid Plan continue IV Vancoymcin, cefepime and Doxycycline day 4 for 4-7 days; blood cx are negative; PCT is low, urine Legionella Ag is negative; reviewed CXR discussed with Dr. Phillips perviously follow up nasal MRSA screen will continue to follow clinically
--- NOTE | 2018-06-08 16:01 | CON ---
DATE: 06/08/2018 NEUROLOGY CONSULT CHIEF COMPLAINT: Agitation. HISTORY OF PRESENT ILLNESS: This is a 87-year-old man, with past medical history of coronary artery disease, status post CABG, hypertension, type 2 diabetes mellitus, hypothyroidism, renal mass, dementia, who was admitted and found to have generalized weakness, and poor p.o. intake and found to have right lower lobe pneumonia and is on antibiotics and was called for the patient's agitation. The patient has likely dementia, behavioral disturbance, and delirium and was given a dose of Risperdal which has calmed him down. He is only oriented to person and self and not much of month and year. Recall of 0/3. Poor attention span and thought process. PAST MEDICAL HISTORY: As above. SOCIAL HISTORY: No illicit drug use, smoking or EtOH abuse. MEDICATIONS: Reviewed by nurse's reconciliation sheet. FAMILY HISTORY: Noncontributory. ALLERGIES: ALLERGIC TO HYDROCHLOROTHIAZIDE. PHYSICAL EXAMINATION: VITAL SIGNS: Temperature of 97.8, pulse rate 64, blood pressure 142/68, respiratory rate 19, and oxygen saturation 95% on room air. GENERAL: The patient is sitting up in bed and in no acute distress. HEENT: Atraumatic and normocephalic. PERRLA. Extraocular muscles intact. NECK: Supple, no JVD, no adenopathy noted. LUNGS: Decreased breath sounds bilaterally. Mild scattered rhonchi. HEART: S1 and S2. Normal rate and rhythm. No murmurs, rubs, or gallops. ABDOMEN: Soft, nontender, and nondistended. Bowel sounds present. EXTREMITIES: No clubbing and no cyanosis. Peripheral pulses are 2+ bilaterally. NEUROLOGICAL: The patient is alert and oriented to person and self, not much to month and year. Recall after 5 minutes is 0/3. Poor attention span. Slow thought process, cannot spell the word "world" backwards. He is unable to tell me his children's name, unable to give very detailed conversation. He has poor attention span. Slow thought process. Poor calculation. Motor examination; slightly increased tone throughout, moves all extremities equally. He is deconditioned. Sensory; decreased light touch, pinprick, proprioception and decreased vibration to the toes. DTRs are 2+ throughout one on in both knees and ankles. Coordination and gait are deferred for now. LABORATORY DATA: Sodium is 137, potassium is 3.5, chloride of 107, carbon dioxide of 25, BUN of 15, creatinine 0.9, and random glucose of 81. He also had an episode of hypoglycemia yesterday of 63. IMPRESSION: He has moderate form of dementia with behavioral disturbance and getting occasional delirium, episodes of delusions, it is from underlying acute medical conditions such as right lower lobe pneumonia. RECOMMENDATIONS: At this time we recommend; 1. Monitor electrolytes . 2. Continue to recommend to him to be on Namenda 10 mg p.o. daily and Seroquel 25 mg p.o. two times a day for agitation. 3. Thiamine 100 mg p.o. daily for neurocognitive activation. 4. PT/OT and continue with his underlying of his pneumonia. Thank you for this consult. Reyes Thornton MD
[2018-06-08 16:03] LABS: IMMUNOGLOBULIN A 217.4 mg/dL (70.0-400.0); IMMUNOGLOBULIN G 859.5 mg/dL (700.0-1600.0); IMMUNOGLOBULIN M 70.2 mg/dL (40.0-230.0)
--- NOTE | 2018-06-08 16:16 | PN ---
DATE: 06/08/2018 SUBJECTIVE: A 87-year-old male resting comfortably this morning. Nursing staff relates that he became agitated during the evening hours. At the present time he seems to be a bit calmer. PHYSICAL EXAMINATION: VITAL SIGNS: Blood pressure is 143/68, temperature is 97.8. His pulse is 64, oxygen sat is 94% on room air. GENERAL: He is alert and oriented to person and place. NECK: Supple. LUNGS: Show diminished breath sounds at the bases. HEART: Is in S1, S2 rhythm. ABDOMEN: Soft with positive bowel sounds. Obese. EXTREMITIES: No evidence of edema. LABORATORY DATA: Shows a WBC of 3.3, hemoglobin 10.6, hematocrit 32.4, RBC 3.86, platelet count is 106,000. Chemistry shows sodium 137, potassium 3.5, chloride 107, BUN is 15, the creatinine is 0.9. LFTs are normal. Magnesium is 1.8. Microbiological studies to this point are negative. ASSESSMENT AND PLAN: He is currently receiving Doryx with vancomycin. He is on Xopenex treatments by Pulmonary. He is on Synthroid for his hypothyroid disease. Neurology is seeing the patient for his agitation and dementia history. He is on Seroquel. He is on Synthroid replacement therapy for hypothyroid disease, Questran for his cholecystitis history, Norvasc for blood pressure, Namenda for his dementia, Maxipime with Doryx are his antibiotics, Colace and hydralazine p.r.n. His methicillin-resistant staphylococcus aureus screen has now come back, is being positive and has been discussed with Infectious Disease and the nursing staff. He will be placed on isolation. We will replete his serum potassium and follow up his labs. GI is seeing the patient for his history of carcinoid and Oncology has also been requested to see the patient as well. His daughter is aware of all the clinical findings at this time. We will continue current supportive care. Andreia Phillips MD
--- NOTE | 2018-06-08 16:47 | PN ---
DATE: 06/08/2018 SUBJECTIVE: The patient is seen lying in bed, on telemetry. He is somewhat confused this morning. He is in no distress. CURRENT MEDICATIONS: Include hydralazine p.r.n., doxycycline, Maxipime, Namenda, Norvasc 10 mg daily, Seroquel, Synthroid, vancomycin and Xopenex. OBJECTIVE: GENERAL: He is a very elderly man who appears comfortable, but confused. VITAL SIGNS: His blood pressure is 142/70 with a pulse of 64 in sinus, respirations are 14. He is afebrile. HEENT: No JVD. CHEST: Few scattered rhonchi heard. HEART: PMI displaced laterally with systolic murmur at the left sternal border. ABDOMEN: Soft, nontender with normoactive bowel sounds. EXTREMITIES: No edema. DIAGNOSTIC DATA: Potassium 3.5, BUN and creatinine 15 and 0.9. White count 3.3, hemoglobin and hematocrit 10.6 and 32.4, with platelet count 106,000. IMPRESSION: 1. Probable conduction system disease with prior transient bradycardia, currently stable. 2. Possible right-sided pneumonia, on antibiotic therapy. 3. Coronary artery disease, status post remote bypass surgery. He is stable at present. 4. Hypertension. 5. Dementia. RECOMMENDATION: His current medication should continue for now. Negative chronotropic agents should be avoided. At this time telemetry monitoring can be discontinued. I will be happy to follow along as needed. Ruy Wiley MD
--- NOTE | 2018-06-08 23:27 | CON ---
DATE: 06/08/2018 HEMATOLOGY CONSULTATION HISTORY OF PRESENT ILLNESS: This is an 87-year-old man with pancytopenia. The patient gives me a very poor history. He really cannot tell me much about his carcinoid or really much of anything, although he is awake and comfortable. PHYSICAL EXAMINATION: SKIN: No petechiae. No bruises. HEENT: Anicteric. Nodes nonpalpable in the axillary, cervical, and supraclavicular regions. LUNGS: Clear at present. No vertebral tenderness. HEART: S1, S2. ABDOMEN: Shows no liver, no spleen, no tenderness, no rebound, no ascites. EXTREMITIES: No edema. SCRAP SORTER: Plantars are downgoing bilaterally. LABORATORY DATA: He has a white count of 3.3, hemoglobin 10.6 and platelet count of 106. ASSESSMENT AND PLAN: Pancytopenia and he has increasing monocytes about 15% and increasing lymphocytes in total is over 50%. My concern here is lymphoproliferative disorder in his bone marrow that might be causing the pancytopenia. As far as his carcinoid is concerned, he really could not tell me very much about this, but I do not think carcinoid would be the cause of the pancytopenia. So, at this point, I have ordered the flow cytometry and held off on a bone marrow aspiration biopsy at this point. Also, his total protein is low and I am concerned about immunoglobulin change, and so I have ordered serum protein electrophoresis and immunoglobulin G, immunoglobulin A, immunoglobulin M and we will see what that shows. Magen Holland MD
[2018-06-09] MEDS: Cefepime 1gm in NS 100ml 1 GM/100 ML BAG IVPB SCH ×3 (06:29→22:09)
[2018-06-09] MEDS: Vancomycin 1gm in NS 250ml 1 GM/250 ML BAG IVPB SCH ×2 (06:29→19:48)
[2018-06-09] MEDS: Levothyroxine 75 MCG TAB PO SCH (06:32)
[2018-06-09] MEDS: Levalbuterol 1.25 MG/3 ML Inhal Soln UD IH SCH ×2 (07:29→13:30)
--- NOTE | 2018-06-09 08:59 | PN ---
DATE: 06/09/2018 PULMONARY NOTE SUBJECTIVE: The patient appears comfortable this morning. He is not short of breath at rest. PHYSICAL EXAMINATION: VITAL SIGNS: Temperature is 97.9, pulse 74, respirations 19, blood pressure 140/76. Oxygen saturation on room air is 94%. HEENT: Normocephalic, atraumatic. No JVD. CARDIOVASCULAR: Systolic ejection murmur at the lower left sternal border. No S3 gallop. LUNGS: Very minimal/less rhonchi. No wheezing. GI: Abdomen is soft, nontender and nondistended. Bowel sounds are positive. EXTREMITIES: Mild edema. No cyanosis, no clubbing. Calves are nontender to palpation. SKIN: No acute rash. NEUROLOGIC: Exam limited at the present time. IMPRESSION: 1. Right lower lobe pneumonia. 2. Mild bronchitis. 3. Bradycardia. 4. Anemia. PLAN: The patient appears comfortable this morning. He is not short of breath at rest. He does state to feeling better overall. I did discuss the case with the night nurse at length. The night nurse stated that the patient had an uneventful night. The patient did have a repeat chest x-ray done yesterday. The chest x-ray remains with a small right basilar infiltrate, and probable very small right pleural effusion. On physical exam, there is certainly less bronchospasm noted. In addition, there is no significant alveolar-arterial gradient. I will continue the current nebulizer treatments for now. The patient remains on antibiotic therapy - as per Infectious Disease. There are no temperatures noted. There is no leukocytosis. Clinical status of the patient has certainly improved - compared to his initial presentation. However, given the above, the future status/prognosis for this patient does remain guarded. I will discuss the above with Dr. Phillips. Keron Horton MD [facility]
[2018-06-09 10:46] LABS: BASO # 0.01 K/mm3 (0.0-2.0); BASO % 0.3 % (0.0-3.0); EOS % 1.1 % (1.5-5.0); GRAN # 2.29 (1.4-6.5); GRAN % 63.1 % (50.0-68.0); HEMOGLOBIN 10.6 g/dL (14.0-18.0); MEAN CELL VOLUME 84.6 fl (80.0-105.0); MEAN CORPUSCULAR HEMOGLOBIN 26.8 pg (25.0-35.0); MEAN CORPUSCULAR HGB CONC 31.6 g/dl (31.0-37.0); MEAN PLATELET VOLUME 8.7 fl (7.0-11.0); MONO # 0.3 (0.1-0.6); MONO % 8.5 % (1.0-6.0); RBC 3.96 10^6/uL (3.5-6.1); RED CELL DISTRIBUTION WIDTH 15.4 % (11.5-14.5); WHITE BLOOD COUNT 3.6 10^3/uL (4.5-11.0)
[2018-06-09] MEDS: Cholestyramine 4 gm/Pkt UD PO SCH (10:51)
[2018-06-09 10:56] LABS: ALBUMIN 2.7 g/dL (3.0-4.8); ALT/SGPT 24 U/L (7-56); AST/SGOT 14 U/L (17-59); BLOOD UREA NITROGEN 13 mg/dL (7-21); CALCIUM 8.8 mg/dL (8.4-10.5); GFR NON-AFRICAN AMERICAN > 60
--- NOTE | 2018-06-09 11:42 | CP.PCM.APN ---
Subjective - Subjective Subjective: pt in bed calm, asleep Review of Systems - Review of Systems Systems not reviewed;Unavailable: Dementia Objective - Vital Signs/Intake and Output Vital Signs (last 24 hours): Temp Pulse Resp BP Pulse Ox 97.9 F 74 19 123/64 94 L 06/09/18 06:00 06/09/18 06:00 06/09/18 06:00 06/09/18 10:51 06/09/18 06:00 Intake and Output: 06/09/18 06/09/18 06:59 18:59 Intake Total 700 120 Balance 700 120 - Medications Medications: Current Medications Amlodipine Besylate (Norvasc) 10 mg PO DAILY [facility] Last Admin: 06/09/18 10:51 Dose: 10 mg Cholestyramine Resin (Questran) 4 gm PO DAILY [facility] Last Admin: 06/09/18 10:51 Dose: 4 gm Docusate Sodium (Colace) 100 mg PO BID [facility] Last Admin: 06/09/18 10:51 Dose: 100 mg Doxycycline Hyclate (Doryx) 100 mg PO Q12 [facility]; Protocol Last Admin: 06/09/18 10:51 Dose: 100 mg Hydralazine HCl (Apresoline) 10 mg IVP Q6 PRN PRN Reason: Systolic Blood Pressure Cefepime HCl (Maxipime 1gm) 1 gm in 100 mls @ 100 mls/hr IVPB Q8 [facility]; Protocol Last Admin: 06/09/18 06:29 Dose: 100 mls/hr Vancomycin HCl (Vancomycin 1gm) 1 gm in 250 mls @ 167 mls/hr IVPB Q12H [facility]; Protocol Last Admin: 06/09/18 06:29 Dose: 167 mls/hr Levalbuterol HCl (Xopenex) 1.25 mg IH TIDRESP [facility] Last Admin: 06/09/18 07:29 Dose: 1.25 mg Levothyroxine Sodium (Synthroid) 75 mcg PO 0600 [facility] Last Admin: 06/09/18 06:32 Dose: Not Given Memantine (Namenda) 10 mg PO DAILY [facility] Last Admin: 06/09/18 10:51 Dose: 10 mg Quetiapine Fumarate (Seroquel) 25 mg PO BID [facility]; Protocol Last Admin: 06/09/18 10:52 Dose: 25 mg - Labs Labs: 06/09/18 10:30 06/09/18 10:30 - Constitutional Appears: No Acute Distress, Chronically Ill - Head Exam Head Exam: NORMAL INSPECTION - Eye Exam Pupil Exam: NORMAL ACCOMODATION - Respiratory Exam Respiratory Exam: Decreased Breath Sounds - Cardiovascular Exam Cardiovascular Exam: +S1, +S2 - GI/Abdominal Exam GI & Abdominal Exam: Soft, Normal Bowel Sounds - Neurological Exam Neurological Exam: Awake Assessment and Plan - Assessment and Plan (Free Text) Plan: 87 year old male, with pmh sig for dementia, CAD s/p CABG, anemia, diabetes mellitus 2, hypertension, 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 Phillips, after chest x-ray there showed some pleural effusions. Patient had productive cough for past 5-6 days, associated with white phlegm and pleuritic chest pain. In the ED, pt was noted to have HR in 40s per discussion with PMD and was moved to tele for further eval and mgmt of pneumonia and S.bradycardia right lobe pne /HCAP ID consult and pulmonary consultation iV antibiotics x 2 additional days per ID Dr Morgan Ca with mets and pancytopenia Dr Holland consultation reviewed discussed with PMD Sinus Bradycardia cardiology eval - off telemetry discuss plan with Dr Phillips, nurse and sw : DC restraints - pt calm continue iv antibiotics x 2 additional days continue to monitor clinical status Evelyn Montez BPCI/TIC - BPCIA/TIC Educated pt/family on BPCIA/CIR/Med to Bed Programs: Yes (info left at bedside- pt demented) Flyers given, including [facility] Beneficiary letter: N/A Pt/family verbalized understanding & agreed to program: N/A
--- NOTE | 2018-06-09 13:08 | CP.PCM.PN ---
Subjective - Date & Time of Evaluation Date of Evaluation: 06/09/18 Time of Evaluation: 11:45 - Subjective Subjective: Still with some weakness and agitation, no fevers, not in distress. Objective - Vital Signs/Intake and Output Vital Signs (last 24 hours): Temp Pulse Resp BP Pulse Ox 97.8 F 64 19 169/88 H 94 L 06/08/18 05:56 06/08/18 05:56 06/08/18 05:56 06/08/18 09:33 06/08/18 05:56 Intake and Output: 06/08/18 06/08/18 06:59 18:59 Intake Total 550 Output Total 1100 Balance -550 - Medications Medications: Current Medications Amlodipine Besylate (Norvasc) 10 mg PO DAILY [facility] Last Admin: 06/08/18 09:33 Dose: 10 mg Cholestyramine Resin (Questran) 4 gm PO DAILY [facility] Last Admin: 06/08/18 09:40 Dose: 4 gm Docusate Sodium (Colace) 100 mg PO BID [facility] Last Admin: 06/08/18 09:33 Dose: 100 mg Doxycycline Hyclate (Doryx) 100 mg PO Q12 [facility]; Protocol Last Admin: 06/08/18 09:33 Dose: 100 mg Hydralazine HCl (Apresoline) 10 mg IVP Q6 PRN PRN Reason: Systolic Blood Pressure Cefepime HCl (Maxipime 1gm) 1 gm in 100 mls @ 100 mls/hr IVPB Q8 [facility]; Protocol Last Admin: 06/08/18 05:23 Dose: 100 mls/hr Vancomycin HCl (Vancomycin 1gm) 1 gm in 250 mls @ 167 mls/hr IVPB Q12H [facility]; Protocol Last Admin: 06/08/18 08:19 Dose: 167 mls/hr Levalbuterol HCl (Xopenex) 1.25 mg IH TIDRESP [facility] Last Admin: 06/08/18 08:04 Dose: 1.25 mg Levothyroxine Sodium (Synthroid) 75 mcg PO 0600 [facility] Last Admin: 06/08/18 05:24 Dose: 75 mcg Memantine (Namenda) 10 mg PO DAILY [facility] Quetiapine Fumarate (Seroquel) 25 mg PO BID [facility]; Protocol - Labs Labs: 06/08/18 08:55 06/08/18 08:55 - Constitutional Appears: Chronically Ill - Head Exam Head Exam: NORMAL INSPECTION - Respiratory Exam Respiratory Exam: Decreased Breath Sounds - Cardiovascular Exam Cardiovascular Exam: +S1, +S2 - GI/Abdominal Exam GI & Abdominal Exam: Soft. absent: Tenderness Assessment and Plan - Assessment and Plan (Free Text) Plan: Assessment consider right sided HCAP S/P SIRS with fever, probably from right knee gout, S/P arthrocentesis CAD S/P CABG hypothyroidism DM HTN history of liver lesions history of caricinoid Plan continue IV Vancoymcin, cefepime and Doxycycline day 5 for 4-7 days; blood cx are negative; PCT is low, urine Legionella Ag is negative; reviewed CXR discussed with Dr. Phillips - would recommend to get CT chest when patient is more stable MRSA screen is positve from the nares will continue to follow clinically
[2018-06-10] MEDS: Cefepime 1gm in NS 100ml 1 GM/100 ML BAG IVPB SCH ×3 (06:18→22:20)
[2018-06-10] MEDS: Levothyroxine 75 MCG TAB PO SCH (06:18)
[2018-06-10] MEDS: Levalbuterol 1.25 MG/3 ML Inhal Soln UD IH SCH ×3 (07:31→20:57)
[2018-06-10] MEDS: Vancomycin 1gm in NS 250ml 1 GM/250 ML BAG IVPB SCH ×3 (07:41→23:28)
[2018-06-10] MEDS ORDERED: Potassium Chloride 40 mEq/30 ml LIQ UD PO ONE (09:32)
--- NOTE | 2018-06-10 09:45 | PN ---
DATE: 06/10/2018 SUBJECTIVE: The patient appears quite comfortable this morning. He is not short of breath at rest. PHYSICAL EXAMINATION: VITAL SIGNS (Last noted in the computer): Temperature 97.9, pulse 70, respirations 16, blood pressure 130/71. Oxygen saturation on room air is 97%. HEENT: Normocephalic, atraumatic. NECK: No JVD. CARDIOVASCULAR: Systolic ejection murmur at the lower left sternal border. No S3 gallop. LUNGS: Decreased breath sounds at the bases. No rhonchi or wheezing this morning. GI: Abdomen is soft, nontender and nondistended. Bowel sounds are positive. EXTREMITIES: Mild edema. No cyanosis. No clubbing. Calves are nontender to palpation. SKIN: No acute rash. NEUROLOGIC: Exam limited at the present time. IMPRESSION: 1. Right lower lobe pneumonia. 2. Small right pleural effusion. 3. Mild bronchitis. 4. Bradycardia. 5. Anemia. PLAN: The patient appears very comfortable this morning. He is not short of breath at rest. He does state to feeling better overall. I did discuss case with the night nurse at length. The night nurse stated that the patient had an uneventful night. On physical exam, the patient's bronchospasm has primarily resolved. In addition, the oxygen saturation on room air is now 97%. I will continue with the current nebulizer treatments for now. The patient has been transitioned to oral antibiotic therapy - as per Infectious Disease. Input by Dr. Morgan is noted. No temperature is noted. There is no leukocytosis. Clinical status of the patient appears significantly improved - compared to his initial presentation. Input by Hematology is noted. Given his very advanced age, and comorbid conditions, I would certainly take a conservative approach with this patient. I will discuss the above with Dr. Phillips. Keron Horton MD MTDKelli
[2018-06-10 10:19] LABS: BASO # 0.02 K/mm3 (0.0-2.0); BASO % 0.4 % (0.0-3.0); EOS # 0.1 (0.0-0.7); EOS % 1.9 % (1.5-5.0); GRAN # 2.89 (1.4-6.5); GRAN % 61.3 % (50.0-68.0); LYMPH # 1.2 (1.2-3.4); LYMPH % 25.4 % (22.0-35.0); MEAN CORPUSCULAR HEMOGLOBIN 27.6 pg (25.0-35.0); MEAN CORPUSCULAR HGB CONC 32.1 g/dl (31.0-37.0); MEAN PLATELET VOLUME 9.2 fl (7.0-11.0); MONO # 0.5 (0.1-0.6); RBC 3.99 10^6/uL (3.5-6.1); RED CELL DISTRIBUTION WIDTH 15.7 % (11.5-14.5); WHITE BLOOD COUNT 4.7 10^3/uL (4.5-11.0)
[2018-06-10 10:25] LABS: BLOOD UREA NITROGEN 16 mg/dL (7-21); CALCIUM 8.9 mg/dL (8.4-10.5); GFR NON-AFRICAN AMERICAN > 60
--- NOTE | 2018-06-10 10:57 | CT ---
Date of service: 06/10/2018 PROCEDURE: CT Chest without contrast HISTORY: pne COMPARISON: 02/17/2018 TECHNIQUE: Contiguous axial images were obtained through the chest without intravenous contrast enhancement. Sagittal and coronal reconstructions were performed. Radiation dose: Total exam DLP = 592.69 mGy-cm. This CT exam was performed using one or more of the following dose reduction techniques: Automated exposure control, adjustment of the mA and/or kV according to patient size, and/or use of iterative reconstruction technique. FINDINGS: LUNGS: There is a 13 mm cavitary nodule in the anterior aspect of the right upper lobe. This is unchanged. MEDIASTINUM: Unremarkable thoracic aorta. No aneurysm. Moderate cardiomegaly main pulmonary artery unremarkable. No vascular congestion. No lymphadenopathy. Aortic and coronary calcifications are seen PLEURA: Bilateral pleural effusions are seen unchanged on the left. Increased on the right. BONES: No fracture. No destructive lesion. UPPER ABDOMEN: Grossly unremarkable. OTHER FINDINGS: None. IMPRESSION: There is a 13 mm cavitary nodule in the anterior aspect of the right upper lobe. This is unchanged. Moderate pleural effusion on the right side increased from prior exam. Small left effusion unchanged.
[2018-06-10] MEDS: Cholestyramine 4 gm/Pkt UD PO SCH (11:09)
--- NOTE | 2018-06-10 11:41 | CP.PCM.PN ---
Subjective - Date & Time of Evaluation Date of Evaluation: 06/10/18 Time of Evaluation: 08:50 - Subjective Subjective: No fevers, not in distress, non-toxic. Objective - Vital Signs/Intake and Output Vital Signs (last 24 hours): Temp Pulse Resp BP Pulse Ox 97.9 F 72 18 123/64 94 L 06/09/18 12:00 06/09/18 12:00 06/09/18 12:00 06/09/18 12:00 06/09/18 06:00 Intake and Output: 06/09/18 06/09/18 06:59 18:59 Intake Total 700 120 Balance 700 120 - Medications Medications: Current Medications Amlodipine Besylate (Norvasc) 10 mg PO DAILY [facility] Last Admin: 06/09/18 10:51 Dose: 10 mg Cholestyramine Resin (Questran) 4 gm PO DAILY [facility] Last Admin: 06/09/18 10:51 Dose: 4 gm Docusate Sodium (Colace) 100 mg PO BID [facility] Last Admin: 06/09/18 10:51 Dose: 100 mg Doxycycline Hyclate (Doryx) 100 mg PO Q12 [facility]; Protocol Last Admin: 06/09/18 10:51 Dose: 100 mg Hydralazine HCl (Apresoline) 10 mg IVP Q6 PRN PRN Reason: Systolic Blood Pressure Cefepime HCl (Maxipime 1gm) 1 gm in 100 mls @ 100 mls/hr IVPB Q8 [facility]; Protocol Last Admin: 06/09/18 06:29 Dose: 100 mls/hr Vancomycin HCl (Vancomycin 1gm) 1 gm in 250 mls @ 167 mls/hr IVPB Q12H [facility]; Protocol Last Admin: 06/09/18 06:29 Dose: 167 mls/hr Levalbuterol HCl (Xopenex) 1.25 mg IH TIDRESP [facility] Last Admin: 06/09/18 07:29 Dose: 1.25 mg Levothyroxine Sodium (Synthroid) 75 mcg PO 0600 [facility] Last Admin: 06/09/18 06:32 Dose: Not Given Memantine (Namenda) 10 mg PO DAILY [facility] Last Admin: 06/09/18 10:51 Dose: 10 mg Quetiapine Fumarate (Seroquel) 25 mg PO BID [facility]; Protocol Last Admin: 06/09/18 10:52 Dose: 25 mg - Labs Labs: 06/09/18 10:30 06/09/18 10:30 - Constitutional Appears: Chronically Ill - Head Exam Head Exam: NORMAL INSPECTION - Neck Exam Neck Exam: absent: Meningismus - Respiratory Exam Respiratory Exam: Decreased Breath Sounds - Cardiovascular Exam Cardiovascular Exam: +S1, +S2 - GI/Abdominal Exam GI & Abdominal Exam: Soft. absent: Tenderness Assessment and Plan - Assessment and Plan (Free Text) Plan: Assessment consider right sided HCAP S/P SIRS with fever, probably from right knee gout, S/P arthrocentesis CAD S/P CABG hypothyroidism DM HTN history of liver lesions history of caricinoid Plan continue IV Vancoymcin, cefepime and Doxycycline day 6 for 4-7 days; blood cx are negative; PCT is low, urine Legionella Ag is negative; reviewed CXR discussed with Dr. Phillips - follow up CT chest MRSA screen is positve from the nares will continue to follow clinically discussed with Dr. Horton as well
--- NOTE | 2018-06-10 12:02 | PN ---
DATE: 06/09/2018 SUBJECTIVE: An 87-year-old male reported to have been extremely agitated during the night requiring one to one and restraints. PHYSICAL EXAMINATION: GENERAL: He is a bit calmer at this moment. He is alert. VITAL SIGNS: This morning his temperature is 97.9. His pulse is 72. His blood pressure is 123/64. HEART: S1, S2 rhythm. ABDOMEN: Obese, soft with positive bowel sounds. LUNGS: Diminished breath sounds at the bases. EXTREMITIES: No evidence of edema. LABORATORY DATA: MRSA screen is positive. Urine and blood cultures have been negative. WBC 3.6, RBC 3.96, hemoglobin 10.6, hematocrit 33.5, platelet count is 123. Chemistry shows sodium 142, potassium 3.3, chloride 112, BUN 13, creatinine is 0.8. LFTs are normal. ASSESSMENT AND PLAN: Currently, the patient is Apresoline, Colace, Doryx, Namenda, Norvasc and Questran. He is being followed by Infectious Disease, Pulmonary, Oncology, Cardiology. He has an underlying cognitive behavior disorder, being followed by Neurology. He is on Namenda and Seroquel. He is on Xopenex and Synthroid. He is receiving antibiotics for infiltrate and effusion on the right lung. He has a pancytopenia, being followed by Oncology. The serum immunofixation is pending. Clinical status has been discussed with the daughter and continue current level of care. Follow up the patient's labs, recheck. Andreia Phillips MD
[2018-06-10 23:35] VITALS: RESP 18
[2018-06-11] MEDS: Cefepime 1gm in NS 100ml 1 GM/100 ML BAG IVPB SCH (05:00)
[2018-06-11] MEDS: Levothyroxine 75 MCG TAB PO SCH (05:01)
[2018-06-11 06:32] VITALS: PULSE 85; TEMP 98; O2SAT 95
[2018-06-11] MEDS: Levalbuterol 1.25 MG/3 ML Inhal Soln UD IH SCH (08:08)
[2018-06-11] MEDS: Vancomycin 1gm in NS 250ml 1 GM/250 ML BAG IVPB SCH (09:29)
[2018-06-11] MEDS: Cholestyramine 4 gm/Pkt UD PO SCH (09:30)
[2018-06-11 09:38] VITALS: BP 146/76
[2018-06-11 09:46] LABS: BLOOD UREA NITROGEN 17 mg/dL (7-21); CALCIUM 8.6 mg/dL (8.4-10.5); GFR NON-AFRICAN AMERICAN > 60; HEMOGLOBIN 10.2 g/dL (14.0-18.0); MEAN CELL VOLUME 85.4 fl (80.0-105.0); MEAN CORPUSCULAR HEMOGLOBIN 27.1 pg (25.0-35.0); MEAN CORPUSCULAR HGB CONC 31.7 g/dl (31.0-37.0); MEAN PLATELET VOLUME 8.8 fl (7.0-11.0); RBC 3.77 10^6/uL (3.5-6.1); RED CELL DISTRIBUTION WIDTH 15.7 % (11.5-14.5); WHITE BLOOD COUNT 4.8 10^3/uL (4.5-11.0)
--- NOTE | 2018-06-11 10:20 | PN ---
DATE: 06/11/2018 SUBJECTIVE: The patient appears very comfortable this morning. He is not short of breath at rest. PHYSICAL EXAMINATION: VITAL SIGNS: Temperature 98, pulse 85, respirations 18, blood pressure 167/77. Oxygen saturation on room air is 95%. HEENT: Normocephalic, atraumatic. NECK: No JVD. CARDIOVASCULAR: Systolic ejection murmur at the lower left sternal border. No S3 gallop. LUNGS: Decreased breath sounds at the bases. Otherwise clear. EXTREMITIES: Mild edema. No cyanosis. No clubbing. Calves are nontender to palpation. GI: Abdomen is soft, nontender and nondistended. Bowel sounds are positive. SKIN: No acute rash. NEUROLOGIC: Exam limited at the present time. PERTINENT LABORATORY DATA: CT scan of the chest was done and reviewed. The CAT scan was also compared to the previous CAT scan on 02/17/2018. There is a small solitary pulmonary nodule in the right upper lobe - unchanged from the previous exam. There is also a small left pleural effusion - unchanged from the previous exam. There is also a moderate-sized right pleural effusion - slightly increased from the prior exam. IMPRESSION: 1. Right lower lobe pneumonia. 2. Bilateral pleural effusions. 3. Mild bronchitis. 4. Bradycardia. 5. Anemia. PLAN: The patient appears very comfortable this morning. He is not short of breath at rest. He does state to feeling better overall. I did discuss the case with night nurse at length. The night nurse stated the patient had an uneventful night. I did review the CAT scan of the chest. The CAT scan was compared to the previous CAT scan. Other than the small increase in the right pleural effusion, there are no other significant changes. On physical exam, the patient's bronchospasm has primarily resolved. In addition, the oxygen saturation on room air is 95-97%. I will continue with the current nebulizer treatments for now. The patient remains on antibiotic therapy - as per Infectious Disease. Input by Dr. Morgan is noted. There are no temperatures noted. There is no leukocytosis. Clinical status of the patient is certainly improved - compared to the initial presentation. Again, this is a patient with very advanced age and very advanced dementia. I would proceed with invasive procedures (such as thoracentesis) ONLY IF the patient becomes symptomatic in the future. At this point in time, I would certainly look to discharge the patient - as his risk of hospital-acquired infections increases by the day. At this point in time, no additional pulmonary intervention is needed or warranted. I will thus follow up on this patient again as requested. I will discuss the above with Dr. Phillips. Keron Horton MD [facility]
--- NOTE | 2018-06-11 13:16 | CP.PCM.PN ---
Subjective - Date & Time of Evaluation Date of Evaluation: 06/11/18 Time of Evaluation: 10:40 - Subjective Subjective: Comfortable in bed, no fevers, not agitated this morning. Objective - Vital Signs/Intake and Output Vital Signs (last 24 hours): Temp Pulse Resp BP Pulse Ox 97.9 F 70 16 153/67 H 97 06/09/18 22:53 06/09/18 22:53 06/09/18 22:53 06/10/18 11:10 06/09/18 22:53 Intake and Output: 06/10/18 06/10/18 06:59 18:59 Intake Total 620 Output Total 600 Balance 20 - Medications Medications: Current Medications Amlodipine Besylate (Norvasc) 10 mg PO DAILY [facility] Last Admin: 06/10/18 11:10 Dose: 10 mg Cholestyramine Resin (Questran) 4 gm PO DAILY [facility] Last Admin: 06/10/18 11:09 Dose: 4 gm Docusate Sodium (Colace) 100 mg PO BID [facility] Last Admin: 06/10/18 11:10 Dose: 100 mg Doxycycline Hyclate (Doryx) 100 mg PO Q12 [facility]; Protocol Last Admin: 06/10/18 11:09 Dose: 100 mg Hydralazine HCl (Apresoline) 10 mg IVP Q6 PRN PRN Reason: Systolic Blood Pressure Cefepime HCl (Maxipime 1gm) 1 gm in 100 mls @ 100 mls/hr IVPB Q8 [facility]; Protocol Vancomycin HCl (Vancomycin 1gm) 1 gm in 250 mls @ 167 mls/hr IVPB Q12H [facility]; Protocol Last Admin: 06/10/18 11:18 Dose: 167 mls/hr Levalbuterol HCl (Xopenex) 1.25 mg IH TIDRESP [facility] Last Admin: 06/10/18 07:31 Dose: 1.25 mg Levothyroxine Sodium (Synthroid) 75 mcg PO 0600 [facility] Last Admin: 06/10/18 06:18 Dose: 75 mcg Memantine (Namenda) 10 mg PO DAILY [facility] Last Admin: 06/10/18 11:09 Dose: 10 mg Quetiapine Fumarate (Seroquel) 25 mg PO BID [facility]; Protocol Last Admin: 06/10/18 11:09 Dose: 25 mg - Labs Labs: 06/10/18 10:00 06/10/18 10:00 - Constitutional Appears: Chronically Ill - Head Exam Head Exam: NORMAL INSPECTION - Respiratory Exam Respiratory Exam: Decreased Breath Sounds - Cardiovascular Exam Cardiovascular Exam: +S1, +S2 - GI/Abdominal Exam GI & Abdominal Exam: Soft. absent: Tenderness Assessment and Plan - Assessment and Plan (Free Text) Plan: Assessment consider right sided HCAP, associated with pleural effusion S/P SIRS with fever, probably from right knee gout, S/P arthrocentesis CAD S/P CABG hypothyroidism DM HTN history of liver lesions history of caricinoid Plan on IV Vancoymcin, cefepime and Doxycycline day 7 for 4-7 days; blood cx are negative; PCT is low, urine Legionella Ag is negative; reviewed CXR discussed with Dr. Phillips - CT chest and patient is to follow up as an outpat ient - there is a right upper lobe nodule which is unchanged, and this can be followed up as an outpatient MRSA screen is positve from the nares discussed with Dr. Horton previously
--- NOTE | 2018-06-11 21:22 | DS ---
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 The patient was followed in the hospital by Infectious Disease, Pulmonary Oncology, Cardiology, and Neurology. PHYSICAL EXAMINATION: VITAL SIGNS: His temperature was 98. His blood pressure was 130/73, respiratory rate 18, oxygen sat was 95% on room air. MEDICATIONS: Medications will be Colace 100 mg b.i.d., Namenda 10 mg daily, Norvasc 10 mg daily, Questran 4 g daily, Seroquel 25 mg b.i.d., Synthroid 75 mcg daily. LABORATORY DATA: On discharge WBC was 4.8, RBC 3.77, hemoglobin 10.2, hematocrit 32.2, platelet count was 150. Chemistry showed normal electrolytes. The BUN was 17, creatinine was 1.1. The patient had normal liver function . He had a CAT scan of the chest which showed bilateral effusions. ASSESSMENT AND PLAN: He was treated for infection by Infectious Disease for possible community-acquired pneumonia. He received physical therapy while in the hospital. All clinical findings have been discussed with in detail with his daughter. He has a known history of carcinoid with liver lesion and he has a renal lesion. He has had a remote history of bypass surgery, history of prostate disease, history of cholecystectomy. Continue to monitor the patient at the [facility] where we will continue supportive care and we will follow up with oncological studies and labs. Andreia Phillips MD
== END 2018-06-11 12:36 | DRG 194 ==
LOC: ED 12:23 → ERH 15:13 → 5RNO 17:07 → 2RSO 06-05 00:28
PROVIDERS: ADMIT Internal Medicine; ATTEND Internal Medicine
PROC: 3E0F7GC Introduction of Other Therapeutic Substance into Respiratory Tract, Via Natural or Artificial Opening (ICD-10-PCS; principal; 2018-06-05)
DX: J18.1 Lobar pneumonia, unspecified organism (principal); C78.7 Secondary malignant neoplasm of liver and intrahepatic bile duct; C79.00 Secondary malignant neoplasm of unspecified kidney and renal pelvis; D61.818 Other pancytopenia; F03.91 Unspecified dementia, unspecified severity, with behavioral disturbance; E34.0 Carcinoid syndrome; I25.10 Atherosclerotic heart disease of native coronary artery without angina pectoris; E11.9 Type 2 diabetes mellitus without complications; R00.1 Bradycardia, unspecified; E03.9 Hypothyroidism, unspecified; D49.0 Neoplasm of unspecified behavior of digestive system; J40 Bronchitis, not specified as acute or chronic; I87.2 Venous insufficiency (chronic) (peripheral); M06.9 Rheumatoid arthritis, unspecified; I11.0 Hypertensive heart disease with heart failure; I50.9 Heart failure, unspecified; E87.6 Hypokalemia; H35.30 Unspecified macular degeneration; Y95 Nosocomial condition; M17.11 Unilateral primary osteoarthritis, right knee; Z78.1 Physical restraint status; Z78.9 Other specified health status; Z85.46 Personal history of malignant neoplasm of prostate; Z92.3 Personal history of irradiation; Z95.1 Presence of aortocoronary bypass graft; Z87.891 Personal history of nicotine dependence